=== PATIENT | male | born 1975 | race Caucasian/White ===

== ENCOUNTER 2019-08-15 09:29 | Outpatient (CLI) | payer OTHER, SELFPAY ==
--- NOTE | ~2019-08-15 | US_ITS ---
EXAMINATION: US knee asp inj w image LT DATE: 08/15/2019 11:57 INDICATION: Left knee pain and effusion TECHNIQUE: A time-out was performed to verify the patient's name, date of , and procedure to pura e performed. The procedure including the risks, benefits, and alternatives was discussed with the pat ient. Risks discussed included bleeding and infection. The patient understood the risks and agreed to proceed. The skin overlying the lateral side of the suprapatellar pouch of the left knee joint was prepped and draped in usual sterile fashion. Anesthetic was administered with 1% lidocaine subcutane ously. A 22 G needle was advanced under these ultrasound observation into the joint. 17 mL of clear yellow viscous joint fluid was aspirated and sent to the lab for Gram stain and cultures as ordered b y the referring physician. The needle was removed and the entry site was cleaned and dressed. There were no immediate complications. FINDINGS: Ultrasound images demonstrates the needle in a moderate-sized left knee joint effusion. IMPRESSION: 1. Successful ultrasound-guided left knee joint aspiration yielding 17 mL of clear yellow viscous flu id. Reviewed, dictated and finalized at location A. IMPRESSION: 1. Successful ultrasound-guided left knee joint aspiration yielding 17 mL of cl ear yellow viscous fluid.
[2019-08-15 12:37] LABS: Erythrocyte Sedimentation Rate 11 mm/hr (0-20)
[2019-08-15 13:00] LABS: Crystals Synovial Fluid None Seen (None Seen)
[2019-08-15 13:06] LABS: Appearance Synovial Fluid Hazy (Clear); Color Synovial Fluid Yellow (Colorless); Nucleated Cell Synovial Fluid 328 /uL (0-200); Source Synovial Fluid Synovial fluid
[2019-08-15 13:07] LABS: Lymphocytes Synovial Fluid 56 %; Monocytes Synovial Fluid 30 %; Neutrophils Synovial Fluid 6 % (0-25); Other Cells Synovial Fluid 8 %; RBC Synovial Fluid 698 /uL (0-0)
[2019-08-15 13:31] LABS: CRP < 0.5 mg/dL (<1.0)
== END 2019-08-15 09:30 | disposition home or self-care (01) ==
PROVIDERS: PCP Family Medicine; Visit Provider Orthopaedic Surgery
DX: M25.562 Pain in left knee (principal)
CPT/HCPCS: 20611; 36415; 85652; 86140; 87070; 87075; 87205; 88108; 89051; 89060

== ENCOUNTER → 2020-03-28 06:51 | Outpatient (CLI) | payer OTHER, SELFPAY ==
[2020-03-28 21:58] LABS: SARS-CoV-2 RNA PCR Positive
== END ==
PROVIDERS: PCP Family Medicine; Visit Provider Family Medicine
DX: U07.1 COVID-19 (principal)
CPT/HCPCS: C9803; U0003; U0005

== ENCOUNTER → 2021-02-23 11:24 | Outpatient (CLI) | payer OTHER, SELFPAY ==
--- NOTE | ~2021-02-23 | XR_ITS ---
XR chest 2V DATE: 02/23/2021 11:36 INDICATION: Cough. Acute bronchitis. TECHNIQUE: 2 views COMPARISON: 07/11/2013 PA and lateral chest FINDINGS: Normal heart size. No hilar or mediastinal enlargement. No pulmonary infiltrate or consolid ation, pleural effusion or pulmonary vascular congestion or pneumothorax is detected. IMPRESSION: No active cardiopulmonary disease Reviewed, dictated and finalized at location A. Y PLAN DEALER
== END ==
PROVIDERS: PCP Family Medicine; Visit Provider Family Medicine
DX: J20.9 Acute bronchitis, unspecified (principal)
CPT/HCPCS: 71046

== ENCOUNTER → 2021-08-13 13:31 | Outpatient (CLI) | payer OTHER, SELFPAY ==
--- NOTE | ~2021-08-13 | XR_ITS ---
EXAMINATION: XR tibia fibula LT 2V INDICATION: Left leg pain TECHNIQUE: Two views of the left tibia and fibula are obtained. COMPARISON: None available FINDINGS: There is no fracture, dislocation, or subluxation. There is soft tissue swelling of the leg . Changes of left knee arthroplasty are noted. Alignment at the ankle is normal. IMPRESSION: 1. Soft tissue swelling without underlying osseous abnormality. Reviewed, dictated and finalized at location B.
== END ==
PROVIDERS: PCP Family Medicine; Visit Provider Nurse Practitioner Family
DX: E11.65 Type 2 diabetes mellitus with hyperglycemia (principal); Z79.4 Long term (current) use of insulin; M79.89 Other specified soft tissue disorders
CPT/HCPCS: 73590

== ENCOUNTER 2021-08-18 13:16 | Outpatient (RCR) | payer OTHER, SELFPAY ==
[2021-08-18 13:32] VITALS: BMI 40.2
== END 2021-11-16 23:59 | disposition home or self-care (01) ==
LOC: ANHWOC 13:16
PROVIDERS: PCP Family Medicine; Visit Provider Nurse Practitioner Family
DX: E11.65 Type 2 diabetes mellitus with hyperglycemia (principal); E11.622 Type 2 diabetes mellitus with other skin ulcer; L98.499 Non-pressure chronic ulcer of skin of other sites with unspecified severity; Z79.4 Long term (current) use of insulin
CPT/HCPCS: 99212; A9270; G0463

== ENCOUNTER 2021-12-29 08:33 | Outpatient (CLI) | payer OTHER, SELFPAY ==
--- NOTE | 2022-01-22 18:12 | WPDHOMESLEEP ---
Sleep Study - Home Unattended Date of Study: 12/29/21 Ordering Provider: Rebel López MD Interpreting Provider: Faustina Andrea, DO Home Sleep Study Type: Watch PAT Height: 1.78 m Weight: 124.738 kg Body Mass Index: 39.4 Neck Circumference (inches): 17.5 [place]: 6 Reason for Sleep Study Snoring, multiple nighttime awakenings Sleep History The patient is a 47-year-old male with chronic low back pain depression peripheral edema, morbid obesity, seasonal allergies, TMJ, diabetes, B12 deficiency the arthritis that had a sleep study ordered by his primary care for evaluation sleep the patient frequently awakens from sleep short breath. He denies awakening at night with heartburn, belching or cough. He frequently snores loud enough that others complain. He occasionally has trouble sleeping when he has a cold. He frequently wakes up gasping for air throughout the night. He frequently has breathing problems at night observed by himself or others. He frequently sweats excessively at night. He rarely has heart palpitations or irregular heartbeats during the night. He rarely falls asleep during the day. He rarely falls asleep while driving. He rarely experiences loss of muscle tone when extremely emotional. He occasionally has trouble at school or work due to sleepiness. He denies feeling unable to move waking up or falling asleep. He rarely experiences vivid dreamlike scenes upon awakening or falling asleep. He denies feeling afraid of going to sleep. He rarely has nightmares occasionally remembers his dreams. He occasionally has thoughts racing through his mind. He rarely feels sad or depressed. He occasionally has anxiety. He rarely has muscular tension. He occasionally notices parts of his body jerk. He occasionally kicks during the night. He rarely has crawling and aching feelings in his legs and rarely has leg pain during the night. He occasionally grinds his teeth during sleep but rarely awakens with morning jaw pain. He is rarely bothered by pain during the day and rarely awakened by pain during the night. He rarely wakes up feeling stiff in the morning. He rarely wakes up with sore or achy muscles. He rarely wakes up with pain in the neck, spine or other joints. He goes to bed at 10:00 p.m. on both weekdays and weekends. It takes him 15-30 minutes to fall asleep. He wakes up to 6 times throughout the night to urinate. He is able to fall asleep within a few minutes. He wakes up at 5:00 a.m. on weekdays and at 7:00 a.m. on the weekends. He typically gets 5-6 hours of sleep per night. He will stay in bed for 5 minutes after waking up in the morning. He currently lives with his 3 children. He does not consume any caffeinated beverages within 2 hours of bedtime. He does not engage in physical exercise before bedtime. He will read and watch television before falling asleep. He denies taking naps in the afternoon or the evening. He drinks 2 caffeinated beverages per day. He denies tobacco, alcohol and recreational drug use. 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
[2022-01-22 18:25] VITALS: BMI 39.4
--- NOTE | 2022-03-17 09:28 | SLEEP ---
new calls [phone]
== END 2021-12-30 14:04 | disposition home or self-care (01) ==
LOC: ANHCSM 08:36
PROVIDERS: PCP Family Medicine; Visit Provider Family Medicine
DX: G47.10 Hypersomnia, unspecified (principal); R06.83 Snoring
CPT/HCPCS: 95800

== ENCOUNTER 2022-08-18 09:17 | Emergency (ER) | payer OTHER, SELFPAY ==
[2022-08-18 09:24] VITALS: BP 129/78; PULSE 77; RESP 18; TEMP 36.5; O2SAT 99
--- NOTE | 2022-08-18 09:58 | ED.WOUNDLAC ---
HPI - Wound/Laceration General Chief Complaint: Wound/Laceration Stated Complaint: Cut Finger Lt Hand Time Seen by Provider: 08/18/22 09:52 Source: patient and RN notes reviewed Mode of arrival: ambulatory Limitations: no limitations History of Present Illness HPI narrative: Patient presents today complaining of a laceration to the dorsum of his left 2nd finger at the proximal phalanx that occurred last night around 8:00 p.m. on a piece of glass. Denies numbness or tingling. Currently rates his pain 810. He is up-to-date on his tetanus vaccine. The area was cleaned with alcohol and peroxide as well as flushed with water. Patient is diabetic. Related Data Home Medications Medication Instructions Recorded Confirmed blood-glucose meter,continuous #1 ea 07/06/19 08/18/22 (Dexcom G6 Hotel Engineer) subcutaneous insulin pump (Omnipod #1 ea 07/06/19 08/18/22 Insulin Management) olopatadine 0.7 % eye drops 1 drp EACH EYE DAILY 05/11/21 08/18/22 (Pataday Once Daily Relief) Allergies Allergy/AdvReac Type Severity Reaction Status Date / Time aspartame Allergy Severe THROAT Verified 08/18/22 09:38 SWELLING sucralose Allergy Intermediate sore Verified 08/18/22 09:38 throat, THROAT SWELLING Review of Systems Review of Systems: CONSTITUTIONAL: Denies body aches, fever, chills, or sweats. EYES: Denies visual changes, redness, or discharge. ENT: Denies rhinorrhea, congestion, sore throat, or otalgia. CARDIOVASCULAR: Denies chest pain, palpitations, or edema. RESPIRATORY: Denies cough or dyspnea. GASTROINTESTINAL: Denies abdominal pain, nausea, vomiting, or diarrhea. GENITOURINARY: Denies dysuria or hematuria. SKIN: Denies rash, itching. + finger laceration MUSCULOSKELETAL: Denies back pain, joint pain, or myalgia. NEUROLOGIC: Denies headache, numbness, tingling, or weakness. PSYCH: Denies depression or anxiety. [facility] Past Medical History Medical History Acromioclavicular joint arthritis Acute bronchitis (~02/02/21) Chest x-ray normal 02/23/2021 Acute non-recurrent maxillary sinusitis Acute sinusitis, unspecified Allergic conjunctivitis Biceps rupture, distal BMI 39.0-39.9,adult BMI 40.0-44.9, adult Chronic eustachian tube dysfunction Chronic low back pain with right-sided sciatica COVID-19 (03/28/20) COVID-19 (04/26/22) 2nd episode 04/26/2022 with positive test 04/27/2022 Deep vein thrombosis (DVT) of left lower extremity (04/22/20) Exposure to COVID-19 virus Gastritis (~12/08/20) Hypersomnia (~2021) Hypokalemia Potassium low at 3.1 on 06/25/2022. Left knee pain senior care (current) use of insulin Major depression (~06/2020) Mild peripheral edema edema secondary to amlodipine 10 mg daily Morbid obesity with BMI of 40.0-44.9, adult Non-healing wound Obesity (BMI 30-39.9) Otitis media Right shoulder pain Rotator cuff tendonitis Screening for diabetic retinopathy no retinopathy 04/05/2022. Seasonal allergic rhinitis TMJ (temporomandibular joint syndrome) (~2021) Type 2 diabetes mellitus with hyperglycemia, with long-term current use of insulin Fasting glucose 138 on 06/25/2022 with hemoglobin A1c 5.6 on 06/17/2022. Type 2 diabetes mellitus with other skin ulcer Vitamin B12 deficiency anemia (07/16/20) vitamin B12 level low at 343 with goal greater than 400 on 07/16/2020. Vitamin B12 low at 376 with goal greater than 400 with folic acid 12.9 and hemoglobin 14.5 on 06/25/2022. Surgical History Surgical History History of appendectomy History of knee surgery History of total left knee replacement (TKR) Family History Family History Grandparent Family history of arthritis Diabetes mellitus Mother Family history of congestive heart failure Family history of heart disease in male family member before
== END 2022-08-18 10:20 | disposition home or self-care (01) ==
PROVIDERS: Emergency Provider Nurse Practitioner; PCP Family Medicine
DX: S61.211A Laceration without foreign body of left index finger without damage to nail, initial encounter (principal); W25.XXXA Contact with sharp glass, initial encounter; E66.01 Morbid (severe) obesity due to excess calories; Z68.37 Body mass index [BMI] 37.0-37.9, adult; E11.9 Type 2 diabetes mellitus without complications; Z79.4 Long term (current) use of insulin; Z79.84 Long term (current) use of oral hypoglycemic drugs; Z86.718 Personal history of other venous thrombosis and embolism; Z86.16 Personal history of COVID-19
CPT/HCPCS: 99213; G0463

== ENCOUNTER → 2023-01-24 16:42 | Outpatient (CLI) | payer OTHER, SELFPAY ==
--- NOTE | ~2023-01-24 | XR_ITS ---
XR lumbar spine min 4V 01/24/2023 17:06 Indication: Low back pain Procedure: 5 views lumbar spine Comparison: No prior studies for comparison. Findings: There is levoscoliosis. There is degenerative retrolisthesis at L1-2, L2-3 and L3-4. There is facet hypertrophy at L4-5 and L5-S1. There is disc narrowing at all lumbar levels. Levoscoliosis. No acute fracture or traumatic malalignment. Sacral foramen are symmetric. Impression: 1: Severe lumbar spondylosis. Reviewed, dictated and finalized at location A. [employer] Impression: 1: Severe lumbar spondylosis.
--- NOTE | ~2023-01-24 | XR_ITS ---
XR thoracic spine 3V 01/24/2023 17:06 Indication: Back pain Procedure: 3 views thoracic spine Comparison: No prior studies for comparison. Findings: Vertebral body heights are maintained. Pedicles intact. No fracture or traumatic malalignme nt. No paraspinal soft tissue abnormality. Impression: 1: No significant abnormality of the thoracic spine. Reviewed, dictated and finalized at location A. OFFICE AGENT Impression: 1: No significant abnormality of the thoracic spine.
== END ==
PROVIDERS: PCP Family Medicine; Visit Provider Family Medicine
DX: M54.41 Lumbago with sciatica, right side (principal); M54.6 Pain in thoracic spine; G89.29 Other chronic pain; M47.896 Other spondylosis, lumbar region
CPT/HCPCS: 72072; 72110

== ENCOUNTER 2023-10-17 13:37 | Outpatient (CLI) | payer OTHER, SELFPAY ==
--- NOTE | ~2023-10-17 | XR_ITS ---
3 VIEWS LUMBAR SPINE Ordering provider: Rakesh De La Fuente MD History: . M47.817 - Spondylosis without myelopathy or radiculopathy... . Comparison: None. FINDINGS: VERTEBRAL BODIES:Levoscoliosis. Anterior Loss of height of L1 is noted suggestive of chronic compress ion fracture... DISK SPACES: Degenerative disc disease at the level of L1-L2, L2-L3 and L4-L5. Multilevel facet joint disease. SOFT TISSUES: Normal. IMPRESSION: No acute osseous abnormality lumbar spine. Chronic loss of height anteriorly seen in L1. Multilevel degenerative disc disease. Multilevel facet joint disease. Reviewed, dictated and finalized at location A.
== END 2023-10-17 13:38 | disposition home or self-care (01) ==
PROVIDERS: PCP Family Medicine; Visit Provider Anesthesiology Pain Medicine
DX: M47.817 Spondylosis without myelopathy or radiculopathy, lumbosacral region (principal); M43.17 Spondylolisthesis, lumbosacral region; M51.36 Other intervertebral disc degeneration, lumbar region
CPT/HCPCS: 72114

== ENCOUNTER 2023-11-08 07:55 | Day surgery (SDC) | payer OTHER, SELFPAY ==
[2023-10-24 11:15] VITALS: BMI 36.3
--- NOTE | ~2023-11-08 | XR_ITS ---
EXAMINATION: XR fluoroscopy no charge DATE: 11/08/2023 9:00 CDT INDICATION: YOLIS L3,L4, L5 NERVE BLOCK . TECHNIQUE: 11 fluoroscopic images of the lumbar spine were obtained during bilateral L3, L4, and L5 n erve block, performed by Rakesh De La Fuente MD. I was not present during the procedure. Fluoroscopy exp osure time was 17.7 seconds. Air Kerma 6.53 mGy. COMPARISON: None FINDINGS/IMPRESSION: Fluoroscopic documentation of bilateral L3, L4, and L5 nerve block. Please refer to the operative not e for complete procedural details . Reviewed, dictated and finalized at location K.
--- NOTE | 2023-11-08 05:43 | WPDHPUPDATE1 ---
History and Physical Update Update Date/Time: 11/08/23 05:43 History and Physical has been reviewed, including an updated exam of the patient. There are NO changes in the patient's condition. Risks, benefits, and alternatives have been discussed and questions answered. Patient agrees to proceed with procedure.
--- NOTE | 2023-11-08 05:44 | W.PM.PROC2 ---
Procedure Note - Detailed Date of Procedure 11/08/23 Pre-op Diagnosis Lumbosacral Spondylosis, chronic low back pain Post-op Diagnosis Same Procedure Performed Diagnostic bilateral Lumbar Medial Branch/Dorsal Ramus Blocks at L3, L4, L5 Treating the bilateral L4-5, L5-S1 Facet Joints Under Fluoroscopic Guidance and with Contrast Control. ( 4 levels blocked). Surgeon Rakesh De La Fuente MD Spout Worker None. Anesthesia Local Description of Procedure INFORMED CONSENT: Risks, benefits and alternatives to the procedure were discussed in detail with the patient who expressed explicit understanding and consent to proceed. Patient was informed verbally and in written form regarding the risks associated with the procedure including the low risk of serious infection, bleeding/bruising, allergic reaction, nerve or organ injury, paralysis, procedural site pain or discomfort, worsening pain and/or mobility, failure to treat and/or disfigurement. The patient expressed explicit understanding and consent to proceed. All materials required for the procedure were available prior to procedure start. Site and side were marked prior to procedure and confirmed in the presence of the patient. PROCEDURE IN DETAIL: The patient was brought to the procedural suite and placed in the prone position. Patient was made comfortable with use of pillows under the head/chest, hips and ankles. Skin overlying the injection site on the affected side(s) was prepared broadly with ChloraPrep applicator and draped in a sterile manner. Aseptic technique was used throughout. The endplates of the vertebral bodies at the site(s) of interest were aligned in the AP view. Ipsilateral oblique angulation was utilized to optimize visualization of the intersection between the superior articulating process and transverse process at each target site. Local anesthesia was established by infiltration with approximately 5 mL of 1% lidocaine via a 1-1/2 inch 27-gauge needle. A 25-gauge 3.5 inch Quincke spinal needle was advanced until the needle tip contacted periosteum at the target site, right L3. Lateral view was utilized to confirm the appropriate placement of the needle tip just anterior to the facet line and superior to the pedicle. In the Lateral view, 0.25 mL of Omnipaque 300 contrast medium was injected after negative aspiration for CSF, blood or other bodily fluid, showing appropriate extra-articular spread of contrast without evidence of intravascular, foraminal or intrathecal placement. A 0.5 mL solution of 0.5% PF bupivacaine was injected after negative repeat aspiration. Appropriate spread of the injectate was confirmed with washout of previously injected contrast. No parasthesias were elicited. Needle was removed completely intact without difficulty. The same exact procedure was repeated for all remaining levels on the ipsilateral side, right L4, L5 medial branches/dorsal ramus, modified as necessary to accommodate for the new target location with identical findings and results and no evidence of complication. The same exact procedure was repeated for all remaining levels on the contralateral side, left L3, L4, L5 medial branches/dorsal ramus, modified as necessary to accommodate for the new target location with identical findings and results and no evidence of complication. Images were saved and documented in the patient chart. Patient's skin was cleaned and sterile bandage applied. The patient tolerated the procedure well. The patient was transported to the recovery area in stable condition where they were observed for an appropriate amount of time prior to discharge, without evidence of complication. Patient was instructed on the appropriate completion of a pain diary over the next 12-24 hours. The patient was instructed to avoid excessive activity for the next 48 hours, including climbing and frequent use of stairs. Showers only for 48 hours. They were instructed not to drive or operate heavy machinery for
[2023-11-08 08:20] VITALS: BMI 36.6
[2023-11-08 08:21] VITALS: BP 129/98; PULSE 76; RESP 16; TEMP 36.7; O2SAT 98
[2023-11-08 09:07] VITALS: BP 148/88; PULSE 68; RESP 14; O2SAT 97
[2023-11-08 09:12] VITALS: BP 147/87; PULSE 67; RESP 10; O2SAT 98
[2023-11-08] MEDS: LIDOCAINE HCL 1% PF INJ 5 ML VIAL 3 ML INFILTRATE (09:15)
[2023-11-08] MEDS: BUPivacaine HCL 0.5% 10 ML AMP 5 ML INFILTRATE (09:17)
[2023-11-08 09:21] VITALS: BP 143/95; PULSE 78; RESP 15; O2SAT 99
== END 2023-11-08 09:30 | disposition home or self-care (01) ==
PROVIDERS: PCP Family Medicine; Visit Provider Anesthesiology Pain Medicine
PROC: (CPT 64493; principal; 2023-11-08 09:00)
DX: M47.817 Spondylosis without myelopathy or radiculopathy, lumbosacral region (principal); M54.59 Other low back pain
CPT/HCPCS: 64493 ×2; 64494 ×2; 99199

== ENCOUNTER 2023-12-13 09:47 | Day surgery (SDC) | payer OTHER, SELFPAY ==
[2023-12-05 09:03] VITALS: BMI 37.6
--- NOTE | ~2023-12-13 | XR_ITS ---
INTRAOPERATIVE FLUOROSCOPY: CLINICAL HISTORY: 48 years old Male; YOLIS L3,L4,L5 MEDIAL BRANCH/DORSAL NERVE BLK PROCEDURE COMMENTS: Limited intraoperative fluoroscopy of the lower lumbar spine was performed. CUMULATIVE DOSE: 9.2 mGy FLUOROSCOPY TIME: 23.4 seconds FINDINGS/IMPRESSION: As above Please refer to operative note for further details. Reviewed, dictated and finalized at location A. RMATION TECHNOLOGY TEACHER
[2023-12-13 10:19] VITALS: BP 132/90; PULSE 83; RESP 20; TEMP 36.4; O2SAT 96; BMI 36.7
--- NOTE | 2023-12-13 10:52 | WPDHPUPDATE1 ---
History and Physical Update Update Date/Time: 12/13/23 10:52 History and Physical has been reviewed, including an updated exam of the patient. There are NO changes in the patient's condition. Risks, benefits, and alternatives have been discussed and questions answered. Patient agrees to proceed with procedure.
--- NOTE | 2023-12-13 10:53 | P.OP_ITS ---
Procedure Note - Detailed Date of Procedure 12/13/23 Pre-op Diagnosis Lumbosacral Spondylosis, chronic low back pain Post-op Diagnosis Same Procedure Performed Diagnostic Bilateral Lumbar Medial Branch/Dorsal Ramus Blocks at L3, L4, L5 T reating the Bilateral L4-5, L5-S1 Facet Joints Under Fluoroscopic Guidance and with Contrast Control. (4 levels blocked). Surgeon Rakesh De La Fuente MD Beef Breaker None. Anesthesia Local Description of Procedure INFORMED CONSENT: Risks, benefits and alternatives to the procedure were discussed in detail with the patient who expressed explicit understanding and consent to proceed. Patient was informed verbally and in written form regarding the risks associated with the procedure including the low risk of serious infection, bleeding/bruising, allergic reaction, nerve or organ injury, paralysis, procedural site pain or discomfort, worsening pain and/or mobility, failure to treat and/or disfigurement. The patient expressed explicit understanding and consent to proceed. All materials required for the procedure were available prior to procedure start. Site and side were marked prior to procedure and confirmed in the presence of the patient. PROCEDURE IN DETAIL: The patient was brought to the procedural suite and placed in the prone position. Patient was made comfortable with use of pillows under the head/chest, hips and ankles. Skin overlying the injection site on the affected side(s) was prepared broadly with ChloraPrep applicator and draped in a sterile manner. Aseptic technique was used throughout. The endplates of the vertebral bodies at the site(s) of interest were aligned in the AP view. Ipsil ateral oblique angulation was utilized to optimize visualization of the intersection between the superior articulating process and transverse process at each target site. Local anesthesia was established by infiltration with approximately 5 mL of 1% lidocaine via a 1-1/2 inch 27-gauge needle. A 25-gauge 5.0 inch Quincke spinal needle was advanced until the needle tip contacted periosteum at the target site, right L3. Lateral view was utilized to confirm the appropriate placement of the needle tip just anterior to the facet line and superior to the pedicle. In the Lateral view, 0.25 mL of Omnipaque 300 contrast medium was injected after negative aspiration for CSF, blood or other bodily fluid, showing appropriate extra-articular spread of contrast without evidence of intravascular, foraminal or intrathecal placement. A 0.5 mL solution of 2.0% PF Lidocaine was injected after negative repeat aspiration. Appropriate spread of the injectate was confirmed with washout of previously injected contrast. No parasthesias were elicited. Needle was removed completely intact without difficulty. The same exact procedure was repeated for all remaining levels on the ipsilateral side, right L4, L5 medial branches/dorsal ramus, modified as necessary to accommodate for the new target location with identical findings and results and no evidence of complication. The same exact procedure was repeated for all remaining levels on the contralateral side, left L3, L4, L5 medial branches/dorsal ramus, modified as necessary to accommodate for the new target location with identical findings and results and no evidence of complication. Images were saved and documented in the patient chart. Patient's skin was cleaned and sterile bandage applied. The patient tolerated the procedure well. The patient was transported to the recovery area in stable condition where they were observed for an appropriate amount of time prior to discharge, without evidence of complication. Patient was instructed on the appropriate completion of a pain diary over the next 12-24 hours. The patient was instructed to avoid excessive activity for the next 48 hours, including climbing and frequent use of stairs. Showers only for 48 hours. They were instructed not to drive or operate heavy machinery for 24 hours. They are to monitor for severe headaches, fevers, chills, night sweats, erythema/swelling at the site or any other signs of infection, bleeding/bruising, bowel or bladder changes as well as new pain, weakness or numbness in the upper or lower extremity. Should they notice these changes, they are instructed to call our office immediately or report directly to the nearest Emergency Department if no answer or if after posted office hours. COMPLICATIONS: None COMMENTS: None CONTRAST WASTED: 28.5mL Omnipaque 300. Complications No immediate complications Condition Stable Disposition Same day [facility] Billing Surgery - Charge Forward: Surgery Billing
[2023-12-13 11:05] VITALS: BP 147/91; PULSE 76; RESP 12; O2SAT 98
[2023-12-13 11:11] VITALS: BP 151/87; PULSE 74; RESP 10; O2SAT 98
[2023-12-13] MEDS: LIDOCAINE HCL 1% PF INJ 5 ML VIAL 2 ML INFILTRATE (11:17)
[2023-12-13] MEDS: LIDOCAINE HCL 2% PF INJ 5 ML VIAL 3 ML INFILTRATE (11:17)
[2023-12-13 11:20] VITALS: BP 134/92; PULSE 83; RESP 14; O2SAT 100
== END 2023-12-13 11:29 | disposition home or self-care (01) ==
PROVIDERS: PCP Family Medicine; Visit Provider Anesthesiology Pain Medicine
PROC: (CPT 64493; principal; 2023-12-13 11:15)
DX: M47.817 Spondylosis without myelopathy or radiculopathy, lumbosacral region (principal); M54.59 Other low back pain
CPT/HCPCS: 64493 ×2; 64494 ×2; 99199

== ENCOUNTER 2024-01-12 09:23 | Outpatient (CLI) | payer OTHER, SELFPAY ==
[2024-01-12 10:49] LABS: Anion Gap 5 mmol/L (4-12); Blood Urea Nitrogen 19 mg/dL (9-20); Calcium 9.2 mg/dL (8.4-10.2); Carbon Dioxide 33 mmol/L (22-30); Chloride 104 mmol/L (98-107); Estimated Glomerular Filt Rate > 60; Glucose 136 mg/dL (65-110); Potassium 3.2 mmol/L (3.4-5.0); Sodium 142 mmol/L (137-145)
== END 2024-01-12 09:24 | disposition home or self-care (01) ==
PROVIDERS: PCP Family Medicine; Visit Provider Anesthesiology
DX: Z01.818 Encounter for other preprocedural examination (principal)
CPT/HCPCS: 36415; 80048

== ENCOUNTER 2024-01-17 07:00 | Day surgery (SDC) | payer OTHER, SELFPAY ==
[2024-01-09 12:05] VITALS: BMI 38.0
--- NOTE | ~2024-01-17 | XR_ITS ---
XR fluoroscopy no charge Indication: Thermal radiofrequency ablation at L3, L4 and L5 medial branch nerve block TECHNIQUE: Fluoroscopy used during Thermal radiofrequency ablation at L3, L4 and L5 medial branch ne rve block performed by [Rakesh De La Fuente MD] . 127 fluoroscopic images. FINDINGS: Correlate with procedure note. IMPRESSION: Fluoroscopy used during Thermal radiofrequency ablation at L3, L4 and L5 medial branch ne rve block . Reviewed, dictated and finalized at location B. [employer] IMPRESSION: Fluoroscopy used during Thermal radiofrequency ablation at L3, L4 a nd L5 medial branch nerve block .
[2024-01-17 06:15] VITALS: BP 132/93; PULSE 87; RESP 18; TEMP 36.4; O2SAT 96
[2024-01-17] MEDS: LACTATED RINGERS 1,000 ML 30 ML IV CONT (06:33)
--- NOTE | 2024-01-17 07:09 | P.PNAN_ITS ---
Anes - Initial Pre Proc Eval Procedure: Operation Date: 01/17/24 07:30 Proposed Procedures p Thermal Radiofrequency Ablation Bilateral L3, L4, L5 Medial Branch/Dorsal Ramus Addressing Bilateral L4-5, L5-S1 Facet Joints under Fluoroscopic Guidance with Contrast Control - Rakesh De La Fuente MD Date/Time: 01/17/24 07:09 Surgeon: Rakesh De La Fuente MD Pre Op Diagnosis: Lumbosacral Spondylosis Patient Data Age: 48 Gender: M Height: 1.78 m Weight: 120.3 kg Allergies Allergy/AdvReac Type Severity Reaction Status Date / Time aspartame Allergy Severe THROAT Verified 01/17/24 07:08 SWELLING sucralose Allergy Intermediate sore Verified 01/17/24 07:08 throat, THROAT SWELLING Home Medications ?Medication ?Instructions ?Recorded ?Confirmed ?Type blood-glucose meter,continuous #1 ea 07/06/19 12/27/23 History (Dexcom G6 Lens Edge Grinder Machine) albuterol sulfate 90 mcg/actuation 2 inh inhalation Q4H PRN shortness 02/23/21 01/09/24 Rx aerosol inhaler (ProAir HFA) of breath or wheezing #8.5 grams blood-glucose meter (Contour Next #1 ea 04/09/21 12/27/23 Rx Meter) Dexcom G6 Transmitter #1 ea 07/26/22 12/27/23 Rx (blood-glucose transmitter) atorvastatin 40 mg tablet 40 mg PO QHS #90 tabs 12/21/22 01/09/24 Rx glucagon 3 mg/actuation nasal 3 mg intranasal ONCE PRN 12/23/22 01/09/24 Rx spray (Baqsimi) hypoglycemia #1 ea insulin pump cart,automated,BT #45 ea 03/31/23 12/27/23 Rx (Omnipod 5 G6 Pods (Gen 5) subcutaneous cartridge) Dexcom G6 Sensor (blood-glucose #9 ea 04/11/23 12/27/23 Rx sensor) amlodipine 10 mg tablet 10 mg PO DAILY #90 tabs 04/11/23 01/09/24 Rx azelastine 0.05 % eye drops 1 drp ophthalmic (eye) BID PRN 05/12/23 01/09/24 Rx allergy #18 mL fluticasone propionate 50 1 spray intranasal BID #48 grams 05/12/23 01/09/24 Rx mcg/actuation nasal spray,suspension (Flonase Allergy Relief) irbesartan 300 1 tablet PO DAILY #90 tabs 07/08/23 01/09/24 Rx mg-hydrochlorothiazide 12.5 mg tablet dapagliflozin propanediol 10 mg 10 mg PO QAM 90 days #90 tabs 07/21/23 01/09/24 Rx tablet (Farxiga) metformin 500 mg tablet,extended 1,000 mg (2 x 500 mg) PO BID #360 07/21/23 01/09/24 Rx release 24 hr tabs tirzepatide 15 mg/0.5 mL 15 mg (0.5 mL) subcut WEEKLY #6 mL 07/21/23 01/09/24 Rx subcutaneous pen injector (Mounjaro) escitalopram oxalate 10 mg tablet 10 mg PO DAILY #30 tabs 11/08/23 01/09/24 Rx (Lexapro) tadalafil 5 mg tablet 5 mg PO DAILY sexual activity #90 12/27/23 01/09/24 Rx tabs tamsulosin 0.4 mg capsule 0.4 mg PO QHS #90 caps 12/27/23 01/09/24 Rx insulin lispro 100 unit/mL 100 unit continuous subcutaneous 01/09/24 Rx subcutaneous solution (Humalog infusion DAILY #90 mL U-100 Insulin) omeprazole 40 mg capsule,delayed 40 mg PO DAILY #90 caps 01/09/24 01/09/24 Rx release Patient hx anesthesia problems: none Family hx anesthesia problems: none Results Review: All pre-operative results and documents have been reviewed as part of the pre- operative evaluation. [facility] Past Medical History Medical History BPH without obstruction/lower urinary tract symptoms Left shoulder pain Paresthesia of both hands (~05/2023) overuse BMI 38.0-38.9,adult Chronic thoracic back pain X-ray of the thoracic spine on 01/24/2023 was unremarkable. Muscle soreness Tendinitis of left rotator cuff DJD of AC (acromioclavicular) joint Colon cancer screening patient reports normal colonoscopy within the last several years. Recheck in 10 years. BMI 37.0-37.9, adult Chiggers (~10/25/22) COVID-19 (04/26/22) 2nd episode 04/26/2022 with positive test 04/27/2022 Obesity (BMI 30-39.9) Screening for diabetic retinopathy no retinopathy 04/05/2022. Otalgia of both ears Sensation of fullness in both ears Mild peripheral edema edema secondary to amlodipine 10 mg daily Hypersomnia (~2021) Chronic eustachian tube dysfunction TMJ (temporomandibular joint syndrome) (~2021) Morbid obesity with BMI of 40.0-44.9, adult Rotator cuff tendonitis Right shoulder pain Otitis media Type 2 diabetes mellitus with other skin ulcer Diabetic skin ulcer Non-healing wound Allergic conjunctivitis Seasonal allergic rhinitis Acute sinusitis, unspecified Hyperlipidemia LDL goal <100 Acute bronchitis (~02/02/21) Chest x-ray normal 02/23/2021 Vitamin B12 deficiency anemia (07/16/20) vitamin B12 level low at 343 with goal greater than 400 on 07/16/2020. Vitamin B12 low at 376 with goal greater than 400 with folic acid 12.9 and hemoglobin 14.5 on 06/25/2022. BMI 40.0-44.9, adult Gastritis (~12/08/20) Major depression (~06/2020) High thyroid stimulating hormone (TSH) level TSH normal at 3.47 on 06/25/2022. BMI 39.0-39.9,adult Deep vein thrombosis (DVT) of left lower extremity (04/22/20) COVID-19 (03/28/20) Exposure to COVID-19 virus Left knee pain Hypokalemia Potassium low at 3.1 on 06/25/2022. Biceps rupture, distal Acromioclavicular joint arthritis Chronic low back pain with right-sided sciatica X-ray of the lumbar spine on 01/24/2023 reveals severe lumbar spondylosis with facet arthropathy. Multilevel degenerative disc disease on x-ray 10/17/2023. Acute non-recurrent maxillary sinusitis [facility] (current) use of insulin Type 2 diabetes mellitus with hyperglycemia, with long-term current use of insulin Fasting glucose 138 on 06/25/2022 with hemoglobin A1c 5.6 on 06/17/2022. Surgical History Surgical History History of total left knee replacement (TKR) History of knee surgery History of appendectomy Family History Family History Grandparent Family history of arthritis Diabetes mellitus Mother Family history of congestive heart failure Family history of heart disease in male family member before age 55 Father Family history of heart disease in male family member before age 55 Other Family history of cardiovascular disease Family history of malignant neoplasm Social History Social History Smoking status: Never smoker Second hand tobacco smoke exposure: Yes Alcohol intake: never Substance use: never Substance use type: does not use Lack of Transportation: No Lack of Food: Sometimes True Current Housing: I Have Housing Concerned About Future Housing: No Difficulty Paying Gas/Electric Bills: No Difficulty Paying for Meds: No Currently Unemployed: No Education: High School Diploma/GED Difficulty w/ Childcare or Family Care: No Living arrangements: with family Spiritual care concerns: No Anes - Eval Final PreProcedure Day of Procedure 01/17/24 07:09 Patient weight: obese Heart: regular rate and rhythm Lungs: clear to auscultation Airway: Mallampati scale class II Neurological: alert and oriented Last oral intake: >/= 8 hours ASA classification: III Emergent: no Anesthetic plan: proceed Anesthesia type and monitoring: general GIVS and standard monitoring Results Review: All pre-operative results and documents have been reviewed as part of the pre- operative evaluation. Informed Consent: The patient's anesthetic plan and its attendant risks and benefits were discussed with the patient/family/POA. Questions were solicited and answers provided to the satisfaction of the patient/family/POA.
--- NOTE | 2024-01-17 07:11 | WPDHPUPDATE1 ---
History and Physical Update Update Date/Time: 01/17/24 07:11 History and Physical has been reviewed, including an updated exam of the patient. There are NO changes in the patient's condition. Risks, benefits, and alternatives have been discussed and questions answered. Patient agrees to proceed with procedure.
--- NOTE | 2024-01-17 07:13 | W.PM.PROC2 ---
Procedure Note - Detailed Date of Procedure 01/17/24 Pre-op Diagnosis Lumbosacral Spondylosis, chronic low back pain Post-op Diagnosis Same Procedure Performed Thermal Radiofrequency Ablation of the [Right] Lumbar Medial Branches[/Dorsal Ramus] at the [L3, L4, L5] Levels Treating the [Ipsilateral] [L4-5, L5-S1] Facet Joints Under Fluoroscopic Guidance ([2] Levels Treated). Surgeon Rakesh De La Fuente MD Advanced Manager None. Anesthesia Local (w/ MAC) Description of Procedure INFORMED CONSENT: Risks, benefits and alternatives to the procedure were discussed in detail with the patient who expressed explicit understanding and consent to proceed. Patient was informed verbally and in written form regarding the risks associated with the procedure including the low risk of serious infection, bleeding/bruising, allergic reaction, nerve or organ injury, paralysis, procedural site pain or discomfort, worsening pain and/or mobility, failure to treat and/or disfigurement. The patient expressed explicit understanding and consent to proceed. All materials required for the procedure were available prior to procedure start. Site and side were marked prior to procedure and confirmed in the presence of the patient. PROCEDURE IN DETAIL: The patient was brought to the procedural suite and placed in the prone position. Patient was made comfortable with use of pillows under the head/chest, hips and ankles. ASA standard monitors were applied and used throughout the procedure. Skin overlying the injection site on the affected side(s) was prepared broadly with ChloraPrep applicator and draped in a sterile manner. Aseptic technique was used throughout. The endplates of the vertebral bodies at the site(s) of interest were aligned in the AP view. Ipsilateral oblique angulation was utilized to optimize visualization of the intersection between the superior articulating process and transverse process at each target site. Local anesthesia was established by infiltration with approximately 5 mL of 1% lidocaine via a 1-1/2 inch 27-gauge needle divided over each site treated. A 16-gauge 150mm My Point...Exactlyian RF needle with curved 10mm active tip was advanced in the AP view until the needle tip contacted the periosteum at the target site, the right L3 medial branch. Lateral view was utilized to adjust and confirm the appropriate placement of the needle tip just anterior to the facet line, superior to the pedicle and posterior to the foramen. Grounding electrode was in place and functioning. The appropriately-sized RF cannula was inserted into the RF needle and motor stimulation was performed with no subjective or objective evidence of recruited muscle activity with stimulation up to 2.0 volts at a frequency of 2Hz. 1.5 mL of 2.0% PF lidocaine was injected after negative aspiration. After a 90s pause, lesioning was performed to 90 degrees centigrade for 90s ensuring lack of symptoms in the extremity throughout. Needle was rotated 180 degrees and lesioning repeated in a similar manner. Patient tolerated this well. No parasthesias were elicited. Needle was removed completely intact without difficulty. The same procedure was repeated for all intended levels/ structures on the ipsilateral side, right L4, L5 medial branch/dorsal ramus with identical methodology, modified to compensate for new location, with similar results and no evidence of complication. The same exact procedure was repeated for all remaining levels on the contralateral side, left L3, L4, L5 medial branches/dorsal ramus, modified as necessary to accommodate for the new target location with identical findings/results and no evidence of complication. Images were saved and documented in the patient chart. Patient's skin was cleansed and sterile bandage applied. The patient tolerated the procedure well. The patient was transported to the recovery area in stable condition where they were observed for an appropriate amount of time prior to discharge, without evidence of complication. The patient was instructed to avoid excessive activity for the next 48 hours, including climbing and frequent use of stairs. Showers only for 48 hours. They were instructed not to drive or operate heavy machinery for 24 hours. They are to monitor for severe headaches, fevers, chills, night sweats, erythema/swelling at the site or any other signs of infection, bleeding/bruising, bowel or bladder changes as well as new pain, weakness or numbness in the upper or lower extremity. Should they notice these changes, they are instructed to call our office immediately or report directly to the nearest Emergency Department if no answer or if after posted office hours. COMPLICATIONS: None COMMENTS: None Complications No immediate complications Condition Stable Disposition PACU [facility] Billing Surgery - Charge Forward: Surgery Billing
--- NOTE | 2024-01-17 07:23 | SUR.PREOP ---
patient blood sugar preoperatively is 139 @0634am. unable to scan pt wristband due to system update
[2024-01-17] MEDS: LIDOCAINE HCL 1% PF INJ 5 ML VIAL INFILTRATE (07:39)
[2024-01-17] MEDS: BUPivacaine HCL 0.5% 10 ML AMP INFILTRATE (08:00)
[2024-01-17] MEDS: LIDOCAINE HCL 2% PF INJ 5 ML VIAL 10 ML INFILTRATE (08:10)
--- NOTE | 2024-01-17 08:10 | SUR.PREOP ---
patient preoperative blood sugar is 139 @0634
[2024-01-17 08:11] VITALS: BP 129/78; PULSE 86; RESP 18; O2SAT 97
[2024-01-17 08:30] VITALS: BP 131/86; PULSE 76; RESP 16; O2SAT 96
[2024-01-17 08:50] VITALS: BP 129/86; PULSE 76; RESP 18; O2SAT 97
--- NOTE | 2024-01-17 08:58 | WPDANESPN ---
Anes - Prog Note Post-Op Date/Time: 01/17/24 08:58 Cardiovascular status: normal Respiratory status: normal Airway patency: baseline Mental status: baseline Post-Op hydration status: normal Vital Signs: Last Vital Signs Temp 36.4 C 01/17/24 06:15 Pulse 76 01/17/24 08:50 Resp 18 01/17/24 08:50 BP 129/86 01/17/24 08:50 Pulse Ox 97 01/17/24 08:50 O2 Del Method Room Air 01/17/24 08:50 Pain Score (VAS): 0/10 I/O: Intake & Output 01/16/24 01/17/24 01/17/24 23:59 07:59 15:59 Intake Total 50 Balance 50 Patient Feedback: Patient satisfied with anesthetic care.
== END 2024-01-17 08:57 | disposition home or self-care (01) ==
PROVIDERS: Anesthesiology; PCP Family Medicine; Visit Provider Anesthesiology Pain Medicine
PROC: (CPT 64635; principal; 2024-01-17 07:30)
DX: M47.817 Spondylosis without myelopathy or radiculopathy, lumbosacral region (principal); M54.59 Other low back pain
CPT/HCPCS: 64635 ×2; 64636 ×2; 99199

== ENCOUNTER 2024-02-04 08:45 | Emergency (ER) | payer OTHER, SELFPAY ==
[2024-02-04 09:04] VITALS: BP 163/94; PULSE 72; RESP 18; TEMP 35.7; O2SAT 99
--- NOTE | 2024-02-04 09:04 | ED_ITS ---
HPI - Skin/Abscess/Foreign Bdy General Chief complaint: Skin/Abscess/Foreign Body Stated complaint: Rash Time Seen by Provider: 02/04/24 09:04 Source: patient, RN notes reviewed and old records reviewed Mode of arrival: ambulatory Limitations: no limitations History of Present Illness HPI narrative: 49-year-old male presents to the [facility] with rash. States that he was hunting 1 week ago, right dorsal hand has a dried area of rash consistent with contact dermatitis. States he has been putting a cream on it with no relief. Has had clear serous drainage with no purulent. Not hot to touch. No fluctuance area. Patient also states that he has had multiple areas that are circular, raised edges to his body. Multiple areas are seen, consistent with ring warm. 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) Allergies Allergy/AdvReac Type Severity Reaction Status Date / Time aspartame Allergy Severe THROAT Verified 02/04/24 08:53 SWELLING sucralose Allergy Intermediate sore Verified 02/04/24 08:53 throat, THROAT SWELLING Review of Systems Review of Systems: All systems reviewed & are unremarkable except as noted in HPI and below Constitutional: Constitutional: Reports no additional constitutional complaints ENT: Reports system reviewed and no additional complaints, except as documented Cardiovascular: Cardiovascular: Reports no additional cardiovascular complaints, Denies chest pain and Denies dyspnea Respiratory: Respiratory: Reports no additional respiratory complaints, Denies chest congestion, Denies cough and Denies dyspnea Musculoskeletal: Musculoskeletal: Reports no additional musculoskeletal complaints Integumentary/Breasts: Skin/Breast: Reports as per HPI [facility] Past Medical History Medical History BPH without obstruction/lower urinary tract symptoms Left shoulder pain Paresthesia of both hands (~05/2023) overuse BMI 38.0-38.9,adult Chronic thoracic back pain X-ray of the thoracic spine on 01/24/2023 was unremarkable. Muscle soreness Tendinitis of left rotator cuff DJD of AC (acromioclavicular) joint Colon cancer screening patient reports normal colonoscopy within the last several years. Recheck in 10 years. BMI 37.0-37.9, adult Chiggers (~10/25/22) COVID-19 (04/26/22) 2nd episode 04/26/2022 with positive test 04/27/2022 Obesity (BMI 30-39.9) Screening for diabetic retinopathy no retinopathy 04/05/2022. Otalgia of both ears Sensation of fullness in both ears Mild peripheral edema edema secondary to amlodipine 10 mg daily Hypersomnia (~2021) Chronic eustachian tube dysfunction TMJ (temporomandibular joint syndrome) (~2021) Morbid obesity with BMI of 40.0-44.9, adult Rotator cuff tendonitis Right shoulder pain Otitis media Type 2 diabetes mellitus with other skin ulcer Diabetic skin ulcer Non-healing wound Allergic conjunctivitis Seasonal allergic rhinitis Acute sinusitis, unspecified Hyperlipidemia LDL goal <100 Acute bronchitis (~02/02/21) Chest x-ray normal 02/23/2021 Vitamin B12 deficiency anemia (07/16/20) vitamin B12 level low at 343 with goal greater than 400 on 07/16/2020. Vitamin B12 low at 376 with goal greater than 400 with folic acid 12.9 and hemoglobin 14.5 on 06/25/2022. BMI 40.0-44.9, adult Gastritis (~12/08/20) Major depression (~06/2020) High thyroid stimulating hormone (TSH) level TSH normal at 3.47 on 06/25/2022. BMI 39.0-39.9,adult Deep vein thrombosis (DVT) of left lower extremity (04/22/20) COVID-19 (03/28/20) Exposure to COVID-19 virus Left knee pain Hypokalemia Potassium low at 3.1 on 06/25/2022. Biceps rupture, distal Acromioclavicular joint arthritis Chronic low back pain with right-sided sciatica X-ray of the lumbar spine on 01/24/2023 reveals severe lumbar spondylosis with facet arthropathy. Multilevel degenerative disc disease on x-ray 10/17/2023. Acute non-recurrent maxillary sinusitis FPC (current) use of insulin Type 2 diabetes mellitus with hyperglycemia, with long-term current use of insu ramin Fasting glucose 138 on 06/25/2022 with hemoglobin A1c 5.6 on 06/17/2022. Surgical History Surgical History History of total left knee replacement (TKR) History of knee surgery History of appendectomy Family History Family History Grandparent Family history of arthritis Diabetes mellitus Mother Family history of congestive heart failure Family history of heart disease in male family member before age 55 Father Family history of heart disease in male family member before age 55 Other Family history of cardiovascular disease Family history of malignant neoplasm Social History Social History Smoking status: Never smoker Second hand tobacco smoke exposure: Yes Alcohol intake: never Substance use: never Substance use type: does not use Lack of Transportation: No Lack of Food: Sometimes True Current Housing: I Have Housing Concerned About Future Housing: No Difficulty Paying Gas/Electric Bills: No Difficulty Paying for Meds: No Currently Unemployed: No Education: High School Diploma/GED Difficulty w/ Childcare or Family Care: No Living arrangements: with family Spiritual care concerns: No Comments At the time of my signature, I reviewed and agree with the nursing past medical, surgical, social, and family history. There is no relevant family history pertinent to the patient complaint. Exam Const: General: cooperative, healthy appearing, comfortable, no acute distress, well developed, alert and well nourished Nutritional Appearance: well nourished Orientation/consciousness: patient oriented x3 Limitations: no limitations HENMT: Head: normal to inspection Face and sinus: normal facial exam and face symmetric Eyes: General: appearance normal, both eyes and all related structures Neck: Neck: normal visual inspection, full ROM, no lymphadenopathy and no meningeal signs Chest: Chest palpation & inspection: normal inspection of the chest Resp: Effort & Inspection: normal respiratory effort and able to speak in complete sentences Auscultation: clear to auscultation bilaterally, no crackles, no rales, no rhonchi and no wheezes Cardio: Rate: regular rate Skin: General skin exam: normal color and no rashes or lesions noted Other: Dry patches skin right dorsal hand. Area is not hot to touch. No fluctuant areas, dry, flaky skin. Very consistent with contact dermatitis. Will treat with topical cream . Lebron also with multiple circular area s on neck, legs, arms, raised edges. Most consistent with ringworm. Discussed treatment plan of antifungal for prolonged period of time, stressed the importance of following up with primary care provider. Neuro: General: patient oriented x3, gait normal, moves all extremities and no meningeal signs Cognition (Neuro): normal cognition Speech: normal speech Gait exam (Neuro): Normal gait present Extrem: General: normal to inspection, full ROM, capillary refill normal and normal gait Psych: Appearance: grossly normal and well kempt Mental Status: mental status grossly normal Speech and movement: Normal speech and movement present and Clear speech present Affect: normal affect Attitude: cooperative Course Course Level of Care: Express Care Visit Vital Signs Vital signs: Vital Signs Temperature 96.3 F L 02/04/24 09:04 Pulse Rate 72 02/04/24 09:04 Respiratory Rate 18 02/04/24 09:04 Blood Pressure 163/94 H 02/04/24 09:04 Pulse Oximetry 99 02/04/24 09:04 Oxygen Delivery Room Air 02/04/24 09:04 Temperature 96.3 F L 02/04/24 09:04 Pulse Rate 72 02/04/24 09:04 Respiratory Rate 18 02/04/24 09:04 Blood Pressure 163/94 H 02/04/24 09:04 Pulse Oximetry 99 02/04/24 09:04 Oxygen Delivery Room Air 02/04/24 09:04 Reviewed MDM - Skin/Abscess/Foreign Bdy MDM Narrative Medical decision making narrative: Patient sitting comfortably in exam room. Nontoxic, vitals stable. Except blood pressure is mildly elevated, encourage patient to follow-up with primary care provider for recheck. Patient with 2 different rashes 1 to the right hand and then multiple areas throughout the body. Contact dermatitis, ring warm. Discussed treatment plan of antifungals, topical steroid cream to the right hand. Patient is appropriate for outpatient treatment and follow-up Discharge instructions reviewed with patient, as well as provided in writing per nursing staff. The instructions also include specific and strict return/GO TO THE ER as well as f/u information. All questions have been answered, and the patient deny any further questions with discharge and discharge plan. Some parts of this dictation were generated by voice recognition software and may contain typographical and/or grammatical inaccuracies. Differential Diagnosis Differential diagnosis: Likely abscess of skin or subcutaneous tissue, viral exanthem, cellulitis, eczema, impetigo and contact dermatitis Critical Care Time Critical Care Time Critical Care Time: No Discharge Plan Discharge Clinical Impression: Contact dermatitis of right hand, Ringworm of body Patient Disposition: Home, Self-Care Condition: Stable Instructions: Antibiotic Form, Contact Dermatitis (ED), Tinea Corporis (ED) Additional Instructions: For the patchy skin on your hand you can mix together the 2 creams you were prescribed an apply twice a day. Using a good moisturizing lotion can also help such as Lubriderm, Aquaphor. For the circular patches on your body apply the clotrimazole cream twice a day. You can also use Selsun Blue Follow-up with your primary care provider within 2 weeks. Today your blood pressure was 163/94 For new or worsening symptoms go directly to the emergency room Patient Language: Slovak Prescriptions: New clotrimazole 1 % cream 1 applic topical BID 28 Days Qty: 90 0RF triamcinolone acetonide 0.1 % cream 1 applic topical BID Qty: 30 0RF No Action (DME) blood-glucose meter [Contour Next Meter] Misc See Rx Instructions .Route Qty: 1 0RF Rx Instructions: As directed Baqsimi 3 mg/actuation spray,non-aerosol 3 mg intranasal ONCE PRN (Reason: hypoglycemia) Qty: 1 0RF Rx Instructions: as a single dose Mounjaro 15 mg/0.5 mL pen injector 15 mg subcut WEEKLY Qty: 6 3RF metformin 500 mg tablet extended release 24 hr 1,000 mg PO BID Qty: 360 2RF Farxiga 10 mg tablet 10 mg PO QAM 90 Days Qty: 90 3RF (DME) 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 azelastine 0.05 % drops 1 drp ophthalmic (eye) BID PRN (Reason: allergy) Qty: 18 3RF fluticasone propionate [Flonase Allergy Relief] 50 mcg/actuation spray,suspension 1 spray intranasal BID Qty: 48 3RF Rx Instructions: administer into each nostril tadalafil 5 mg tablet 5 mg PO DAILY Qty: 90 3RF tamsulosin 0.4 mg capsule 0.4 mg PO QHS Qty: 90 3RF albuterol sulfate [ProAir HFA] 90 mcg/actuation HFA aerosol inhaler 2 inh inhalation Q4H PRN (Reason: shortness of breath or wheezing) Qty: 8.5 0RF (DME) Dexcom G6 Transmitter Device See Rx Instructions .ROUTE .MEDSUPPLY Qty: 1 3RF Rx Instructions: Replace every 90 days atorvastatin 40 mg tablet 40 mg PO QHS Qty: 90 3RF (DME) Omnipod 5 G6 Pods (Gen 5) Cartridge See Rx Instructions .ROUTE .MEDSUPPLY Qty: 45 3RF Rx Instructions: change every 48 hours (DME) Dexcom G6 Sensor Device See Rx Instructions .ROUTE .COMPLEX Qty: 9 1RF Dose Instruction: REPLACE EVERY 10 DAYS DIRECTED Rx Instructions: REPLACE EVERY 10 DAYS DIRECTED amlodipine 10 mg tablet 10 mg PO DAILY Qty: 90 3RF irbesartan-hydrochlorothiazide 300-12.5 mg tablet 1 tablet PO DAILY Qty: 90 3RF escitalopram oxalate [Lexapro] 10 mg tablet 10 mg PO DAILY Qty: 30 11RF omeprazole 40 mg capsule,delayed release(DR/EC) 40 mg PO DAILY Qty: 90 3RF insulin lispro [Humalog U-100 Insulin] 100 unit/mL solution 100 unit continuous subcutaneous infusion DAILY MDD 100 Qty: 90 3RF Follow-up/Referrals: Rebel López MD [Primary Care Provider] - 1 Week ([facility] follow-up, blood pressure check, 163/94) Stand Alone Forms: Work/School Release IP Time of Disposition: 09:40
--- OUTSIDE RECORDS SUMMARY | 2024-02-11 08:17 | XMS_ITS | Encounter Summary ---
Author Organization [facility]ly [facility] Address [address] [place] [address] Care Team Providers Care Building Rigger Name Role Phone Rebel López MD Primary Care Provider [phone] Reason for Referral * Diagnostic Imaging (Routine) - Closed Specialty Diagnoses / Procedures Referred By Margarita ely Referred To Contact Diagnoses Left knee pain, unspecified chronicity Aftercare following left knee joint replacement surgery Calf swelling Procedures US Vein Duplex Lower Extremity Bilateral Complete Pranay Young MD [address] [address] Phone: tel: fax: [facility] (All Locations) Referral ID Status Reason Start Date Expiration Date Visits Re quested Visits Authorized [id number] Closed 04/22/2020 05/22/2021 1 1 Reason for Visit * Diagnostic Imaging (Routine) - Closed Specialty Diagnoses / Procedures Referred By Margarita ely Referred To Contact Diagnoses Left knee pain, unspecified chronicity Aftercare following left knee joint replacement surgery Calf swelling Procedures US Vein Duplex Lower Extremity Bilateral Complete Pranay Young MD [address] [place] [address] Phone: tel: fax: [facility] (All Locations) Referral ID Status Reason Start Date Expiration Date Visits Re quested Visits Authorized [id number] Closed 04/22/2020 05/22/2021 1 1 Encounter Details Date Type Department Care Team (Latest Contact Info) Description 04/22/2020 10:49 AM CDT - 04/22/2020 2:11 PM CDT Hospital Encounter [facility] [address] [place] [address] Pranay Young MD [address] [place] [address] Left knee pain, unspecified chronicity; Aftercare following left knee joint replacement surgery; Calf swelling Discharge Disposition: Discharge to home or self care Social History Tobacco Use Types Packs/Day Years Used Date Smoking Tobacco: Never Smokeless Tobacco: Never Alcohol Use Standard Drinks/Week Comments Not Currently 0 (1 standard drink = 0.6 oz pur e alcohol) rarely maybe once a month Sex and Gender Information Value Date Recorded Sex Assigned at Not on file 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 Gender Identity Not on file Sexual Orientation Not on file documented as of this encounter Medications at Time of Discharge amLODIPine (NORVASC) 5 mg tablet TK 1 T PO HS 12/20/2019 aspirin 81 mg enteric coated tabletIndications :Deep Vein Thrombosis Prevention Take 1 tablet (81 mg total) by mouth 2 (two) times a day Take for 6 weeks after surgery 60 tablet 11 12/11/2019 atorvastatin (LIPITOR) 20 mg tabletIndications :hyperlipidemia Take 20 mg by mouth every morning azithromycin (ZITHROMAX) 250 mg tablet FOLLOW PACKAGE DIRECTIONS 03/31/2020 blood glucose diagnostic (OneTouch Ultra Blue Test Strip) strip OneTouch Ultra Blue Test Strip TEST 3 TIMES A DAY blood-glucose meter (OneTouch Ultra2 Meter) misc OneTouch Ultra2 Meter TEST 3 TIMES A DAY blood-glucose sensor (Dexcom G6 Sensor) device Dexcom G6 Sensor device CHANGE SENSOR Q 10 DAYS blood-glucose transmitter (Dexcom G6 Transmitter) device Dexcom G6 Transmitter device CHANGE TRANSMITTER Q 90 DAYS cholecalciferol (VITAMIN D-3) 39226 unit tabletIndications :Vitamin D Deficiency Take 1 tablet (50,000 Units total) by mouth once a week 12 tablet 11/07/2019 cyclobenzaprine (FLEXERIL) 10 mg tablet 04/18/2020 dulaglutide (TRULICITY) 1.5 mg/0.5 mL pen injector Inject 1.5 mg under the skin every 7 days insulin lispro (HumaLOG KwikPen Insulin) 200 unit/mL (3 mL) insulin pen Per insulin pump lancets (Easy Touch Lancets) 28 gauge misc Easy Touch Lancets 28 gauge TEST 3 TIMES A DAY lancing device misc lancing device TEST 3 TIMES A DAY lisinopril-hydroC HLOROthiazide (ZESTORETIC) 20-12.5 mg per tablet 04/21/2020 metFORMIN XR (GLUCOPHAGE XR) 500 mg 24 hr tabletIndications :type 2 diabetes mellitus Take 500 mg by mouth 2 (two) times a day naproxen (NAPROSYN) 500 mg tablet 04/21/2020 tadalafiL (CIALIS) 5 mg tablet TK 1 T PO D SEXUAL ACTIVITY PRN 12/08/2019 documented as of this encounter Discharge Disposition Disposition Code Departure Means Destination Discharge to home or self care documented in this encounter Plan of Treatment Not on file documented as of this encounter Procedures Procedure Name Priority Date/Time Associated Diagnosis Comments US VEIN DUPLEX LOWER EXTREMITY BILATERAL COMPLETE Schedule Routine, Read Routine (OP Routine) 04/22/2020 12:49 PM CDT Left knee pain, unspecified chronicity Aftercare following left knee joint replacement surgery Calf swelling documented in this encounter Results * US Vein Duplex Lower Extremity Bilateral Complete (04/22/2020 12:49 PM CDT) Anatomical Region Laterality Modality Vascular Bilateral Ultrasound 04/22/2020 11:5 3 AM CDT Narrative 04/22/2020 2:50 PM CDT [facility] - Department of Vascular Surgery, Vascular Laboratory [address] [place] [address] Lower Extremity Venous Ultrasound Report Patient Name: RAKESH MORAN C : 1975 (45y 3m) Study Date: 04/22/2020 11:53:01 AM Gender: M Tech: JEANETTE Location: [facility] Ref.Provider: PRANAY YOUNG Quality: Adequate Order Provider: PRANAY YOUNG Procedures: Vascular Report: Venous Duplex imaging was performed bilaterally in the lower extremities. The common femoral, femoral, popliteal, posterior tibial, peroneal veins were evaluated for patency, spontaneity and phasicity with Doppler, compression and augmentation maneuvers. Great saphenous vein proximal at the junction was evaluated with compression maneuvers. Indications: Pain in left leg, and Swelling lower extremity, left. Findings: Performing Production Miner: Ashley Ross RVT. Right: Venous Doppler signals in the right lower extremity are within normal limits for spontaneity and phasicity and respond normally to augmentation maneuvers. No evidence of deep vein thrombus by duplex, proximal to the calf. Left: Duplex scan reveals echogenic, intraluminal non-compressible material consistent with age indeterminate - acute vs chronic deep vein thrombosis in the left lower extremity. Deep veins involved include the single gastrocnemius. All other evaluated veins are patent. Comments: Non-vascular, mixed echogenic structure from behind left knee to mid calf noted. Provider Notification: Results called to Pranay Young MD. Conclusions: 1. Age indeterminate deep vein thrombus in the left lower extremity- acute vs chronic. 2. There is no evidence of acute deep vein thrombosis on the right. Noninvasive venous studies cannot rule out isolated calf vein obstruction. History: s/p left knee surgery on 12/10/2019. Previous Studies: No previous studies for comparison. Disclaimer: The signing physician has reviewed all images pertaining to this test. These images and this report will be retained in the patient chart by the Vascular Laboratory for the legally required time period. This chart constitutes the legal record of any testing performed. Electronically Signed By: Reed Rhoades MD [facility] [phone] 2020-04-22 14:50:16 CDT CC: CC: Procedure Note Reed Rhoades MD - 04/22/2020 [facility] - Department of Vascular Surgery,Vascular Laboratory [address] [place] [address] Lower Extremity Venous Ultrasound Report Patient Name: RAKESH MORAN CPatient ID: [id number] : 1975 (45y 3m)Study Date: 04/22/2020 11:53:01 AM Gender: MAccession #: [id number] Tech: D.TRANLocation: [facility] Ref.Provider: Sha YOUNGality: Adequate Order Provider: Saji YOUNG #: [id number] Procedures: Vascular Report: Venous Duplex imaging was performed bilaterally in the lower extremities.The common femoral, femoral, popliteal, posterior tibial, peroneal veins wereevaluated for patency, spontaneity and phasicity with Doppler, compression and augmentationmaneuvers. Great saphenous vein proximal at the junction was evaluated with compressionmaneuvers. Indications: Pain in left leg, and Swelling lower extremity, left. Findings: Performing Production Miner: Ashley Ross RVT. Right: Venous Doppler signals in the right lower extremity are within normallimits for spontaneity and phasicity and respond normally to augmentation maneuvers.No evidence of deep vein thrombus by duplex, proximal to the calf. Left: Duplex scan reveals echogenic, intraluminal non-compressible materialconsistent with age indeterminate - acute vs chronic deep vein thrombosis in the left lowerextremity. Deep veins involved include the single gastrocnemius. All other evaluated veinsare patent. Comments: Non-vascular, mixed echogenic structure from behind left knee to mid calfnoted. Provider Notification: Results called to Pranay Young MD. Conclusions: 1. Age indeterminate deep vein thrombus in the left lower extremity- acutevs chronic. 2. There is no evidence of acute deep vein thrombosis on the right.Noninvasive venous studies cannot rule out isolated calf vein obstruction. History: s/p left knee surgery on 12/10/2019. Previous Studies: No previous studies for comparison. Disclaimer: The signing physician has reviewed all images pertaining to this test.These images and this report will be retained in the patient chart by the VascularLaboratory for the legally required time period. This chart constitutes the legal record ofany testing performed. Electronically Signed By: Reed Rhoades MD [facility] [phone] 2020-04-22 14:50:16 CDT CC: CC: Pranay Young MD IMG US PROCEDURES Final Res ult documented in this encounter Visit Diagnoses Diagnosis Left knee pain, unspecified chronicity Aftercare following left knee joint replacement surgery Calf swelling documented in this encounter Care Teams Building Rigger Relationship Specialty Start Date End Date Rebel López MD [address] [id number] PCP - General Family Medicine 10/23/19 documented as of this encounter
--- OUTSIDE RECORDS SUMMARY | 2024-02-11 08:17 | XMS_ITS | Clinical Summary ---
Author Organization [facility] Address [address] [place] [address] Care Team Providers Care Public Health Internship Name Role Phone Rebel López MD Primary Care Provider [phone] Allergies No known active allergies Medications blood-glucose sensor (Dexcom G6 Sensor) device Dexcom G6 Sensor device CHANGE SENSOR Q 10 DAYS Active blood-glucose transmitter (Dexcom G6 Transmitter) device Dexcom G6 Transmitter device CHANGE TRANSMITTER Q 90 DAYS Active lancets (Easy Touch Lancets) 28 gauge misc Easy Touch Lancets 28 gauge TEST 3 TIMES A DAY Active metFORMIN XR (GLUCOPHAGE XR) 500 mg 24 hr tabletIndication s:type 2 diabetes mellitus Take 500 mg by mouth 2 (two) times a day Active lancing device misc lancing device TEST 3 TIMES A DAY Active blood-glucose meter (OneTouch Ultra2 Meter) misc OneTouch Ultra2 Meter TEST 3 TIMES A DAY Active blood glucose diagnostic (OneTouch Ultra Blue Test Strip) strip OneTouch Ultra Blue Test Strip TEST 3 TIMES A DAY Active atorvastatin (LIPITOR) 20 mg tabletIndication s:hyperlipidemia Take 20 mg by mouth every morning Active insulin lispro (HumaLOG KwikPen Insulin) 200 unit/mL (3 mL) insulin pen Per insulin pump Active dulaglutide (TRULICITY) 1.5 mg/0.5 mL pen injector Inject 1.5 mg under the skin every 7 days Active cholecalciferol (VITAMIN D-3) 27219 unit tabletIndication s:Vitamin D Deficiency Take 1 tablet (50,000 Units total) by mouth once a week 12 tablet 0 Active aspirin 81 mg enteric coated tabletIndication s:Deep Vein Thrombosis Prevention Take 1 tablet (81 mg total) by mouth 2 (two) times a day Take for 6 weeks after surgery 60 tablet 11 0 Active amLODIPine (NORVASC) 5 mg tablet TK 1 T PO HS 0 Active tadalafiL (CIALIS) 5 mg tablet TK 1 T PO D SEXUAL ACTIVITY PRN 0 Active azithromycin (ZITHROMAX) 250 mg tablet FOLLOW PACKAGE DIRECTIONS 1 Active cyclobenzaprine (FLEXERIL) 10 mg tablet 1 Active lisinopril-hydro CHLOROthiazide (ZESTORETIC) 20-12.5 mg per tablet 1 Active naproxen (NAPROSYN) 500 mg tablet 1 Active apixaban (ELIQUIS) 5 mg tabletIndication s:Venous Thrombosis Starter Pack: 2 tablets twice a day for 7 days then 1 tablet twice a day 74 tablet 1 Active HYDROcodone-acet aminophen (NORCO) 5-325 mg per tabletIndication s:Pain Take 1 tablet by mouth every 6 (six) hours as needed for pain 12 tablet 1 Active Active Problems Problem Noted Date Diagnosed Date HLD (hyperlipidemia) 12/06/2019 Primary osteoarthritis of left knee 10/23/2019 Overview (10/23/2019): Added automatically from request for surgery [id number] Left knee pain 10/23/2019 Hypertension 08/08/2012 Calculus of kidney 03/28/2012 Hiatal hernia 03/28/2012 Acid phosphatase serum increased 03/28/2012 Simple obesity 03/28/2012 Type 2 diabetes mellitus 03/28/2012 Loose body of knee 03/23/2011 Osteoarthritis of knee 03/04/2011 Immunizations Name Administration Dates Next Due Influenza, Quadrivalent, Spl it, Preservative Free, Intramuscular 12/11/2019 Surgical History Surgery Date Site/Laterality Comments APPENDECTOMY Appendectomy - (Added by TW Conv) AR UNLISTED PROCEDURE FEMUR/KNEE Treatment Of The Knee - multiple (17) operations L knee - meniscus, debridement, irrigation for septic knee OTHER SURGICAL HISTORY 02/07/2017 - 02/06/2018 Left bicep tendon repair Medical History Medical History Date Comments Reflux esophagitis Chronic Reflu x Esophagitis - (Added by TW Conv) Other tear of lateral menisc us, current injury, unspecified knee, initial encounter Acute lateral meniscal tear - (Added by TW Conv) Essential (primary) hypertension Hypertension - (Added by TW Conv) Methicillin susceptible Stap hylococcus aureus infection Staphylococcus aureus infect ion - L knee (Added by TW Conv) Pyogenic arthritis (HCC) Septic arthritis - L knee (Added by TW Conv) Diabetes (HCC) HTN (hypertension) HLD (hyperlipidemia) Obesity Family History Medical History Relation Name Comments Heart attack Father No Known Problems Other Anesthesia problems Neg Hx Relation Name Status Comments Father Other Social History Tobacco Use Types Packs/Day Years Used Date Smoking Tobacco: Never Smokeless Tobacco: Never Alcohol Use Standard Drinks/Week Comments Not Currently 0 (1 standard drink = 0.6 oz pur e alcohol) rarely maybe once a month Sex and Gender Information Value Date Recorded Sex Assigned at Not on file Legal 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 Gender Identity Not on file Sexual Orientation Not on file Obstetrics History Last Filed Vital Signs Vital Sign Reading Time Taken Comments Blood Pressure 152/119 04/22/2020 2:01 PM CDT Pulse 98 04/22/2020 2:01 PM CDT Temperature 36.4 ??C (97.5 ??F) 12/11/2019 8:59 AM CS T Respiratory Rate 20 04/22/2020 2:01 PM CDT Oxygen Saturation 98% 04/22/2020 2:01 PM CDT Inhaled Oxygen Concentration - - Weight 117.9 kg (260 lb) 04/22/2020 2:01 PM CDT Height 177.8 cm (5' 10 ) 04/22/2020 2:01 PM CDT Body Mass Index 37.31 04/22/2020 2:01 PM CDT Plan of Treatment Not on file Medical Devices Implanted Type Area Felt Finishing Supervisor Device Identifier Shelf Expiration Date Model / Serial / Lot Laverne [employer] [id number] Persona Cruciate Retain Knee Left 7 Standard Component Femoral - Sna - [id number] Implanted:Qty: 1 on 12/10/2019 by Dilip Young MD at [facility] Other - see comments Left: Knee [employer]ne [employer] [id number] 08/06/2029 [id number] / NA / [id number] [employer] [id number] Persona 2 Peg Knee Left F Baseplate Tibial Trabecular Metal - Sna - [id number] Implanted:Qty: 1 on 12/10/2019 by Dilip Young MD at [facility] Other - see comments Left: Knee [employer] [id number] 09/10/2029 [id number] / NA / [id number] [employer] [id number] Persona 10mm Knee Left Insert Articular Vivacit-E Sterile Latex Free - Sna - [id number] Implanted:Qty: 1 on 12/10/2019 by Dilip Young MD at [facility] Other - see comments Left: Knee [employer] [id number] 01/07/2024 [id number] / NA / [id number] Insurance [employer] OPEN ACCESS [employer] OPEN ACCESS Advance Directives For more information, please contact: [phone] * Full Code (Latest Code Status on File) Date Activated Date Inactivated Comments 12/10/2019 10:05 AM 12/11/2019 4:25 PM Care Teams Public Health Internship Relationship Specialty Start Date End Date Rebel López MD [address] [address] PCP - General Family Medicine 10/23/19
--- OUTSIDE RECORDS SUMMARY | 2024-02-11 08:17 | XMS_ITS | Encounter Summary ---
Author Organization [facility] Address [address] [place] [address] Care Team Providers Care Jet Worker Name Role Phone Rebel López MD Primary Care Provider [phone] Reason for Referral * Diagnostic Imaging (Routine) - Closed Specialty Diagnoses / Procedures Referred By Margarita ely Referred To Contact Diagnoses Left knee pain, unspecified chronicity Aftercare following left knee joint replacement surgery Procedures XR Knee Left 3 Views Dilip Young MD [address] [address] Phone: tel: fax: [place] [address] [place] [address] Referral ID Status Reason Start Date Expiration Date Visits Re quested Visits Authorized [id number] Closed 04/22/2020 05/22/2021 1 1 Reason for Visit * Diagnostic Imaging (Routine) - Closed Specialty Diagnoses / Procedures Referred By Margarita ely Referred To Contact Diagnoses Left knee pain, unspecified chronicity Aftercare following left knee joint replacement surgery Procedures XR Knee Left 3 Views Dilip Young MD [address] [facility] [address] [place] [address] Phone: tel: fax: [place] [address] [place] [address] Referral ID Status Reason Start Date Expiration Date Visits Re quested Visits Authorized [id number] Closed 04/22/2020 05/22/2021 1 1 Encounter Details Date Type Department Care Team (Latest Contact Info) Description 04/22/2020 8:42 AM CDT - 04/22/2020 10:48 AM CDT Hospital Encounter [id number] [address] [facility] [address] [place] [address] Dilip Young MD [address] [place] [address] Left knee pain, unspecified chronicity; Aftercare following left knee joint replacement surgery Discharge Disposition: Discharge to home or self care Social History Tobacco Use Types Packs/Day Years Used Date Smoking Tobacco: Never Smokeless Tobacco: Never Alcohol Use Standard Drinks/Week Comments Not Currently 0 (1 standard drink = 0.6 oz pur e alcohol) rarely maybe once a month Sex and Gender Information Value Date Recorded Sex Assigned at Not on file 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 Gender Identity Not on file Sexual Orientation [...] TRANSMITTER Q 90 DAYS cholecalciferol (VITAMIN D-3) 24088 unit tabletIndications :Vitamin D Deficiency Take 1 [...] Procedure Name Priority Date/Time Associated Diagnosis Comments XR KNEE LEFT 3 VIEWS Schedule Routine, Read Routine (OP Routine) 04/22/2020 9:07 AM CDT Left knee pain, unspecified chronicity Aftercare following left knee joint replacement surgery documented in this encounter Results * XR Knee Left 3 Views (04/22/2020 9:07 AM CDT) Anatomical Region Laterality Modality Lower Extremities, Knee Left Computed Radiography 04/22/2020 9:09 AM CDT Impressions 04/22/2020 9:09 AM CDT 1. Left 2 component component knee arthroplasty in near-anatomic alignment. Electronically signed by: Alise Harrison M.D. Narrative 04/22/2020 9:09 AM CDT EXAMINATION: XR KNEE LEFT 3 VIEWS HISTORY: Left knee osteoarthritis COMPARISON: 12/10/2019 FINDINGS: 3 views of the left knee are submitted for interpretation. There is a 2 component left knee arthroplasty in near-anatomic alignment. No periprosthetic fracture or osteolysis is present. Interval decrease in the postprocedural related soft tissue swelling and gas. No acute fractures present. Procedure Note Alise Harrison MD - 04/22/2020 EXAMINATION: XR KNEE LEFT 3 VIEWS HISTORY: Left knee osteoarthritis COMPARISON: 12/10/2019 FINDINGS: 3 views of the left knee are submitted for interpretation. There is a 2 component left knee arthroplasty in near-anatomic alignment. No periprosthetic fracture or osteolysis is present. Interval decrease in the postprocedural related soft tissue swelling and gas. No acute fractures present. IMPRESSION: 1. Left 2 component component knee arthroplasty in near-anatomic alignment. Electronically signed by: Alise Harrison M.D. Dilip Young MD IMG XR PROCEDURES Final Res ult documented in this encounter Visit Diagnoses Diagnosis Left knee pain, unspecified chronicity Aftercare following left knee joint replacement surgery documented in this encounter Care Teams Jet Worker Relationship Specialty Start Date End Date Rebel López MD [address] [address] PCP - General Family Medicine 10/23/19 documented as of this encounter
--- OUTSIDE RECORDS SUMMARY | 2024-02-11 08:17 | XMS_ITS | Encounter Summary ---
Author Organization [facility] Healthcare Address [address] [place] [address] Care Team Providers Care Command Post Craftsman Name Role Phone Rebel López MD Primary Care Provider [phone] Encounter Details Date Type Department Care Team (Latest Contact Info) Description 12/10/2019 9:14 AM MACHINIST APPRENTICE - 12/10/2019 11:59 PM MACHINIST APPRENTICE Hospital Encounter [facility] [address] [place] [address] Dilip Young MD [address] [place] [address] Discharge Disposition: Discharge to home or self care Social History Tobacco Use Types Packs/Day Years Used Date Smoking Tobacco: Never Smokeless Tobacco: Never Alcohol Use Standard Drinks/Week Comments Not Currently 0 (1 standard drink = 0.6 oz pur e alcohol) rarely maybe once a month Sex and Gender Information Value Date Recorded Sex Assigned at Not on file Legal Sex Male 12:35 AM MACHINIST APPRENTICE Gender Identity Not on file Sexual Orientation Not on file documented as of this encounter Medications at Time of Discharge aspirin 81 mg enteric coated tabletIndications :Deep Vein Thrombosis Prevention Take 1 tablet (81 mg total) by mouth 2 (two) times a day Take for 6 weeks after surgery 60 tablet 11 12/11/2019 atorvastatin (LIPITOR) 20 mg tabletIndications :hyperlipidemia Take 20 mg by mouth every morning blood glucose diagnostic (OneTouch Ultra Blue Test [...] TRANSMITTER Q 90 DAYS cholecalciferol (VITAMIN D-3) 11020 unit tabletIndications :Vitamin D Deficiency Take 1 tablet (50,000 Units total) by mouth once a week 12 tablet 11/07/2019 dulaglutide (TRULICITY) 1.5 mg/0.5 mL pen injector Inject 1.5 mg under the skin every 7 days insulin lispro (HumaLOG KwikPen Insulin) 200 unit/mL (3 mL) insulin pen Per insulin pump lancets (Easy Touch Lancets) 28 gauge [facility] Easy Touch Lancets 28 gauge TEST 3 TIMES A DAY lancing device [facility] lancing device TEST 3 TIMES A DAY metFORMIN XR (GLUCOPHAGE XR) 500 mg 24 hr tabletIndications :type 2 diabetes mellitus Take 500 mg by mouth 2 (two) times a day tadalafiL (CIALIS) 5 mg tablet TK 1 T PO D SEXUAL ACTIVITY PRN 12/08/2019 aspirin 325 mg enteric coated tabletIndications :Deep Vein Thrombosis Prevention Take 1 tablet (325 mg total) by mouth 2 (two) times a day 84 tablet 12/11/2019 0 celecoxib (CeleBREX) 200 mg capsuleIndication s:Osteoarthritis, Postoperative Acute Pain TAKE 2 PILLS WITH BREAKFAST THE DAY BEFORE SX. TAKE 1 PILL BID FOR 4 DAYS AFTER DISCHARGE. 10 capsule 10/23/2019 0 celecoxib (CeleBREX) 200 mg capsuleIndication s:Osteoarthritis, Postoperative Acute Pain Take 1 tablet twice daily after surgery until prescription is finished. You should already have this prescription at home. 10 capsule 12/11/2019 1 lisinopriL (PRINIVIL,ZESTRIL ) 40 mg tabletIndications :hypertension Take 40 mg by mouth every morning 1 lisinopril-hydroC HLOROthiazide (ZESTORETIC) 20-12.5 mg per tablet TK 1 T PO QD 11/10/2019 0 oxyCODONE-acetami nophen (PERCOCET) 5-325 mg per tabletIndications :Pain Take 2 tablets by mouth every 4 (four) hours as needed for pain for up to 7 days 56 tablet 12/10/2019 0 potassium chloride ER 10 mEq CR capsule TK 1 C PO D 11/07/2019 1 senna-docusate (PERICOLACE) 8.6-50 mgIndications:con stipation Take 2 tablets by mouth 2 (two) times a day May increase to 4 tablets twice daily if needed. HOLD medication for diarrhea. 80 tablet 1 12/11/2019 1 documented as of this encounter Discharge Disposition Disposition Code Departure Means Destination Discharge to home or self care documented in this encounter Plan of Treatment Not on file documented as of this encounter Procedures Procedure Name Priority Date/Time Associated Diagnosis Comments XR KNEE LEFT 1 OR 2 VIEWS STAT 12/10/2019 9:28 AM MACHINIST APPRENTICE documented in this encounter Results * XR Knee Left 1 or 2 View (12/10/2019 9:28 AM MACHINIST APPRENTICE) Anatomical Region Laterality Modality Lower Extremities, Knee Left Computed Radiography 12/10/2019 9:36 AM MACHINIST APPRENTICE Impressions 12/10/2019 9:36 AM MACHINIST APPRENTICE 1. New two component left knee arthroplasty for osteoarthritis. Electronically signed by: Mario Martins M.D. Narrative 12/10/2019 9:36 AM MACHINIST APPRENTICE EXAMINATION: XR KNEE LEFT 1 OR 2 VIEWS HISTORY: Left knee osteoarthritis FINDINGS: 2 view examination of the left knee is compared with a study from 10/23/2019. There is a new two component left knee arthroplasty in near-anatomic position. There is postoperative soft tissue gas and joint effusion. There is no fracture. Procedure Note Mario Martins MD - 12/10/2019 EXAMINATION: XR KNEE LEFT 1 OR 2 VIEWS HISTORY: Left knee osteoarthritis FINDINGS: 2 view examination of the left knee is compared with a study from 10/23/2019. There is a new two component left knee arthroplasty in near-anatomic position. There is postoperative soft tissue gas and joint effusion. There is no fracture. IMPRESSION: 1. New two component left knee arthroplasty for osteoarthritis. Electronically signed by: Mario Martins M.D. us Dilip Young MD IMG XR PROCEDURES Final Res ult documented in this encounter Visit Diagnoses Not on filedocumented in this encounter Care Teams Command Post Craftsman Relationship Specialty Start Date End Date Rebel López MD [address] [id number] PCP - General Family Medicine 10/23/19 documented as of this encounter
--- OUTSIDE RECORDS SUMMARY | 2024-02-11 08:17 | XMS_ITS | Encounter Summary ---
Author Organization [facility] Healthcare Address [address] [place] [address] Care Team Providers Care News Videographer Name Role Phone Rebel López MD Primary Care Provider [phone] Encounter Details Date Type Department Care Team (Latest Contact Info) Description 12/10/2019 5:04 AM CUSTOMER SERVICE ADVISOR - 12/11/2019 12:00 PM CUSTOMER SERVICE ADVISOR Hospital Encounter [facility] [id number] [place] [address] Dilip Young MD [address] [facility] [address] [place], [place] [id number] Primary osteoarthritis of left knee (Primary Dx) Discharge Disposition: Discharge to home, home health skilled care Social History Tobacco Use Types Packs/Day Years Used Date Smoking Tobacco: Never Smokeless Tobacco: Never Alcohol Use Standard Drinks/Week Comments Not Currently 0 (1 standard drink = 0.6 oz pur e alcohol) rarely maybe once a month Sex and Gender Information Value Date Recorded Sex Assigned at Not on file Legal Sex Male 12:35 AM CUSTOMER SERVICE ADVISOR Gender Identity Not on file Sexual Orientation Not on file documented as of this encounter Last Filed Vital Signs Vital Sign Reading Time Taken Comments Blood Pressure 143/80 12/11/2019 8:59 AM CUSTOMER SERVICE ADVISOR Pulse 92 12/11/2019 8:59 AM CUSTOMER SERVICE ADVISOR Temperature 36.4 ??C (97.5 ??F) 12/11/2019 8:59 AM CS T Respiratory Rate 14 12/11/2019 8:59 AM CUSTOMER SERVICE ADVISOR Oxygen Saturation 100% 12/11/2019 8:59 AM CUSTOMER SERVICE ADVISOR Inhaled Oxygen Concentration - - Weight 120.2 kg (265 lb) 12/10/2019 5:27 AM CUSTOMER SERVICE ADVISOR Height 177.8 cm (5' 10 ) 12/10/2019 5:27 AM CUSTOMER SERVICE ADVISOR Body Mass Index 38.02 12/10/2019 5:27 AM CUSTOMER SERVICE ADVISOR documented in this encounter Discharge Diagnoses Diagnosis Unilateral primary osteoarthritis, left knee - UNILATERAL PRIMARY OSTEOARTHRITIS, LEFT KNEE Essential (primary) hypertension - ESSENTIAL (PRIMARY) HYPERTENSION Unspecified essential hypertension Type 2 diabetes mellitus without complications (CMS/HCC) (HCC) - TYPE 2 DIABETES MELLITUS WITHOUT COMPLICATIONS Hyperlipidemia, unspecified - HYPERLIPIDEMIA, UNSPECIFIED Other chronic pain - OTHER CHRONIC PAIN Obesity, unspecified - OBESITY, UNSPECIFIED Body mass index (BMI) 37.0-37.9, adult - BODY MASS INDEX [BMI] 37.0-37.9, ADULT FDC (current) use of insulin (HCC) - POCKET CUTTER (CURRENT) USE OF INSULIN Presence of insulin pump (external) (internal) - PRESENCE OF INSULIN PUMP (EXTERNAL) (INTERNAL) Other intermediate project manager (current) drug therapy - OTHER POCKET CUTTER (CURRENT) DRUG THERAPY Personal history of other infectious and parasitic diseases - PERSONAL HISTORY OF OTHER INFECTIOUS AND PARASITIC DISEASES documented in this encounter Discharge Summaries * Zoë Jeffrey NP - 12/11/2019 6:47 AM CST Inpatient Discharge Summary Admitting Provider: Dilip Young MD Discharge Provider: Dilip Young MD Primary Care Physician at Discharge: Rebel López MD [phone] Admission Date: 12/10/2019 Discharge Date: 12/11/2019 Primary Discharge Diagnosis: Primary osteoarthritis of left knee Secondary Discharge Diagnosis: Principal Problem: Primary osteoarthritis of left knee Active Problems: Simple obesity Hypertension Type 2 diabetes mellitus (CMS/HCC) HLD (hyperlipidemia) Resolved Problems: No resolved hospital problems. DETAILS OF HOSPITAL STAY Date of Admission: 12/10/2019 Date of Discharge: 12/11/2019 Procedure Performed: Left Total Knee Arthroplasty Chief Complaint: Left knee pain History of Present Illness: The patient is a 44 y.o. year old male cared for by Dr. Dilip Young. The risks, benefits, alternatives and complications of a left total knee arthroplasty was discussed with the patient at length prior to surgery. The patient elected to proceed with a surgical intervention given the significant i nfluence on their quality of life. Informed consent was obtained prior to surgery. Physical Exam: On the day of discharge, the patient was afebrile with stable vital signs. Examination of the left lower extremity revealed the patient was neurovascularly intact. Incision was clean, dry and intact.Pain was adequately maintained on oral opiates. Hospital Course: The patient was admitted on 12/10/2019 and underwent a left total knee arthroplasty. The patient tolerated the procedure well and was taken in stable condition to the postoperative recovery room then transferred to the orthopedic floor in stable condition. The patient progressed well and was able miek weaned off IV opiates. The patient participated with physical and occupational therapy and was deemed stable for discharge. He was maintained on Aspirin for deep venous thrombosis prophylaxis. Pain was adequately maintained on oral opiates. The patient was discharged in stable condition to home with home health care on 12/11/2019. Rakesh Gomes Home Medication Instructions ZITA:[id number] Printed on:12/11/19 1121 Medication Information aspirin 81 mg enteric coated tablet Take 1 tablet (81 mg total) by mouth 2 (two) times a day Take for 6 weeks after surgery atorvastatin (LIPITOR) 20 mg tablet Take 20 mg by mouth every morning blood glucose diagnostic (OneTouch Ultra Blue Test Strip) strip OneTouch Ultra Blue Test Strip TEST 3 TIMES A DAY blood-glucose meter (OneTouch Ultra2 Meter) [facility] [place]Touch Ultra2 Meter TEST 3 TIMES A DAY blood-glucose sensor (Dexcom G6 Sensor) device Dexcom G6 Sensor device CHANGE SENSOR Q 10 DAYS blood-glucose transmitter (Dexcom G6 Transmitter) device Dexcom G6 Transmitter device CHANGE TRANSMITTER Q 90 DAYS celecoxib (CeleBREX) 200 mg capsule Take 1 tablet twice daily after surgery until prescription is finished. You should already have this prescription at home. cholecalciferol (VITAMIN D-3) 15790 unit tablet Take 1 tablet (50,000 Units total) by mouth once a week dulaglutide (TRULICITY) 1.5 mg/0.5 mL pen injector Inject 1.5 mg under the skin every 7 days insulin lispro (HumaLOG KwikPen Insulin) 200 unit/mL (3 mL) insulin pen Per insulin pump lancets (Easy Touch Lancets) 28 gauge [facility] Easy Touch Lancets 28 gauge TEST 3 TIMES A DAY lancing device [facility] lancing device TEST 3 TIMES A DAY lisinopriL (PRINIVIL,ZESTRIL) 40 mg tablet Take 40 mg by mouth every morning metFORMIN XR (GLUCOPHAGE XR) 500 mg 24 hr tablet Take 500 mg by mouth 2 (two) times a day oxyCODONE-acetaminophen (PERCOCET) 5-325 mg per tablet Take 2 tablets by mouth every 4 (four) hours as needed for pain for up to 7 days senna-docusate (PERICOLACE) 8.6-50 mg Take 2 tablets by mouth 2 (two) times a day May increase to 4 tablets twice daily if needed. HOLD medication for diarrhea. Discharge Activity: 1. Weight bearing: Weight bearing as tolerated left lower extremity 2. Assistive Devices: Walker or crutches for all walking 3. DVT prophylaxis: Aspirin twice daily for 6 weeks Discharge Diet: Resume previous diet Follow-up: Dr. Dilip Young on 01/08/2020 at 9:15am at [facility], [address] [place] [address], Medical Office [address], [address] [address]. Condition on Discharge: Stable Cosigned by Dilip Young MD at 12/11/2019 2:27 PM CUSTOMER SERVICE ADVISOR OMER SERVICE ADVISOR OMER SERVICE ADVISOR documented in this encounter Discharge Instructions * Discharge Instr - Other Orders* Tisha English RN - 12/10/2019 5:54 PM CUSTOMER SERVICE ADVISOR [facility]: [facility] for RN and PT services . OMER SERVICE ADVISOR documented in this encounter Medications at Time of Discharge [...] TRANSMITTER Q 90 DAYS cholecalciferol (VITAMIN D-3) 59468 unit tabletIndications :Vitamin D Deficiency Take 1 [...] TEST 3 TIMES A DAY lancing device [facility] lancing device TEST 3 TIMES A DAY metFORMIN XR (GLUCOPHAGE XR) 500 mg 24 hr tabletIndications :type 2 diabetes mellitus Take 500 mg by mouth 2 (two) times a day tadalafiL (CIALIS) 5 mg tablet TK 1 T PO D SEXUAL ACTIVITY PRN 12/08/2019 celecoxib (CeleBREX) 200 mg capsuleIndication s:Osteoarthritis, Postoperative [...] 12/11/2019 1 documented as of this encounter Ordered Prescriptions Prescription Sig Dispense Quantity Refills Last Filled Start Date End Date aspirin 81 mg enteric coated tabletIndications: Deep Vein Thrombosis Prevention Take 1 tablet (81 mg total) by mouth 2 (two) times a day Take for 6 weeks after surgery 60 tablet 11 12/11/2019 senna-docusate (PERICOLACE) 8.6-50 mgIndications:cons tipation Take 2 tablets by mouth 2 (two) times a day May increase to 4 tablets twice daily if needed. HOLD medication for diarrhea. 80 tablet 1 12/11/2019 1 aspirin 325 mg enteric coated tabletIndications: Deep Vein Thrombosis Prevention Take 1 tablet (325 mg total) by mouth 2 (two) times a day 84 tablet 12/11/2019 0 oxyCODONE-acetamin ophen (PERCOCET) 5-325 mg per tabletIndications: Pain Take 2 tablets by mouth every 4 (four) hours as needed for pain for up to 7 days 56 tablet 12/10/2019 0 documented in this encounter Discharge Disposition Disposition Code Departure Means Destination Discharge to home, home health skilled care documented in this encounter Progress Notes * Yobani Mascorro MD - 12/11/2019 8:24 AM CST Ortho Recon Daily Progress Subjective This patient is postoperative day 1 following left TKA Interval History: No acute changes overnight Objective Vitals: 24hr Min/Max: Temp Min: 35.8 ??C (96.4 ??F) Max: 36.4 ??C (97.5 ??F) Pulse Min: 65 Max: 91 BP Min: 116/72 Max: 159/85 Resp Min: 11 Max: 28 SpO2 Min: 92 % Max: 100 % Most Recent : Vitals: 12/11/19 0340 BP: 159/85 Pulse: 85 Resp: Temp: SpO2: 100% I/O last 2 completed shifts: In: 5834 [P.O.:1030; I.V.:3804; IV Piggyback:1000] Out: 3875 [Urine:3675; Blood:200] No intake/output data recorded. Surgical Site 12/10/19 Left Knee (Active) Site Assessment YUNIEL 12/10/192014 Aneta-wound Assessment YUNIEL 12/10/192014 Closure Unable to assess 12/10/192014 Drainage Amount None 12/10/192014 Dressing Status Clean/Dry/Intact 12/10/192014 Dressing Jeremy wrap 12/10/192014 Physical Exam: Awake, alert, oriented No acute distress Breathing regular and unlabored Dressing clean and dry Sensation intact in the superficial peroneal, deep peroneal, and tibial nerves 5/5 strength TA, GS, EHL, FHL Dorsalis pedis pulse on affected limb palpable Lab/Radiology/Diagnostic Review: Laboratory review: Lab results in the last 12 hours: Recent Results (from the past 12 hour(s)) Basic metabolic panel Collection Time: 12/11/19 3:41 AM Result Value Ref Range Sodium 137 135 - 145 mmol/L Potassium, pl 3.5 3.3 - 4.9 mmol/L Chloride 104 97 - 110 mmol/L CO2 24 22 - 32 mmol/L Anion gap 10 2 - 15 mmol/L BUN 11 8 - 25 mg/dL Creatinine 0.70 (L) 0.80 - 1.30 mg/dL Glucose 106 70 - 199 mg/dL Calcium 8.5 8.5 - 10.3 mg/dL CBC without differential Collection Time: 12/11/19 3:41 AM Result Value Ref Range WBC 9.9 3.8 - 9.9 K/cumm Hgb 13.3 13.0 - 17.5 g/dL Hct 37.8 (L) 38.9 - 50.3 % Plt 193 150 - 400 K/cumm MPV 10.3 9.1 - 12.3 fL RBC 4.59 4.30 - 5.80 M/cumm MCV 82.4 81.3 - 96.4 fL MCH 29.0 27.1 - 33.3 pg MCHC 35.2 32.3 - 35.7 g/dL RDW CV 14.4 11.1 - 14.9 % RDW SD 42.4 35.7 - 48.1 fL NRBC abs 0.00 0.00 - 0.01 K/cumm eGFR Collection Time: 12/11/19 3:41 AM Result Value Ref Range GFR >90 mL/min/1.73 m2 POCT glucose Collection Time: 12/11/19 3:47 AM Result Value Ref Range Glucose, POC 106 70 - 199 mg/dL POC Performer [id number] POC Device Number [id number] Assessment/Plan Remove Gottlieb Catheter Weight bearing:Weight bearing as tolerated left lower extremity Mobilize with Physical therapy and Occupational therapy Pain: controlled on current regimen DVT prophylaxis: Aspirin/SCDs Discharge planning: Home with home health OMER SERVICE ADVISOR * Faina Ugalde, PT - 12/11/2019 8:05 AM CST [facility] Physical Therapy Treatment Patient Name: Rakesh Gomes Date of Service: 12/11/2019 Date of : 1975 Age: 44 y.o.male Room: [address] Admit Date: 12/10/2019 Primary Diagnosis: Primary osteoarthritis of left knee Referring Practitioner: Dilip Young MD Precautions Precautions: Fall Risk Weightbearing Status: Weightbearing as tolerated (WBAT) on L LE Subjective HPI: Rakesh Gomes is a 44 y.o. male POD 1 s/p L total knee arthroplasty with Dr. Young. Patientis agreeable to participation in therapy session. Objective Vitals: Vitals stable prior to therapy session and appear to remain stable throughout with no adverse symptoms noted. Activity Tolerance: Endurance: Tolerates 30 minutes of activity with multiple rests Pain Assessment: Pre-therapy pain: 6 /10 Post-therapy pain: 5 /10 Comments: L knee Pain intervention: Patient received pain medication prior to PT treatment, Cold applied, Repositioned, Ambulation, Exercise, Physical therapy and RN notified Cognition: Overall Cognitive Status: At Baseline Arousal: Alert Orientation: Oriented x4 (person, place, time, and situation) Following Commands: Follows all commands and directions without difficulty Behavior: Easy to engage Lower Extremity Assessment: L Knee ROM 3 - 80 degrees supine Strength Comments: B LE strength WFL based on observation of functional mobility. Bed Mobility: Patient performs edge of bed to and from supine with distant supervision. Cues for safety. Transfers: Patient performs sit to and from stand with distant supervision. B UE support used, decreased weight bearing on L LE and decreased L knee flexion upon sitting, cues for safety and technique Gait: Patient ambulates x 150 feet x 2 with wheeled walker and standby assistance (SBA). Verbal cueing required for safety, use assistive device safely, follow precautions/weight bearing status, use appropriate gait sequencing and improve upright posture. Decreased dahiana, step length, stance time on L LE and decreased B heel strike and push off noted. Stairs: Patient negotiates 4 stairs with one hand railings and contact guard assistance (CGA). Cues for safety and sequencing; assist for balance. *Gait belt used for all OOB mobility* Therapeutic Exercise: Patient performs HEP per Dr. Young TKR protocol x 10 reps. Formal Balance Assessment: Formal balance assessment not indicated due to recent surgery. Assessment Prognosis: Good Response to today???s treatment: Good Completed patient handoff and notified RN of patient???s location and functional status upon completion of session. Patient tolerates session fairly well with increased reports of upper thigh pain, which appears muscular based, during session. Patient's joint process coach not present for PT session. Patient demonstrates safety and understanding of mobility and HEP and requires sup-SBA for mobility tasks. Physical therapy problem list: gait deviations, decreased strength, decreased range of motion and decreased mobility. Patient would benefit from continued home physical therapy intervention to address these impairments and functional limitations. Education: Patient has been educated on the safety , precautions, mobility training, stairs and home exercise program. Education completed via explanation, teach back, demonstration and handout . Patient verbalized understanding and demonstrated understanding. Handouts Issued: [facility] TKA HEP and continuum Barriers to discharge: None Goals Short-term goals: Expected completion date: 12/15/2019 ?? 1. The patient will perform sit to and from supine transfer requiring Stand By Assistance (SBA) forsafety upon discharge. ?? Comments: Achieved 12/11/2019 ?? 2. The patient will perform sit to and from stand transfer requiring Stand By Assistance (SBA) for safety upon discharge. ?? Comments: Achieved 12/11/2019 ?? 3. The patient will ambulate at least 100 feet with wheeled walker requiring Stand By Assistance (SBA) for safety upon discharge. ?? Comments: Achieved 12/11/2019 ?? 4. The patient will ascend and descend at least 3 stairs with one handrail with or without appropriate assistance device requiring Contact Guard Assistance (CGA) for safety upon discharge. ?? Comments: Achieved 12/11/2019 ?? 5. Patient will demonstrate good understanding of HEP per Dr. Young TKR protocol with assist fromjoint process coach as needed. ?? Comments: Achieved 12/11/2019 Plan Physical therapy frequency: Discharged from skilled inpatient PT services Recommended equipment to safely discharge: Wheeled walker Recommended method of transportation at discharge: Personal vehicle with family Discharge Recommendation: Home with family, Home Health PT Faina Ugalde PT OMER SERVICE ADVISOR * Taqueria Lopez MD - 12/11/2019 7:58 AM CST Endocrine Diabetes Consult Reason for Consult: DM insulin pump management Subjective No new concerns. Discussed with pt. Past Medical History: Diagnosis Date ??? Diabetes (CMS/HCC) ??? Essential (primary) hypertension Hypertension - (Added by TW Conv) ??? HLD (hyperlipidemia) ??? HTN (hypertension) ??? Methicillin susceptible Staphylococcus aureus infection Staphylococcus aureus infection - L knee (Added by TW Conv) ??? Obesity ??? Other tear of lateral meniscus, current injury, unspecified knee, initial encounter Acute lateral meniscal tear - (Added by TW Conv) ??? Pyogenic arthritis (CMS/HCC) Septic arthritis - L knee (Added by TW Conv) ??? Reflux esophagitis Chronic Reflux Esophagitis - (Added by TW Conv) Past Surgical History: Procedure Laterality Date ??? APPENDECTOMY Appendectomy - (Added by TW Conv) ??? OTHER SURGICAL HISTORY Left 2018 bicep tendon repair ??? DC FEMUR/KNEE SURG UNLISTED Treatment Of The Knee - multiple (17) operations L knee - meniscus, debridement, irrigation for septic knee Medications Prior to Admission Medication Sig Dispense Refill Last Dose ??? atorvastatin (LIPITOR) 20 mg tablet Take 20 mg by mouth every morning 12/09/2019 at Unknown time ??? blood glucose diagnostic (OneTouch Ultra Blue Test Strip) strip OneTouch Ultra Blue Test Strip TEST 3 TIMES A DAY 12/09/2019 at Unknown time ??? blood-glucose meter (OneTouch Ultra2 Meter) misc OneTouch Ultra2 Meter TEST 3 TIMES A DAY 12/09/2019 at Unknown time ??? blood-glucose sensor (Dexcom G6 Sensor) device Dexcom G6 Sensor device CHANGE SENSOR Q 10 DAYS 12/09/2019 at Unknown time ??? blood-glucose transmitter (Dexcom G6 Transmitter) device Dexcom G6 Transmitter device CHANGE TRANSMITTER Q 90 DAYS 12/09/2019 at Unknown time ??? cholecalciferol (VITAMIN D-3) 40221 unit tablet Take 1 tablet (50,000 Units total) by mouth once a week 12 tablet 0 12/09/2019 at Unknown time ??? dulaglutide (TRULICITY) 1.5 mg/0.5 mL pen injector Inject 1.5 mg under the skin every 7 days 12/09/2019 at Unknown time ??? insulin lispro (HumaLOG KwikPen Insulin) 200 unit/mL (3 mL) insulin pen Per insulin pump 12/09/2019 at Unknown time ??? lancets (Easy Touch Lancets) 28 gauge misc Easy Touch Lancets 28 gauge TEST 3 TIMES A DAY 12/09/2019 at Unknown time ??? [facility] TEST 3 TIMES A DAY 12/09/2019 at Unknown time ??? lisinopriL (PRINIVIL,ZESTRIL) 40 mg tablet Take 40 mg by mouth every morning 12/10/2019 at Unknown time ??? metFORMIN XR (GLUCOPHAGE XR) 500 mg 24 hr tablet Take 500 mg by mouth 2 (two) times a day 12/09/2019 at Unknown time ??? [DISCONTINUED] celecoxib (CeleBREX) 200 mg capsule TAKE 2 PILLS WITH BREAKFAST THE DAY BEFORE SX. TAKE 1 PILL BID FOR 4 DAYS AFTER DISCHARGE. 10 capsule 0 12/09/2019 at Unknown time No Known Allergies Social History Tobacco Use ??? Smoking status: Never Smoker ??? Smokeless tobacco: Never Used Substance Use Topics ??? Alcohol use: Not Currently Comment: rarely maybe once a month Family History Problem Relation Age of Onset ??? No Known Problems Other ??? Heart attack Father ??? Anesthesia problems Neg Hx Review of Systems: Constitutional: fatigue, Eyes: Negative Ears, nose, mouth, and throat: Negative Respiratory: Negative Cardiovascular: Negative Gastrointestinal: Negative Skin: Negative Musculoskeletal: Negative Neurological: Negative Behavioral/Psych: Negative Endocrine: Diabetes Mellitus Objective Vitals: 24hr Min/Max: Temp Min: 35.8 ??C (96.4 ??F) Max: 36.4 ??C (97.5 ??F) Pulse Min: 65 Max: 91 BP Min: 116/72 Max: 159/85 Resp Min: 11 Max: 28 SpO2 Min: 92 % Max: 100 % Most Recent : Vitals: 12/11/19 0340 BP: 159/85 Pulse: 85 Resp: Temp: SpO2: 100% I/O last 2 completed shifts: In: 5834 [P.O.:1030; I.V.:3804; IV Piggyback:1000] Out: 3875 [Urine:3675; Blood:200] No intake/output data recorded. Physical Exam: GENERAL: Alert, oriented, no distress. Ear: Hearing grossly intact, LUNGS: Normal effort reported. VASC: No edema. ABD: Soft, nontender. NEURO: Alert and oriented x3. Normal affect. Lab/Radiology/Diagnostic Review: Laboratory review: POC Glucose: Lab Results Component Value Date GLUCOSE 106 12/11/2019 GLUCOSE 106 12/11/2019 Assessment /Plan Principal Problem: Primary osteoarthritis of left knee Active Problems: Simple obesity Hypertension Type 2 diabetes mellitus (CMS/HCC) HLD (hyperlipidemia) 1. DM-2: Reviewed insulin pump, continues glucose monitor. Did well overnight. Patient is comfortable going home. Advised FU with OP established Endo. Taqueria Lopez MD [facility] Office phone: [phone] Office fax: [phone] OMER SERVICE ADVISOR * Tisha English RN - 12/10/2019 5:54 PM CST 12/10/19 8063 Communications Patient choice (Home Health/Hospice) list given to patient/account development representative? Yes Home health arranged through [facility] for RN and PT services . Discussed with the patient and he is in agreement with the plan. OMER SERVICE ADVISOR * Taqueria Lopez MD - 12/10/2019 4:18 PM CST Endocrine Diabetes Consult Reason for Consult: DM insulin pump management Subjective Patient is a 44 y.o. male with chief complaint of insulin pump management postop day 0. Patient had left knee arthroplasty today with ortho. Patient doing well postop, I visited with him in his hospital room. Recalls his last A1c of 6.4%. Patient noted to have an ongoing OMNIPOD insulin pump. Patient inserting his Dexcom continues glucose monitor when visited. Reviewed settings: Basal rate ranging from 2.0-2.75 during the day. Bolus settings with carb ratio 4 Insulin correction factor of 20, Patient using Humalog U 200, and he has a Vial with him. Past Medical History: Diagnosis Date ??? Diabetes (CMS/HCC) ??? Essential (primary) hypertension Hypertension - (Added by TW Conv) ??? HLD (hyperlipidemia) ??? HTN (hypertension) ??? Methicillin susceptible Staphylococcus aureus infection Staphylococcus aureus infection - L knee (Added by TW Conv) ??? Obesity ??? Other tear of lateral meniscus, current injury, unspecified knee, initial encounter Acute lateral meniscal tear - (Added by TW Conv) ??? Pyogenic arthritis (CMS/HCC) Septic arthritis - L knee (Added by TW Conv) ??? Reflux esophagitis Chronic Reflux Esophagitis - (Added by TW Conv) Past Surgical History: Procedure Laterality Date ??? APPENDECTOMY Appendectomy - (Added by TW Conv) ??? OTHER SURGICAL HISTORY Left 2018 bicep tendon repair ??? DC FEMUR/KNEE SURG UNLISTED Treatment Of The Knee - multiple (17) operations L knee - meniscus, debridement, irrigation for septic knee Medications Prior to Admission Medication Sig Dispense Refill Last Dose ??? atorvastatin (LIPITOR) 20 mg tablet Take 20 mg by mouth every morning 12/09/2019 at Unknown time ??? blood glucose diagnostic (OneTouch Ultra Blue Test Strip) strip OneTouch Ultra Blue Test Strip TEST 3 TIMES A DAY 12/09/2019 at Unknown time ??? blood-glucose meter (OneTouch Ultra2 Meter) misc OneTouch Ultra2 Meter TEST 3 TIMES A DAY 12/09/2019 at Unknown time ??? blood-glucose sensor (Dexcom G6 Sensor) device Dexcom G6 Sensor device CHANGE SENSOR Q 10 DAYS 12/09/2019 at Unknown time ??? blood-glucose transmitter (Dexcom G6 Transmitter) device Dexcom G6 Transmitter device CHANGE TRANSMITTER Q 90 DAYS 12/09/2019 at Unknown time ??? celecoxib (CeleBREX) 200 mg capsule TAKE 2 PILLS WITH BREAKFAST THE DAY BEFORE SX. TAKE 1 PILL BID FOR 4 DAYS AFTER DISCHARGE. 10 capsule 0 12/09/2019 at Unknown time ??? cholecalciferol (VITAMIN D-3) 80634 unit tablet Take 1 tablet (50,000 Units total) by mouth once a week 12 tablet 0 12/09/2019 at Unknown time ??? dulaglutide (TRULICITY) 1.5 mg/0.5 mL pen injector Inject 1.5 mg under the skin every 7 days 12/09/2019 at Unknown time ??? insulin lispro (HumaLOG KwikPen Insulin) 200 unit/mL (3 mL) insulin pen Per insulin pump 12/09/2019 at Unknown time ??? lancets (Easy Touch Lancets) 28 gauge misc Easy Touch Lancets 28 gauge TEST 3 TIMES A DAY 12/09/2019 at Unknown time ??? lancing device misc lancing device TEST 3 TIMES A DAY 12/09/2019 at Unknown time ??? lisinopriL (PRINIVIL,ZESTRIL) 40 mg tablet Take 40 mg by mouth every morning 12/10/2019 at Unknown time ??? metFORMIN XR (GLUCOPHAGE XR) 500 mg 24 hr tablet Take 500 mg by mouth 2 (two) times a day 12/09/2019 at Unknown time No Known Allergies Social History Tobacco Use ??? Smoking status: Never Smoker ??? Smokeless tobacco: Never Used Substance Use Topics ??? Alcohol use: Not Currently Comment: rarely maybe once a month Family History Problem Relation Age of Onset ??? No Known Problems Other ??? Heart attack Father ??? Anesthesia problems Neg Hx Review of Systems: Constitutional: fatigue, Eyes: Negative Ears, nose, mouth, and throat: Negative Respiratory: Negative Cardiovascular: Negative Gastrointestinal: Negative Skin: Negative Musculoskeletal: Negative Neurological: Negative Behavioral/Psych: Negative Endocrine: Diabetes Mellitus Objective Vitals: 24hr Min/Max: Temp Min: 35.8 ??C (96.4 ??F) Max: 36.4 ??C (97.5 ??F) Pulse Min: 65 Max: 88 BP Min: 116/72 Max: 147/92 Resp Min: 10 Max: 28 SpO2 Min: 96 % Max: 100 % Most Recent : Vitals: 12/10/19 1100 BP: 130/75 Pulse: 73 Resp: Temp: SpO2: 99% I/O last 2 completed shifts: In: 1000 [I.V.:1000] Out: - I/O this shift: In: 3768 [I.V.:2768; IV Piggyback:1000] Out: 1575 [Urine:1375; Blood:200] Physical Exam: GENERAL: Alert, oriented, no distress. Ear: Hearing grossly intact, LUNGS: Normal effort reported. VASC: No edema. ABD: Soft, nontender. NEURO: Alert and oriented x3. Normal affect. Lab/Radiology/Diagnostic Review: Laboratory review: POC Glucose: Lab Results Component Value Date GLUCOSE 99 12/10/2019 Assessment /Plan Principal Problem: Primary osteoarthritis of left knee Active Problems: Simple obesity Hypertension Type 2 diabetes mellitus ([facility]) HLD (hyperlipidemia) 1. DM-2: Reviewed insulin pump, continues glucose monitor. Patient on home settings with insulin pump. Entered orders for insulin pump Patient has backup insulin with Humalog U 200 for refill Blood glucose Q a.c., HS, 2:00 a.m. Bedside blood glucose log with blood sugars, bolus initial by patient as well as nurse. Discussed plan with patient, bedside nurse. Appreciate the consult, will continue to follow. Taqueria Lopez MD [facility] Office phone: [phone] Office fax: [phone] OMER SERVICE ADVISOR * Poonam Macario RN - 12/07/2019 12:19 PM CDT 12/07/19 1218 Information Information Obtained From Patient Referral Data Referral Source Physician Referral Reason Discharge Planning Prior to Admission Primary Caregiver Self Support System Spouse/Significant Other Support system contact info (name, phone, availablity) Shara Gomes [phone] Home Care Services Yes Type of Home Care Services Home therapies;Nurse visit Durable Medical Equipment Walker (wheeled) Living Arrangements Spouse/significant other Type of Residence Private residence Steps in home? Yes, Outside of home Number of steps outside: 3 steps documented in this encounter H&P Notes * Yobani Mascorro MD - 12/10/2019 6:53 AM CST I have reviewed the H&P, examined the patient, and endorse the findings as written. Plan of Care : Based on the above findings, I consider Rakesh Gomes to be an acceptable risk for : Procedure(s): ARTHROPLASTY LEFT TOTAL KNEE-lucas persona Cosigned by Dilip Young MD at 12/10/2019 9:22 AM CUSTOMER SERVICE ADVISOR OMER SERVICE ADVISOR OMER SERVICE ADVISOR Source Note - Von Greene MD - 12/03/2019 4:55 PM CDT Images from the original note were not included. Center for Preoperative Assessment and Planning Preoperative Evaluation Record Evaluation type/location: [facility] Date: 12/03/19 NOTE: This note represents a preoperative evaluation initiated via telephone interview. NO PHYSICALEXAM was performed at the time of initial assessment. A physical exam may be added to this note anddocumented below. Anesthesia Evaluation Rakesh Gomes is a 44 y.o. male Procedure(s): ARTHROPLASTY LEFT TOTAL KNEE-lucas persona Pre-Op Diagnosis Codes: * Primary osteoarthritis of left knee [M17.12] HISTORY HPI Rakesh Gomes is a 44 y.o. male who is being evaluated prior to undergoing ARTHROPLASTY LEFT TOTALKNEE for OA. 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 He previously saw an orthopedic surgeon who aspirated his knee several months ago prior to planning for total knee arthroplasty. Gram stain was positive for rare gram-positive cocci. 10/23/2019- no growth. This surgery was postponed due to hgba1c 8.4%. patient has been rescheduled as his A1c is now 6.4% after optimization through diet, exercise, and insulin changes by endocrinology. Past Medical History Information obtained from: patient and chart. Neurological Pertinent negatives: seizures; neuromuscular disease; CVA/stroke; TIA; CEA; ICA stenosis; dementia/mild cognitive impairment and carotid artery stent Cardiovascular + Hypertension Hypertension year diagnosed: 2014. Typical systolic BP - 140 Typical diastolic BP - 90 + Hyperlipidemia (on statin) Pertinent negatives: CAD ; NE ; CABG ; valvular heart disease; valve replacement; atrial fibrillation; arrhythmia; pacemaker/ICD; PVD; DVT/PE; negative for CHF; drug-eluting stent(s); bare metal stent(s) and coronary angioplasty Respiratory Pertinent negatives: COPD; asthma; sleep apnea (SELENA); pulmonary hypertension; no O2 use outside thehospital and non-smoker Hepatic / Heme Pertinent negatives: liver disease; history of anemia; history of thrombocytopenia and history of Agustin positive Gastrointestinal + Hiatal hernia Pertinent negatives: GERD Renal / + Nephrolithiasis (remote history of stones passed spontaneously) Pertinent negatives: renal disease and dialysis Musculoskeletal/Pain + Chronic pain (left knee, low back) - back pain. + Osteoarthritis Pertinent negatives: chronic opioid use and previous treatment for opioid use disorder Endocrine / Other + Diabetes mellitus ([facility] endocrinology recently changed insulin pump regimen and patient is adhering to diet and exercise. a1c has dropped from 8.4 to 6.4 in 1 month) - Diabetes type 2. Diagnosed: 2011. Outpatient insulin use: insulin pump. Pt reported low glucose range is 80. Pt reported high glucose range is 130. Pt reported HgA1c: 6.4. Pt reported HgA1c date: 11/27/2019. + Obesity (BMI >30) (BMI 37.74) + Infectious disease (with previous knee aspiration- Gram stain was positive for rare gram-positivecocci- NO GROWTH on 10/23/2019) Pertinent negatives: thyroid disease; cancer history; rheumatological disease and transplanted organ Functional Capacity Functional capacity: 4-6 METs Comments: Able to climb 2 flights of stairs and walk 4 level blocks without chest pain or shortnessof breath Able to lie flat and breathe easily Review of Systems + pedal edema (left knee chronic edema unchanged) + chronic pain (left knee, low back) + vision loss (corrective lenses) Pertinent negatives: productive cough; wheezing; SOB; recent cold/flu; fever; chest pain; palpitations; orthopnea; PND; Sickle Cell disease/trait; previous transfusion; transfusion reaction; melena/hematochezia; easy bruising; bleeding problems; syncope; dizziness; muscle weakness; numbness/tingling; hard of hearing; heartburn; nausea; dysphagia; diarrhea; dentures/partials; chipped/loose teeth; abdominal pain; diaphoresis and no unexpected weight change PAT Summary and Plans Cardiac risk classification of planned procedure: intermediate cardiac risk. Preoperative assessment status: complete pending laboratory results. Initial preoperative evaluation discussed with: Farzad Solis MD Additional comments: Rakesh Gomes is a 44 y.o. male who is being evaluated prior to undergoing anintermediate cardiac risk surgery. Revised Cardiac Risk Index factors are (insulin therapy for diabetes) for a total RCRI of 1 out of 6. Functional capacity is 4-6 METs. Obstructive sleep apnea (SELENA) screening status is STOP-Bang=4 with bicarbonate > 27 suggesting HIGH RISK for SELENA. Orders placed. Blood bank needs for day of procedure: No type and screen needed. on 11/06/2019 Pending labs/tests include: covid 19 Glucose and BMP DOS This assessment was performed via telephone. Therefore the physical exam has been deferred to the day of surgery team. The patient was provided with preoperative instructions for their medications. The patient was instructed to shower/bathe the night prior and the morning of the planned procedure using an antibacterial soap. Patient instructions were provided in writing sent via [employer] mail and telephone. Patient verbalized understanding of preoperative plan. Patient with No known exposure to COVID19 and no concerning symptoms of COVID19. Plan for pre-procedure COVID19 testing: Telephone assessment performed. Request placed for pre-procedure COVID19 testing to be performed on 12/06/2019. [facility] will contact patient to schedule testing. INSULIN PUMP SUMMARY?? The patient uses an insulin pump on an outpatient basis. Pump information is as follows:? 1. Pump brand: Omnipod??Humalog U200 2. Basal insulin regimen on normal days: 2.5 units/hr 3289-8245, 2 units/hr 5767-5054, 2.75units/[id number] 3. Basal insulin regimen for NPO days: n/a 4. Does the patient meet protocol criteria for continuing their insulin pump throughout the intraoperative period? Yes? 5. Prescribing physician: Dr. Amara Zhong??[facility] [phone] ?? Patient instructed to activate a basal dose compatible with NPO status on the day of surgery. Patient instructed to present to holding area with insulin pump actively infusing. Patient also instructed to bring extra insulin pump supplies to the hospital. Outpatient surgery: If patient requires post-op admission please notify Endocrine/Diabetes team for management of insulin therapies after surgery.??IF THE INSULIN PUMP IS TURNED OFF AT ANY TIME, THE PATIENT MUST BE STARTED AND CONTINUED ON AN ALTERNATIVE BASAL INSULIN REGIMEN until the insulin pump is re-initiated. Acceptable basal insulin regimens are as follows: (1) actively infusing insulin pump; (2) IV insulin infusion; (3) long-acting insulin such as glargine administered within last 24 hours; (4) intermediate acting NPH insulin administered within past 12 hours. Most patients receiving continuous basal insulin should also be maintained on dextrose-containing intravenous fluids when not eating. An [employer] message was sent to the [facility] surgical diabetes pool. ?? Patient instructed to activate a basal dose compatible with NPO status on the day of surgery. Patient instructed to present to holding area with insulin pump actively infusing. Patient also instructed to bring extra insulin pump supplies to the hospital. For [facility] admits: An [employer] message has been sent to the [facility] surgical diabetes pool to inform them of the need for perioperative endocrine comanagement.??IF THE INSULIN PUMP IS TURNED OFF AT ANY TIME, THE PATIENT MUST BE STARTED AND CONTINUED ON AN ALTERNATIVE BASAL INSULIN REGIMEN until the insulin pump is re-initiated. Acceptable basal insulin regimens are as follows: (1) actively infusing insulin pump; (2) IV insulin infusion; (3) long-acting insulin such as glargine administered within last 24 hours; (4) intermediate acting NPH insulin administered within past 12 hours. Most patients receiving continuous basal insulin should also bemaintained on dextrose-containing intravenous fluids when not eating. Patient was instructed to bring all dexcom and pump supplies DOS Epic message sent to surgeon recommending patient arrival prior to 10AM and/or case as early as possible. offices of surgeon and endocrinology closed at this time today - will retrieve A1c, BMP, last OV note and pump settings to confirm patient's history and complete chart. Patient did have a low potassium 1 month ago and was treated with oral supplement by PCP - BMP DOS has been ordered. Preoperative evaluation performed by Carole Cunningham NP on 12/03/19 at 5:01 PM. . Follow up note Confirmed A1c 6.4% 11/27/2019 and pump setting changes by endocrinology. No BMP. Ordered DOS. Chart complete. Surgeon notified patient ready to proceed to OR. TPAP complete. Follow-up completed by: Carole Cunningham NP on 12/04/19 at 10:19 AM Patient Active Problem List Diagnosis ??? Loose body of knee ??? Osteoarthritis of knee ??? Calculus of kidney ??? Hiatal hernia ??? Acid phosphatase serum increased ??? Simple obesity ??? Hypertension ??? Type 2 diabetes mellitus (CMS/HCC) ??? Primary osteoarthritis of left knee ??? Left knee pain Past Medical History: Diagnosis Date ??? Diabetes (CMS/HCC) ??? Essential (primary) hypertension Hypertension - (Added by TW Conv) ??? HLD (hyperlipidemia) ??? HTN (hypertension) ??? Methicillin susceptible Staphylococcus aureus infection Staphylococcus aureus infection - L knee (Added by TW Conv) ??? Other tear of lateral meniscus, current injury, unspecified knee, initial encounter Acute lateral meniscal tear - (Added by TW Conv) ??? Pyogenic arthritis (CMS/HCC) Septic arthritis - L knee (Added by TW Conv) ??? Reflux esophagitis Chronic Reflux Esophagitis - (Added by TW Conv) Past Surgical History: Procedure Laterality Date ??? APPENDECTOMY Appendectomy - (Added by TW Conv) ??? OTHER SURGICAL HISTORY Left 2018 bicep tendon repair ??? DC FEMUR/KNEE SURG UNLISTED Treatment Of The Knee - multiple (17) operations L knee - meniscus, debridement, irrigation for septic knee No Known Allergies Med List Status: Nurse Complete Set By: Vane Peraza at 12/03/2019 3:23 PM Taking? Last Dose Start Date End Date Provider atorvastatin (LIPITOR) 20 mg tablet -- -- Historical Provider, blood glucose diagnostic (OneTouch Ultra Blue Test Strip) strip -- -- Historical ProviderMD blood-glucose meter (Qustodiouch Ultra2 Meter[place] [facility] [place] -- Historical Provider, blood-glucose sensor (Dexcom G6 Sensor) device -- -- Historical Provider, blood-glucose transmitter (Dexcom G6 Transmitter) device -- -- Historical Provider, celecoxib (CeleBREX) 200 mg capsule 10/23/19 -- Dilip Young MD TAKE 2 PILLS WITH BREAKFAST THE DAY BEFORE SX. TAKE 1 PILL BID FOR 4 DAYS AFTER DISCHARGE. cholecalciferol (VITAMIN D-3) 16653 unit tablet 11/07/19 -- Dilip Young MD Take 1 tablet (50,000 Units total) by mouth once a week Notes: Start immediately dulaglutide (TRULICITY) 1.5 mg/0.5 mL pen injector -- -- Historical Provider, insulin lispro (HumaLOG KwikPen Insulin) 200 unit/mL (3 mL) insulin pen -- -- Historical Provider, lancets (Easy Touch Lancets) 28 gauge misc -- -- Historical Provider, lancing device misc -- -- Historical Provider, lisinopriL (PRINIVIL,ZESTRIL) 40 mg tablet -- -- Historical Provider, metFORMIN XR (GLUCOPHAGE XR) 500 mg 24 hr tablet -- -- Historical Provider, No current facility-administered medications for this encounter. Current Outpatient Medications: ??? atorvastatin (LIPITOR) 20 mg tablet ??? blood-glucose transmitter (Dexcom G6 Transmitter) device ??? cholecalciferol (VITAMIN D-3) 70017 unit tablet ??? dulaglutide (TRULICITY) 1.5 mg/0.5 mL pen injector ??? insulin lispro (HumaLOG KwikPen Insulin) 200 unit/mL (3 mL) insulin pen ??? lisinopriL (PRINIVIL,ZESTRIL) 40 mg tablet ??? metFORMIN XR (GLUCOPHAGE XR) 500 mg 24 hr tablet ??? blood glucose diagnostic (OneTouch Ultra Blue Test Strip) strip ??? blood-glucose meter (OneTouch Ultra2 Meter) misc ??? blood-glucose sensor (Dexcom G6 Sensor) device ??? celecoxib (CeleBREX) 200 mg capsule ??? lancets (Easy Touch Lancets) 28 gauge misc ??? lancing device misc Social History Tobacco Use Smoking Status Never Smoker Smokeless Tobacco Never Used Substance and Sexual Activity Alcohol Use Not Currently Comment: rarely maybe once a month Substance and Sexual Activity Drug Use Never Family History Problem Relation Age of Onset ??? No Known Problems Other ??? Heart attack Father ??? Anesthesia problems Neg Hx There were no vitals filed for this visit. PT: No results found for requested labs within last 720 hours. INR: No results found for requested labs within last 720 hours. APTT: No results found for requested labs within last 720 hours. Hgb A1C: 11/06/2019: 8.4 %* CBC RBC: 11/06/2019: 5.77 M/cumm RDW: No results found for requested labs within last 720 hours. MCHC: 11/06/2019: 35.5 g/dL MCH: 11/06/2019: 28.9 pg MCV: 11/06/2019: 81.5 fL Hct: 11/06/2019: 47.0 % Hgb: 11/06/2019: 16.7 g/dL WBC: 11/06/2019: 7.7 K/cumm MPV: 11/06/2019: 10.3 fL Platelets: 11/06/2019: 248 K/cumm RDW CV: 11/06/2019: 13.9 % RDW Sd: 11/06/2019: 40.4 fL BMP Glucose: 11/06/2019: 112 mg/dL Calcium: 11/06/2019: 9.5 mg/dL Sodium: 11/06/2019: 144 mmol/L Potassium: 11/06/2019: 3.1 mmol/L* CO2: 11/06/2019: 33 mmol/L* Chloride: 11/06/2019: 100 mmol/L BUN: 11/06/2019: 10 mg/dL Creatinine: 11/06/2019: 0.69 mg/dL* Deandre index score: 100 DOS Physical Exam Medical history, medications, and allergies reviewed. Attestation: This PAT evaluation Airway Exam: Mallampati: I Cervical ROM: FROM Cardiovascular Exam: Rate: regular Rhythm: regular Pulmonary Exam: LCTA, bilat Anesthesia Plan ASA 3 My patient is approved for the Anesthesia Controlled Medication protocol when under care of a PROGRAM EVALUATOR Planned anesthesia: Regional as primary anesthetic and spinal Informed Consent: Anesthesia plan and risks discussed with patient. Plan and Consent Comments: Risks of spinal anesthesia discussed including infection, bleeding, nerve injury/paralysis, backache, PDPH as well as ineffective/patchy spinal effect (with potential conversion to general anesthesia) Consent and Attending signature: I and/or my designee have discussed the anesthesia plan, benefits, possible alternatives, parental presence at time of induction (if indicated), and clinically relevant risks that may include dental injury, unintentional awareness, and/or other complications. The patient and/or parent/legal guardian understand, and agree to proceed. All questions answered. OMER SERVICE ADVISOR documented in this encounter Consult Notes * Faina Ugalde, PT - 12/10/2019 12:55 PM CST [facility] Physical Therapy Initial Evaluation Patient Name: Rakesh Gomes Date of Service: 12/10/2019 Date of : 1975 Age: 44 y.o.male Room: [place] [address]/[address] Admit Date: 12/10/2019 Primary Diagnosis: Primary osteoarthritis of left knee Referring Practitioner: Dilip Young MD Precautions Precautions: Fall Risk Weightbearing Status: Weightbearing as tolerated (WBAT) on L LE Subjective HPI: Rakesh Gomes is a 44 y.o. male POD 0 s/p L total knee arthroplasty with Dr. Young. Patientis agreeable to participation in therapy session. Physical Therapy Goal: Patient wants to return to prior level of function. Past Medical History: Diagnosis Date ??? Diabetes (CMS/HCC) ??? Essential (primary) hypertension Hypertension - (Added by TW Conv) ??? HLD (hyperlipidemia) ??? HTN (hypertension) ??? Methicillin susceptible Staphylococcus aureus infection Staphylococcus aureus infection - L knee (Added by TW Conv) ??? Obesity ??? Other tear of lateral meniscus, current injury, unspecified knee, initial encounter Acute lateral meniscal tear - (Added by TW Conv) ??? Pyogenic arthritis (CMS/HCC) Septic arthritis - L knee (Added by TW Conv) ??? Reflux esophagitis Chronic Reflux Esophagitis - (Added by TW Conv) Past Surgical History: Procedure Laterality Date ??? APPENDECTOMY Appendectomy - (Added by TW Conv) ??? OTHER SURGICAL HISTORY Left 2018 bicep tendon repair ??? DC FEMUR/KNEE SURG UNLISTED Treatment Of The Knee - multiple (17) operations L knee - meniscus, debridement, irrigation for septic knee Prior Living Environment and Level of Function: Type of Home: 2 level home-patient able to stay on main floor Lives With: Stairs to Enter Home: 3 Railings: one side Stairs Inside Home: will no need to do any initially Home Equipment: Wheeled walker and Axillary crutches Prior Level of Function: Independent with ADLs, Independent with transfers and Independent with ambulation Falls Within the Last 6 Months: No Objective Vitals: Vitals stable prior to therapy session and appear to remain stable throughout with no adverse symptoms noted. Activity Tolerance: Endurance: Endurance does not limt participation in activity Pain Assessment: Pre-evaluation pain: Post-evaluation pain: Comments: L knee Pain intervention: Cold applied, Repositioned, Ambulation, Physical therapy and RN notified Cognition: Overall Cognitive Status: At Baseline Arousal: Alert Orientation: Oriented x4 (person, place, time, and situation) Following Commands: Follows all commands and directions without difficulty Behavior: Easy to engage Lower Extremity Assessment: L Knee ROM 0 - 95 degrees in supine Strength Comments: R LE strength WFL based on observation of functional mobility; L knee flexors/extensors 3+/5 grossly. Bed Mobility: Patient performs supine to edge of bed with standby assistance (SBA). Cues for safety and techniqueprovided. Transfers: Patient performs sit to and from stand with contact guard assistance (CGA). B UE support used, decreased weight bearing on L LE, verbal cues provided for safety and technique. Patient performs transfer x 2 from varying surface heights. Gait: Patient ambulates x 40 feet with wheeled walker and contact guard assistance (CGA). Verbal cueing required for safety, use assistive device safely, follow precautions/weight bearing status, use appropriate gait sequencing, improve upright posture and maintaining balance. Decreased dahiana, step length, stance time on L LE and decreased L heel strike and push off. Stairs: Not assessed this date. *Gait belt used for all OOB mobility* Therapeutic Exercise: Patient performs HEP per Dr. Young TKR protocol x 10 reps. Formal Balance Assessment: Formal balance assessment not indicated due to recent surgery. Assessment Physical Therapy Diagnosis: Impaired joint mobility, motor function, muscle performance, and range of motion associated with joint arthroplasty Prognosis: Good Response to today???s treatment: Good Patient seen within 2 hours of arriving to floor: No: Spinal not resolved within 2 hours. Completed patient handoff and notified RN of patient???s location and functional status upon completion of session. Patient tolerates session well and states he has had many knee surgeries in the past. Patient's spouse present for therapy and appears supportive. Patient limited in ambulation distance secondary to reports of decreased spinal resolution in L LE. Patient ends session up in recliner with B SCDs on, call light in reach and 2 ice packs on patient's L knee. Physical therapy problem list: gait deviations, decreased strength, decreased range of motion and decreased mobility. Patient would benefit from physical therapy intervention to address these impairments and functional limitations. Education: Patient and significant other has been educated on the role of PT, safety , precautions,mobility training and home exercise program. Education completed via explanation and demonstration.Patient and significant other verbalized understanding and needs ongoing reinforcement. Barriers to discharge: None Goals Short-term goals: Expected completion date: 12/15/2019 1. The patient will perform sit to and from supine transfer requiring Stand By Assistance (SBA) forsafety upon discharge. Comments: Initiated 12/10/2019 2. The patient will perform sit to and from stand transfer requiring Stand By Assistance (SBA) for safety upon discharge. Comments: Initiated 12/10/2019 3. The patient will ambulate at least 100 feet with wheeled walker requiring Stand By Assistance (SBA) for safety upon discharge. Comments: Initiated 12/10/2019 4. The patient will ascend and descend at least 3 stairs with one handrail with or without appropriate assistance device requiring Contact Guard Assistance (CGA) for safety upon discharge. Comments: Initiated 12/10/2019 5. Patient will demonstrate good understanding of HEP per Dr. Young TKR protocol with assist fromjoint process coach as needed. Comments: Initiated 12/10/2019 Plan Physical therapy frequency: Follow-up visit only Physical therapy interventions: bed mobility, gait training, stair training, therapeutic activity, therapeutic exercise, balance training, functional transfer training, positioning and range of motion Recommended equipment to safely discharge: Wheeled walker - patient owns walker from previous surgery; will continue to assess to make sure walker is set properly Recommended method of transportation at discharge: Personal vehicle with family Discharge Recommendation: Home with family, Home Health PT Faina Ugalde, PT OMER SERVICE ADVISOR documented in this encounter Nursing Notes * Cristina Clifford RN - 12/11/2019 11:31 AM CST Discharge paperwork instructed to patient. Voiced understanding. OMER SERVICE ADVISOR documented in this encounter Miscellaneous Notes * Plan of Care - Elizabeth Zhong RN - 12/11/2019 11:03 AM CST Goals: Clinical Goals for the Shift: VS stable, pain <4, and rest Summary: Problem: Health Behavior: Goal: Understanding of discharge needs will improve Outcome: Progressing Problem: Safety: Goal: Will remain free from falls Description: Pt will continue to call for assistance before getting up during shift. Outcome: Progressing Problem: Physical Regulation: Goal: Postoperative complications will be avoided or minimized Description: Pt will do IS 10x's/hr and ankle pumps 15min/hr while awake during shift. Outcome: Progressing Problem: Sensory: Goal: Pain level will decrease Description: Pain will remain </=4 with interventions during shift. Outcome: Progressing Problem: Physical Regulation: Goal: Complications related to the disease process, condition or treatment will be avoided or minimized Description: Pt blood sugar will remain below 175 with interventions during hospitalization. Outcome: Progressing Goal: Diagnostic test results will improve Outcome: Progressing OMER SERVICE ADVISOR * Plan of Care - Kiera Wilson RN - 12/11/2019 2:02 AM CST Goals: Clinical Goals for the Shift: VS stable, pain <4, and rest Summary: Pt is calm and resting in recliner, sleeping. Pt VS are stable, pain is controlled, and pthas rested on and off this shift. Pt's surgical dressing is C/D/I. Pt is ambulating and voiding w/odifficulty. Pt has received percocet X3 PRN for pain this shift. Pt shows no apparent S&S of distress at this time. Will continue to monitor pt status and work on progression of care plan goals. OMER SERVICE ADVISOR * Plan of Care - Ana Carpio RN - 12/10/2019 10:00 AM CST Goals: pain of 4 or less this shift; IS 10X/hr; out of bed when spinal anesthesia has resolved Summary: Received patient into room 2117 from PACU. Awake, A&Ox4. VSS. Remains numb in lower legs with gross motor movement only. Instructed patient on the use of his incentive spirometer and call light. OMER SERVICE ADVISOR * Op Note - Dilip Young MD - 12/10/2019 7:41 AM CST OPERATIVE REPORT ATTENDING SURGEON: Dilip Young M.D. FIRST TAKE DOWN SORTER: Fran Giang MD SECOND/THIRD TAKE DOWN SORTER: Hayden Jean PREOPERATIVE DIAGNOSIS: Left knee osteoarthritis POSTOPERATIVE DIAGNOSIS: Left knee osteoarthritis PROCEDURE: Left cementless total knee arthroplasty IMPLANTS: Wafer Mounter: Lucas Brand: Persona Tibial component size: F Femoral component size: 7 Patellar Button: none Bearing type: Cruciate Retaining Tibial Insert Size: F Insert Thickness: 10 SURGICAL DETAILS: 1) Incision/arthrotomy type: Medial parapatellar 2) Estimated blood loss: 200 3) Urine output: 150 4) Crystalloid replacement: 2500 5) Colloid replacement: 0 6) Blood replacement: 0 7) Anesthesia type: spinal 8) Specimens removed: L femur and tibia bone 9) Capsular injection: 30 mL of 0.5% Marcaine with epinephrine and 30 mg of Toradol 10) Tourniquet Use: None 11) Tourniquet Time in Minutes: 0 INDICATIONS FOR PROCEDURE: This patient presents today with end stage degenerative joint disease of the knee. The patient has failed non-operative treatment and presents for total knee replacement. Risks, complications, and benefits of the procedure have been discussed and all questions have been answered preoperatively. PROCEDURE: The patient was brought to the operating room and placed on the operating room table in the supine position. After anesthesia was established, the patient was positioned supine and a tourniquet placed on the proximal thigh. Bony prominences were padded. The patient was given prophylactic antibiotics within one hour of skin incision. The involved lower extremity was prepped and draped in usual sterile fashion. Surgical timeout was taken to confirm the operative side and planned procedure. A straight incision was used medial to the midline carried through the subcutaneous tissue to the underlying extensor mechanism. A medial parapatellar approach was utilized. The distal femur and proximal tibia was shaped by a sequence of saw cuts measured to accept the optimal size component based on intraoperative assessment as well as the preoperative plan utilizing standard instrumentation. The tibial trial baseplate was put in place and the keel punch introduced. Trial reduction was performed and the optimal trial insert was chosen. The knee was tested for full extension, stability to stress in extension, mid flexion, and 90 of flexion, as well as for patellar tracking. Marginal osteophytes were removed and a lamina rail transportation tabeler was utilized with the knee in 90 of flexion to clear posterior osteophytes, loose bodies and meniscal remnants. The medial and lateral menisci were removed. The trial implants were removed. All bone was then prepared with lavage and drying for preparation prior to final component placement. The final implants were impacted. The knee was reduced and motion and stability was again tested. After press fit of implants was confirmed, the tibial insert was exchanged to the final tibial insert which was impacted into position. The patella was everted, a lateral facetectomy was performed, marginal osteophytes trimmed, and thesynovial margin was cauterized, clearing excess synovium. A lateral release was needed to enhance tracking of the patella. The wound was closed in layers and the skin was approximated with subcutaneous Monocryl and Prineo dressing. The patient tolerated the procedure well and was taken to the recovery room in stable condition. EXCEPTIONS/COMPLICATIONS: None SPONGE, INSTRUMENT AND NEEDLE COUNTS: Correct x 2. See Dr. Young's attending addendum for further details. ATTENDING SURGEON ADDENDUM: I was present for all critical portions of the case including assessment of bone cuts, insertion ofall trials and implants, and assessment of alignment stability, range of motion, and patellar tracking. Dr. Rex Mascorro was immediately available for the noncritical portions of the procedure. OMER SERVICE ADVISOR OMER SERVICE ADVISOR * Brief Op Note - Mario Giang MD - 12/10/2019 7:41 AM CUSTOMER SERVICE ADVISOR Operative Progress Note Surgical Team: Surgeon(s) and Role: * Dilip Young MD - Primary * Mario Giang MD - Resident - Assisting Anesthesiologist: Von Greene MD PROGRAM EVALUATOR: Lalo Crump CRNA Wedding Transportation Driver: Kirstin Alejandro RN Scrub Relief: Andrés Quintanilla ST Scrub: Radha Mendoza ST CAR DROPPER: Juan J Jean RNFA DATE OF SURGERY : 12/10/2019 Preoperative Diagnosis: Pre-op Diagnosis * Primary osteoarthritis of left knee [M17.12] Postoperative Diagnosis: Post-op Diagnosis * Primary osteoarthritis of left knee [M17.12] Procedure(s): Procedure(s) (LRB): ARTHROPLASTY LEFT TOTAL KNEE-lucas persona (Left) Operative Findings: L knee OA Estimated Blood Loss: 200 mL Intraoperative Fluids: See anesthesia note Specimens: No specimen collected in procedure Implants: Implant Name Type Inv. Item Serial No. Wafer Mounter Lot No. LRB No. Used Action LUCAS Hita [id number] PERSONA CRUCIATE RETAIN KNEE LEFT 7 STANDARD COMPONENT FEMORAL - SNA -[id number] Other - see comments [employer]UCAS [employer] [id number] Persona Cruciate Retain Knee Left 7 Standard Component Femoral NA [employer] [id number] Left 1 Implanted LUCAS [employer] [id number] PERSONA 2 PEG KNEE LEFT F BASEPLATE TIBIAL TRABECULAR METAL - SNA - [id number] Other - see comments LUCAS [employer] [id number] Persona 2 Peg Knee Left F Baseplate Tibial Trabecular Metal NA [employer] [id number] Left 1 Implanted [employer] [id number] PERSONA 10MM KNEE LEFT INSERT ARTICULAR VIVACIT-E STERILE LATEX FREE - SNA - [id number] Other - see comments [employer] [id number] Persona 10mm Knee Left Insert Articular Vivacit-e Sterile Latex Free NA [employer] [id number] Left 1 Implanted Blood/Blood Products Transfused: 0 mls Complications: None Condition on Discharge from the operating room was stable Mario Giang MD Date: 12/10/2019 Time: 8:56 AM TEACHING ATTESTATION : I was present and directly participated in the entire procedure (including opening and closing). Cosigned by Dilip Young MD at 12/10/2019 12:05 PM CUSTOMER SERVICE ADVISOR OMER SERVICE ADVISOR OMER SERVICE ADVISOR * Plan of Care - Poonam Macario RN - 12/07/2019 12:19 PM CDT Patient interviewed via telephone 12/07/2019. * Pre-Procedure Instructions - Carole Cunningham NP - 12/03/2019 4:41 PM CDT [facility] Pre[facility] Planning CP[facility] Clinic Location: [facility] The night before your surgery: * Do not eat or drink anything after midnight. This includes candy, mint, gums, chewable antacids (TUMS, Rolaids) and cough drops The morning of your surgery: * You may brush your teeth and rinse your mouth out. * Do not wear jewelry, body piercings, makeup, hairpins, false eyelashes or contact lenses to the hospital. * Leave any valuables at home or with your family. You may want to bring a credit card if you want to use our Mobile Pharmacy for your discharge medications. If you have been told to drink Gatorade or Clear Fast before your surgery: * Drink only clear liquids on the day of your surgery. DO NOT eat anything on the day of your surgery. * Your surgeon will tell you to drink Gatorade or Clear Fast on the day of your surgery. They will also tell you how much you can drink. The usual amount is two 12 ounce bottles (24 ounces total). Ifyou have diabetes you should drink a reduced sugar drink. * You need to stop drinking the Gatorade or Clear Fast at least 2 hours before your surgery. Your surgeon will tell you exactly what time you need to stop. If you have Diabetes: * Your diabetic medicines may change if you are on a clear liquid diet or doing a bowel prep beforesurgery. * Do not take any of your diabetic pills while you are on a clear liquid diet or doing a bowel prep. * You may also need less insulin than usual. * If you use insulin and are placed on a liquid diet, be sure to drink some liquids that contain sugar. * If your blood sugar is low before you come to the hospital, drink a small amount of sugar water or clear juice like apple or cranberry juice. DO NOT drink orange or pineapple juice. These are not clear liquids. * If you take insulin be sure to read the Medicine Instructions. * Please call your surgeon and/or the CPAP Clinic if you have any questions. Instructions For Your Medications: Pre-Surgery Instructions: Medication Instructions ??? atorvastatin (LIPITOR) 20 mg tablet Take morning of surgery ??? cholecalciferol (VITAMIN D-3) 03195 unit tablet Don't take on day of surgery ??? dulaglutide (TRULICITY) 1.5 mg/0.5 mL pen injector Don't take on day of surgery ??? insulin lispro (HumaLOG KwikPen Insulin) 200 unit/mL (3 mL) insulin pen Don't take on day of surgery ??? lisinopriL (PRINIVIL,ZESTRIL) 40 mg tablet Don't take on day of surgery ??? metFORMIN XR (GLUCOPHAGE XR) 500 mg 24 hr tablet Don't take on day of surgery ??? celecoxib (CeleBREX) 200 mg capsule Per surgeon's instructions Instructions For Your Insulin: ? If you have an insulin pump set it to a rate that you would use if you were not going to be eating. Talk to your bonded strand operator if you are not sure what rate to set. Bring extra insulin pump supplies with you to the hospital. ?? Make sure your insulin pump is not connected to your body near your surgery site. You can place it: on the right side of body ?? none ?? Do NOT take REGULAR insulin (NOVOLIN R / HUMULIN R) on the day of surgery. ?? Do NOT take SHORT-ACTING insulin (ASPART / NOVOLOG / FIASP, LISPRO / HUMALOG) on the day of surgery. ?? Make sure you check your blood sugar regularly. If your blood sugar is too low, you can drink clear drinks like apple juice or sugar water. General Instructions For Medications: ?? * If prescribed a non-steroidal anti-inflammatory such as Meloxicam, Celebrex, or Naproxen by your surgeon, take as prescribed and follow your surgeon's instructions for all other non-steroidal anti-inflammatory medications prior to your surgery. ?? For medications that you are instructed to take on the morning of surgery, take the medications with a few sips of water. ?? Stop all of these medications 7-14 days prior to your surgery: Vitamin E, Herbal medicines, DietPills ?? If you have pain, you may take tylenol (acetaminophen). Do not take more than 6 tablets or 3000 mg (3 g) within a 24 period. Call your surgeon and the CPAP clinic if any of the following happens before surgery: ?? Any changes in your health ?? You have a fever ?? You have any signs of an infection (chest, urinary tract or tooth) ?? You have been to the Emergency Room or were in the hospital ?? You have started taking any new medications ?? You have questions about a bowel prep or special diet before surgery * Perioperative Nursing Note - KarmenVane - 12/03/2019 3:31 PM CDT Center for Preoperative Assessment and Planning Perioperative Nursing Note Telephone Preoperative Evaluation ([facility]) - TELEPHONE ONLY, NO PHYSICAL EXAM Date: 12/03/19 Vitals: 12/03/19 1525 Weight: 120.2 kg (265 lb) Height: 177.8 cm (5' 10 ) CHEST CIRCUMFERENCE: Social History Tobacco Use Smoking Status Never Smoker Smokeless Tobacco Never Used Substance and Sexual Activity Alcohol Use Not Currently Comment: rarely maybe once a month Substance and Sexual Activity Drug Use Never Outpatient Medications Marked as Taking for the 12/10/19 encounter (Hospital Encounter) with Dilip Young MD Medication Sig Dispense Refill ??? atorvastatin (LIPITOR) 20 mg tablet Take 20 mg by mouth every morning ??? blood-glucose transmitter (Dexcom G6 Transmitter) device Dexcom G6 Transmitter device CHANGE TRANSMITTER Q 90 DAYS ??? cholecalciferol (VITAMIN D-3) 43959 unit tablet Take 1 tablet (50,000 Units total) by mouth once a week 12 tablet 0 ??? dulaglutide (TRULICITY) 1.5 mg/0.5 mL pen injector Inject 1.5 mg under the skin every 7 days ??? insulin lispro (HumaLOG KwikPen Insulin) 200 unit/mL (3 mL) insulin pen Per insulin pump ??? lisinopriL (PRINIVIL,ZESTRIL) 40 mg tablet Take 40 mg by mouth every morning ??? metFORMIN XR (GLUCOPHAGE XR) 500 mg 24 hr tablet Take 500 mg by mouth 2 (two) times a day Implants No active implants to display in this view. SKIN Piercings Remaining: Yes Wound (LDAs) Type of Wound (LDA): (none) SCREENINGS Saeed Fall Risk Score (Retired): 15 Deandre index score: 100 Is someone currently physically or emotionally hurting you or your family?: Denies NUTRITION PATIENT CARE PLANNING Advance Directives (For Healthcare) Advance Directive: Patient does not have advance directive Communication/Senior Planning Manager Needs Communication Needs: Contacts, Glasses Assistive Devices/DME: Eyeglasses, Contacts Discharge Planning Type of Residence: Private residence Living Arrangements: Spouse/significant other Support Systems: Spouse/significant other( to be driver messenger and caregiver) Patient expects to be discharged to:: Private residence COVID Screening Covid-19 Screening In the last 10 days have you had any new or worsening cough, SOB, fever (>=100F), body aches, loss of taste or smell, diarrhea or vomiting, or sore throat?: No Have you had close contact with anyone with confirmed or suspected COVID-19 in the past 3 weeks?: No Do you live in or work in a congregate living facility (ex. assisted living/custodial facility, senior care, skilled nursing)?: No Have you tested positive for COVID-19 within the last 14 days?: No Have you previously tested positive for COVID-19? No TESTING PLAN-See Instructions for plan We recommend you Self-Isolate after COVID Testing: Stay at home, if possible until your surgery date. Maintain a 6 foot distance from other people (social distancing). Avoid touching your eyes, nose and mouth with unwashed hands. Wash your hands often with soap and water for at least 20 seconds. Use an alcohol- based hand manager fashion that contains at least 60% alcohol if soap and water are not available. ADDITIONAL COMMENTS/ FOLLOW UP * Pre-Procedure Instructions - Vane Peraza - 12/03/2019 3:30 PM CDT PRE-SURGICAL INSTRUCTIONS ??? General Information ?? Surgery location provided to patient. ?? Arrival time and surgical time will be provided by your surgeon. ?? Wear something clean, loose, comfortable and easy to get in and out of. ?? Leave your valuables and any jewelry at home (No metal or piercings are allowed in the operatingroom) ?? Bring your insurance card, a photo ID (like a Windows Application Packager's license) and a method of payment for any insurance copay, deductible, or copay for discharge medications. ?? Bring a complete, up to date list of all of your medications including any over the counter medications or supplements you may take. ? How To Prepare Your Skin For Surgery Antiseptic/antibacterial soap will decrease the amount of germs on your skin. It is important to minimize the risk of getting an infection by doing the following: ?? Change all the linens on the bed the night before surgery so you are sleeping on clean fresh sheets and pillowcases. ?? Shower the evening before and the morning of surgery with an antibacterial soap such as Dial or a surgical soap known as chlorhexidine (Hibiclens). You can purchase this soap at any pharmacy or department store or come by our CPAP clinic and we will give it to you free of charge. Do not use thissoap on your face or hair. ?? Wash your hair and face with your regular shampoo (no conditioners) and facial cleanser. ?? Take a shower using ?? cup (2 oz.) of antiseptic soap applied to a clean fresh washcloth. Scrub your entire body from the neck down. If you can't reach the surgical site, such as your back, have someone help you with your shower. Step out of the water and leave soap on your skin for 2 minutes prior to rinsing off. Rinse thoroughly and dry yourself off with a clean fresh dry towel. ?? Wear clean clothes or pajamas to sleep in and on morning of surgery. ?? Nothing extra on the skin or hair such as deodorant, makeup, hair products, lotions, powders, Vaseline, creams, or perfumes the evening before and the morning of surgery. ?? The morning of the surgery repeat the shower process with the remaining ?? cup (2 oz.) of surgical scrub using another fresh wash cloth and towel. ?? Do not shave the morning of surgery. ?? REMEMBER no deodorant, make-up, lotions, powders, creams, Vaseline, oils, conditioners or hair products the morning of the surgery. COVID TESTING PLAN COVID Test Request Placed in Epic to [facility]. Test to be performed on 12/06/19. If you have COVID testing or should have COVID testing for your surgery/procedure, please read below section: If you need to reschedule your COVID test to a different location or if your surgery gets rescheduled, you MUST call [phone] Tuesday-Tuesday 8am-4:30pm to get your COVID testing rescheduled or your lab order will not be available at Testing Sites. COVID Testing is only valid for up to 96 hours prior to surgery date, unless otherwise specified. If you are unable to reach staff at the above phone number, please call the CPAP Staff at [phone]. This number cannot order a lab test, but can attempt to contact the above number/staff to assist you. We are available Tuesday-Tuesday 8am-4:30pm . We recommend you Self-Isolate after COVID Testing: Stay at home, if possible until your surgery date. Maintain a 6 foot distance from other people (social distancing). Avoid touching your eyes, nose and mouth with unwashed hands. Wash your hands often with soap and water for at least 20 seconds. Use an alcohol- based hand manager fashion that contains at least 60% alcohol if soap and water are not available. ALL Patients should read below section: All visitors/patients are being asked to wear a clean mask when entering the hospital. COVID 19 Updates & Visitor Policy: Please access [email or web address] for the most updated information. Surgery Times: ??? For patients [facility] @ [facility], [facility], if your surgeon's office has not notified you of your surgery time by NOON THE BUSINESS DAY BEFORE your surgery, please call [phone] and ask for your surgeon's office Dr Young documented in this encounter Plan of Treatment Not on file documented as of this encounter Procedures Procedure Name Priority Date/Time Associated Diagnosis Comments POCT GLUCOSE DEVICE Routine 12/11/2019 9 :04 AM CUSTOMER SERVICE ADVISOR POCT GLUCOSE DEVICE Routine 12/11/2019 3 :47 AM CUSTOMER SERVICE ADVISOR EGFR Routine 12/11/2019 3:41 AM CUSTOMER SERVICE ADVISOR CBC WITHOUT DIFFERENTIAL Routine 12/11/2019 3:41 AM CUSTOMER SERVICE ADVISOR BASIC METABOLIC PANEL Routine 12/11/2019 3:41 AM CUSTOMER SERVICE ADVISOR POCT GLUCOSE DEVICE Routine 12/10/2019 5 :17 PM CUSTOMER SERVICE ADVISOR POCT GLUCOSE DEVICE Routine 12/10/2019 10:14 AM CUSTOMER SERVICE ADVISOR XR KNEE LEFT 1 OR 2 VIEWS STAT 12/10/2019 9:28 AM CUSTOMER SERVICE ADVISOR POCT GLUCOSE DEVICE Routine 12/10/2019 9 :13 AM CUSTOMER SERVICE ADVISOR ARTHROPLASTY TOTAL KNEE 12/10/2019 7:19 AM CUSTOMER SERVICE ADVISOR Primary osteoarthritis of left knee Case Notes ZB - Persona Special Needs [place] POCT GLUCOSE DEVICE Routine 12/10/2019 6 :09 AM CUSTOMER SERVICE ADVISOR documented in this encounter Results * POCT glucose (12/11/2019 9:04 AM CUSTOMER SERVICE ADVISOR) Glucose, POC 77 70 - 199 mg/dL [facility] BRYSON Comment: Interpretive Data Glucose is assumed to be non-fasting. Fasting Glucose reference ranges are: 0 - 150 years: ??70 mg/dL - 99 mg/dL Current interpretive data was last revised on 2013. POC Performer [id number] [facility] P[facility] Device Number [id number] [facility] Blood specimen (specimen) 12/11/2019 9:04 AM CUSTOMER SERVICE ADVISOR 12/11/2019 9:04 AM CUSTOMER SERVICE ADVISOR Dilip Young MD LAB POCT ORDERABLES - DEVIC E Final Result Performing Organization Address [facility] de Phone Number [facility] [id number] [place] [address] * POCT glucose (12/11/2019 3:47 AM CUSTOMER SERVICE ADVISOR) Glucose, POC 106 70 - 199 mg/dL CH[place] PIPER Comment: Interpretive Data Glucose is assumed to be non-fasting. Fasting Glucose reference ranges are: 0 - 150 years: ??70 mg/dL - 99 mg/dL Current interpretive data was last revised on 2013. POC Performer [id number] [facility] POC Device Number [id number] [facility] Blood specimen (specimen) 12/11/2019 3:47 AM CUSTOMER SERVICE ADVISOR 12/11/2019 3:47 AM CUSTOMER SERVICE ADVISOR Dilip Young MD LAB POCT ORDERABLES - DEVIC E Final Result Performing Organization Address [facility] de Phone Number [facility] [id number] [employer] [place] [address] * eGFR (12/11/2019 3:41 AM CUSTOMER SERVICE ADVISOR) Pathologist [facility] eGFR >90 mL/min/1.7 3 m2 [facility] Comment: Interpretive Data Reference Interval Normal ?>/= 90 mL/min/1.73m2 Mildly decreased* ? 60 - 89 mL/min/1.73m2 Mildly to moderately decreased ?45 - 59 mL/min/1.73m2 Moderately to severely decreased ??30 - 44 mL/min/1.73m2 Severely decreased ?15 - 29 mL/min/1.73m2 Kidney Failure ?< 15 ??mL/min/1.73m2 *Relative to young adult level If -[place] multiply value by 1.16. Estimated glomerular filtration rate is determined by the CKD-EPI equation recommended by the National Kidney Foundation (KDIGO 2012 Clinical Practice Guideline for the Evaluation and Management of Chronic Kidney Disease. Kidney Intnl Suppl Feb 2012;3:1). The CKD-EPI equation should not be used for patients with unstable renal function and has not been validated in children and those over 70. Current interpretive data was last reviewed 2015. Blood specimen (specimen) 12/11/2019 3:41 AM CUSTOMER SERVICE ADVISOR 12/11/2019 3:53 AM CUSTOMER SERVICE ADVISOR us Dilip Young MD LAB BLOOD ORDERABLES Final Result [facility] [id number] [facility]. [place] [address] * (ABNORMAL) CBC without differential (12/11/2019 3:41 AM CUSTOMER SERVICE ADVISOR) Pathologist [facility] WBC 9.9 3.8 - 9.9 K/cumm [facility] Hgb 13.3 13.0 - 17.5 g/dL [facility] Hct 37.8(L) 38.9 - 50.3 % [facility] Plt 193 150 - 400 K/cumm [facility] MPV 10.3 9.1 - 12.3 fL [facility] RBC 4.59 4.30 - 5.80 M/cumm [facility] MCV 82.4 81.3 - 96.4 fL [facility] MCH 29.0 27.1 - 33.3 pg [facility] MCHC 35.2 32.3 - 35.7 g/dL [facility] RDW CV 14.4 11.1 - 14.9 % [facility] RDW SD 42.4 35.7 - 48.1 fL [facility] NRBC abs 0.00 0.00 - 0.01 K/cumm [facility] Blood specimen (specimen) 12/11/2019 3:41 AM CUSTOMER SERVICE ADVISOR 12/11/2019 3:53 AM CUSTOMER SERVICE ADVISOR Dilip Young MD LAB BLOOD ORDERABLES Final Result [facility] [id number] [facility] Department of Laboratories [place], [place] [id number] * (ABNORMAL) Basic metabolic panel (12/11/2019 3:41 AM CUSTOMER SERVICE ADVISOR) Sodium 137 135 - 145 mmol/L [facility] Potassium, pl 3.5 3.3 - 4.9 mmol/L [facility] Chloride 104 97 - 110 mmol/L [facility] CO2 24 22 - 32 mmol/L [facility] Anion gap 10 2 - 15 mmol/L [facility] BUN 11 8 - 25 mg/dL [facility] Creatinine 0.70(L) 0.80 - 1.30 mg/dL [facility] Glucose 106 70 - 199 mg/dL [facility] Comment: Interpretive Data Fasting glucose >/= 126 mg/dl is diagnostic for diabetes. ?? Fasting is defined as no caloric intake for at least 8 hours. Fasting glucose between 100 mg/dl to 125 mg/dl is diagnostic of prediabetes. In a patient with classic symptoms of hyperglycemia or hyperglycemic crisis, a random glucose >/= 200 mg/dl is diagnostic for diabetes. In the absence of unequivocal hyperglycemia, results should be confirmed by repeat testing. The classification and Diagnosis of Diabetes Diabetes Care 2017;40 (Suppl. 1):S11. Current interpretive data was last revised 2016. Calcium 8.5 8.5 - 10.3 mg/dL [facility] Blood specimen (specimen) 12/11/2019 3:41 AM CUSTOMER SERVICE ADVISOR 12/11/2019 3:53 AM CUSTOMER SERVICE ADVISOR Dilip Young MD LAB BLOOD ORDERABLES Final Result Performing Organization Address [facility] de Phone Number [facility] [id number] [facility] [employer] [place], [place] [id number] * POCT glucose (12/10/2019 5:17 PM CUSTOMER SERVICE ADVISOR) Glucose, POC 144 70 - 199 mg/dL [facility] Comment: Interpretive Data Glucose is assumed to be non-fasting. Fasting Glucose reference ranges are: 0 - 150 years: ??70 mg/dL - 99 mg/dL Current interpretive data was last revised on 2013. POC Performer [id number] [facility] POC Device Number [id number] [facility] Blood specimen (specimen) 12/10/2019 5:17 PM CUSTOMER SERVICE ADVISOR 12/10/2019 5:17 PM CUSTOMER SERVICE ADVISOR Dilip Young MD LAB POCT ORDERABLES - DEVIC E Final Result Performing Organization Address [facility] de Phone Number [facility] [address] [facility] [employer] [place], [place] [id number] * POCT glucose (12/10/2019 10:14 AM CUSTOMER SERVICE ADVISOR) Glucose, POC 99 70 - 199 mg/dL [facility] Comment: Interpretive Data Glucose is assumed to be non-fasting. Fasting Glucose reference ranges are: 0 - 150 years: ??70 mg/dL - 99 mg/dL Current interpretive data was last revised on 2013. POC Performer [id number] [facility] POC Device Number [id number] [facility] Blood specimen (specimen) 12/10/2019 10:14 AM CUSTOMER SERVICE ADVISOR 12/10/2019 10:14 AM CUSTOMER SERVICE ADVISOR Dilip Young MD LAB POCT ORDERABLES - DEVIC E Final Result [facility] [address] [facility]. [place] [address] * XR Knee Left 1 or 2 View (12/10/2019 9:28 AM CUSTOMER SERVICE ADVISOR) Anatomical Region Laterality Modality Lower Extremities, Knee Left Computed Radiography 12/10/2019 9:36 AM CUSTOMER SERVICE ADVISOR Impressions 12/10/2019 9:36 AM CUSTOMER SERVICE ADVISOR 1. New two component left knee arthroplasty for osteoarthritis. Electronically signed by: Mario Martins M.D. Narrative 12/10/2019 9:36 AM CUSTOMER SERVICE ADVISOR EXAMINATION: XR KNEE LEFT 1 OR 2 [...] osteoarthritis. Electronically signed by: Mario Martins M.D. Dilip Young MD IMG XR PROCEDURES Final Res ult * POCT glucose (12/10/2019 9:13 AM CUSTOMER SERVICE ADVISOR) Glucose, POC 105 70 - 199 mg/dL [facility] Comment: Interpretive Data Glucose is assumed to be non-fasting. Fasting Glucose reference ranges are: 0 - 150 years: ??70 mg/dL - 99 mg/dL Current interpretive data was last revised on 2013. POC Performer [id number] [facility] P[facility] Device Number [id number] [facility] Blood specimen (specimen) 12/10/2019 9:13 AM CUSTOMER SERVICE ADVISOR 12/10/2019 9:13 AM CUSTOMER SERVICE ADVISOR Dilip Young MD LAB POCT ORDERABLES - DEVIC E Final Result Performing Organization Address [facility] de Phone Number [facility] [address] [facility] [place] [address] * POCT glucose (12/10/2019 6:09 AM CUSTOMER SERVICE ADVISOR) [facility] Glucose, POC 103 70 - 199 mg/dL [facility] Comment: Interpretive Data Glucose is assumed to be non-fasting. Fasting Glucose reference ranges are: 0 - 150 years: ??70 mg/dL - 99 mg/dL Current interpretive data was last revised on 2013. POC Performer [id number] [facility] POC Device Number [id number] [facility] Blood specimen (specimen) 12/10/2019 6:09 AM CUSTOMER SERVICE ADVISOR 12/10/2019 6:09 AM CUSTOMER SERVICE ADVISOR Dilip Young MD LAB POCT ORDERABLES - DEVIC E Final Result Performing Organization Address [facility] de Phone Number [facility] [address] [facility] [place] [address] documented in this encounter Visit Diagnoses Diagnosis Primary osteoarthritis of left knee- Primary Primary osteoarthritis of left knee Type 2 diabetes mellitus (HCC) Hypertension Unspecified essential hypertension HLD (hyperlipidemia) Other and unspecified hyperlipidemia Simple obesity Obesity, unspecified documented in this encounter Admitting Diagnoses Diagnosis Primary osteoarthritis of left knee documented in this encounter Administered Medications Inactive Administered Medications - up to 3 most recent administrations Medication Order MAR Action Action Date Dose Rate Site acetaminophen (TYLENOL) tablet 650 mg 650 mg, oral, Once, On Tue12/10/19 at 0615, For 1 dose, Pre-Op, Indications: PainIndications:Pain Given 12/10/2019 5:59 AM CUSTOMER SERVICE ADVISOR 650 mg aspirin enteric coated tablet 325 mg 325 mg, oral, 2 times daily, First dose on Tue12/10/19 at 2100, Please start on POD#0 at 2100 Do not crush, chew, cut, dissolve, open or otherwise manipulate tablet/capsule., Indications: Deep Vein Thrombosis PreventionIndications:Deep Vein Thrombosis Prevention Given 12/10/2019 8:12 PM CUSTOMER SERVICE ADVISOR 325 mg aspirin enteric coated tablet 81 mg 81 mg, oral, 2 times daily, First dose (after last modification) on Tue12/11/19 at 0900, Please start on POD#0 at 2100 Do not crush, chew, cut, dissolve, open or otherwise manipulate tablet/capsule., Indications: Deep Vein Thrombosis PreventionIndications:Deep Vein Thrombosis Prevention Given 12/11/2019 8:13 AM CUSTOMER SERVICE ADVISOR 81 mg atorvastatin (LIPITOR) tablet 20 mg 20 mg, oral, Every morning, First dose on Tue12/10/19 at 1045, Indications: hyperlipidemiaIndications:h yperlipidemia Given 12/11/2019 8:12 AM CUSTOMER SERVICE ADVISOR 20 mg ceFAZolin (ANCEF) 2,000 mg/20 mL in sterile water (premix) 2,000 mg 2,000 mg, intravenous, at 400 mL/hr, Administer over 3 Minutes, Every 8 hours, First dose on Tue12/10/19 at 1530, For 2 doses, Beginning 8 hours after last aneta-operative dose., Indications: Prophylaxis, SurgicalIndications:Prophyl axis, Surgical New Bag 12/11/2019 12:15 AM CUSTOMER SERVICE ADVISOR 2,000 mg 400 mL/hr New Bag 12/10/2019 3:55 PM CUSTOMER SERVICE ADVISOR 2,000 mg 400 mL/hr dextrose (D10W) 10% bolus 250 mL 250 mL, intravenous, at 1,000 mL/hr, Administer over 15 Minutes, Every 15 min PRN, blood glucose less than 70 mg/dL and UNABLE to swallow/take PO glucose/juice., Starting on Tue12/10/19 at 1348, After treatment for hypoglycemia, recheck BG followed by treatment every 15 minutes until the BG is greater than 100 mg/dL. Then check BG 1 hour post treatment. If BG is less than 100 mg/dL, repeat Q15 minute BG checks and treatment. Call MD for each episode of hypoglycemia., Indications: hypoglycemic disorderIndications:hypoglycemic disorder dextrose (GLUTOSE) 40 % gel 15 g 15 g, oral, Every 15 min PRN, low blood sugar, blood glucose less than 70 mg/dL, Starting on Tue12/10/19 at 1348, If patient is alert and able to eat/drink, give 15 gm glucose or one juice (4 fluid ounces) NOT ORANGE JUICE. After treatment for hypoglycemia, recheck BG followed by treatment every 15 minutes until the BG is greater than 100 mg/dL. Then check BG 1 hour post-treatment. If BG is less than 100 mg/dL, repeat Q15 minute BG checks and treatment. Call MD for each episode of hypoglycemia. EVENT REPRESENTATIVE STATES GLUTOSE-15 CONTAINS GLUCOSE 40% W/W (50% W/V), Indications: hypoglycemic disorderIndications:hypoglycemic disorder famotidine (PEPCID) tablet 20 mg 20 mg, oral, 2 times daily, First dose on Tue12/10/19 at 2100, Indications: HeartburnIndications:Heartburn Given 12/11/2019 8:12 AM CUSTOMER SERVICE ADVISOR 20 mg Given 12/10/2019 8:12 PM CUSTOMER SERVICE ADVISOR 20 mg glucagon injection 1 mg 1 mg, intramuscular, Administer over 1 Minutes, Every 30 min PRN, low blood sugar, blood glucose less than 70 mg/dL AND no IV access AND unable to take PO glucose/jiuce., Starting on Tue12/10/19 at 1348, After Glucagon is administered, position patient on side if possible to avoid aspiration. Obtain IV access. Follow glucagon treatment with glucose treatment or IV dextrose. After treatment for hypoglycemia, recheck BG followed by treatment every 15 minutes until the BG is greater than 100 mg/dL. Then check BG 1 hour post treatment. If BG is less than 100 mg/dL, repeat Q15 minute BG checks and treatment. Call MD for each episode of hypoglycemia., Indications: HypoglycemiaIndications:H ypoglycemia influenza quadrivalent [id number] (FLULAVAL,FLUARIX,FLUZONE ) 60 mcg (15 mcg x 4)/0.5 mL vaccine (STANDARD age 6 months and up) 0.5 mL 0.5 mL, intramuscular, During hospitalization, immunization, Starting on Tue12/10/19 at 1016, For 1 dose Given 12/11/2019 8:13 AM CUSTOMER SERVICE ADVISOR 0.5 mL Left Deltoid insulin lispro (HumaLOG, ADMELOG) injection 5 Units 5 Units, subcutaneous, Once as needed, other, insulin pump not functional, Starting on Tue12/10/19 at 1348, For 1 dose, Administer back up dose if insulin pump is not functional. Call MD for alternate insulin regimen., Indications: Diabetes MellitusIndications:Diabe ligia Mellitus INSULIN SUBCUTANEOUS PUMP (HUMALOG) 100 UNITS/ML INSULIN PUMP INFUSION (HumaLOG) patient supplied pump 0-25 Units 0-25 Units, subcutaneous, Continuous, Starting on Tue12/10/19 at 1430, Current pump settings will remain until a member of the Endocrine team, Maternal- Medicine (if applicable), or designee evaluates the patient and/or adjusts the pump settings., Attestation: Possesses no safety concerns (eg. diagnosis of DKA/HHS, admit to ICU, risk of self harm), Attestation: Possesses visual acuity and fine motor skills to operate pump, Attestation: Alert and oriented x 4, Attestation: Verbalizes desire to remain on insulin pump during hospitalization and understands insulin pump agreement, Insulin Pump: Insulin Pump Settings, Insulin Pump Settings: Basal Rate, Carbohydrate Ratio, High Glucose Correction, Basal Rate (units/hr): 2.75, From (hh:mm): 12:00 AM, To (hh:mm): 7:00 AM, Basal Rate (units/hr): 2.5, From (hh:mm): 7:00 AM, To (hh:mm): 4:00 PM, Basal Rate (units/hr): 2, From (hh:mm): 4:00 PM, To (hh:mm): 12:00 PM, Carbohydrate Ratio: 1 unit per how many gm carbohydrate: 4, From: (hh:mm): 12:00 PM, To:(hh:mm): 12:00 AM, High Glucose Correction: 1 unit per how many mg/dL over target: 20, From:(hh:mm): 12:00 PM, To:(hh:mm): 12:00 AM, Choose Target (mg/dL): 120, Indications: Diabetes MellitusIndications:Diabe ligia Mellitus Self Administered Via Pump 12/10/2019 5:00 PM CUSTOMER SERVICE ADVISOR 18 Units Right Upper Arm Self Administered Via Pump 12/10/2019 2:00 PM CUSTOMER SERVICE ADVISOR 12.1 Uni ts Right Upper Arm ketorolac (TORADOL) injection 30 mg 30 mg, intravenous, Every 6 hours, First dose on Tue12/10/19 at 1500, For 2 doses, For Adult IV push, administer over 15 seconds, Indications: PainIndications:Pain Given 12/10/2019 8:12 PM CUSTOMER SERVICE ADVISOR 30 mg Given 12/10/2019 2:59 PM CUSTOMER SERVICE ADVISOR 30 mg Lactated Ringer's (LR) bolus 1,000 mL 1,000 mL, intravenous, at 1,000 mL/hr, Administer over 1 Hours, Once, On Tue12/10/19 at 0945, For 1 dose, Phase I, TO BE GIVEN IN PACU New Bag 12/10/2019 9:23 AM CUSTOMER SERVICE ADVISOR 1,000 mL 1000 mL/hr Lactated Ringer's (LR) infusion 30 mL/hr, intravenous, Continuous, Starting on Tue12/10/19 at 0615, Pre-Op, Use a 500 ml bag for End Stage Renal Disease Patients New Bag 12/10/2019 8:29 AM CUSTOMER SERVICE ADVISOR New Bag 12/10/2019 7:25 AM CUSTOMER SERVICE ADVISOR New Bag 12/10/2019 6:57 AM CUSTOMER SERVICE ADVISOR 30 mL/hr 30 mL/hr lisinopriL (PRINIVIL,ZESTRIL) tablet 40 mg 40 mg, oral, Every morning, First dose on Tue12/11/19 at 0900, Indications: hypertensionIndications:hypertension Given 12/11/2019 8:13 AM CUSTOMER SERVICE ADVISOR 40 mg ondansetron (ZOFRAN) injection 4 mg 4 mg, intravenous, Administer over 2 Minutes, Every 6 hours PRN, nausea, vomiting, if not tolerating PO, Starting on Tue12/10/19 at 1005, Indications: nausea and vomitingIndications:nausea and vomiting ondansetron ODT (ZOFRAN-ODT) disintegrating tablet 4 mg 4 mg, oral, Every 6 hours PRN, nausea, vomiting, Starting on Tue12/10/19 at 1005, Indications: nausea and vomitingIndications:nausea and vomiting oxyCODONE-acetaminophen (PERCOCET) 5-325 mg per tablet 1 tablet 1 tablet, oral, Every 4 hours PRN, 1st line for pain, Starting on Tue12/10/19 at 1005, May repeat in 1 hour if pain is uncontrolled or increasing. Max 2 doses within 1 dosing interval., Indications: PainIndications:Pain Given 12/11/2019 11:48 AM CUSTOMER SERVICE ADVISOR 1 tablet Given 12/11/2019 10:32 AM CUSTOMER SERVICE ADVISOR 1 tablet Given 12/11/2019 8:12 AM CUSTOMER SERVICE ADVISOR 1 tablet senna-docusate (PERICOLACE) 8.6-50 mg per tablet 2 tablet 2 tablet, oral, 2 times daily, First dose on Tue12/10/19 at 2100, Hold for diarrhea., Indications: constipationIndications:constipation Given 12/11/2019 8:12 AM CUSTOMER SERVICE ADVISOR 2 table ts Given 12/10/2019 8:12 PM CUSTOMER SERVICE ADVISOR 2 tablets sodium chloride 0.9% flush 0.5-20 mL 0.5-20 mL, intra-catheter, Every 8 hours scheduled, First dose on Tue12/10/19 at 1400, Flush volume based on line type and size. Given 12/10/2019 8:12 PM CUSTOMER SERVICE ADVISOR 10 mL sodium chloride 0.9% infusion 100 mL/hr, intravenous, Continuous, Starting on Tue12/10/19 at 1045 New Bag 12/10/2019 12:45 PM CUSTOMER SERVICE ADVISOR 100 mL/hr 100 mL/hr SUMAtriptan (IMITREX) tablet 25 mg 25 mg, oral, Once, On Tue12/11/19 at 0830, For 1 dose, May repeat dose once in 2 hours if not resolved. Do not exceed 200 mg in 24 hours., Indications: MigraineIndications:Migraine Given 12/11/2019 8:12 AM CUSTOMER SERVICE ADVISOR 25 mg documented in this encounter Discontinued Medications Medication Sig Discontinue Reason Start Date End Da te celecoxib (CeleBREX) 200 mg capsuleIndications:Os teoarthritis,Postoper ative Acute Pain TAKE 2 PILLS WITH BREAKFAST THE DAY BEFORE SX. TAKE 1 PILL BID FOR 4 DAYS AFTER DISCHARGE. Reorder 10/23/2019 12/11/2019 aspirin 325 mg enteric coated tabletIndications:Marisa p Vein Thrombosis Prevention Take 1 tablet (325 mg total) by mouth 2 (two) times a day Stop Taking at Discharge 12/11/2019 12/11/2019 documented as of this encounter Historical Medications * This list may reflect changes made after this encounter. celecoxib (CeleBREX) 200 mg capsuleIndicatio ns:Osteoarthriti s,Postoperative Acute Pain Take 1 tablet twice daily after surgery until prescription is finished. You should already have this prescription at home. 10 capsule 12/11/2019 1 added in this encounter Active and Recently Administered Medications Due to Daylight Saving Time, this section may contain times in both CDT and CUSTOMER SERVICE ADVISOR. Scheduled Medication Order 12/09/2019 12/10/2019 12/11/2019 acetaminophen (TYLENOL) tablet 650 mg (COMPLETED) 650 mg, oral, Once, On Tue12/10/19 at 0615, For 1 dose, Pre-Op, Indications: Pain 0559 (Given - Provider: Quinten Smith RN) aspirin enteric coated tablet 325 mg (CANCELED) 325 mg, oral, 2 times daily, First dose on Tue12/10/19 at 2100, Please start on POD#0 at 2100 Do not crush, chew, cut, dissolve, open or otherwise manipulate tablet/capsule., Indications: Deep Vein Thrombosis Prevention 2011 (Given - Provider: Kiera Wilson RN) aspirin enteric coated tablet 81 mg 81 mg, oral, 2 times daily, First dose (after last modification) on Tue12/11/19 at 0900, Please start on POD#0 at 2100 Do not crush, chew, cut, dissolve, open or otherwise manipulate tablet/capsule., Indications: Deep Vein Thrombosis Prevention 0813 (Given - Provid er: Elizabeth Zhong RN) atorvastatin (LIPITOR) tablet 20 mg 20 mg, oral, Every morning, First dose on Tue12/10/19 at 1045, Indications: hyperlipidemia 1045 (Due) 0812 (Given - Provider: Elizabeth Zhong RN) ceFAZolin (ANCEF) 1 gram/10 mL in sterile water (premix) 3,000 mg (COMPLETED) 3,000 mg, intravenous, at 600 mL/hr, Administer over 3 Minutes, Once, On Tue12/10/19 at 0615, For 1 dose, Pre-Op, Administer within 60 minutes of incision., Indications: Prophylaxis, Surgical 0732 (Given - Provider: Lalo Crump CRNA) ceFAZolin (ANCEF) 2,000 mg/20 mL in sterile water (premix) 2,000 mg (COMPLETED) 2,000 mg, intravenous, at 400 mL/hr, Administer over 3 Minutes, Every 8 hours, First dose on Tue12/10/19 at 1530, For 2 doses, Beginning 8 hours after last aneta-operative dose., Indications: Prophylaxis, Surgical 1555 (New Bag - Provider: Ana Carpio RN) 0015 (New Bag - Provider: Kiera Wilson, ORACIO) ceFAZolin (ANCEF) 3,000 mg in sodium chloride 0.9 % 3,000 mL irrigation solution (COMPLETED) 3,000 mg, irrigation, Once, On Tue12/10/19 at 0615, For 1 dose, Intra-Op, Have ready for intra-op administration. 0615 (Due)0750 (Given - Provider: Dilip Young MD - Comment: Pulse Lavage) famotidine (PEPCID) tablet 20 mg 20 mg, oral, 2 times daily, First dose on Tue12/10/19 at 2100, Indications: Heartburn 2011 (Given - Provider: Kiera Wilson, ORACIO) 0812 (Given - Provider: Elizabeth Zhong RN) ketorolac (TORADOL) injection 30 mg (COMPLETED) 30 mg, intravenous, Once, On Tue12/10/19 at 0615, For 1 dose, Intra-Op, INTRA-OP Give at time of skin closure, Indications: Postoperatvie Pain Management 0852 (Given - Provider: Lalo Crump CRNA) ketorolac (TORADOL) injection 30 mg (COMPLETED) 30 mg, intravenous, Every 6 hours, First dose on Tue12/10/19 at 1500, For 2 doses, For Adult IV push, administer over 15 seconds, Indications: Pain 1459 (Given - Provider: Ana Carpio RN)2011 (Given - Provider: Kiera Wilson, ORACIO) Lactated Ringer's (LR) bolus 1,000 mL (COMPLETED) 1,000 mL, intravenous, at 1,000 mL/hr, Administer over 1 Hours, Once, On Tue12/10/19 at 0945, For 1 dose, Phase I, TO BE GIVEN IN PACU 0923 (New Bag - Provider: Mary Jane Clrake RN - Comment: warmed) lisinopriL (PRINIVIL,ZESTRIL) tablet 40 mg 40 mg, oral, Every morning, First dose on Tue12/11/19 at 0900, Indications: hypertension 0813 (Given - Provid er: Elizabeth Zhong RN) senna-docusate (PERICOLACE) 8.6-50 mg per tablet 2 tablet 2 tablet, oral, 2 times daily, First dose on Tue12/10/19 at 2100, Hold for diarrhea., Indications: constipation 2011 (Given - Provider: Kiera Wilson RN) 08 (Given - Provider: Elizabeth Zhong RN) sodium chloride 0.9% flush 0.5-20 mL 0.5-20 mL, intra-catheter, Every 8 hours scheduled, First dose on Tue12/10/19 at 1400, Flush volume based on line type and size. 170 (Not Given - Provider: Ana Carpio RN - Reason: Other)2011 (Given - Provider: Kiera Wilson RN) 040 (Not Given - Provider: Kiera Wilson RN - Reason: Other - Comment: PRN flush given previously this shift) SUMAtriptan (IMITREX) tablet 25 mg (COMPLETED) 25 mg, oral, Once, On Tue12/11/19 at 0830, For 1 dose, May repeat dose once in 2 hours if not resolved. Do not exceed 200 mg in 24 hours., Indications: Migraine 08 (Given - Provid er: Elizabeth Zhong RN) tranexamic acid (CYKLOKAPRON) 1,000 mg/100 mL (10 mg/mL) in 0.7% sodium chloride (premix) 1,000 mg (COMPLETED)(Linked Group 1) 1,000 mg, intravenous, at 400 mL/hr, Administer over 15 Minutes, Once, On Tue12/10/19 at 0615, For 1 dose, Intra-Op, INTRA-OP Infuse over 10 minutes prior to skin incision, Indications: Reduction of Perioperative Blood Loss 0848 (Given - Provider: Lalo Crump CRNA) tranexamic acid (CYKLOKAPRON) 1,000 mg/100 mL (10 mg/mL) in 0.7% sodium chloride (premix) 1,000 mg (COMPLETED)(Linked Group 1) 1,000 mg, intravenous, at 400 mL/hr, Administer over 15 Minutes, Once, On Tue12/10/19 at 0615, For 1 dose, Intra-Op, INTRA-OP Infuse over 10 minutes at the start of wound closure., Indications: Reduction of Perioperative Blood Loss 0735 (Given - Provider: Lalo Crump CRNA) Continuous Medication Order 12/09/2019 12/10/2019 12/11/2019 INSULIN SUBCUTANEOUS PUMP (HUMALOG) 100 UNITS/ML INSULIN PUMP INFUSION (HumaLOG) patient supplied pump 0-25 Units 0-25 Units, subcutaneous, Continuous, Starting on Tue12/10/19 at 1430, Current pump settings will remain until a member of the Endocrine team, Maternal- Medicine (if applicable), or designee evaluates the patient and/or adjusts the pump settings., Attestation: Possesses no safety concerns (eg. diagnosis of DKA/HHS, admit to ICU, risk of self harm), Attestation: Possesses visual acuity and fine motor skills to operate pump, Attestation: Alert and oriented x 4, Attestation: Verbalizes desire to remain on insulin pump during hospitalization and understands insulin pump agreement, Insulin Pump: Insulin Pump Settings, Insulin Pump Settings: Basal Rate, Carbohydrate Ratio, High Glucose Correction, Basal Rate (units/hr): 2.75, From (hh:mm): 12:00 AM, To (hh:mm): 7:00 AM, Basal Rate (units/hr): 2.5, From (hh:mm): 7:00 AM, To (hh:mm): 4:00 PM, Basal Rate (units/hr): 2, From (hh:mm): 4:00 PM, To (hh:mm): 12:00 PM, Carbohydrate Ratio: 1 unit per how many gm carbohydrate: 4, From: (hh:mm): 12:00 PM, To:(hh:mm): 12:00 AM, High Glucose Correction: 1 unit per how many mg/dL over target: 20, From:(hh:mm): 12:00 PM, To:(hh:mm): 12:00 AM, Choose Target (mg/dL): 120, Indications: Diabetes Mellitus 1400 (Self Administered Via Pump - Provider: Ana Carpio RN)1700 (Self Administered Via Pump - Provider: Ana Carpio RN) Lactated Ringer's (LR) infusion 30 mL/hr, intravenous, Continuous, Starting on Tue12/10/19 at 0615, Pre-Op, Use a 500 ml bag for End Stage Renal Disease Patients 0619 (New Bag - Provider: Quinten Smith RN - Comment: prewarmed)0657 (New Bag - Provider: Quinten Smith RN - Comment: prewarmed)0725 (New Bag - Provider: Lalo Crump CRNA)0829 (New Bag - Provider: Lalo Crump CRNA)0903 (Anesthesia Volume Adjustment - Provider: Lalo Crump CRNA) Lactated Ringer's (LR) infusion 125 mL/hr, intravenous, Continuous, Starting on Tue12/10/19 at 0945, Phase I 0945 (Due) sodium chloride 0.9% infusion 100 mL/hr, intravenous, Continuous, Starting on Tue12/10/19 at 1045 1245 (New Bag - Provider: Ana Carpio RN) 0021 (Stopped - Provider: Kiera Wilson RN) PRN Medication Order 12/09/2019 12/10/2019 12/11/2019 bupivacaine 0.5%-EPINEPHrine 1:200,000 PF 60 mL and ketorolac 30 mg solution (CANCELED) As needed, Starting on Tue12/10/19 at 0834, Intra-Op 0834 (Given - Provider: Dilip Young MD)0841 (Given - Provider: Mario Giang MD) camphor-menthoL (SARNA) 0.5-0.5 % lotion topical, Every 2 hours PRN, other, itching, Starting on Tue12/10/19 at 1005, Apply to affected area: other, Indications: Urticaria dextrose (D10W) 10% bolus 250 mL(Linked Group 2) 250 mL, intravenous, at 1,000 mL/hr, Administer over 15 Minutes, Every 15 min PRN, blood glucose less than 70 mg/dL and UNABLE to swallow/take PO glucose/juice., Starting on Tue12/10/19 at 1348, After treatment for hypoglycemia, recheck BG followed by treatment every 15 minutes until the BG is greater than 100 mg/dL. Then check BG 1 hour post treatment. If BG is less than 100 mg/dL, repeat Q15 minute BG checks and treatment. Call MD for each episode of hypoglycemia., Indications: hypoglycemic disorder dextrose (GLUTOSE) 40 % gel 15 g(Linked Group 2) 15 g, oral, Every 15 min PRN, low blood sugar, blood glucose less than 70 mg/dL, Starting on Tue12/10/19 at 1348, If patient is alert and able to eat/drink, give 15 gm glucose or one juice (4 fluid ounces) NOT ORANGE JUICE. After treatment for hypoglycemia, recheck BG followed by treatment every 15 minutes until the BG is greater than 100 mg/dL. Then check BG 1 hour post-treatment. If BG is less than 100 mg/dL, repeat Q15 minute BG checks and treatment. Call MD for each episode of hypoglycemia. EVENT REPRESENTATIVE STATES GLUTOSE-15 CONTAINS GLUCOSE 40% W/W (50% W/V), Indications: hypoglycemic disorder gentamicin (GARAMYCIN) injection (CANCELED) As needed, Starting on Tue12/10/19 at 0835, Intra-Op 0835 (Given - Provider: Mario Giang MD - Comment: Knee injection; mixed with Vancomycin 1g) glucagon injection 1 mg 1 mg, intramuscular, Administer over 1 Minutes, Every 30 min PRN, low blood sugar, blood glucose less than 70 mg/dL AND no IV access AND unable to take PO glucose/jiuce., Starting on Tue12/10/19 at 1348, After Glucagon is administered, position patient on side if possible to avoid aspiration. Obtain IV access. Follow glucagon treatment with glucose treatment or IV dextrose. After treatment for hypoglycemia, recheck BG followed by treatment every 15 minutes until the BG is greater than 100 mg/dL. Then check BG 1 hour post treatment. If BG is less than 100 mg/dL, repeat Q15 minute BG checks and treatment. Call MD for each episode of hypoglycemia., Indications: Hypoglycemia influenza quadrivalent [id number] (FLULAVAL,FLUARIX,FLUZONE) 60 mcg (15 mcg x 4)/0.5 mL vaccine (STANDARD age 6 months and up) 0.5 mL (COMPLETED) 0.5 mL, intramuscular, During hospitalization, immunization, Starting on Tue12/10/19 at 1016, For 1 dose 0813 (Given - Provider: Elizabeth Zhong RN) insulin lispro (HumaLOG, ADMELOG) injection 5 Units 5 Units, subcutaneous, Once as needed, other, insulin pump not functional, Starting on Tue12/10/19 at 1348, For 1 dose, Administer back up dose if insulin pump is not functional. Call MD for alternate insulin regimen., Indications: Diabetes Mellitus ondansetron (ZOFRAN) injection 4 mg(Linked Group 3) 4 mg, intravenous, Administer over 2 Minutes, Every 6 hours PRN, nausea, vomiting, if not tolerating PO, Starting on Tue12/10/19 at 1005, Indications: nausea and vomiting ondansetron ODT (ZOFRAN-ODT) disintegrating tablet 4 mg(Linked Group 3) 4 mg, oral, Every 6 hours PRN, nausea, vomiting, Starting on Tue12/10/19 at 1005, Indications: nausea and vomiting oxyCODONE-acetaminophen (PERCOCET) 5-325 mg per tablet 1 tablet 1 tablet, oral, Every 4 hours PRN, 1st line for pain, Starting on Tue12/10/19 at 1005, May repeat in 1 hour if pain is uncontrolled or increasing. Max 2 doses within 1 dosing interval., Indications: Pain 1338 (Given - Provider: Ana Carpio RN)1459 (Given - Provider: Ana Carpio RN)2012 (Given - Provider: Kiera Wilson RN)2143 (Given - Provider: Kiera Wilson RN) 0016 (Given - Provider: Kiera Wilson RN)0322 (Given - Provider: Kiera Wilson RN)0419 (Given - Provider: Kiera Wilson RN)0812 (Given - Provider: Elizabeth Zhong RN)1032 (Given - Provider: Elizabeth Zhong RN)1148 (Given - Provider: Cristina Clifford RN) polyethylene glycol (MIRALAX) packet 17 g 17 g, oral, Daily PRN, constipation, Starting on Tue12/10/19 at 1005, Indications: constipation povidone-iodine (BETADINE) 30 mL in sodium chloride 0.9 % 250 mL irrigation (CANCELED) As needed, Starting on Tue12/10/19 at 0835, Intra-Op 0835 (Given - Provider: Dilip Young MD) sodium chloride 0.9% flush 0.5-20 mL 0.5-20 mL, intra-catheter, As needed, line care, Starting on Tue12/10/19 at 1005, Flush volume based on line type and size. Flush before and after each use. sodium chloride 0.9% solution (CANCELED) As needed, Starting on Tue12/10/19 at 0908, Intra-Op 0908 (Given - Provider: Mario Giang MD - Comment: Used to reconstitute Vancomycin for knee injection) vancomycin (VANCOCIN) solution (CANCELED) As needed, Starting on Tue12/10/19 at 0836, Intra-Op 0836 (Given - Provider: Mario Giang MD - Comment: Knee injection; mixed with Gentamycin 80mg) Linked Groups Order Group 1: tranexamic acid (CYKLOKAPRON) 1,000 mg/100 mL (10 mg/mL) in 0.7% sodium chloride (premix) 1,000 mg (COMPLETED)Jump to med 1,000 mg, intravenous, at 400 mL/hr, Administer over 15 Minutes, Once, On Tue12/10/19 at 0615, For 1 dose, Intra-Op, INTRA-OP Infuse over 10 minutes prior to skin incision, Indications: Reduction of Perioperative Blood Loss And tranexamic acid (CYKLOKAPRON) 1,000 mg/100 mL (10 mg/mL) in 0.7% sodium chloride (premix) 1,000 mg (COMPLETED)Jump to med 1,000 mg, intravenous, at 400 mL/hr, Administer over 15 Minutes, Once, On Tue12/10/19 at 0615, For 1 dose, Intra-Op, INTRA-OP Infuse over 10 minutes at the start of wound closure., Indications: Reduction of Perioperative Blood Loss Group 2: dextrose (GLUTOSE) 40 % gel 15 gJump to med 15 g, oral, Every 15 min PRN, low blood sugar, blood glucose less than 70 mg/dL, Starting on Tue12/10/19 at 1348, If patient is alert and able to eat/drink, give 15 gm glucose or one juice (4 fluid ounces) NOT ORANGE JUICE. After treatment for hypoglycemia, recheck BG followed by treatment every 15 minutes until the BG is greater than 100 mg/dL. Then check BG 1 hour post-treatment. If BG is less than 100 mg/dL, repeat Q15 minute BG checks and treatment. Call MD for each episode of hypoglycemia. EVENT REPRESENTATIVE STATES GLUTOSE-15 CONTAINS GLUCOSE 40% W/W (50% W/V), Indications: hypoglycemic disorder Or dextrose (D10W) 10% bolus 250 mLJump to med 250 mL, intravenous, at 1,000 mL/hr, Administer over 15 Minutes, Every 15 min PRN, blood glucose less than 70 mg/dL and UNABLE to swallow/take PO glucose/juice., Starting on Tue12/10/19 at 1348, After treatment for hypoglycemia, recheck BG followed by treatment every 15 minutes until the BG is greater than 100 mg/dL. Then check BG 1 hour post treatment. If BG is less than 100 mg/dL, repeat Q15 minute BG checks and treatment. Call MD for each episode of hypoglycemia., Indications: hypoglycemic disorder Group 3: ondansetron ODT (ZOFRAN-ODT) disintegrating tablet 4 mgJump to med 4 mg, oral, Every 6 hours PRN, nausea, vomiting, Starting on Tue12/10/19 at 1005, Indications: nausea and vomiting Or ondansetron (ZOFRAN) injection 4 mgJump to med 4 mg, intravenous, Administer over 2 Minutes, Every 6 hours PRN, nausea, vomiting, if not tolerating PO, Starting on Tue12/10/19 at 1005, Indications: nausea and vomiting documented in this encounter Orders Medications Ordered That Robin ht Not Have Been Administered Count Last Ordered Date First Ordered Date acetaminophen (TYLENOL) tablet 500 mg 1 03/2019 bupivacaine 0.5%-EPINEPHrine 1:200,000 PF 60 mL and ketorolac 30 mg solution 1 12/10/2019 camphor-menthoL (SARNA) 0.5-0.5 % lotion 1 12/10/2019 ceFAZolin (ANCEF) 1 gram/10 mL in sterile water (premix) 3,000 mg 1 12/10/2019 ceFAZolin (ANCEF) 3,000 mg i n sodium chloride 0.9 % 3,000 mL irrigation solution 1 12/10/2019 dexAMETHasone (DECADRON) 4 m g/mL injection 8 mg 1 12/10/2019 dextrose (D10W) 10% bolus 250 mL 12/10/19 20 dextrose (GLUTOSE) 40 % gel 15 g 1 12/10/19 20 diphenhydrAMINE (BENADRYL) i njection 12.5 mg 1 12/10/2019 fentaNYL (SUBLIMAZE) preserv ative free injection 25 mcg 1 12/10/2019 gentamicin (GARAMYCIN) injection 1 12/10/19 20 glucagon injection 1 mg 1 12/10/2019 HYDROcodone-acetaminophen (N ORCO) 5-325 mg per tablet 1 tablet 1 12/10/2019 HYDROmorphone (DILAUDID) injection 0.2 mg 1 12/10/2019 insulin lispro (HumaLOG, ADM ELOG) injection 5 Units 1 12/10/2019 ketorolac (TORADOL) injection 30 mg 1 12/09 labetaloL (NORMODYNE,TRANDAT E) injection 5 mg 1 12/10/2019 Lactated Ringer's (LR) infusion 1 0 lidocaine PF (XYLOCAINE) 10 mg/mL (1 %) preservative free injection 2-10 mg 1 12/10/2019 meperidine (DEMEROL) preserv ative free injection 12.5 mg 1 12/10/2019 ondansetron (ZOFRAN) injection 4 mg 2 12/09 ondansetron ODT (ZOFRAN-ODT) disintegrating tablet 4 mg 1 12/10/2019 polyethylene glycol (MIRALAX) packet 17 g 1 12/10/2019 povidone-iodine (BETADINE) 3 0 mL in sodium chloride 0.9 % 250 mL irrigation 1 12/10/2019 prochlorperazine (COMPAZINE) injection 5 mg 1 12/10/2019 scopolamine patch 72 hour 1 patch 1 020 sodium chloride 0.9% flush 0.5-20 mL 2 03/2019 sodium chloride 0.9% solution 1 12/10/2019 tranexamic acid (CYKLOKAPRON ) 1,000 mg/100 mL (10 mg/mL) in 0.7% sodium chloride (premix) - ADS Override Pull 1 12/10/2019 tranexamic acid (CYKLOKAPRON ) 1,000 mg/100 mL (10 mg/mL) in 0.7% sodium chloride (premix) 1,000 mg 2 12/10/2019 vancomycin (VANCOCIN) solution 1 12/10/2019 Lab Orders Without Results Count Last Ordered D ate First Ordered Date POCT GLUCOSE DEVICE 2 12/11/2019 12/10/19 20 Diet Count Last Ordered Date First Orde red Date ADULT DISCHARGE DIET 1 12/11/2019 Nursing Count Last Ordered Date First Orde red Date DISCHARGE ACTIVITY 1 12/11/2019 DISCHARGE CALL PROVIDER 11 12/11/2019 DISCHARGE DRESSING 1 12/11/2019 DISCHARGE INSTRUCTIONS 2 12/11/2019 WEIGHT BEARING STATUS 1 12/11/2019 documented in this encounter Care Teams News Videographer Relationship Specialty Start Date End Date Rebel López MD [address] [address] PCP - General Family Medicine 10/23/19 documented as of this encounter
--- OUTSIDE RECORDS SUMMARY | 2024-02-11 08:17 | XMS_ITS | Encounter Summary ---
Author Organization [facility] Address [address] [place] [address] Phone Care Team Providers Care Newspaper Carrier Name Role Phone Rebel López MD Primary Care Provider [phone] Encounter Details Date Type Department Care Team (Late st Contact Info) Description 04/22/2020 Telephone [facility] Orthopaedic Surgery [address] [place] [address] Medical Office Building [address] [place] [address] Dilip Young MD [address] [place] [address] [address] [place] [address] Social History Tobacco Use Types Packs/Day Years Used Date Smoking Tobacco: Never Smokeless Tobacco: Never Alcohol Use Standard Drinks/Week Comments Not Currently 0 (1 standard drink = 0.6 oz pur e alcohol) rarely maybe once a month Sex and Gender Information Value Date Recorded Sex Assigned at Not on file Legal Sex Male 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 Spoke w/pt, called PCP Dr. López office- they asked me to call the pt and send him over to the [facility] ER. Pt was notified, and is on his way to the ED. documented in this encounter Plan of Treatment Not on file documented as of this encounter Visit Diagnoses Not on filedocumented in this encounter Care Teams Newspaper Carrier Relationship Specialty Start Date End Date Rebel López MD [address] [address] PCP - General Family Medicine 10/23/19 documented as of this encounter
--- OUTSIDE RECORDS SUMMARY | 2024-02-11 08:17 | XMS_ITS | Encounter Summary ---
Author Organization [facility] Address [address] [place] [address] Phone Care Team Providers Care Boiler Inspector Name Role Phone Rebel López MD Primary Care Provider [phone] Reason for Referral * Diagnostic Imaging (Routine) - Closed Specialty Diagnoses / Procedures Referred By Margarita ely Referred To Contact Diagnoses Left knee pain, unspecified chronicity Aftercare following left knee joint replacement surgery Calf swelling Procedures US Vein Duplex Lower Extremity Bilateral Complete Pranay Young MD [address] [address] Phone: tel: fax: [facility] (All Locations) Referral ID Status Reason Start Date Expiration Date Visits Re quested Visits Authorized [id number] Closed 04/22/2020 05/22/2021 1 1 * Diagnostic Imaging (Routine) - Closed Specialty Diagnoses / Procedures Referred By Margarita ely Referred To Contact Diagnoses Left knee pain, unspecified chronicity Aftercare following left knee joint replacement surgery Procedures XR Knee Left 3 Views Pranay Young MD [address] [facility] [address] [place] [address] Phone: tel: fax: [facility] [phone] [place] [address] Referral ID Status Reason Start Date Expiration Date Visits Re quested Visits Authorized [id number] Closed 04/22/2020 05/22/2021 1 1 Reason for Visit * Reason Comments Pain Encounter Details Date Type Department Care Team (Late st Contact Info) Description 04/22/2020 9:00 AM CDT Office Visit [facility] Orthopaedic Surgery [address] [facility] Medical Office Building [address] [place] [address] Pranay Young MD [address] [facility] [address] [place] [address] Calf swelling (Primary Dx); Left knee pain, unspecified chronicity; Aftercare following left knee joint replacement surgery Social History Tobacco Use Types Packs/Day Years Used Date Smoking Tobacco: Never Smokeless Tobacco: Never Alcohol Use Standard Drinks/Week Comments Not Currently 0 (1 standard drink = 0.6 oz pur e alcohol) rarely maybe once a month Sex and Gender Information Value Date Recorded Sex Assigned at Not on file 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 The knee incision is well healed with no wrist redness erythema or drainage. Has excellent range of motion from 0-120 degrees no instability stresstesting no effusion or crepitus. His major complaint today is calf pain and swelling. His calf is diffusely swollen appears to be aninch in circumference greater than the contralateral side. There is also tenderness to palpation ofthe calf. He has lead unilateral limb edema. Impression rule out DVT. Will obtain ultrasound on an urgent basis. If he does have a DVT be referred for anticoagulation. documented in this encounter Plan of Treatment Not on file documented as of this encounter Results * US Vein Duplex Lower Extremity Bilateral Complete (04/22/2020 12:49 PM CDT) Anatomical Region Laterality Modality Vascular Bilateral Ultrasound 04/22/2020 11:5 3 AM CDT Narrative 04/22/2020 2:50 PM CDT [facility] - Department of Vascular Surgery, Vascular Laboratory [address] [place] [address] Lower Extremity Venous Ultrasound Report Patient Name: ILSA MORAN C : 1975 (45y 3m) Study Date: 04/22/2020 11:53:01 AM Gender: M Tech: JEANETTE Location: [facility] Ref.Provider: PRANAY YOUNG Quality: Adequate Order [...] and Swelling lower extremity, left. Findings: Performing Polysomnographic Tech: Ashley Ross RVT. Right: Venous Doppler signals [...] performed. Electronically Signed By: Reed Rhoades MD [facility] [phone] 2020-04-22 14:50:16 CDT CC: CC: Procedure Note Reed Rhoades MD - 04/22/2020 [facility] - Department of Vascular Surgery,Vascular Laboratory [address] [place] [address] Lower Extremity Venous Ultrasound Report Patient Name: ILSA MORAN CPatient ID: [id number] : 1975 (45y 3m)Study Date: 04/22/2020 11:53:01 AM Gender: MAccession #: [id number] Tech: D.TRANLocation: [facility] Ref.Provider: Sha YOUNGality: Adequate Order Provider: Saji YOUNG #: [id number] Procedures: Vascular Report: Venous Duplex imaging was performed bilaterally in the lower extremities.The common femoral, femoral, popliteal, posterior tibial, peroneal veins wereevaluated for patency, spontaneity and phasicity with Doppler, compression and augmentationmaneuvers. Great saphenous vein proximal at the junction was evaluated with compressionmaneuvers. Indications: Pain in left leg, and Swelling lower extremity, left. Findings: Performing Polysomnographic Tech: Ashley Ross RVT. Right: Venous Doppler signals [...] performed. Electronically Signed By: Reed Rhoades MD [facility] [phone] 2020-04-22 14:50:16 CDT CC: CC: Pranay Young MD IMG US PROCEDURES Final Res ult * XR Knee Left 3 Views (04/22/2020 [...] alignment. Electronically signed by: Alise Harrison M.D. Pranay Young MD IMG XR PROCEDURES Final Res ult documented in this encounter Visit Diagnoses Diagnosis Calf swelling- Primary Left knee pain, unspecified chronicity Aftercare following left knee joint replacement surgery Left knee pain, unspecified chronicity Aftercare following left knee joint replacement surgery Left knee pain, unspecified chronicity Aftercare following left knee joint replacement surgery Calf swelling documented in this encounter Discontinued Medications Medication Sig Discontinue Reason Start Date End Da te celecoxib (CeleBREX) 200 mg capsuleIndications:Os teoarthritis,Postoper ative Acute Pain Take 1 tablet twice daily after surgery until prescription is finished. You should already have this prescription at home. 12/11/2019 04/22/2020 oxyCODONE-acetaminoph en (PERCOCET) 5-325 mg per tabletIndications:Hali n Take 1-2 tablets every 4-6 hours as needed for pain 12/18/2019 04/22/2020 potassium chloride ER 10 mEq CR capsule TK 1 C PO D 11/07/2019 04/22/2020 senna-docusate (PERICOLACE) 8.6-50 mgIndications:constip ation Take 2 tablets by mouth 2 (two) times a day May increase to 4 tablets twice daily if needed. HOLD medication for diarrhea. 12/11/2019 04/22/2020 lisinopriL (PRINIVIL,ZESTRIL) 40 mg tabletIndications:hyp ertension Take 40 mg by mouth every morning 04/22/2020 documented as of this encounter Historical Medications * This list may reflect changes made after this encounter. naproxen (NAPROSYN) 500 mg tablet 04/21/2020 lisinopril-hydro CHLOROthiazide (ZESTORETIC) 20-12.5 mg per tablet 04/21/2020 cyclobenzaprine (FLEXERIL) 10 mg tablet 04/18/2020 azithromycin (ZITHROMAX) 250 mg tablet FOLLOW PACKAGE DIRECTIONS 03/31/2020 added in this encounter Care Teams Boiler Inspector Relationship Specialty Start Date End Date Rebel López MD [address] [address] PCP - General Family Medicine 10/23/19 documented as of this encounter
--- OUTSIDE RECORDS SUMMARY | 2024-02-11 08:17 | XMS_ITS | Encounter Summary ---
Author Organization [facility] Address [address] [place] [address] Phone Care Team Providers Care Cross Country/Track And Field Coach Name Role Phone Rebel López MD Primary Care Provider [phone] Encounter Details Date Type Department Care Team (Late st Contact Info) Description 01/29/2020 Telephone [facility] Orthopaedic Surgery [address] [place] [address] Medical Office Building [address] [place] [address] Dilip Young MD [address] [place] [address] [address] [place] [address] Social History Tobacco Use Types Packs/Day Years Used Date Smoking Tobacco: Never Smokeless Tobacco: Never Alcohol Use Standard Drinks/Week Comments Not Currently 0 (1 standard drink = 0.6 oz pur e alcohol) rarely maybe once a month Sex and Gender Information Value Date Recorded Sex Assigned at Not on file 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 Young's review. ENTER SHIP documented in this encounter Plan of Treatment Not on file documented as of this encounter Visit Diagnoses Not on filedocumented in this encounter Care Teams Cross Country/Track And Field Coach Relationship Specialty Start Date End Date Rebel López MD [address] [address] PCP - General Family Medicine 10/23/19 documented as of this encounter
--- OUTSIDE RECORDS SUMMARY | 2024-02-11 08:17 | XMS_ITS | Encounter Summary ---
Author Organization [facility] Healthcare Address [address] [place] [address] Care Team Providers Care Foam Caster Name Role Phone Rebel López MD Primary Care Provider [phone] Reason for Visit * Reason Comments Leg Pain Encounter Details Date Type Department Care Team ([facility] st Contact Info) Description 04/22/2020 2:12 PM CDT - 04/22/2020 3:43 PM CDT Emergency [facility] Emergency Department [address] [address] [place] [address] [place] [address] Left leg DVT (CMS/HCC) (Primary Dx) Discharge Disposition: Discharge to home or self care Social History Tobacco Use Types Packs/Day Years Used Date Smoking Tobacco: Never Smokeless Tobacco: Never Alcohol Use Standard Drinks/Week Comments Not Currently 0 (1 standard drink = 0.6 oz pur e alcohol) rarely maybe once a month Sex and Gender Information Value Date Recorded Sex Assigned at Not on file Legal Sex Male 12:35 AM [employer]SEM[employer] Gender Identity Not on file Sexual Orientation Not on file documented as of this encounter Last Filed Vital Signs Vital Sign Reading Time Taken Comments Blood Pressure 152/119 04/22/2020 2:01 PM CDT Pulse 98 04/22/2020 2:01 PM CDT Temperature - - Respiratory Rate 20 04/22/2020 2:01 PM CDT Oxygen Saturation 98% 04/22/2020 2:01 PM CDT Inhaled Oxygen Concentration - - Weight 117.9 kg (260 lb) 04/22/2020 2:01 PM CDT Height 177.8 cm (5' 10 ) 04/22/2020 2:01 PM CDT Body Mass Index 37.31 04/22/2020 2:01 PM CDT documented in this encounter Discharge Diagnoses Diagnosis Acute embolism and thrombosis of unspecified deep veins of left lower extremity (HCC) - ACUTE EMBOLISM AND THROMBOSIS OF UNSPECIFIED DEEP VEINS OF LEFT LOWER EXTREMITY Type 2 diabetes mellitus without complications (CMS/HCC) (HCC) - TYPE 2 DIABETES MELLITUS WITHOUT COMPLICATIONS Obesity, unspecified - OBESITY, UNSPECIFIED Hyperlipidemia, unspecified - HYPERLIPIDEMIA, UNSPECIFIED Essential (primary) hypertension - ESSENTIAL (PRIMARY) HYPERTENSION Unspecified essential hypertension Family history of ischemic heart disease and other diseases of the circulatory system - FAMILY HISTORY OF ISCHEMIC HEART DISEASE AND OTHER DISEASES OF THE CIRCULATORY SYSTEM Presence of left artificial knee joint - PRESENCE OF LEFT ARTIFICIAL KNEE JOINT documented in this encounter Discharge Instructions * Attachments The following attachments cannot be sent through Care Everywhere. * Deep Vein Thrombosis (Discharge Care) (Mauritian) documented in this encounter Medications at Time of Discharge amLODIPine (NORVASC) 5 mg tablet TK 1 T PO HS 12/20/2019 apixaban (ELIQUIS) 5 mg tabletIndications :Venous Thrombosis Starter Pack: 2 tablets twice a day for 7 days then 1 tablet twice a day 74 tablet 04/22/2020 aspirin 81 mg enteric coated tabletIndications :Deep [...] DAY blood-glucose sensor (Dexcom G6 Sensor) device Handupcom G6 Sensor device CHANGE SENSOR Q 10 DAYS blood-glucose transmitter (Dexcom G6 Transmitter) device Dexcom G6 Transmitter device CHANGE TRANSMITTER Q 90 DAYS cholecalciferol (VITAMIN D-3) 93898 unit tabletIndications :Vitamin D Deficiency Take 1 tablet (50,000 Units total) by mouth once a week 12 tablet 11/07/2019 cyclobenzaprine (FLEXERIL) 10 mg tablet 04/18/2020 dulaglutide (TRULICITY) 1.5 mg/0.5 mL pen injector Inject 1.5 mg under the skin every 7 days HYDROcodone-aceta minophen (NORCO) 5-325 mg per tabletIndications :Pain Take 1 tablet by mouth every 6 (six) hours as needed for pain 12 tablet 04/22/2020 insulin lispro (HumaLOG KwikPen Insulin) 200 unit/mL (3 mL) insulin pen Per insulin pump lancets (Easy Touch Lancets) 28 gauge [facility] Easy Touch Lancets 28 gauge TEST 3 [...] PRN 12/08/2019 documented as of this encounter Ordered Prescriptions Prescription Sig Dispense Quantity Refills Last Filled Start Date End Date HYDROcodone-acetam inophen (NORCO) 5-325 mg per tabletIndications: Pain Take 1 tablet by mouth every 6 (six) hours as needed for pain 12 tablet 04/22/2020 apixaban (ELIQUIS) 5 mg tabletIndications: Venous Thrombosis Starter Pack: 2 tablets twice a day for 7 days then 1 tablet twice a day 74 tablet 04/22/2020 documented in this encounter Discharge Disposition Disposition Code Departure Means Destination Discharge to home or self care documented in this encounter ED Notes * Quinten Baxter RN - 04/22/2020 3:42 PM CDT IV 20 ga. Right AC removed. Quinten Baxter RN 04/22/20 [id number] * Karl Recinos MD - 04/22/2020 2:30 PM CDT HPI Chief Complaint Patient presents with ??? Leg Pain HPI 45-year-old male referred to emergency department for evaluation of documented DVT. Patient underwent left total knee replacement in December of last year. He he initially noticed pain and swelling in the left calf at the time he was in physical therapy and was attributed to compensation due to hisrecent surgery and recovery. That seemed improved he got COVID and stopped going to physical therapy. For the last week he has noticed increased swelling firmness and pain in the left lower extremity. He denies any numbness tingling fevers chills chest pain or shortness of breath. He had outpatientDoppler that showed a DVT in the left lower extremity. ROS: Gen: No fever, general malaise ENT: No sore throat, ear pain CV: No chest pain, syncope Pulm: No shortness of breath, cough GI: No abdominal pain, no vomiting : No dysuria, no hematuria MSK: No back pain, neck pain Integ: No rashes Neuro: No headache, focal weakness Review of systems per HPI and otherwise all other systems are negative unless otherwise documented Exam: Vital Signs reviewed. Genl: Non-toxic appearance HEENT: EOMI, Mucous membranes moist. Neck supple w/o LAD or meningismus. Ext: There is moderate swelling and asymmetry of the left lower extremity primarily but cap there is no redness no warmth distal neurovascular is intact Neuro: Grossly non-focal neuro exam; face symmetric, speech clear, moves all extremities well. Skin: warm, dry. no rash. Psych: Normal mood and affect. Family Hx :NC MDM: High probability: Provoked DVT secondary to orthopedic surgery will get baseline labs including CBCcreatinine coag studies will initiate Eliquis provide script for 30 days and have PMD manage the duration which will likely be for 3 months Reviewed and summarized previous medical records This dictation was done with voice recognition software and may contain errors and omissions Patient History: Patient Active Problem List Diagnosis Date Noted ??? HLD (hyperlipidemia) 12/06/2019 ??? Primary osteoarthritis of left knee 10/23/2019 ??? Left knee pain 10/23/2019 ??? Hypertension 08/08/2012 ??? Calculus of kidney 03/28/2012 ??? Hiatal hernia 03/28/2012 ??? Acid phosphatase serum increased 03/28/2012 ??? Simple obesity 03/28/2012 ??? Type 2 diabetes mellitus (CMS/HCC) 03/28/2012 ??? Loose body of knee 03/23/2011 ??? Osteoarthritis of knee 03/04/2011 Past Medical History: Diagnosis Date ??? Diabetes [...] HISTORY Left 2018 bicep tendon repair ??? NC FEMUR/KNEE SURG UNLISTED Treatment Of The Knee - multiple (17) operations L knee - meniscus, debridement, irrigation for septic knee Family History Problem Relation Age of Onset ??? No Known Problems Other ??? Heart attack Father ??? Anesthesia problems Neg Hx Social History Tobacco Use ??? Smoking status: Never Smoker ??? Smokeless tobacco: Never Used Substance Use Topics ??? Alcohol use: Not Currently Comment: rarely maybe once a month ??? Drug use: Never Social History Social History Narrative Never Drank Alcohol : (Added by TW Conv) Difficulty Reading Mauritian : (Added by TW Conv) Marital History - Currently : (Added by TW Conv) [place] Language Mauritian : (Added by [employer] Conv) Review of Systems Review of Systems Physical Exam ED Triage Vitals [04/22/20 1401] Temp Pulse Resp BP SpO2 -- 98 20 (!) 152/119 98 % Temp src Heart Rate Source Patient Position BP Location FiO2 (%) -- -- -- -- -- Physical Exam [facility] ED Course as of Apr 22 1624 Time: 04/22 1529 Comment: Patient was updated on recent results By: Karl Recinos MD Time: 04/22 1529 Comment: Counseled with patient regarding diagnosis, pertinent diagnostic studies, need for follow-up plans and return precautions were give. All questions were answered. By: Karl Recinos MD Final diagnoses: Left leg DVT (CMS/HCC) Karl Recinos MD 04/22/20 1432 Karl Recinos MD 04/22/20 [id number] * Quinten Baxter RN - 04/22/2020 1:56 PM CDT Pt. States that he had a left total knee replacement Dec 09; Has had pain recently to back of leftcalve that has got worse past couple of days; Pt was sent to ultrasound imaging today which shows aclot to back of left knee. Pt. Was told by PMD to come to the ER. documented in this encounter Plan of Treatment Not on file documented as of this encounter Procedures Procedure Name Priority Date/Time Associated Diagnosis Comments POCT GLUCOSE DEVICE Routine 04/22/2020 3 :00 PM CDT EGFR STAT 04/22/2020 2:47 PM CDT APTT STAT 04/22/2020 2:47 PM CDT PROTIME-INR STAT 04/22/2020 2:47 PM CDT CREATININE STAT 04/22/2020 2:47 PM CDT documented in this encounter Results * POCT glucose (04/22/2020 3:00 PM CDT) Glucose, POC 177 70 - 199 mg/dL [facility] Comment: Interpretive Data Glucose is assumed to be non-fasting. Fasting Glucose reference ranges are: 0 - 150 years: ??70 mg/dL - 99 mg/dL Current interpretive data was last revised on 2013. POC Performer [id number] [facility] POC Device Number [id number] [facility] Blood specimen (specimen) 04/22/2020 3:00 PM CDT 04/22/2020 3:00 PM CDT us Notinfile Unknown LAB POCT ORDERABLES - DEVICE F inal Result [facility] [id number] [facility]. Department [email or web address] [address] * eGFR (04/22/2020 2:47 PM CDT) eGFR >90 mL/min/1.7 3 m2 [facility] Comment: Interpretive Data Reference Interval Normal ?>/= 90 mL/min/1.73m2 Mildly decreased* ? 60 - 89 mL/min/1.73m2 Mildly to moderately decreased ?45 - 59 mL/min/1.73m2 Moderately to severely decreased ??30 - 44 mL/min/1.73m2 Severely decreased ?15 - 29 mL/min/1.73m2 Kidney Failure ?< 15 ??mL/min/1.73m2 *Relative to young adult level Estimated glomerular filtration rate is determined by [...] 70. Current interpretive data was last reviewed 2020 Blood specimen (specimen) 04/22/2020 2:47 PM CDT 04/22/2020 2:52 PM CDT Karl Recinos MD LAB BLOOD ORDERABLES Final Res ult Performing Organization Address [facility] Co de Phone Number [facility] [phone] [employer] [place], [place] [id number] * (ABNORMAL) Creatinine (04/22/2020 2:47 PM CDT) Creatinine 0.60(L) 0.80 - 1.30 mg/dL [facility] Blood specimen (specimen) 04/22/2020 2:47 PM CDT 04/22/2020 2:52 PM CDT Narrative [facility] - 04/22/2020 3:08 PM CDT Baseline lab required by Joint Commission unless preformed in the last 48 hours. Draw prior to anticoagulation administration. Karl Recinos MD LAB BLOOD ORDERABLES Final Res ult Performing Organization Address [facility] Co de Phone Number [facility] [address] [address] [place], [place] [id number] * aPTT (04/22/2020 2:47 PM CDT) aPTT 28 24 - 36 sec [facility] Comment: Interpretive Data Heparin Therapeutic Range aPTT: ??60 - 100 seconds. Current interpretive data was last revised on 2013. Blood specimen (specimen) 04/22/2020 2:47 PM CDT 04/22/2020 2:52 PM CDT Narrative [facility] - 04/22/2020 3:03 PM CDT Baseline lab required by Joint [facility] unless preformed in the last 48 hours. Draw prior to anticoagulation administration. Karl Recinos MD LAB BLOOD ORDERABLES Final Res ult Performing Organization Address [facility] Co de Phone Number [facility] [phone] [facility] [place] [address] * (ABNORMAL) Protime-INR (04/22/2020 2:47 PM CDT) PT 14.5(H) 11.5 - 14.0 sec [facility] INR 1.1 0.9 - 1.1 [facility] Comment: Interpretive data Oral anticoagulant therapeutic ranges: Venous thromboembolism prophylaxis or treatment: 2.0-3.0 CARDIOLOGY Standard range: 2.0-3.0 High-intensity range: 2.5-3.5 Refer to indication-specific guidelines for appropriate target ranges for prosthetic heart valve replacement. Current interpretive data was last revised on 2019. Blood specimen (specimen) 04/22/2020 2:47 PM CDT 04/22/2020 2:52 PM CDT Narrative [facility] - 04/22/2020 3:02 PM CDT Baseline lab required by [facility] unless preformed in the last 48 hours. Draw prior to anticoagulation administration. Karl Recinos MD LAB BLOOD ORDERABLES Final Res ult Performing Organization Address [facility] Co de Phone Number [facility] [id number] [facility] [place] [address] documented in this encounter Visit Diagnoses Diagnosis Left leg DVT (HCC)- Primary documented in this encounter Administered Medications Inactive Administered Medications - up to 3 most recent administrations Medication Order MAR Action Action Date Dose Rate Site apixaban (ELIQUIS) tablet 10 mg 10 mg, oral, Every 12 hours scheduled, First dose on Tue04/22/20 at 1431, Nurse to discontinue heparin infusion order and associated bolus at first administration of apixaban using ? order condition met? order source, Indications: Venous ThrombosisIndications:Venous Thrombosis Given 04/22/2020 2:56 PM CDT 10 mg documented in this encounter Active and Recently Administered Medications Due to Daylight Saving Time, this section may contain times in both MARKING DEVICES ASSEMBLER and CDT. Scheduled Medication Order 04/20/2020 04/21/2020 04/22/2020 apixaban (ELIQUIS) tablet 10 mg 10 mg, oral, Every 12 hours scheduled, First dose on Tue04/22/20 at 1431, Nurse to discontinue heparin infusion order and associated bolus at first administration of apixaban using ? order condition met? order source, Indications: Venous Thrombosis 1456 (Given - Provid er: Chi Leonard RN) documented in this encounter Care Teams Foam Caster Relationship Specialty Start Date End Date Rebel López MD [address] [address] PCP - General Family Medicine 10/23/19 documented as of this encounter
--- OUTSIDE RECORDS SUMMARY | 2024-02-11 08:17 | XMS_ITS | Encounter Summary ---
Author Organization [facility] Address [address] [place] [address] Phone Care Team Providers Care Clasp Machine Operator Name Role Phone Rebel López MD Primary Care Provider [phone] [phone] Reason for Referral * Procedure (Routine) - Closed Specialty Diagnoses / Procedures Referred By Contac t Referred To Contact Diagnoses Left knee pain, unspecified chronicity Procedures Large Joint Injection: L knee Dilip Young MD [address] [address] Phone: tel: fax: [facility] (All Locations) Referral ID Status Reason Start Date Expiration Date Visits Re quested Visits Authorized [id number] Closed 01/08/2020 02/06/2021 1 1 DIAN * Procedure (Routine) - Closed Specialty Diagnoses / Procedures Referred By Contac t Referred To Contact Diagnoses Left knee pain, unspecified chronicity Procedures Large Joint Injection: L knee Dilip Young MD [address] [place] [address] Phone: tel: fax: [facility] (All Locations) Referral ID Status Reason Start Date Expiration Date Visits Re quested Visits Authorized [id number] Closed 01/08/2020 02/06/2021 1 1 DIAN Reason for Visit * Reason Comments Post-op Encounter Details Date Type Department Care Team (Late st Contact Info) Description 01/08/2020 9:15 AM COMEDIAN Office Visit [facility] Orthopaedic Surgery [address] [facility] [address] [place] [address] Dilip Young MD [address] [facility] [address] [place] [address] Left knee pain, unspecified chronicity (Primary Dx); Aftercare following left knee joint replacement surgery Social History Tobacco Use Types Packs/Day Years Used Date Smoking Tobacco: Never Smokeless Tobacco: Never Alcohol Use Standard Drinks/Week Comments Not Currently 0 (1 standard drink = 0.6 oz pur e alcohol) rarely maybe once a month Sex and Gender Information Value Date Recorded Sex Assigned at Not on file Legal Sex Male 12:35 AM COMEDIAN Gender Identity Not on file Sexual Orientation Not on file documented as of this encounter Patient Instructions * Patient Instructions* Eve Arzate MIKE - 01/08/2020 9:15 AM COMEDIAN 1.) Your injection included 80 mg of Depo-Medrol (cortisone) and 6 cc???s Marcaine (numbing medication). 2.) You may resume taking ANY pain relieving medications immediately after the procedures, including anti-inflammatories. 3.) You may resume any blood thinners after the procedures. 4.) The numbing medication usually wears off 2-4 hours after the procedure. 5.) Ice the area 20 minutes at a time the day of the injection and the day after. 6.) The day after the injection you may feel worse than you did before you received the injection (refer to #5). 7.) If you are a diabetic please monitor your blood sugars the day of the injection and the day after. The cortisone may increase your blood sugars. 8.) The steroid medication usually takes up to TEN days to start to take effect and TWO WEEKS to have a full beneficial effect. 9.) If you have any questions regarding your procedure, please do not hesitate to contact the performing doctor???s office. L knee aspirate/inject DIAN documented in this encounter Progress Notes * Dilip Young MD - 01/08/2020 9:15 AM CST Patient is status post left total knee December 10, 2019. He is doing well as far as motion with 0-100 degrees of flexion. He has 2 to 3+ effusion however which is causing some discomfort. Because of this with we aspirated approximately 60 cc of fluid and injected steroid to help with his synovitis.Her return the physical therapy and will follow up with the results of labs from the aspiration. DIAN * Dilip Young MD - 01/08/2020 9:15 AM CSTAssociated Order(s): Large Joint Injection: L knee Post-Procedure Diagnose(s): Left knee pain, unspecified chronicity Large Joint Injection: L knee Performed by: Dilip Young MD Authorized by: Dilip Young MD Large Joint Injection/Aspiration: Consent Given by: Patient Verbal consent obtained: Yes Supporting Documentation: Indications: Pain and joint swelling Procedure Details: Location: Knee Site: L knee Prep: patient was prepped using a clean technique Needle Size: 18 G Approach: Superior lateral Ultrasound guided: No Aspirate amount (mL): 60 Aspirate: Blood-tinged Lab: fluid sent for laboratory analysis Patient tolerance: Patient tolerated the procedure well with no immediate complications DIAN * Dilip Young MD - 01/08/2020 9:15 AM CSTAssociated Order(s): Large Joint Injection: L knee Post-Procedure Diagnose(s): Left knee pain, unspecified chronicity Large Joint Injection: L knee Performed by: Dilip Young MD Authorized by: Dilip Young MD Large Joint Injection/Aspiration: Consent Given by: Patient Site marked: the procedure site was marked Verbal consent obtained: Yes Supporting Documentation: Indications: Pain and joint swelling Procedure Details: Location: Knee Site: L knee Prep: patient was prepped using a clean technique Needle Size: 22 G Approach: Superior lateral Ultrasound guided: No Medications: 6 mL bupivacaine 0.5 % (5 mg/mL); 80 mg methylPREDNISolone acetate 40 mg/mL Patient tolerance: Patient tolerated the procedure well with no immediate complications DIAN documented in this encounter Miscellaneous Notes * Addendum Note - Claribel Moon - 01/08/2020 9:15 AM CSTAddended by: CLARIBEL MOON on: 01/08/2020 09:09 PM Modules accepted: Orders DIAN documented in this encounter Plan of Treatment Scheduled Orders Name Type Priority Associated Diagnoses Orde r Schedule Synovial fluid, cell count Lab Routine Left knee pain, unspecified chronicity Aftercare following left knee joint replacement surgery Expected: 01/08/2020, Expires: 01/07/2021 documented as of this encounter Procedures Procedure Name Priority Date/Time Associated Diagnosis Comments [place] ARTHROCENTESIS ASPIR&/INJ MAJOR JT/BURSA W/O US Routine 01/08/2020 9:15 AM COMEDIAN Left knee pain, unspecified chronicity [place] ARTHROCENTESIS ASPIR&/INJ MAJOR JT/BURSA W/O US Routine 01/08/2020 9:15 AM COMEDIAN Left knee pain, unspecified chronicity documented in this encounter Results * Aerobic and anaerobic culture and gram stain Aspirate Knee, left (01/08/2020 9:09 PM COMEDIAN) Direct Specimen Exam Stain: No polymorphonuclear leukocytes seen. Other cellular material present. No organisms seen. [facility] Report Final Report: No growth [facility] Aspirate (Knee, left) 01/08/2020 9:09 PM COMEDIAN 01/08/2020 9:26 PM COMEDIAN Narrative [facility] - 01/14/2020 10:11 AM COMEDIAN Testing performed by [facility] ([phone]) Specimens submitted from normally sterile body sites will have all bacterial morphotypes identified. Specimens that contain grossly mixed jesús and/or are from body sites that are not normally sterile will be examined for Staphylococcus aureus, Pseudomonas aeruginosa, beta-hemolytic strep, vancomycin-resistant Enterococcus, Bacteroides, Parabacteroides, Clostridium perfringens and fungus. If any of these are isolated, the organism will be reported. Current interpretive data was last revised on 2019. us Dilip Young MD LAB MICROBIOLOGY - GENERAL ORDERABLES Final Result Performing Organization Address [facility] de Phone Number [facility] Department [place] [address] * Crystal Analysis, Body Fluid (01/08/2020 11:26 AM COMEDIAN) Specimen type, fld Synovial [facility] Body site, fld Left knee [facility] Crystals None Seen None Seen [facility] Fluid 01/08/2020 11:2 6 AM COMEDIAN 01/08/2020 9:18 PM COMEDIAN Dilip Young MD LAB BODY FLUIDS AND STOOLS ORDERABLES Final Result Performing Organization Address [facility] de Phone Number [facility] Department [place] [address] * [place] ARTHROCENTESIS ASPIR&/INJ MAJOR JT/BURSA W/O US (01/08/2020 9:15 AM COMEDIAN) Narrative Dilip Young MD - 01/08/2020 9:15 AM COMEDIAN Dilip Young MD ? 01/08/2020 ??3:14 PM Large Joint Injection: L knee Performed by: Dilip Young MD Authorized by: Dilip Young MD Large Joint Injection/Aspiration: ??Consent Given by: ??Patient ??Site marked: the procedure site was marked ?Verbal consent obtained: Yes ?? Supporting Documentation: ??Indications: ??Pain and joint swelling Procedure Details: ??Location: ??Knee ??Site: ??L knee ??Prep: patient was prepped using a clean technique ?Needle Size: ??22 G ??Approach: ??Superior lateral ??Ultrasound guided: No ?Medications: ??6 mL bupivacaine 0.5 % (5 mg/mL); 80 mg methylPREDNISolone acetate 40 mg/mL ??Patient tolerance: ??Patient tolerated the procedure well with no immediate complications Dilip Young MD IN CLINIC/BEDSIDE ORDERABLE S Final Result * [place] ARTHROCENTESIS ASPIR&/INJ MAJOR JT/BURSA W/O US (01/08/2020 9:15 AM COMEDIAN) Narrative Dilip Young MD - 01/08/2020 9:15 AM COMEDIAN Dilip Young MD ? 01/08/2020 ??3:14 PM Large Joint Injection: L knee Performed by: Dilip Young MD Authorized by: Dilip Young MD Large Joint Injection/Aspiration: ??Consent Given by: ??Patient ??Verbal consent obtained: Yes ?? Supporting Documentation: ??Indications: ??Pain and joint swelling Procedure Details: ??Location: ??Knee ??Site: ??L knee ??Prep: patient was prepped using a clean technique ?Needle Size: ??18 G ??Approach: ??Superior lateral ??Ultrasound guided: No ?Aspirate amount (mL): ??60 ??Aspirate: ??Blood-tinged ??Lab: fluid sent for laboratory analysis ?Patient tolerance: ??Patient tolerated the procedure well with no immediate complications Dilip Young MD IN CLINIC/BEDSIDE ORDERABLE S Final Result documented in this encounter Visit Diagnoses Diagnosis Left knee pain, unspecified chronicity- Primary Aftercare following left knee joint replacement surgery Left knee pain, unspecified chronicity Aftercare following left knee joint replacement surgery documented in this encounter Administered Medications Inactive Administered Medications - up to 3 most recent administrations Medication Order MAR Action Action Date Dose Rate Site bupivacaine (MARCAINE) 0.5 % (5 mg/mL) injection 6 mL 6 mL, other, One-Time Injection, Starting on Tue01/08/20 at 1458, For 1 doseIndications:Left knee pain, unspecified chronicity Given 01/08/2020 2:58 PM COMEDIAN 6 mL methylPREDNISolone acetate (DEPO-medrol) injection 80 mg 80 mg, intra-articular, One-Time Injection, Starting on Tue01/08/20 at 1458, For 1 doseIndications:Left knee pain, unspecified chronicity Given 01/08/2020 2:58 PM COMEDIAN 80 mg documented in this encounter Discontinued Medications Medication Sig Discontinue Reason Start Date End Da te lisinopril-hydroCHLOROt hiazide (ZESTORETIC) 20-12.5 mg per tablet TK 1 T PO QD 11/10/2019 01/08/2020 naproxen (NAPROSYN) 500 mg tablet naproxen 500 mg tablet 01/08/2020 documented as of this encounter Historical Medications * This list may reflect changes made after this encounter. tadalafiL (CIALIS) 5 mg tablet TK 1 T PO D SEXUAL ACTIVITY PRN 12/08/2019 amLODIPine (NORVASC) 5 mg tablet TK 1 T PO HS 12/20/2019 potassium chloride ER 10 mEq CR capsule TK 1 C PO D 11/07/2019 1 naproxen (NAPROSYN) 500 mg tablet naproxen 500 mg tablet 01/08/2020 lisinopril-hydro CHLOROthiazide (ZESTORETIC) 20-12.5 mg per tablet TK 1 T PO QD 11/10/2019 01/08/2020 added in this encounter Care Teams Clasp Machine Operator Relationship Specialty Start Date End Date Rebel López MD [address] [address] PCP - General Family Medicine 10/23/19 documented as of this encounter
--- OUTSIDE RECORDS SUMMARY | 2024-02-11 08:17 | XMS_ITS | Referral Summary ---
Author Organization [facility] Address [address] [place] [address] Care Team Providers Care Roustabout Hand Name Role Phone Rebel López MD Primary Care Provider [phone] [phone] Allergies No known active allergies Medications blood-glucose [...] every 7 days Active cholecalciferol (VITAMIN D-3) 31317 unit tabletIndication s:Vitamin D Deficiency Take 1 [...] (10/23/2019): Added automatically from request for surgery [id number] Left knee pain 10/23/2019 Hypertension 08/08/2012 Calculus of kidney 03/28/2012 Hiatal hernia 03/28/2012 Acid phosphatase serum increased 03/28/2012 Simple obesity 03/28/2012 Type 2 diabetes mellitus 03/28/2012 Loose body of knee 03/23/2011 Osteoarthritis of knee 03/04/2011 Immunizations Name Administration Dates Next Due Influenza, Quadrivalent, Spl it, Preservative Free, Intramuscular 12/11/2019 Social History Tobacco Use Types Packs/Day Years Used Date Smoking Tobacco: Never Smokeless Tobacco: Never Alcohol Use Standard Drinks/Week Comments Not Currently 0 (1 standard drink = 0.6 oz pur e alcohol) rarely maybe once a month Sex and Gender Information Value Date Recorded Sex Assigned at Not on file Legal 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 Gender Identity Not on file Sexual Orientation Not on file Last Filed Vital Signs Vital Sign Reading [...] on file Medical Devices Implanted Type Area Grease Buffer Device Identifier Shelf Expiration Date Model / Serial / Lot [employer] [id number] Persona Cruciate Retain Knee Left 7 Standard Component Femoral - Sna - [id number] Implanted:Qty: 1 on 12/10/2019 by Dilip Young MD at [facility] Other - see comments Left: Knee [employer] [id number] 08/06/2029 [id number] / NA / [id number] [employer] [id number] Persona 2 Peg Knee Left F Baseplate Tibial Trabecular Metal - Sna - [id number] Implanted:Qty: 1 on 12/10/2019 by Dilip Young MD at [facility] Other - see comments Left: Knee [employer] [id number] 09/10/2029 [id number] / NA / [id number] [employer] [id number] Persona 10mm Knee Left Insert Articular Vivacit-E Sterile Latex Free - Sna - [id number] Implanted:Qty: 1 on 12/10/2019 by Dilip Young MD at [facility] Other - see comments Left: Knee [employer] [id number] 01/07/2024 [id number] / NA / [id number] [facility] OPEN ACCESS Advance Directives For more information, please contact: [phone] * Full Code (Latest Code Status on File) Date Activated Date Inactivated Comments 12/10/2019 10:05 AM 12/11/2019 4:25 PM Care Teams Roustabout Hand Relationship Specialty Start Date End Date Rebel López MD [address] [address] PCP - General Family Medicine 10/23/19
--- OUTSIDE RECORDS SUMMARY | 2024-02-11 08:17 | XMS_ITS | Data Portability ---
Author Organization [place] - [facility], [facility] [place] Office Address [address] [facility] [place] [address] Care Team Providers Care Sound Effects Manager Name Role Phone CARLITO HOLLAND Primary Care Provider [facility] Endocrino logist Assessment No assessment recorded. Plan of Treatment Reminders Order Date Submit Date Provider Last Modified By Organization Details Last Modified Time Details Appointments None record ed. Lab None record ed. Referral None record ed. Procedures None record ed. Surgeries None record ed. Imaging None record ed. Medication Orders None record ed. Patient TargetsNo targets recorded. Patient Instructions Encounter Date Encounter Id Patient Instructions Last Modified By Organization Details Last Modified Time 03/10/2023 [id number] It was nice to m eet you Mr. Gomes. Thank you for confirming that you have type 2 diabetes. You will be sent a level 2 welcome Kit and continuous glucose monitor in the next 7 days. We look forward to helping you work towards your long-term diabetes goals. Follow up with your Doctor as scheduled. DIET: Continue to follow a low carb/reduced calorie/portion control. EXERCISE: do at least 150 minutes of moderate intensity activity a week or 75 minutes of vigorous intensity activity a week. spread exercise evenly over 4 to 5 days a week, or every day. reduce time spent sitting or lying down and break up long periods of not moving with some activity. Walk at least 10,000 steps per day. SLEEP: It is important to get 7 to 9 hours of sleep every night. This helps also with your metabolism and daily energy levels. Not getting enough sleep can make you feel sluggish, hinder your weight loss goals, and worsen your diabetes. HYPOGLYCEMIA INSTRUCTIONS If you have lows (hypoglycemia / blood sugar < 70) confirm with fingerstick and follow Rule of 15 if blood sugar < 70. - Keep rapid glucose sources such as glucose gel (usually in 15-45 gm tubes), hard candy (3-4 pieces are approximately 10-15 grams), or 1/2 can sugared sodas (30-70 grams per can) readily available only for symptomatic hypoglycemia - Contact your primary care provider immediately or call 911 for severe symptomatic hypoglycemia that is unresponsive to 15 grams of glucose after 15 minutes. EMERGENCY INSTRUCTIONS - Contact our office if you have any additional questions Call your local emergency number (911 in the [place]) for any of the following: You have any of the following signs of a stroke: - Numbness or drooping on one side of your face - Weakness in an arm or leg - Confusion or difficulty speaking - Dizziness, a severe headache, or vision loss You have any of the following signs of a heart attack: - Squeezing, pressure, or pain in your chest - You may also have any of the following: - Discomfort or pain in your back, neck, jaw, stomach, or arm - Shortness of breath - Nausea or vomiting - Lightheadedness or a sudden cold sweat - You have trouble breathing. Call your doctor or care team if: - You have severe abdominal pain. - You vomit for more than 2 hours. - You have trouble staying awake or focusing. - You are shaking or sweating. - You feel weak or more tired than usual. - You have blurred or double vision. - Your breath has a fruity, sweet smell. - Your arms and legs are swollen. - You have an upset stomach and cannot eat the foods on your meal plan. - You feel dizzy, have headaches, or are easily irritated. - Your skin is red, warm, dry, or swollen. - You have a wound that does not heal. - You have numbness in your arms or legs. - You have trouble coping with your illness, or you feel anxious or depressed. - You have questions or concerns about your condition or care. Not available 03/10/2023 13:28:32 05/04/2023 [id number] . [email or web address] Not available 04/08 17:06:21 05/12/2023 [id number] . [email or web address] Not available 05/2023 12:09:46 06/27/2023 [id number] . Care Team Note Radiologic Technology Instructor Goal ( 2023): Get BG in TIR; Reduce diabetes meds if appropriate; wt loss ( goal wt 225#) ROSENDA/low carb: on Insulin; min 75gm carbs/ day- on Jardiance Barriers or contraindications: FYI/Ongoing Info: using Insulin Pump Omnipod 5 w/ Dexcom G6 since 2016 Primary Focus of Visit: TIR26% ; wt 235 ( BMI 33) ; Dx T2DM 2011; on insulin since 2012; reports has been sick / on vacation recently- so BG higher than normal; saw Endo April 2023- A1c 5.8%; reports feels confident w/ diabetes management and knowledge level- has had lots of education since Dx; sees endless belt finisher at Endo/ sees Endo every 3 months; however mbr reports does not remember ICR at this time- but plans to review recommendation when gets home; disc importance of knowing the recommended ICR for meal time dosing to support PP BG excursions; mbr reports no issues w/ using Omnipod 5- mbr reports very confident in using pump and in his diabetes management/ knowledge; Hypo reviewed/ info sent; mbr declines RD visit to review carbs/ carb counting and declines DSME; annual exams- up to date Next steps: 1. Next Endo appt due Sep 2023- disc / enc to talk w/ Endo about optimizing Farxiga dose to help support TIR / reduce insulin need; 2. Mbr to review recommended ICR; 3. 3 month Nurse Care Plan f/u appt [facility] for 09/26/23 at 4pm [email or web address] Not available 06/27/2023 17:54:33 Reason for Referral None Reported. Problems Name Problem SNOMED Code Status Onset Date Resolution Date Notes Provider Name and Address Organization Details Recorded Time Type 2 diabetes mellitus without complication 711998263 Active 2011 Regine mondragon [place] - [facility] 4 17:01:45 Essential hypertension 97637151 Active 2023 MD alanna Cho, [place] - [facility] 4 13:33:14 Anxiety 37491750 Active 2023 MD alanna Cho, [place] [facility] 4 13:34:33 Benign prostatic hyperplasia without outflow obstruction 391761645 Active 2023 Joe Lemus MD null, [facility] 2 Medical Services 13:36:16 Gastroesophage al reflux disease 888512455 Active 2023 Joe Lemus MD [facility], [facility] 2 Medical Services 13:36:48 Problem Notes None recorded. Procedures Surgical History Date Name Laterality Status Provider Name and Address Organization Details Recorded Time 06/20/19 total knee replacement completed Regine Benson [facility] 2 Medical Services 06/27/2023 17:02:36 Appendectomy completed Regine Benson [facility] 2 Medical Services 06/27/2023 17:02:55 Imaging Results None recorded. Procedure Notes None recorded. Medical Equipment None Reported. Allergies No known drug allergies Medications Name Sig Start Date Stop Date Status Note LastModified by Organization Details LastModified Time atorvastat in 40 mg tablet TAKE 1 TABLET BY MOUTH EVERY DAY AT BEDTIME active Not Available Not Available No t Available potassium chloride ER 10 mEq capsule,ex tended release TAKE 1 CAPSULE BY MOUTH DAILY 03/10 completed Not Available Not Available Not Available triamcinol one acetonide 0.5 % topical cream APPLY TOPICALL Y TO RASH ON TRUNK AND EXTREMIT IES TWICE DAILY UNTIL CLEAR. USE NO LONGER THAN 2 WEEKS AT A TIME 03/10 completed Not Available Not Available Not Available azithromyc in 250 mg tablet TAKE 2 TABLETS BY MOUTH FOR 1 DAY THEN TAKE 1 TABLET BY MOUTH DAILY FOR 4 DAYS 03/10 completed Not Available Not Available Not Available prednisone 20 mg tablet TAKE 2 TABLETS BY MOUTH DAILY FOR 2 DAYS THEN TAKE 1 TABLET BY MOUTH DAILY FOR 3 DAYS 03/10 completed Not Available Not Available Not Available permethrin 5 % topical cream APPLY TOPICALL Y TO THE AFFECTED AREA 1 TIME. LEAVE ON FOR 8 TO 14 HOURS BEFORE WASHING OFF 03/10 completed Not Available Not Available Not Available omeprazole 40 mg capsule,de layed release TAKE 1 CAPSULE BY MOUTH DAILY active Not Available Not Available No t Available amlodipine 10 mg tablet TAKE 1 TABLET BY MOUTH DAILY active Not Available Not Available No t Available cephalexin 500 mg capsule TAKE 1 CAPSULE BY MOUTH EVERY 6 HOURS FOR 7 DAYS 03/10 completed Not Available Not Available Not Available tobramycin 0.3 % eye drops INSTILL 1 DROP IN BOTH EYES EVERY 4 HOURS FOR 7 DAYS 03/10 completed Not Available Not Available Not Available irbesartan 300 mg-hydroch lorothiazi de 12.5 mg tablet TAKE 1 TABLET BY MOUTH DAILY active Not Available Not Available No t Available ibuprofen 600 mg tablet TAKE 1 TABLET BY MOUTH THREE TIMES DAILY NEEDED FOR PAIN active Not Available Not Available No t Available cefdinir 300 mg capsule TAKE 1 CAPSULE BY MOUTH EVERY 12 HOURS 03/10 completed Not Available Not Available Not Available metformin ER 500 mg tablet,ext ended release 24 hr TAKE 2 TABLETS BY MOUTH TWICE DAILY 2023 active Not Available Not Available Not Avai lable escitalopr am 10 mg tablet TAKE 1 TABLET BY MOUTH DAILY active Not Available Not Available No t Available tadalafil 5 mg tablet TAKE 1 TABLET BY MOUTH DAILY SEXUAL ACTIVITY NEEDED active Not Available Not Available No t Available icosapent ethyl 1 gram capsule TAKE 2 CAPSULES BY MOUTH TWICE DAILY active Not Available Not Available No t Available Farxiga 10 mg tablet TAKE 1 TABLET BY MOUTH EVERY MORNING 2023 active Not Available Not Available Not Avai lable Humalog KwikPen U-200 Insulin 200 unit/mL (3 mL) subcutaneo us ADMINIST ER 75-100 UNIT SUBCUTAN EOUSLY DAILY VIA INUSLIN PUMP 2023 active using omnipod ; does not recall ICR Not Available Not Available Not Available Dexcom G6 Sensor device REPLACE EVERY 10 DAYS DIRECTED active Not Available Not Available No t Available Dexcom G6 Transmitte r device REPLACE EVERY 90 DAYS active Not Available Not Available No t Available Baqsimi 3 mg/actuati on nasal spray USE 3 MG NASALLY ONCE NEEDED FOR HYPOGLYC EMIA A SINGLE DOSE 03/10 completed Not Available Not Available Not Available Omnipod 5 G6 Pods (Gen 5) subcutaneo us cartridge CHANGE EVERY 48 HOURS active Not Available Not Available No t Available Mounjaro 7.5 mg/0.5 mL subcutaneo us pen injector 03/10 completed Not Available Not Available Not Available Mounjaro 5 mg/0.5 mL subcutaneo us pen injector 03/10 completed Not Available Not Available Not Available Mounjaro 15 mg/0.5 mL subcutaneo us pen injector Inject by subcutan eous route. 2023 active Not Available Not Available Not Avai lable Mounjaro 10 mg/0.5 mL subcutaneo us pen injector 03/10 completed Not Available Not Available Not Available Mounjaro 12.5 mg/0.5 mL subcutaneo us pen injector 03/10 completed Not Available Not Available Not Available Vitals Date Recorded Body height Provider Name an d Address Organization Details Last Updated DateTime 05/12/2023 177.8 cm Regine Benson [facility] 2 [facility] Services 05/12/2023 12:08:33 Date Recorded Body height Body mass index (BMI) Body weight Provider Name and Address Organization Details Last Updated DateTime 06/27/2023 177.8 cm 33.7 kg/m2 270735.21 jordin Benson [place] [address] Medical Services 06/27/2023 17:21:47 Date Recorded Body height Body mass index (BMI) Body weight Provider Name and Address Organization Details Last Updated DateTime 03/10/2023 177.8 cm 35.2 kg/m2 070429.13 jordin Lemus MD [place] [address] Medical Services 03/10/2023 13:30:23 Social History Question Answer Notes LastModified by Organizat ion Details LastModified Time Tobacco Smoking Status Never Smoker Joe Lemus MD [facility], [facility] 2 Medical Services 03/10/2023 13:24:09 What Is Your Level Of Alcohol Consumption? None Information not available 03/10/2023 What Is Your Level Of Caffeine Consumption? Moderate X4 Sweet Or Unsweet Tea/day; Reg Soda 1 Can / Week Information not available 06/27/2023 Do You Or Have You Ever Used E-cigarettes Or Vape? Never Used Electronic Cigarettes Information not available 03/10/2023 Last A1C Result: 5.8% Dec 2022 Information not available 03/10/2023 Foot Exam By Provider (yearly) Less Than 6 Months April 2023 Information not available 03/10/2023 Daily/regular Self Foot Exams Daily [email or web address] Information not available 06/27/2023 Dilated Eye Exam (yearly) Less Than 6 Months June 2023 Information not available 03/10/2023 Dentist (1st Biannual Visit) Less Than 6 Months January 2023 Information not available 03/10/2023 What Year Were You Diagnosed With Type 2 Diabetes? 2011 Information not available 03/10/2023 Who Manages And Prescribes Your Medication For Your Diabetes? Endo Information not available 03/10/2023 How Often Do You See Your Treating Provider? 3 Months Information not available 03/10/2023 Have You Ever Had Diabetes Education? 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 No Information not available 03/10/2023 Are You Currently On Dialysis? No Information not available 03/10/2023 Are You Currently On Hydroxyurea Or Have You Been On This Medication In The Last Year? No Information not available 03/10/2023 Do You Or Have You Ever Used Smokeless Tobacco? Never Used Smokeless Tobacco Information not available 03/10/2023 Do You Use Any Illicit Or Recreational Drugs? No Information not available 03/10/2023 Do You Or Have You Ever Used Any Other Forms Of Tobacco Or Nicotine? No Information not available 03/10/2023 Sex: Unknown Functional Status None recorded. Mental Status None recorded. Family History Nothing Reported. Medical History Condition Response a. Type 2 Diabetes Y Past Encounters Encounter ID Performer Location Encounter Start Date Encounter Closed Date Diagnosis/Indication Diagnosis SNOMED-CT Code Diagnosis ICD10 Code [id number] Joe Lemus MD [facility] Main Office [address] [place] [address] [place] [id number] 03/10/2023 13:22:38 03/10/2023 13:55:28 Type 2 diabetes mellitus without complication 653066726 E11.9 [id number] Regine Benson [facility] Office [address] [place] [address] [place] [id number] 05/04/2023 17:01:08 05/04/2023 17:07:08 [id number] Regine Benson [facility] Main Office [address] [place] [id number] 05/12/2023 12:03:50 05/12/2023 12:10:00 [id number] Regine Benson [facility] Main Office [address] [place] [id number] 06/27/2023 17:00:09 06/27/2023 17:55:51 Health Concerns Section Related Observation LastModified by Organization Detai ls LastModified Time None Recorded Concern Status LastModified by Organization Details LastModified Time None Recorded Advance Directives Directive None Recorded Payers Encounter Date Sequence Insurance Name Policy Number Policy [place] Covered Member ID Noland Member ID Guarantor Name 03/10/2023 1 [facility] [id number] Rakesh Luminescent [id number] [facility] 05/04/2023 1 [facility] [id number] [employer] [id number] [facility] 05/12/2023 1 [facility] [id number] Rakesh Luminescent [id number] [facility] 06/27/2023 1 [facility] [id number] Rakesh Luminescent [id number] [facility] Notes Date Note Type Note Provider Name and Address Organization Details Recorded Time 4 text/html Initial Provider Regulatory RequirementsReported mary.Provider Regulatory RequirementsI have verified that the patient is located in [facility] at time of this visit.; I have verified and verbalized to the patient my name, credentials, and active license to practice in the state the patient is currently in and resides.; Patient identification has been confirmed via visualization of patients DL; I have reviewed and updated the past medical history, past surgical history, social history, medication list and allergies. These were collected and documented by the Level2 providerDisposition*Pee hernandez.Provider Visit CompleteNo further follow up neededLevel2 Provider Medication changesReported mary.Medication changes during visit:No medication changes 48 y/o male with DM2. Diagnosed in 2011. He is followed by his endo every 3 months. Last endo visit in December 2022. He denies any current physical concerns/complaints at this time. Joe Lemus MD [facility], [place] - [facility] 03/10/2023 13:39:51 4 text/html Nurse Regulatory RequirementsReported bystaff.Nurse Regulatory RequirementsI have verified that the patient is located in [place] state at time of this visit. Regine mondragon [place] - [facility] 05/12/2023 12:09:53 4 text/html Nurse Regulatory RequirementsReported bystaff.Nurse Regulatory RequirementsI have verified that the patient is located in [facility] at time of this visit.CGM DataReported mary.Time In Range06/27/23 TIR 26 %; GMI 8.6%; Avg B ; CV: 24 % CGM Patternshigh baseline; post prandial highs; highs before bed; ( 03/15- 04/07/23) BG elevations through out the day, evening and overnight; day BG avg 170- 260s; overnight BG avg 165- 245sNotes:CGM Low Trend: ( 03/15- 04/07/23)no hypo events seen on CGM or reported by mbr DSME PlanReported mary.Taking Medication:Topics Covered: 06/27/23 disc importance of knowing the recommended ICR for meal time dosing to support PP BG excursions; disc / enc to talk w/ Endo about optimizing Farxiga dose to help support TIR/ reduce insulin need; Optimization; Insulin timing of meals; Insulin to carb ratio; Diabetes medication; 06/27/23 mbr does not remember ICR at this time Problem solving:Topics Covered: 06/27/23 disc Hypo/ Rule of 15- info sent via CP chat; disc importance of monitoring/ confirming low CGM /hypo events; Hypoglycemia Reducing Risk:Topics Covered: 06/27/23 disc dahiana of annual exams- up to date on all exams; Foot exams; Diabetes eye exams; Dental exams; Annual exams Other:Topics Covered: 06/27/23 disc TIR, ADA SOC,; Pathophysiology of diabetesNotes: . Disposition*Reported bypatient.Nurse Visit CompleteScheduled DNS nurse visit in 3 month(s)Medication TakingReported bypatient.Do you ever miss or skip doses your medication for any reason?Never Have you ever adjusted or stopped your medications on your own?No How long have you been injecting insulin?2013 When do you inject your rapid-acting insulin?Before the meal; currently using Omnipod 5 Insulin pump 75-100u of U200 daily w/ ICR How do you determine how much insulin to take?I:C/Carb Ratio Have you ever been prescribed and taken Metformin or Metformin ER?Current ER If yes, what was your dose?2000mg/day Have you had issues with your kidneys or liver?None Have you had lab work done in the last 6 months?YesProblem Solving/MonitoringReporte d bypatient.What range is your CGM set to?Dexcom G6; alarms set low: 80; high 300 ; has Clarity evelyn How often and what time of day do you look at your CGM the most?Frequently Do you have a glucometer and up to date supplies?Yes How often do you have low glucose below 70 mg/dL?1-3x/month Do you have any symptoms with low glucose?Shakiness; Sweating; Anxiety At what glucose number do you start to feel these symptoms?80 How do you correct or treat low blood sugar symptoms?OJ or soda or glucose tabs How often do you have high glucose over 200 mg/dL?Daily Do you have any symptoms with high glucose?Frequent urination How do you correct or treat high blood sugar?Insulin correction; Drink water; Take a walk/movePump Device AssessmentReported bypatient.Device:Omnipod 5 Insulin Type:U200 Do you have access to pump reports:Clarity evelyn Bolus Time/ICR:Does not recall ICR How long have you been using insulin?2013 How long have you been using a pump?2015; 2917 started Omnipod 5 Have you had an initial 2-hour pump training?Yes Are you frustrated or annoyed with the frequency of pump/CGM alarms?No What would you like to change about your pump experience?no issues Have there been any recent change(s) in medications?No Do you have adequate supplies for using your pump?Yes When do you usually give insulin in relation to when you start eating?BeforeNotes: 4 mbr reports no issues w/ using Omnipod 5- mbr reports very confident in using pump and in his diabetes management/ knowledge Regine mondragon [place] - [facility] 06/27/2023 17:55:22
--- OUTSIDE RECORDS SUMMARY | 2024-02-11 08:17 | XMS_ITS | Encounter Summary ---
Author Organization [facility] Healthcare Address [address] [place] [address] Care Team Providers Care Social Contact Worker Name Role Phone Rebel López MD Primary Care Provider [phone] Encounter Details Date Type Department Care Team (Late st Contact Info) Description 01/08/2020 9:10 PM DRY SANDER Lab [address] [address] Left knee pain, unspecified chronicity; Aftercare following [...] on file Legal Sex Male 12:35 AM DRY SANDER Gender Identity Not on file Sexual Orientation Not on file documented as of this encounter Plan of Treatment Not on file documented as of this encounter Procedures Procedure Name Priority Date/Time Associated Diagnosis Comments AEROBIC AND ANAEROBIC CULTURE AND GRAM STAIN Routine 01/08/2020 9:09 PM DRY SANDER Left knee pain, unspecified chronicity Aftercare following left knee joint replacement surgery CRYSTAL ANALYSIS, BODY FLUID Routine 01/08/2020 11:26 AM DRY SANDER Left knee pain, unspecified chronicity Aftercare following left knee joint replacement surgery CELL DIFFERENTIAL, BODY FLUID Routine 01/08/2020 11:26 AM DRY SANDER CELL COUNT W/REFLEX DIFFERENTIAL, BODY FLUID Routine 01/08/2020 11:26 AM DRY SANDER documented in this encounter Results * Aerobic and anaerobic culture and gram stain Aspirate Knee, left (01/08/2020 9:09 PM DRY SANDER) Direct Specimen Exam Stain: No polymorphonuclear leukocytes seen. Other cellular material present. No organisms seen. [facility] Report Final Report: No growth [facility] Aspirate (Knee, left) 01/08/2020 9:09 PM DRY SANDER 01/08/2020 9:26 PM DRY SANDER Narrative [facility] - 01/14/2020 10:11 AM DRY SANDER Testing performed by [facility] Microbiology Laboratory ([phone]) Specimens submitted from normally sterile body sites [...] interpretive data was last revised on 2019. Dilip Young MD LAB MICROBIOLOGY - GENERAL ORDERABLES Final Result [facility] [address] [facility] [place] [address] * Cell Differential, Body Fluid (01/08/2020 11:26 AM DRY SANDER) Total cells diffed [address] [facility] Comment: Interpretive Data Unless otherwise specified, the reference range and other method performance specifications have not been established for CSF/Body Fluid tests. ??The test results should be integrated into the clinical context for interpretation. Current interpretive data was last revised on 2018. Neutrophils, fld 66 % [facility] Lymphs, fld 13 % [facility] Monocyte, fld 21 % [facility] Crystals None Seen None Seen [facility] Fluid 01/08/2020 11:2 6 AM DRY SANDER 01/08/2020 9:18 PM DRY SANDER us Dilip Young MD LAB BODY FLUIDS AND STOOLS ORDERABLES Final Result Performing Organization Address [facility] Co de Phone Number [facility] [place] [address] * (ABNORMAL) Cell Count, Body Fluid (01/08/2020 11:26 AM DRY SANDER) Specimen type, fld Synovial [facility] Body site, fld Left knee [facility] Color, fld Yellow [facility] Clarity, fld Cloudy(A) Clear [facility] Nucleated cells, fld 464 /cumm [facility] Comment: Interpretive Data Unless otherwise specified, the reference range and other method performance specifications have not been established for CSF/Body Fluid tests. ??The test results should be integrated into the clinical context for interpretation. Current interpretive data was last revised on 2018. RBC, fld 6,211 /cumm [facility] Fluid 01/08/2020 11:2 6 AM DRY SANDER 01/08/2020 9:18 PM DRY SANDER us Dilip Young MD LAB BODY FLUIDS AND STOOLS ORDERABLES Final Result Performing Organization Address [facility] de Phone Number [facility] Department [place] [address] * Crystal Analysis, Body Fluid (01/08/2020 11:26 AM DRY SANDER) Specimen type, fld Synovial [facility] Body site, fld Left knee [facility] Crystals None Seen None Seen [facility] Fluid 01/08/2020 11:2 6 AM DRY SANDER 01/08/2020 9:18 PM DRY SANDER Dilip oYung MD LAB BODY FLUIDS AND STOOLS ORDERABLES Final Result Performing Organization Address [facility] de Phone Number [facility] Department [place] [address] documented in this encounter Visit Diagnoses Diagnosis Left knee pain, unspecified chronicity Aftercare following left knee joint replacement surgery documented in this encounter Care Teams Social Contact Worker Relationship Specialty Start Date End Date Rebel López MD [address] [address] PCP - General Family Medicine 10/23/19 documented as of this encounter
--- OUTSIDE RECORDS SUMMARY | 2024-02-11 08:18 | XMS_ITS | Encounter Summary ---
Author Organization [facility] Facility Care Team Providers Care Lumber Piler Operator Name Role Phone Unavailable Primary Care Provider Unavailabl e Encounter Details Date Type Department Care Team (Latest Contact Info) Description 09/03/2008 10:55 AM CDT - 09/03/2008 4:00 PM T Hospital [facility] [place] [address] [facility] [address] [place] [address] Osteoarthrosis involving lower leg Social History Tobacco Use Types Packs/Day Years Used Date Smoking Tobacco: Never Assessed Sex and Gender Information Value Date Recorded Sex Assigned at Not on file 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
--- OUTSIDE RECORDS SUMMARY | 2024-02-11 08:18 | XMS_ITS | Encounter Summary ---
Author Organization [facility] Facility Care Team Providers Care Collector Of Internal Revenue Name Role Phone Unavailable Primary Care Provider Unavailabl e Encounter Details Date Type Department Care Team (Latest Contact Info) Description 04/09/2011 10:31 AM SPECIAL DIET COOK - 04/09/2011 4:00 PM [facility] Hospital Encounter [facility] [place] [address] [place] [address] Seroma complicating a procedure; Other specified surgical operation and procedure causing abnormal patient reaction or later complication Social History Tobacco Use Types Packs/Day Years Used Date Smoking Tobacco: Never Assessed Sex and Gender Information Value Date Recorded Sex Assigned at Not on file Legal Sex Male 12:35 AM SPECIAL DIET COOK Gender Identity Not on file Sexual Orientation Not on file documented as of this encounter Plan of Treatment Not on file documented as of this encounter Visit Diagnoses Diagnosis Seroma complicating a procedure Other specified surgical operation and procedure causing abnormal patient reaction or later complication documented in this encounter
--- OUTSIDE RECORDS SUMMARY | 2024-02-11 08:18 | XMS_ITS | Encounter Summary ---
Author Organization [facility] Address [address] [place] [address] Care Team Providers Care Fiber Optic Assembly Worker Name Role Phone Rebel López MD Primary Care Provider [phone] Reason for Referral * Diagnostic Imaging (Routine) - Closed Specialty Diagnoses / Procedures Referred By Margarita ely Referred To Contact Diagnoses Left knee pain, unspecified chronicity Procedures XR Knee Left 3 Views Dilip Young MD Phone: tel: fax: [place] [address] [address] [phone] Referral ID Status Reason Start Date Expiration Date Visits Re quested Visits Authorized [id number] Closed 10/17/2019 11/15/2020 1 1 Reason for Visit * Diagnostic Imaging (Routine) - Closed Specialty Diagnoses / Procedures Referred By Margarita ely Referred To Contact Diagnoses Left knee pain, unspecified chronicity Procedures XR Knee Left 3 Views Dilip Young MD Phone: tel: fax: [place] [address] [address] [phone] Referral ID Status Reason Start Date Expiration Date Visits Re quested Visits Authorized [id number] Closed 10/17/2019 11/15/2020 1 1 Encounter Details Date Type Department Care Team (Latest Contact Info) Description 10/23/2019 8:45 AM CDT - 10/23/2019 11:59 PM CDT Hospital Encounter [id number] [address] [facility] [address] [place] [phone] Dilip Young MD [address] [place] [address] Left knee pain, unspecified chronicity Discharge Disposition: Discharge to home or self care Social History Tobacco Use Types Packs/Day Years Used Date Smoking Tobacco: Never Sex and Gender Information Value Date Recorded Sex Assigned at Not on file Legal Sex Male 12:35 AM [employer] Gender Identity Not on file Sexual Orientation Not on file documented as of this encounter Medications at Time of Discharge aspirin 81 mg enteric coated tabletIndications: Deep Vein Thrombosis Prevention Take 1 tablet (81 mg total) by mouth 2 (two) times a day Take for 6 weeks after surgery 60 tablet 11 12/11/19 20 atorvastatin (LIPITOR) 20 mg tabletIndications: hyperlipidemia Take 20 mg by mouth every morning [...] Transmitter device CHANGE TRANSMITTER Q 90 DAYS insulin lispro (HumaLOG KwikPen Insulin) 200 unit/mL (3 mL) insulin pen Per insulin pump lancets (Easy Touch Lancets) 28 gauge misc Easy Touch Lancets 28 gauge TEST 3 TIMES A DAY lancing device misc lancing device TEST 3 TIMES A DAY metFORMIN XR (GLUCOPHAGE XR) 500 mg 24 hr tabletIndications: type 2 diabetes mellitus Take 500 mg by mouth 2 (two) times a day mupirocin (BACTROBAN) 2 % ointment Apply topically 2 (two) times a day for 5 days APPLY TO NOSTRILS TWICE A DAY FOR 5 DAYS PRIOR TO SURGERY. 22 g 10/23/19 20 020 aspirin 325 mg enteric coated tabletIndications: Deep Vein Thrombosis Prevention Take 1 tablet (325 mg total) by mouth 2 (two) times a day 84 tablet 12/11/19 20 benzonatate (TESSALON) 100 mg capsule benzonatate 100 mg capsule celecoxib (CeleBREX) 200 mg capsuleIndications :Osteoarthritis,Po stoperative Acute Pain TAKE 2 PILLS WITH BREAKFAST THE DAY BEFORE SX. TAKE 1 PILL BID FOR 4 DAYS AFTER DISCHARGE. 10 capsule 10/23/19 20 celecoxib (CeleBREX) 200 mg capsuleIndications :Osteoarthritis,Po stoperative Acute Pain Take 1 tablet twice daily after surgery until prescription is finished. You should already have this prescription at home. 10 capsule 12/11/19 20 clomiPHENE (CLOMID) 50 mg tablet clomiphene citrate 50 mg tablet dulaglutide (Trulicity) 1.5 mg/0.5 mL pen injector Trulicity 1.5 mg/0.5 mL subcutaneous pen injector lisinopriL (PRINIVIL,ZESTRIL) 40 mg tabletIndications: hypertension Take 40 mg by mouth every morning methocarbamoL (ROBAXIN) 500 mg tablet methocarbamol 500 mg tablet methylPREDNISolone (MEDROL DOSEPACK) 4 mg Dosepack methylprednisolone 4 mg tablets in a dose pack naproxen (NAPROSYN) 500 mg tablet naproxen 500 mg tablet ondansetron ODT (ZOFRAN-ODT) 8 mg disintegrating tablet ondansetron 8 mg disintegrating tablet DIS ONE T PO Q 4 TO 6 H PRN N oxyCODONE-acetamin ophen (PERCOCET) 5-325 mg per tabletIndications: Pain Take 2 tablets by mouth every 4 (four) hours as needed for pain for up to 7 days 56 tablet 12/10/19 senna-docusate (PERICOLACE) 8.6-50 mgIndications:cons tipation Take 2 tablets by mouth 2 (two) times a day May increase to 4 tablets twice daily if needed. HOLD medication for diarrhea. 80 tablet 1 12/11/19 20 021 tadalafiL (CIALIS) 5 mg tablet tadalafil 5 mg tablet 020 documented as of this encounter Discharge Disposition Disposition Code Departure Means Destination Discharge to home or self care documented in this encounter Plan of Treatment Not on file documented as of this encounter Procedures Procedure Name Priority Date/Time Associated Diagnosis Comments XR KNEE LEFT 3 VIEWS Schedule Routine, Read Routine (OP Routine) 10/23/2019 9:14 AM CDT Left knee pain, unspecified chronicity documented in this encounter Results * XR Knee Left 3 Views (10/23/2019 9:14 AM CDT) Anatomical Region Laterality Modality Lower Extremities, Knee Left Computed Radiography 10/23/2019 10:0 3 AM CDT Impressions 10/23/2019 10:20 AM CDT Moderate lateral compartment predominant left knee osteoarthritis. Dictated by: Mary Levy M.D. The radiology attending physician has personally reviewed this study, and had reviewed and/or edited this written report and agrees with it. Electronically signed by: Mario Martins M.D. Narrative 10/23/2019 10:20 AM CDT EXAMINATION: Left knee 3 views HISTORY: Left knee pain FINDINGS: 3 views of left knee are submitted for interpretation with comparison to 03/10/2011 radiographs. There is moderate lateral compartment predominant tricompartmental left knee osteoarthritis. ??There is left knee chondrocalcinosis. ??No acute fracture is present. ??There is a small joint effusion. ??There are loose bodies within the knee joint. 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 ?? Procedure Note Mario Martins MD - 10/23/2019 EXAMINATION: Left knee 3 views HISTORY: Left knee pain FINDINGS: 3 views of left knee are submitted for interpretation with comparison to 03/10/2011 radiographs. There is moderate lateral compartment predominant tricompartmental left knee osteoarthritis. There is left knee chondrocalcinosis. No acute fracture is present. There is a small joint effusion. There are loose bodies within the knee joint. 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 IMPRESSION: Moderate lateral compartment predominant left knee osteoarthritis. Dictated by: Mary Levy M.D. The radiology attending physician has personally reviewed this study, and had reviewed and/or edited this written report and agrees with it. Electronically signed by: Mario Martins M.D. us Dilip Young MD IMG XR PROCEDURES Final Res ult documented in this encounter Visit Diagnoses Diagnosis Left knee pain, unspecified chronicity documented in this encounter Care Teams Fiber Optic Assembly Worker Relationship Specialty Start Date End Date Rebel López MD [address] [address] PCP - General Family Medicine 10/23/19 documented as of this encounter
--- OUTSIDE RECORDS SUMMARY | 2024-02-11 08:18 | XMS_ITS | Encounter Summary ---
Author Organization [facility] Facility Care Team Providers Care Drafter Topographical Name Role Phone Unavailable Primary Care Provider Unavailabl e Encounter Details Date Type Department Care Team (Late st Contact Info) Description 03/10/2011 10:32 AM TIMBER RIDER - 03/10/2011 4:00 PM TIMBER RIDER Hospital [facility] [place] [address] [facility] [address] [place] [address] Follow-up examination, following other surgery; Osteoarthrosis involving lower leg Social History Tobacco Use Types Packs/Day Years Used Date Smoking Tobacco: Never Assessed Sex and Gender Information Value Date Recorded Sex Assigned at Not on file Legal Sex Male 12:35 AM TIMBER RIDER Gender Identity Not on file Sexual Orientation Not on file documented as of this encounter Plan of Treatment Not on file documented as of this encounter Visit Diagnoses Diagnosis Follow-up examination, following other surgery Osteoarthrosis involving lower leg documented in this encounter
--- OUTSIDE RECORDS SUMMARY | 2024-02-11 08:18 | XMS_ITS | Encounter Summary ---
Author Organization [facility] Address [address] [place] [address] Phone Care Team Providers Care Audit Officer Name Role Phone Rebel López MD Primary Care Provider [phone] Reason for Referral * Diagnostic Imaging (Routine) - Closed Specialty Diagnoses / Procedures Referred By Contac t Referred To Contact Diagnoses Left knee pain, unspecified chronicity Procedures XR Knee Left 3 Views Dilip Young MD Phone: tel: fax: [address] [address] Referral ID Status Reason Start Date Expiration Date Visits Re quested Visits Authorized [id number] Closed 10/17/2019 11/15/2020 1 1 Reason for Visit * Reason Comments Pain Encounter Details Date Type Department Care Team (Late st Contact Info) Description 10/23/2019 9:00 AM CDT Office Visit [facility] [address] [place] [address] Medical Office Building [address] [place] [id number] Dilip Young MD [address] [place] [address] [address] [place] [address] Left knee pain, unspecified chronicity (Primary Dx); Aftercare following left knee joint replacement surgery Social History Tobacco Use Types Packs/Day Years Used Date Smoking Tobacco: Never Sex and Gender Information Value Date Recorded Sex Assigned at Not on file 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 Gender Identity Not on file Sexual Orientation Not on file documented as of this encounter Last Filed Vital Signs Vital Sign Reading Time Taken Comments Blood Pressure - - Pulse - - Temperature - - Respiratory Rate - - Oxygen Saturation - - Inhaled Oxygen Concentration - - Weight 119.3 kg (263 lb) 10/23/2019 9:17 AM CDT Height 177.8 cm (5' 10 ) 10/23/2019 9:17 AM CDT Body Mass Index 37.74 10/23/2019 9:17 AM CDT documented in this encounter Progress Notes * Fredis Meraz MD - 10/23/2019 9:00 AM CDT NEW KNEE PATIENT VISIT CHIEF COMPLAINT: left knee pain HISTORY OF PRESENT ILLNESS: Rakesh Gomes is a 44 y.o. male with left knee pain. He has had pain since the . It is located medially and laterally. It is worse with activity and improved with rest and NSAIDs. He takes ibuprofen daily for pain. he has had cortisone or hyaluronate injection with limited help. He has had physical therapy or structured exercises in the past year. The problem is getting worse. and is interfering with normal ADL. 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 Other Pertinent history: Patient has a long history of surgeries to the left knee. Please see belowfor full list. 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 He previously saw an orthopedic surgeon who aspirated his knee several months ago priorto planning for total knee arthroplasty. Gram stain was positive for rare gram-positive cocci. It was no growth. Patient previously played hockey had a previous ACL and MCL injury in the past, his last steroid injection his knee was 2009, he takes daily ibuprofen. Last A1c was 7.2. Previous surgeries: 1. L lateral mensicus allograft ([facility]) Feb 1999 2. L knee I&D infection ([facility]) Mar 1999 3. L knee partial meniscectomy ([facility]) Jan 2000 4. L knee removal allograft ([facility]) Mar 2000 5. L knee revision mensical allograft ([facility]) May 2000 6. L knee lateral meniscectomy ([facility]) December 2001 7. L knee arthroscopy ([facility]) August 2008 8. L knee loose body removal ([facility]) Mar 2011 9. L knee I&D ([facility]) April 2011 10. L knee I&D infection ([facility]) April 2011 11. L knee I&D infection ([facility]) April 2011 PAIN: 08/16 WALKING: painful STAIRS: painful SUPPORT: none PAST MEDICAL HISTORY: Past Medical History: Diagnosis Date ??? Essential (primary) hypertension Hypertension - (Added by TW Conv) ??? Methicillin susceptible Staphylococcus aureus infection Staphylococcus aureus infection - L knee (Added by TW Conv) ??? Other tear of lateral meniscus, current injury, unspecified knee, initial encounter Acute lateral meniscal tear - (Added by TW Conv) ??? Pyogenic arthritis (CMS/HCC) Septic arthritis - L knee (Added by TW Conv) ??? Reflux esophagitis Chronic Reflux Esophagitis - (Added by TW Conv) PAST SURGICAL HISTORY: Past Surgical History: Procedure Laterality Date ??? APPENDECTOMY Appendectomy - (Added by TW Conv) ??? [place] FEMUR/KNEE SURG UNLISTED Treatment Of The Knee - multiple (17) operations L knee - meniscus, debridement, irrigation for septic knee, local repairs (Added by TW Conv) MEDICATIONS: Current Outpatient Medications: ??? atorvastatin (LIPITOR) 20 mg tablet, atorvastatin 20 mg tablet TK 1 T PO QD, Disp: , Rfl: ??? benzonatate (TESSALON) 100 mg capsule, benzonatate 100 mg capsule, Disp: , Rfl: ??? blood glucose diagnostic (OneTouch Ultra Blue Test Strip) strip, OneTouch Ultra Blue Test StripTEST 3 TIMES A DAY, Disp: , Rfl: ??? blood-glucose meter (OneTouch Ultra2 Meter) misc, OneTouch Ultra2 Meter TEST 3 TIMES A DAY, Disp: , Rfl: ??? blood-glucose sensor (Dexcom G6 Sensor) device, Dexcom G6 Sensor device CHANGE SENSOR Q 10 DAYS, Disp: , Rfl: ??? blood-glucose transmitter (Dexcom G6 Transmitter) device, Dexcom G6 Transmitter device CHANGE TRANSMITTER Q 90 DAYS, Disp: , Rfl: ??? clomiPHENE (CLOMID) 50 mg tablet, clomiphene citrate 50 mg tablet, Disp: , Rfl: ??? dulaglutide (Trulicity) 1.5 mg/0.5 mL pen injector, Trulicity 1.5 mg/0.5 mL subcutaneous pen injector, Disp: , Rfl: ??? insulin lispro (HumaLOG KwikPen Insulin) 200 unit/mL (3 mL) insulin pen, Humalog KwikPen U-200 Insulin 200 unit/mL (3 mL) subcutaneous INJ SC D UTD. MAXIMUM TOTAL DAILY DOSE IS 200 UNITS, Disp: ,Rfl: ??? lancets (Easy Touch Lancets) 28 gauge misc, Easy Touch Lancets 28 gauge TEST 3 TIMES A DAY, Disp: , Rfl: ??? lancing device misc, lancing device TEST 3 TIMES A DAY, Disp: , Rfl: ??? lisinopriL (PRINIVIL,ZESTRIL) 40 mg tablet, lisinopril 40 mg tablet, Disp: , Rfl: ??? metFORMIN XR (GLUCOPHAGE XR) 500 mg 24 hr tablet, metformin ER 500 mg tablet,extended release 24 hr TK 2 TS PO D, Disp: , Rfl: ??? methocarbamoL (ROBAXIN) 500 mg tablet, methocarbamol 500 mg tablet, Disp: , Rfl: ??? methylPREDNISolone (MEDROL DOSEPACK) 4 mg Dosepack, methylprednisolone 4 mg tablets in a dose pack, Disp: , Rfl: ??? naproxen (NAPROSYN) 500 mg tablet, naproxen 500 mg tablet, Disp: , Rfl: ??? ondansetron ODT (ZOFRAN-ODT) 8 mg disintegrating tablet, ondansetron 8 mg disintegrating tabletDIS ONE T PO Q 4 TO 6 H PRN N, Disp: , Rfl: ??? tadalafiL (CIALIS) 5 mg tablet, tadalafil 5 mg tablet, Disp: , Rfl: ALLERGIES: No Known Allergies SOCIAL HISTORY: Social History Socioeconomic History ??? Marital status: Spouse name: Not on file ??? Number of children: Not on file ??? Years of education: Not on file ??? Highest education level: Not on file Occupational History ??? Not on file Social Needs ??? Financial resource strain: Not on file ??? Food insecurity Worry: Not on file Inability: Not on file ??? Transportation needs Medical: Not on file Non-medical: Not on file Tobacco Use ??? Smoking status: Never Smoker Substance and Sexual Activity ??? Alcohol use: Not on file ??? Drug use: Not on file ??? Sexual activity: Not on file Lifestyle ??? Physical activity Days per week: Not on file Minutes per session: Not on file ??? Stress: Not on file Relationships ??? Social connections Talks on phone: Not on file Gets together: Not on file Attends mandaen service: Not on file Active member of club or organization: Not on file Attends meetings of clubs or organizations: Not on file Relationship status: Not on file ??? Intimate partner violence Fear of current or ex partner: Not on file Emotionally abused: Not on file Physically abused: Not on file Forced sexual activity: Not on file Other Topics Concern ??? Not on file Social History Narrative Never Drank Alcohol : (Added by TW Conv) Difficulty Reading Belarusian : (Added by TW Conv) Marital History - Currently : (Added by TW Conv) [place] Language Belarusian : (Added by TW Conv) FAMILY HISTORY: Family History Problem Relation Age of Onset ??? No Known Problems Other REVIEW OF SYSTEMS: 10 point systems were reviewed. Significant findings include left knee pain PHYSICAL EXAM: Height: Height: 177.8 cm (5' 10 ) Weight: Weight: 119.3 kg (263 lb) BMI: Body mass index is 37.74 kg/m??. Gen: alert and oriented Pulm: no increased work of breathing Cards: brisk cap refill to all extremities Neuro/Psych: appropriate mood, grossly intact to extremities GI: soft nontender nondistended LEFT KNEE: Knee Pain is noted: medially and laterally at joint line Skin Status: multiple far lateral incisions, well healed Range of Motion: Start of flexion: 0 End of flexion: 100 Extension lag: none Flexion Contracture: none M/L Instability: none A/P Instability: none Alignment: neutral Neurovascular status: intact Effusion: none Pulses Intact: intact Dependent Edema: none Neurological Status Intact: intact Quadriceps Muscle Strength: 5/5 RIGHT KNEE: Full ROM, no pain, NVI distally RADIOGRAPHS: Radiographs of the left knee show degenerative joint disease to the medial and lateral compartments, osteophytes noted distal femur medially and laterally, joint space narrowing, subchondral sclerosis noted on the radiographs most notably in the lateral compartment, chondrocalcinosis of the medial cartilage DIAGNOSES: Left knee osteoarthritis IMPRESSION: This patient has pain of the left knee which is impacting daily activities significantly. The diagnosis appears to be left knee osteoarthritis. I reviewed the treatment options, including activity modification, weight loss, physical therapy, analgesic and anti-inflammatories, steroid injections, bracing, cooled radiofrequency, and finally knee replacement. All questions were answered. PLAN: We discussed with patient that we would like to aspirate his knee incision for said over sugar, cell count, culture. This is given his previous positive Gram stain at an outside hospital and his history of infection. Hip this is negative we will plan to move forward with a total knee arthroplasty. We will plan for a Laverne persona medial congruent implant. He will get preop clearance. We will seehim back at the time of surgery. Troy Meraz MD Cosigned by Dilip Young MD at 10/25/2019 10:24 AM CDT * Dilip Young MD - 10/23/2019 9:00 AM CDT I saw this patient alongside Dr. Fredis Meraz and agree with the history, exam findings, and plan. Dilip Young MD documented in this encounter Plan of Treatment Scheduled Orders Name Type Priority Associated Diagnoses Orde r Schedule Synovial fluid, cell count Lab Routine Left knee pain, unspecified chronicity Aftercare following left knee joint replacement surgery Expected: 10/23/2019, Expires: 10/22/2020 documented as of this encounter Procedures Procedure Name Priority Date/Time Associated Diagnosis Comments SYNOVASURE Routine 10/23/2019 Left knee pain, unspecified chronicity Aftercare following left knee joint replacement surgery documented in this encounter Results * Aerobic and anaerobic culture and gram stain Aspirate Knee, left (10/23/2019 10:12 PM CDT) Direct Specimen Exam Stain: Cytospin gram stain shows: No polymorphonuclear leukocytes seen. No organisms seen. Other cellular material present. Red blood cells present. [facility] Report Final Report: No growth [facility] Aspirate (Knee, left) 10/23/2019 10:12 PM CDT 10/23/2019 10:23 PM CDT Narrative [facility] - 10/28/2019 11:26 AM CDT Testing performed by [facility] ([phone]) Specimens submitted from normally sterile body sites [...] LAB MICROBIOLOGY - GENERAL ORDERABLES Final Result [facility] [place] [address] * (ABNORMAL) Crystal Analysis, Body Fluid (10/23/2019 8:22 PM CDT) Specimen type, fld Synovial [facility] Crystals Ca Pyrophosphate Crystals present(A) None Seen [facility] Fluid 10/23/2019 8:22 PM CDT 10/23/2019 10:16 PM CDT Dilip Young MD LAB BODY FLUIDS AND STOOLS ORDERABLES Final Result [facility] [place] [address] * XR Knee Left 3 Views (10/23/2019 [...] it. Electronically signed by: Mario Martins M.D. Dilip Young MD IMG XR PROCEDURES Final Res ult * Synovasure (10/23/2019) Synovial fluid 10/23/2019 Dilip Young MD LAB BODY FLUIDS AND STOOLS ORDERABLES Final Result EXTERNAL LAB documented in this encounter Visit Diagnoses Diagnosis Left knee pain, unspecified chronicity- Primary Aftercare following left knee joint replacement surgery Left knee pain, unspecified chronicity Left knee pain, unspecified chronicity Aftercare following left knee joint replacement surgery documented in this encounter Historical Medications * This list may reflect changes made after this encounter. insulin lispro (HumaLOG KwikPen Insulin) 200 unit/mL (3 mL) insulin pen Per insulin pump atorvastatin (LIPITOR) 20 mg tabletIndications: hyperlipidemia Take 20 mg by mouth every morning blood glucose diagnostic (OneTouch Ultra Blue Test Strip) strip OneTouch Ultra Blue Test Strip TEST 3 TIMES A DAY blood-glucose meter (OneTouch Ultra2 Meter) misc OneTouch Ultra2 Meter TEST 3 TIMES A DAY lancing device misc lancing device TEST 3 TIMES A DAY metFORMIN XR (GLUCOPHAGE XR) 500 mg 24 hr tabletIndications: type 2 diabetes mellitus Take 500 mg by mouth 2 (two) times a day lancets (Easy Touch Lancets) 28 gauge misc Easy Touch Lancets 28 gauge TEST 3 TIMES A DAY blood-glucose transmitter (Dexcom G6 Transmitter) device Dexcom G6 Transmitter device CHANGE TRANSMITTER Q 90 DAYS blood-glucose sensor (Dexcom G6 Sensor) device Dexcom G6 Sensor device CHANGE SENSOR Q 10 DAYS tadalafiL (CIALIS) 5 mg tablet tadalafil 5 mg tablet ondansetron ODT (ZOFRAN-ODT) 8 mg disintegrating tablet ondansetron 8 mg disintegrating tablet DIS ONE T PO Q 4 TO 6 H PRN N methocarbamoL (ROBAXIN) 500 mg tablet methocarbamol 500 mg tablet lisinopriL (PRINIVIL,ZESTRIL) 40 mg tabletIndications: hypertension Take 40 mg by mouth every morning dulaglutide (Trulicity) 1.5 mg/0.5 mL pen injector Trulicity 1.5 mg/0.5 mL subcutaneous pen injector clomiPHENE (CLOMID) 50 mg tablet clomiphene citrate 50 mg tablet benzonatate (TESSALON) 100 mg capsule benzonatate 100 mg capsule naproxen (NAPROSYN) 500 mg tablet naproxen 500 mg tablet methylPREDNISolone (MEDROL DOSEPACK) 4 mg Dosepack methylprednisolone 4 mg tablets in a dose pack 020 added in this encounter Care Teams Audit Officer Relationship Specialty Start Date End Date Rebel López MD [address] [address] PCP - General Family Medicine 10/23/19 documented as of this encounter
--- OUTSIDE RECORDS SUMMARY | 2024-02-11 08:18 | XMS_ITS | Encounter Summary ---
Author Organization [facility] Address [address] [place] [address] Phone Care Team Providers Care Speeder Operator Name Role Phone Rebel López MD Primary Care Provider [phone] Encounter Details Date Type Department Care Team (Late st Contact Info) Description 12/07/2019 Telephone [facility] Orthopaedic Surgery [facility] Medical Office Building [address] [place] [address] Katie Vilchis RN Social History Tobacco Use Types Packs/Day Years Used Date Smoking Tobacco: Never Smokeless Tobacco: Never Alcohol Use Standard Drinks/Week Comments Not Currently 0 (1 standard drink = 0.6 oz pur e alcohol) rarely maybe once a month Sex and Gender Information Value Date Recorded Sex Assigned at Not on file 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 Gender Identity Not on file Sexual Orientation Not on file documented as of this encounter Miscellaneous Notes * Telephone Encounter - Katie Vilchis RN - 12/07/2019 1:32 PM CDT OS Recon - Note PreOp Surgery Arrival Time Call Arrival Time: 529 Surgery Date: 12/10/2019 Arrival Location: [facility] Main Entrance/Registration PreHab completed: IF No, outpatient PT location identified: Yes Location: [facility] Alex F: [phone] Rupal NPO after MN understood: Yes Clear liquids until: arrival Confirm patient has picked up Rx for Mupirocin: Yes Verify start date/instructions: Yes Confirm patient has picked up Celebrex: Yes Verify start date/instructions: Yes Confirm patient has Chlorhexidine soap: Yes Verify start date/instructions: Yes Remind patient to shower with special soap on AM of surgery date. Confirm patient understands exactly what medications should be held 1 week prior to surgery: Yes Verify patient understands exactly what medications to take AM of surgery: Yes Verify patient insurance: Yes Verify patient still has a joint motor coach driver that will be caring for them AT LEAST 3-5 days/24 hours a day post op: Yes Instruct patient to have joint motor coach driver at the hospital on POD#1 to attend D/C class &/or observe nursing staff/OT/PT sessions: Yes Verify changes in medical status: Yes If Yes, comment: no issues Verify clean skin integrity: Yes If No, comment: no issue documented in this encounter Plan of Treatment Not on file documented as of this encounter Visit Diagnoses Not on filedocumented in this encounter Care Teams Speeder Operator Relationship Specialty Start Date End Date Rebel López MD [address] [address] PCP - General Family Medicine 10/23/19 documented as of this encounter
--- OUTSIDE RECORDS SUMMARY | 2024-02-11 08:18 | XMS_ITS | Encounter Summary ---
Author Organization [facility] Address [address] [place] [address] Phone Care Team Providers Care Emergency Room Orderly Name Role Phone Rebel López MD Primary Care Provider [phone] Encounter Details Date Type Department Care Team (Late st Contact Info) Description 11/07/2019 Orders Only [facility] Orthopaedic Surgery [address] [place] [address] Medical Office Building [address] [place] [phone] Dilip Young MD [address] [place] [address] [address] [place] [address] Social History Tobacco Use Types Packs/Day Years Used Date Smoking Tobacco: Never Smokeless Tobacco: Never Alcohol Use Standard Drinks/Week Comments Not Currently 0 (1 standard drink = 0.6 oz pur e alcohol) rarely maybe once a month Sex and Gender Information Value Date Recorded Sex Assigned at Not on file 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 Gender Identity Not on file Sexual Orientation Not on file documented as of this encounter Ordered Prescriptions Prescription Sig Dispense Quantity Refills Last Filled Start Date End Date cholecalciferol (VITAMIN D-3) 46641 unit tabletIndications:V itamin D Deficiency Take 1 tablet (50,000 Units total) by mouth once a week 12 tablet 11/07/2019 documented in this encounter Plan of Treatment Not on file documented as of this encounter Visit Diagnoses Not on filedocumented in this encounter Care Teams Emergency Room Orderly Relationship Specialty Start Date End Date Rebel López MD [address] [address] PCP - General Family Medicine 10/23/19 documented as of this encounter
--- OUTSIDE RECORDS SUMMARY | 2024-02-11 08:18 | XMS_ITS | Encounter Summary ---
Author Organization [facility] Healthcare Address [address] [place] [address] Care Team Providers Care Internal Medicine Nurse Name Role Phone Rebel López MD Primary Care Provider [phone] Encounter Details Date Type Department Care Team (Late st Contact Info) Description 11/06/2019 9:45 AM CDT Lab [facility] [address] [place] [address] Preoperative testing; Primary osteoarthritis of left knee Social History Tobacco Use Types Packs/Day Years Used Date Smoking Tobacco: Never Smokeless Tobacco: Never Alcohol Use Standard Drinks/Week Comments Not Currently 0 (1 standard drink = 0.6 oz pur e alcohol) rarely maybe once a month Sex and Gender Information Value Date Recorded Sex Assigned at Not on file 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 Gender Identity Not on file Sexual Orientation Not on file documented as of this encounter Plan of Treatment Not on file documented as of this encounter Procedures Procedure Name Priority Date/Time Associated Diagnosis Comments EGFR Routine 11/06/2019 9:47 AM CDT Primary osteoarthritis of left knee DIFFERENTIAL AUTO Routine 11/06/2019 9:4 7 AM CDT Primary osteoarthritis of left knee CBC WITH AUTO DIFFERENTIAL Routine 11/06/2019 9:47 AM CDT Primary osteoarthritis of left knee VITAMIN D 25 HYDROXY Routine 11/06/2019 9:47 AM CDT Primary osteoarthritis of left knee HEMOGLOBIN A1C Routine 11/06/2019 9:47 AM CDT Primary osteoarthritis of left knee COMPREHENSIVE METABOLIC PANEL Routine 11/06/2019 9:47 AM CDT Primary osteoarthritis of left knee URINALYSIS AND REFLEX TO MICROSCOPIC AND CULTURE Routine 11/06/2019 9:45 AM CDT Preoperative testing documented in this encounter Results * eGFR (11/06/2019 9:47 AM CDT) eGFR >90 mL/min/1.7 3 m2 [facility] Comment: Interpretive Data Reference Interval Normal ?>/= 90 mL/min/1.73m2 Mildly decreased* ? 60 - 89 mL/min/1.73m2 Mildly to moderately decreased ?45 - 59 mL/min/1.73m2 Moderately to severely decreased ??30 - 44 mL/min/1.73m2 Severely decreased ?15 - 29 mL/min/1.73m2 Kidney Failure ?< 15 ??mL/min/1.73m2 *Relative to young adult level If -[place] multiply value by 1.16. Estimated glomerular filtration [...] was last reviewed 2015. Blood specimen (specimen) 11/06/2019 9:47 AM CDT 11/06/2019 10:15 AM CDT us Dilip Young MD LAB BLOOD ORDERABLES Final Result [facility] [address] [facility]. [place] [address] * Differential, auto (11/06/2019 9:47 AM CDT) Neutrophil abs 5.0 1.7 - 6.5 K/cumm [facility] Imm gran abs 0.1 0.0 - 0.1 K/cumm [facility] Lymphocyte abs 1.9 0.8 - 3.3 K/cumm [facility] Monocyte abs 0.5 0.2 - 0.8 K/cumm [facility] Eosinophil abs 0.3 0.0 - 0.5 K/cumm [facility] Basophil abs 0.1 0.0 - 0.1 K/cumm [facility] Neutrophil pct 65.0 % [facility] Comment: Interpretive Data Percent cell count reference ranges are not reported, since discordance with absolute values may lead to misinterpretation of CBC data. Current Interpretive Data was last revised on 2017. Imm gran pct 0.8 % [facility] Comment: Interpretive Data Percent cell count reference ranges are not reported, since discordance with absolute values may lead to misinterpretation of CBC data. Current Interpretive Data was last revised on 2017. Lymphocyte pct 24.1 % [facility] Comment: Interpretive Data Percent cell count reference ranges are not reported, since discordance with absolute values may lead to misinterpretation of CBC data. Current Interpretive Data was last revised on 2017. Monocyte pct 6.1 % [facility] Comment: Interpretive Data Percent cell count reference ranges are not reported, since discordance with absolute values may lead to misinterpretation of CBC data. Current Interpretive Data was last revised on 2017. Eosinophil pct 3.4 % [facility] Comment: Interpretive Data Percent cell count reference ranges are not reported, since discordance with absolute values may lead to misinterpretation of CBC data. Current Interpretive Data was last revised on 2017. Basophil pct 0.6 % [facility] Comment: Interpretive Data Percent cell count reference ranges are not reported, since discordance with absolute values may lead to misinterpretation of CBC data. Current Interpretive Data was last revised on 2017. Blood specimen (specimen) 11/06/2019 9:47 AM CDT 11/06/2019 10:15 AM CDT us Dilip Young MD LAB BLOOD ORDERABLES Final Result [facility] [address] [facility] [place] [address] * (ABNORMAL) Comprehensive metabolic panel (11/06/2019 9:47 AM CDT) Sodium 144 135 - 145 mmol/L [facility] Potassium, pl 3.1(L) 3.3 - 4.9 mmol/L [facility] Chloride 100 97 - 110 mmol/L [facility] CO2 33(H) 22 - 32 mmol/L [facility] Anion gap 11 2 - 15 mmol/L [facility] BUN 10 8 - 25 mg/dL [facility] Creatinine 0.69(L) 0.80 - 1.30 mg/dL [facility] Glucose 112 70 - 199 mg/dL [facility] Comment: Interpretive Data Fasting glucose >/= 126 [...] interpretive data was last revised 2016. Calcium 9.5 8.5 - 10.3 mg/dL [facility] Bilirubin, total 1.1 0.1 - 1.2 mg/dL [facility] Protein, pl 6.8 6.5 - 8.5 g/dL [facility] Albumin 4.5 3.5 - 5.0 g/dL [facility] Alk phos 79 40 - 130 Units/L [facility] ALT 37 7 - 55 Units/L [facility] AST 23 10 - 50 Units/L [facility] Blood specimen (specimen) 11/06/2019 9:47 AM CDT 11/06/2019 10:15 AM CDT Dilip Young MD LAB BLOOD ORDERABLES Final Result Performing Organization Address [facility] de Phone Number [facility] [address] [facility] [employer] [place], [place] [id number] * (ABNORMAL) Vitamin D 25 hydroxy (11/06/2019 9:47 AM CDT) [facility] Vitamin D 25-OH 22(L) 30 - 80 ng/mL [facility] Comment:Testing performed by : [facility], [address] [facility], [place]., [address] Blood specimen (specimen) 11/06/2019 9:47 AM CDT 11/06/2019 1:55 PM CDT Dilip Young MD LAB BLOOD ORDERABLES Final Result Performing Organization Address [facility] de Phone Number [facility] [address] [facility] [place] [address] * CBC with auto differential (11/06/2019 9:47 AM CDT) [facility] WBC 7.7 3.8 - 9.9 K/cumm [facility] Hgb 16.7 13.0 - 17.5 g/dL [facility] Hct 47.0 38.9 - 50.3 % [facility] Plt 248 150 - 400 K/cumm [facility] MPV 10.3 9.1 - 12.3 fL [facility] RBC 5.77 4.30 - 5.80 M/cumm [facility] MCV 81.5 81.3 - 96.4 fL [facility] MCH 28.9 27.1 - 33.3 pg [facility] MCHC 35.5 32.3 - 35.7 g/dL [facility] RDW CV 13.9 11.1 - 14.9 % [facility] RDW SD 40.4 35.7 - 48.1 fL [facility] NRBC abs 0.00 0.00 - 0.01 K/cumm [facility] Blood specimen (specimen) 11/06/2019 9:47 AM CDT 11/06/2019 10:15 AM CDT Dilip Young MD LAB BLOOD ORDERABLES Final Result Performing Organization Address [facility] Co de Phone Number [facility] [facility] [address] [place] [address] * (ABNORMAL) Hemoglobin A1c (11/06/2019 9:47 AM CDT) Hgb A1C 8.4(H) 4.0 - 5.6 % [facility] Comment:Testing performed by : [facility], [address] [place] [address]., [id number] Estimated Average Glucose 194 mg/dL [facility] Comment: The ADA recommends reporting an estimated Average Glucose (eAG) with all Hemoglobin A1c results using the equation derived from a study of 507 normal and diabetic adults. ??Minority populations were underrepresented and children were not included. ?? (Diabetes Care 31:1684-1616, 2008). ??The eAG is not equivalent to a fasting glucose. Testing performed by: [facility], [address] [place] [address]., [id number] Blood specimen (specimen) 11/06/2019 9:47 AM CDT 11/06/2019 11:42 AM CDT Dilip Young MD LAB BLOOD ORDERABLES Final Result Performing Organization Address [facility] Co de Phone Number [facility] [address] [facility] [employer] [place] [address] * Urinalysis reflex to microscopic and culture Urine, clean voided (11/06/2019 9:45 AM CDT) Color, ur Yellow Yellow [facility] Clarity, ur Clear Clear [facility] Specific gravity, ur 1.020 1.010 - 1.025 [facility] pH, urine 7.5 [facility] Protein, ur ql Negative Negative [facility] Glucose, ur ql Negative Negative [facility] Ketones, ur Negative Negative [facility] Bilirubin, ur Negative Negative [facility] Blood, ur Negative Negative [facility] Urobilinogen, ur 0.2 <2.0 mg/dL [facility] Nitrite, ur Negative Negative [facility] Leukocyte esterase, ur Negative Negative [facility] UA reflex comment Reflex conditions for microscopic UA and culture not met. [facility] Urine, clean voided 11/06/2019 9:45 AM CDT 11/06/2019 10:17 AM CDT Narrative [facility] - 11/06/2019 10:35 AM CDT ?? Urine pH is affected by diet, medications, systemic acid-base disturbances, and renal tubular function. ??pH may affect urinary stone formation. ??For example, urine pH below 6.0 may help reduce the tendency for calcium phosphate stones and pH greater than 6.0 may reduce the tendency for uric acid stone formation. Source: [employer]. Last revised 02-17-2017 us Gaby Trujillo NP LAB MICROBIOLOGY - [facility] ORDERABLES Final Result [facility] [address] [facility] [place] [address] documented in this encounter Visit Diagnoses Diagnosis Preoperative testing Unspecified pre-operative examination Primary osteoarthritis of left knee documented in this encounter Care Teams Internal Medicine Nurse Relationship Specialty Start Date End Date Rebel López MD [address] [address] PCP - General Family Medicine 10/23/19 documented as of this encounter
--- OUTSIDE RECORDS SUMMARY | 2024-02-11 08:18 | XMS_ITS | Encounter Summary ---
Author Organization [facility] Healthcare Address [address] [place] [address] Care Team Providers Care Soda Dispenser Name Role Phone Rebel López MD Primary Care Provider [phone] Encounter Details Date Type Department Care Team (Late st Contact Info) Description 12/06/2019 3:00 [place] [address] Pre-procedure lab exam Social History Tobacco Use Types Packs/Day Years Used Date Smoking Tobacco: Never Smokeless Tobacco: Never Alcohol Use Standard Drinks/Week Comments Not Currently 0 (1 standard drink = 0.6 oz pur e alcohol) rarely maybe once a month Sex and Gender Information Value Date Recorded Sex Assigned at Not on file 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 The 2018-Novel Coronavirus Assay (COVID-19) Real Time RT-PCR assay is for in vitro diagnostic use under FDA emergency use authorization only. A negative RT-PCR result does not preclude infection with COVID-19 and should not be used as the sole basis for treatment or other patient management decisions. Additional sample types have been validated according to CLIA regulations. ?? Current Interpretive Data was last revised on 2019. First COVID-19 test? No [facility] Employeed in healthcare? No [facility] status? No [facility] Group care resident? No [facility] Hospitalized? Unknown [facility] Is patient in ICU? Unknown [facility] Symptomatic as defined by CDC? No [facility] Nasopharyngeal 12/06/2019 8: 24 AM CDT 12/06/2019 4:22 PM CDT Narrative [facility] - 12/07/2019 7:08 AM CDT What is the reason for testing?->Screening prior to scheduled (>12 hr) surgery or procedure Dilip Young MD LAB MICROBIOLOGY - GENERAL ORDERABLES Final Result [facility] Department [place] [address] documented in this encounter Visit Diagnoses Diagnosis Pre-procedure lab exam Pre-procedural laboratory examination documented in this encounter Care Teams Soda Dispenser Relationship Specialty Start Date End Date Rebel López MD [address] [address] PCP - General Family Medicine 10/23/19 documented as of this encounter
--- OUTSIDE RECORDS SUMMARY | 2024-02-11 08:18 | XMS_ITS | Encounter Summary ---
Author Organization [facility] Address [address] [place] [address] Phone Care Team Providers Care Food And Nutrition Services Assistant Name Role Phone Rebel López MD Primary Care Provider [phone] Encounter Details Date Type Department Care Team (Late st Contact Info) Description 10/23/2019 Orders Only 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 TAKE 1 PILL BID FOR 4 DAYS AFTER DISCHARGE. 10 capsule 10/23/2019 0 mupirocin (BACTROBAN) 2 % ointment Apply topically 2 (two) times a day for 5 days APPLY TO NOSTRILS TWICE A DAY FOR 5 DAYS PRIOR TO SURGERY. 22 g 10/23/2019 0 documented in this encounter Plan of Treatment Not on file documented as of this encounter Visit Diagnoses Not on filedocumented in this encounter Care Teams Food And Nutrition Services Assistant Relationship Specialty Start Date End Date Rebel López MD [address] [address] PCP - General Family Medicine 10/23/19 documented as of this encounter
--- OUTSIDE RECORDS SUMMARY | 2024-02-11 08:18 | XMS_ITS | Encounter Summary ---
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 Gender Identity Not on file Sexual Orientation Not on file documented as of this encounter Plan of Treatment Not on file documented as of this encounter Procedures Procedure Name Priority Date/Time Associated Diagnosis Comments AEROBIC AND ANAEROBIC CULTURE AND GRAM STAIN Routine 10/23/2019 10:12 PM CDT Left knee pain, unspecified chronicity Aftercare following left knee joint replacement surgery CRYSTAL ANALYSIS, BODY FLUID Routine 10/23/2019 8:22 PM CDT Left knee pain, unspecified chronicity Aftercare following left knee joint replacement surgery CELL DIFFERENTIAL, BODY FLUID Routine 10/23/2019 8:22 PM CDT CELL COUNT W/REFLEX DIFFERENTIAL, BODY FLUID Routine 10/23/2019 8:22 PM CDT documented in this encounter Results * Aerobic and anaerobic culture and gram stain Aspirate Knee, left (10/23/2019 10:12 PM CDT) Pathologist [facility] Direct Specimen Exam Stain: Cytospin gram stain shows: No polymorphonuclear leukocytes seen. No organisms seen. Other cellular material present. Red blood cells present. [facility] Report Final Report: No growth [facility] Aspirate (Knee, left) 10/23/2019 10:12 PM CDT 10/23/2019 10:23 PM CDT Narrative [facility] - 10/28/2019 11:26 AM CDT Testing performed by [facility] ([phone]) Specimens submitted from normally sterile body sites [...] LAB MICROBIOLOGY - GENERAL ORDERABLES Final Result [facility] [place] [address] * Cell Differential, Body Fluid (10/23/2019 8:22 PM CDT) [facility] Total cells diffed 100 cells [facility] Comment: Interpretive Data Unless otherwise specified, the reference range and other method performance specifications have not been established for CSF/Body Fluid tests. ??The test results should be integrated into the clinical context for interpretation. Current interpretive data was last revised on 2018. Neutrophils, fld 8 % [facility] Lymphs, fld 58 % [facility] Monocyte, fld 34 % [facility] Crystals None Seen None Seen [facility] Specimen type, fld Synovial [facility] Body site, fld Left Knee [facility] Fluid 10/23/2019 8:22 PM CDT 10/23/2019 10:16 PM CDT us Dilip Young MD LAB BODY FLUIDS AND STOOLS ORDERABLES Final Result Performing Organization Address [facility] de Phone Number [facility] [place] [address] * (ABNORMAL) Cell Count, Body Fluid (10/23/2019 8:22 PM CDT) Specimen type, fld SYNOVIAL [facility] Body site, fld LEFT KNEE [facility] Color, fld Yellow [facility] Clarity, fld Cloudy(A) Clear [facility] Nucleated cells, fld 41 /cumm [facility] Comment: Interpretive Data Unless otherwise specified, the reference range and other method performance specifications have not been established for CSF/Body Fluid tests. ??The test results should be integrated into the clinical context for interpretation. Current interpretive data was last revised on 2018. RBC, fld 2,596 /cumm [facility] Fluid 10/23/2019 8:22 PM CDT 10/23/2019 10:15 PM CDT us Dilip Young MD LAB BODY FLUIDS AND STOOLS ORDERABLES Final Result Performing Organization Address [facility] de Phone Number [facility] [place] [address] * (ABNORMAL) Crystal Analysis, Body Fluid (10/23/2019 8:22 PM CDT) Specimen type, fld Synovial [facility] Crystals Ca Pyrophosphate Crystals present(A) None Seen [facility] Fluid 10/23/2019 8:22 PM CDT 10/23/2019 10:16 PM CDT Dilip Young MD LAB BODY FLUIDS AND STOOLS ORDERABLES Final Result Performing Organization Address [facility]/State/ZIP Co de Phone Number [facility] [place] [address] documented in this encounter Visit Diagnoses Diagnosis Left knee pain, unspecified chronicity Aftercare following left knee joint replacement surgery documented in this encounter Care Teams Tower Dragline Operator Relationship Specialty Start Date End Date Rebel López MD [address] [address] PCP - General Family Medicine 10/23/19 documented as of this encounter
--- OUTSIDE RECORDS SUMMARY | 2024-02-11 08:18 | XMS_ITS | Encounter Summary ---
Author Organization [facility] Facility Care Team Providers Care Orientation And Mobility Instructor Name Role Phone Shiva Sung MD Primary Care Provider [phone] Encounter Details Date Type Department Care Team (Late st Contact Info) Description 03/15/2012 12:48 PM SENIOR SAFETY MANAGEMENT CONSULTANT - 03/15/2012 9:11 PM SENIOR SAFETY MANAGEMENT CONSULTANT Hospital Encounter [facility] Karl Kee MD [address] [facility] [address] [place] [address] Type 2 or unspecified type diabetes mellitus; Encounter for long-term (current) use of insulin (HCC); Encounter for long-term (current) use of other medications Social History Tobacco Use Types Packs/Day Years Used Date Smoking Tobacco: Never Assessed Sex and Gender Information Value Date Recorded Sex Assigned at Not on file Legal Sex Male 12:35 AM SENIOR 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 MANAGEMENT CONSULTANT Gender Identity Not on file Sexual Orientation Not on file documented as of this encounter Plan of Treatment Not on file documented as of this encounter Procedures Procedure Name Priority Date/Time Associated Diagnosis Comments BLOOD GLUCOSE, POC Routine 03/15/2012 8: 47 PM SENIOR SAFETY MANAGEMENT CONSULTANT BLOOD GLUCOSE, POC Routine 03/15/2012 6: 22 PM SENIOR SAFETY MANAGEMENT CONSULTANT BLOOD GLUCOSE, POC Routine 03/15/2012 4: 38 PM SENIOR SAFETY MANAGEMENT CONSULTANT PLASMA BASIC METABOLIC PANEL Routine 03/15/2012 3:00 PM SENIOR SAFETY MANAGEMENT CONSULTANT BLOOD BETA-HYDROXYBUTYRATE Routine 03/15/2012 1:09 PM SENIOR SAFETY MANAGEMENT CONSULTANT DISCHARGE LABORATORY CUMULATIVE REPORT Routine 03/15/2012 12:00 AM SENIOR SAFETY MANAGEMENT CONSULTANT documented in this encounter Results * (ABNORMAL) Blood glucose, POC (03/15/2012 8:47 PM SENIOR SAFETY MANAGEMENT CONSULTANT) Glucose, POC, bld 202(H) 65 - 199 mg/dl HISTORICAL RESULTS Blood specimen (specimen) 03/15/2012 8:47 PM SENIOR SAFETY MANAGEMENT CONSULTANT Karl Yee MD LAB BLOOD ORDERABLES F inal Result Performing Organization Address [facility] de Phone Number HISTORICAL RESULTS * (ABNORMAL) Blood glucose, POC (03/15/2012 6:22 PM SENIOR SAFETY MANAGEMENT CONSULTANT) Glucose, POC, bld 289(H) 65 - 199 mg/dl HISTORICAL RESULTS Blood specimen (specimen) 03/15/2012 6:22 PM SENIOR SAFETY MANAGEMENT CONSULTANT Karl Yee MD LAB BLOOD ORDERABLES F inal Result Performing Organization Address [facility] de Phone Number HISTORICAL RESULTS * (ABNORMAL) Blood glucose, POC (03/15/2012 4:38 PM SENIOR SAFETY MANAGEMENT CONSULTANT) Glucose, POC, bld 348(H) 65 - 199 mg/dl HISTORICAL RESULTS Blood specimen (specimen) 03/15/2012 4:38 PM SENIOR SAFETY MANAGEMENT CONSULTANT Karl Yee MD LAB BLOOD ORDERABLES F inal Result Performing Organization Address [facility] de Phone Number HISTORICAL RESULTS * (ABNORMAL) Plasma basic metabolic panel (03/15/2012 3:00 PM SENIOR SAFETY MANAGEMENT CONSULTANT) Sodium 138 135 - 145 mmol/L HISTORICAL RESULTS K, pl 4.5 3.3 - 4.9 mmol/L HISTORICAL RESULTS Chloride 98 97 - 110 mmol/L HISTORICAL RESULTS CO2 29 22 - 32 mmol/L HISTORICAL RESULTS A. gap 11 0 - 16 mmol/L HISTORICAL RESULTS Glucose 362(H) 65 - 199 mg/dl HISTORICAL RESULTS BUN 13 8 - 25 mg/dl HISTORICAL RESULTS Creatinine 0.78 0.70 - 1.30 mg/dl HISTORICAL RESULTS Calcium 10.1 8.6 - 10.3 mg/dl HISTORICAL RESULTS Plasma 03/15/2012 3:00 PM SENIOR SAFETY MANAGEMENT CONSULTANT Skyler Salvador MD LAB BLOOD ORDERABLES Final Res ult Performing Organization Address [facility] Co de Phone Number HISTORICAL RESULTS * Blood beta-hydroxybutyrate (03/15/2012 1:09 PM SENIOR SAFETY MANAGEMENT CONSULTANT) Beta-hydroxybu tyrate, sr 0.2 0.0 - 0.5 mmol/L HISTORICAL RESULTS Blood specimen (specimen) 03/15/2012 1:09 PM SENIOR SAFETY MANAGEMENT CONSULTANT Skyler Salvador MD LAB BLOOD ORDERABLES Final Res ult Performing Organization Address [facility] de Phone Number HISTORICAL RESULTS * Discharge Laboratory Cumulative Report (03/15/2012 12:00 AM SENIOR SAFETY MANAGEMENT CONSULTANT) 03/15/2012 Narrative HISTORICAL RESULTS - 03/16/2012 11:17 AM SENIOR SAFETY MANAGEMENT CONSULTANT ?[facility] ?Department of Laboratories ? [address] [facility] [address] ? [place] [address] Patient Name: ??RAKESH MORAN Rec Number: [id number] Fin Number: ?[id number] Date: ?1975 Sex/Age: ? Male 37 years Admit Date: ?03/15/2012 Discharge Date: 03/15/2012 Doctor: ?Karl Yee Facility: ?[facility] Location: ?[id number] Chart Printed: 03/16/2012 11:17 ?? * Abnormal ?? C Critical ?? f Footnote ?? ^ Corrected ?? L Low ?? H High ? i Interp Data ?? @ Reference Lab ?Chart Type:Cumulative ? SELECTED ELECTROLYTES ?Test: Sodium ? Plasma Potassium ??Chloride ? Reference: [135-145] ??[3.3-4.9] ? [97-110] ? Units: mmol/L ? mmol/L ?mmol/L 03/15/2012 ?? 15:00:00 ?? 138 ?4.5 ? 98 ?Test: Total CO2 ??Anion Gap ? Reference: [22-32] ?[0-16] ? Units: mmol/L ? mmol/L 03/15/2012 ?? 15:00:00 ?? 29 ? 11 ? STANDARD BLOOD CHEMISTRY ?Test: BUN ? Creatinine ?? Glucose ?? Total Calcium ? Reference: [8-25] ??[0.70-1.30] ??[65-199] ??[8.6-10.3] ? Units: mg/dL ?? mg/dL ?mg/dL ? mg/dL 03/15/2012 ?? 15:00:00 ?? 13 ?0.78 ? 362 ??H ?10.1 ?POINT OF CARE TESTS ? Chemistry ?Test: Gluc WB POC ??BHyButyr WB xPOC ? Reference: [65-199] ? [0.0-0.5] ? Units: mg/dL ?mmol/L 03/15/2012 ?? 20:47:00 ?? 202 ??H 03/15/2012 ?? 18:22:00 ?? 289 ??H 03/15/2012 ?? 16:38:00 ?? 348 ??H 03/15/2012 ?? 13:09:00 ?0.2 us Historical Provider LAB BLOOD ORDERABLES Anabella david Result HISTORICAL RESULTS documented in this encounter Visit Diagnoses Diagnosis Type 2 or unspecified type diabetes mellitus Encounter for long-term (current) use of insulin (HCC) Encounter for long-term (current) use of insulin Encounter for long-term (current) use of other medications documented in this encounter Care Teams Orientation And Mobility Instructor Relationship Specialty Start Date End Date Shiva Sung MD [address] [place] [address] PCP - General 05/21/11 10/22/19 documented as of this encounter
--- OUTSIDE RECORDS SUMMARY | 2024-02-11 08:18 | XMS_ITS | Encounter Summary ---
Author Organization [facility] Healthcare Address [address] [place] [address] Care Team Providers Care Personnel Clerks Supervisor Name Role Phone Rebel López MD Primary Care Provider [phone] Encounter Details Date Type Department Care Team (Late st Contact Info) Description 12/10/2019 7:15 AM COLLECTOR OF INTERNAL REVENUE - 12/10/2019 9:45 AM COLLECTOR OF INTERNAL REVENUE Surgery [facility] Operating Room [address] [place] [address] Dilip Young MD [address] [facility] [address] [place], [place] [id number] ARTHROPLASTY LEFT TOTAL KNEE-lucas persona Surgery Details Date/Time Status Location OR Service Patient Class Case Class Case Type Trauma Case? 12/10/2019 7:15 AM Posted [facility] OPERATING ROOM OR Orthopaedics Outpatient in Bed Elective Panel 1 Procedure LRB Anes Op Region Wound Class Comments ARTHROPLASTY LEFT TOTAL KNEE -lucas persona Left Spinal Knee Class I - Clean Surgeon Surgeon Role Service Panel Dilip Young MD Primary Orthopaedics 1 Mario Giang MD Resident - Assisting Orth opaedics 1 Case Notes ZB - Persona Special Needs Hoods documented in this encounter Social History Tobacco Use Types Packs/Day Years Used Date Smoking Tobacco: Never Smokeless Tobacco: Never Alcohol Use Standard Drinks/Week Comments Not Currently 0 (1 standard drink = 0.6 oz pur e alcohol) rarely maybe once a month Sex and Gender Information Value Date Recorded Sex Assigned at Not on file Legal Sex Male 12:35 AM COLLECTOR OF INTERNAL REVENUE Gender Identity Not on file Sexual Orientation Not on file documented as of this encounter Last Filed Vital Signs Vital Sign Reading Time Taken Comments Blood Pressure 135/71 12/10/2019 9:45 AM COLLECTOR OF INTERNAL REVENUE Pulse 75 12/10/2019 9:45 AM COLLECTOR OF INTERNAL REVENUE Temperature 36.4 ??C (97.5 ??F) 12/10/2019 9:09 AM CS T Respiratory Rate 28 12/10/2019 9:45 AM COLLECTOR OF INTERNAL REVENUE Oxygen Saturation 98% 12/10/2019 9:45 AM COLLECTOR OF INTERNAL REVENUE Inhaled Oxygen Concentration - - Weight 120.2 kg (265 lb) 12/10/2019 5:27 AM COLLECTOR OF INTERNAL REVENUE Height 177.8 cm (5' 10 ) 12/10/2019 5:27 AM COLLECTOR OF INTERNAL REVENUE Body Mass Index 38.02 12/10/2019 5:27 AM COLLECTOR OF INTERNAL REVENUE documented in this encounter Discharge Summaries * Zoë Jeffrey, YOAV - 12/11/2019 6:47 AM CST Inpatient Discharge Summary Admitting Provider: Dilip Young MD Discharge Provider: Dilip Young MD Primary Care Physician at Discharge: Rebel López MD [phone] Admission Date: 12/10/2019 Discharge Date: 12/11/2019 Primary [...] The patient progressed well and was able mike weaned off IV opiates. The patient participated with physical and occupational therapy and was deemed stable for discharge. He was maintained on Aspirin for deep venous thrombosis prophylaxis. Pain was adequately maintained on oral opiates. The patient was discharged in stable condition to home with home health care on 12/11/2019. Rakesh Gomes Home Medication Instructions ZITA:[id number] Printed on:12/11/19 1121 Medication Information aspirin 81 [...] this prescription at home. cholecalciferol (VITAMIN D-3) 74592 unit tablet Take 1 tablet (50,000 Units total) by mouth once a week dulaglutide (TRULICITY) 1.5 mg/0.5 mL pen injector Inject 1.5 mg under the skin every 7 days insulin lispro (HumaLOG KwikPen Insulin) 200 unit/mL (3 mL) insulin pen Per insulin pump lancets (Easy Touch Lancets) 28 gauge [facility] Easy Touch Lancets 28 gauge TEST 3 TIMES A DAY lancing device [facility] lancing device TEST 3 TIMES A DAY [...] Dilip Young on 01/08/2020 at 9:15am at [facility], [address] [place] [address], Medical Office [address], [address], [place] [address]. Condition on Discharge: Stable Cosigned by Dilip Young MD at 12/11/2019 2:27 PM COLLECTOR OF INTERNAL REVENUE ECTOR OF INTERNAL REVENUE ECTOR OF INTERNAL REVENUE documented in this encounter Discharge Instructions * Discharge Instr - Other Orders* Tisha English RN - 12/10/2019 5:54 PM COLLECTOR OF INTERNAL REVENUE HOME HEALTH AGENCY: [facility] for RN and PT services . ECTOR OF INTERNAL REVENUE documented in this encounter Medications at Time [...] TRANSMITTER Q 90 DAYS cholecalciferol (VITAMIN D-3) 87032 unit tabletIndications :Vitamin D Deficiency Take 1 [...] 106 70 - 199 mg/dL POC Performer [id number] POC Device Number [id number] Assessment/Plan Remove Gottlieb Catheter Weight bearing:Weight bearing as tolerated left lower extremity Mobilize with Physical therapy and Occupational therapy Pain: controlled on current regimen DVT prophylaxis: Aspirin/SCDs Discharge planning: Home with home health ECTOR OF INTERNAL REVENUE * Aftab, Faina, PT - 12/11/2019 8:05 AM CST [facility] Physical Therapy Treatment Patient Name: Rakesh Gomes Date of Service: 12/11/2019 Date of : 1975 Age: 44 y.o.male Room: [address] Admit Date: 12/10/2019 Primary Diagnosis: Primary [...] appears muscular based, during session. Patient's joint personal coach not present for PT session. Patient [...] Dr. Young TKR protocol with assist fromjoint personal coach as needed. ?? Comments: Achieved 12/11/2019 Plan Physical therapy frequency: Discharged from skilled inpatient PT services Recommended equipment to safely discharge: Wheeled walker Recommended method of transportation at discharge: Personal vehicle with family Discharge Recommendation: Home with family, Home Health PT Faina Ugalde PT ECTOR OF INTERNAL REVENUE * Taqueria Lopez MD - 12/11/2019 7:58 [...] HISTORY Left 2018 bicep tendon repair ??? SC FEMUR/KNEE SURG UNLISTED Treatment Of The Knee [...] at Unknown time ??? cholecalciferol (VITAMIN D-3) 40109 unit tablet Take 1 tablet (50,000 Units [...] 12/09/2019 at Unknown time ??? lancing device mis lancing device TEST 3 TIMES A DAY [...] with OP established Endo. Taqueria Lopez MD [facility] Office phone: [phone] Office fax: [phone] ECTOR OF INTERNAL REVENUE * Tisha English RN - 12/10/2019 5:54 PM CST 12/10/19 7498 Communications Patient choice (Home Health/Hospice) list given to patient/help desk representative? Yes Home health arranged through [facility] for RN and PT services . Discussed with the patient and he is in agreement with the plan. ECTOR OF INTERNAL REVENUE * Taqueria Lopez MD - 12/10/2019 4:18 [...] HISTORY Left 2018 bicep tendon repair ??? SC FEMUR/KNEE SURG UNLISTED Treatment Of The Knee [...] at Unknown time ??? cholecalciferol (VITAMIN D-3) 76009 unit tablet Take 1 tablet (50,000 Units [...] will continue to follow. Taqueria Lopez MD [facility] Office phone: [phone] Office fax: [phone] ECTOR OF INTERNAL REVENUE * Poonam Macario RN - 12/07/2019 12:19 PM CDT 12/07/19 1218 Information Information Obtained From Patient Referral Data Referral Source Physician Referral Reason Discharge Planning Prior to Admission Primary Caregiver Self Support System Spouse/Significant Other Support system contact info (name, phone, availablity) Shara Gomes [phone] Home Care Services Yes Type of Home [...] Dilip Young MD at 12/10/2019 9:22 AM COLLECTOR OF INTERNAL REVENUE ECTOR OF INTERNAL REVENUE ECTOR OF INTERNAL REVENUE Source Note - Von Greene MD - 12/03/2019 4:55 PM CDT Images from the original note were not included. Center for Preoperative Assessment and Planning Preoperative Evaluation Record Evaluation type/location: TPAP from [facility] Planned procedure site: [facility] OR Date: 12/03/19 NOTE: This note represents [...] Hyperlipidemia (on statin) Pertinent negatives: CAD ; [place] ; CABG ; valvular heart disease; valve [...] disorder Endocrine / Other + Diabetes mellitus ([facility] endocrinology recently changed insulin pump regimen [...] instructions were provided in writing sent via [employer]ell[employer] mail and telephone. Patient verbalized understanding of preoperative plan. Patient with No known exposure to COVID19 and no concerning symptoms of COVID19. Plan for pre-procedure COVID19 testing: Telephone assessment performed. Request placed for pre-procedure COVID19 testing to be performed on 12/06/2019. [facility] will contact patient to schedule testing. INSULIN PUMP SUMMARY?? The patient uses an insulin pump on an outpatient basis. Pump information is as follows:? 1. Pump brand: Omnipod??Humalog U200 2. Basal insulin regimen on normal days: 2.5 units/hr 4902-8468, 2 units/hr 8997-6271, 2.75units/[id number] 3. Basal insulin regimen for NPO days: n/a 4. Does the patient meet protocol criteria for continuing their insulin pump throughout the intraoperative period? Yes? 5. Prescribing physician: Dr. Amara Zhong??[facility] [phone] ?? Patient instructed to activate a basal [...] dextrose-containing intravenous fluids when not eating. An [employer] message was sent to the [facility] surgical diabetes pool. ?? Patient instructed to activate a basal dose compatible with NPO status on the day of surgery. Patient instructed to present to holding area with insulin pump actively infusing. Patient also instructed to bring extra insulin pump supplies to the hospital. For [facility] admits: An [employer] message has been sent to the [facility] surgical diabetes pool to inform them [...] bring all dexcom and pump supplies DOS [employer] message sent to surgeon recommending patient arrival [...] HISTORY Left 2018 bicep tendon repair ??? SC FEMUR/KNEE SURG UNLISTED Treatment Of The Knee [...] Blue Test Strip) strip -- -- Historical Provider, blood-glucose meter (OneTouch Ultra2 Meter) [facility] -- -- Historical Provider, blood-glucose sensor (Dexcom G6 Sensor) device -- -- Historical Provider, blood-glucose transmitter (Dexcom G6 Transmitter) device -- -- Historical Provider, celecoxib (CeleBREX) 200 mg capsule 10/23/19 -- Dilip Young MD TAKE 2 PILLS WITH BREAKFAST THE DAY BEFORE SX. TAKE 1 PILL BID FOR 4 DAYS AFTER DISCHARGE. cholecalciferol (VITAMIN D-3) 73005 unit tablet 11/07/19 -- Dilip Young MD [...] G6 Transmitter) device ??? cholecalciferol (VITAMIN D-3) 03310 unit tablet ??? dulaglutide (TRULICITY) 1.5 mg/0.5 [...] Medication protocol when under care of a TELEVISION MECHANIC Planned anesthesia: Regional as primary anesthetic and [...] and agree to proceed. All questions answered. ECTOR OF INTERNAL REVENUE documented in this encounter Consult Notes * Faina Ugalde, PT - 12/10/2019 12:55 PM CST [facility] Physical Therapy Initial Evaluation Patient Name: Rakesh Gomes Date of Service: 12/10/2019 Date of : 1975 Age: 44 y.o.male Room: [address] Admit Date: 12/10/2019 Primary Diagnosis: Primary [...] HISTORY Left 2018 bicep tendon repair ??? SC FEMUR/KNEE SURG UNLISTED Treatment Of The Knee [...] supine transfer requiring Stand By Assistance (SBA) [facility] upon discharge. Comments: Initiated 12/10/2019 2. The [...] Dr. Young TKR protocol with assist fromjoint personal coach as needed. Comments: Initiated 12/10/2019 Plan [...] family, Home Health PT Faina Ugalde PT ECTOR OF INTERNAL REVENUE documented in this encounter Nursing Notes * Cristina Clifford RN - 12/11/2019 11:31 AM CST Discharge paperwork instructed to patient. Voiced understanding. ECTOR OF INTERNAL REVENUE documented in this encounter Miscellaneous Notes * [...] Diagnostic test results will improve Outcome: Progressing ECTOR OF INTERNAL REVENUE * Plan of Care - Kiera Wilson [...] work on progression of care plan goals. ECTOR OF INTERNAL REVENUE * Plan of Care - Ana Carpio [...] of his incentive spirometer and call light. ECTOR OF INTERNAL REVENUE * Op Note - Dilip Young MD - 12/10/2019 7:41 AM CST OPERATIVE REPORT ATTENDING SURGEON: Dilip Young M.D. FIRST BLUE PRINT CONTROL CLERK: Fran Giang MD SECOND/THIRD BLUE PRINT CONTROL CLERK: Hayden Jean PREOPERATIVE DIAGNOSIS: Left knee osteoarthritis POSTOPERATIVE DIAGNOSIS: Left knee osteoarthritis PROCEDURE: Left cementless total knee arthroplasty IMPLANTS: Database Administration Project Manager: Lucas Brand: Persona Tibial component size: F [...] Marginal osteophytes were removed and a lamina packaging associate was utilized with the knee in 90 [...] for the noncritical portions of the procedure. ECTOR OF INTERNAL REVENUE ECTOR OF INTERNAL REVENUE * Brief Op Note - Mario Giang MD - 12/10/2019 7:41 AM COLLECTOR OF INTERNAL REVENUE Operative Progress Note Surgical Team: Surgeon(s) and Role: * Dilip Young MD - Primary * Mario Giang MD - Resident - Assisting Anesthesiologist: Von Greene MD TELEVISION MECHANIC: Lalo Crump CRNA Production Technician: Kirstin Alejandro RN Scrub Relief: Andrés Quintanilla ST Scrub: Radha Mendoza ST BULB FILLER: Juan J Jean RNFA DATE OF SURGERY [...] Implant Name Type Inv. Item Serial No. Database Administration Project Manager Lot No. LRB No. Used Action [employer] [id number] PERSONA CRUCIATE RETAIN KNEE LEFT 7 STANDARD COMPONENT FEMORAL - SNA -[id number] Other - see comments [employer] [id number] Persona Cruciate Retain Knee Left 7 Standard Component Femoral NA [employer] [id number] Left 1 Implanted [employer] [id number] PERSONA 2 PEG KNEE LEFT F BASEPLATE TIBIAL TRABECULAR METAL - SNA - [id number] Other - see comments [employer] [id number] Persona 2 Peg Knee Left F Baseplate Tibial Trabecular Metal NA [employer] [id number] Left 1 Implanted [employer] [id number] PERSONA 10MM KNEE LEFT INSERT ARTICULAR VIVACIT-E STERILE LATEX FREE - SNA - [id number] Other - see comments [employer] [id number] Persona 10mm Knee Left Insert Articular Vivacit-e Sterile Latex Free NA [employer] [id number] Left 1 Implanted Blood/Blood Products Transfused: 0 mls Complications: None Condition on Discharge from the operating room was stable Mario Giang MD Date: 12/10/2019 Time: 8:56 AM TEACHING ATTESTATION : I was present and directly participated in the entire procedure (including opening and closing). Cosigned by Dilip Young MD at 12/10/2019 12:05 PM COLLECTOR OF INTERNAL REVENUE ECTOR OF INTERNAL REVENUE ECTOR OF INTERNAL REVENUE * Plan of Care - Poonam Macario RN - 12/07/2019 12:19 PM CDT Patient interviewed via telephone 12/07/2019. * Pre-Procedure Instructions - Carole Cunningham NP - 12/03/2019 4:41 PM CDT Center for Preoperative Assessment and Planning CPAP Clinic Location: [facility] The night before your surgery: * Do [...] morning of surgery ??? cholecalciferol (VITAMIN D-3) 96898 unit tablet Don't take on day of [...] going to be eating. Talk to your maintenance service technician if you are not sure what rate [...] before surgery * Perioperative Nursing Note - Vane Peraza - 12/03/2019 3:31 PM CDT Center for Preoperative Assessment and Planning Perioperative Nursing Note Telephone Preoperative Evaluation ([facility]) - TELEPHONE ONLY, NO PHYSICAL EXAM [...] Q 90 DAYS ??? cholecalciferol (VITAMIN D-3) 94497 unit tablet Take 1 tablet (50,000 Units [...] Directive: Patient does not have advance directive Communication/Hydraulics Engineer Needs Communication Needs: Contacts, Glasses Assistive Devices/DME: Eyeglasses, Contacts Discharge Planning Type of Residence: Private residence Living Arrangements: Spouse/significant other Support Systems: Spouse/significant other( to be delivery driver assistant and caregiver) Patient expects to be discharged [...] in a congregate living facility (ex. assisted living/intermediate facility, correction, chcf)?: No Have you tested positive for COVID-19 [...] 20 seconds. Use an alcohol- based hand senior oracle database developer that contains at least 60% alcohol if [...] insurance card, a photo ID (like a Plant Engineer's license) and a method of payment for [...] COVID Test Request Placed in Epic to [facility]. Test to be performed on 12/06/19. If you have COVID testing or should have COVID testing for your surgery/procedure, please read below section: If you need to reschedule your COVID test to a different location or if your surgery gets rescheduled, you MUST call [phone] Tuesday-Tuesday 8am-4:30pm to get your COVID testing rescheduled or your lab order will not be available at Testing Sites. COVID Testing is only valid for up to 96 hours prior to surgery date, unless otherwise specified. If you are unable to reach staff at the above phone number, please call the CPAP Staff at [phone]. This number cannot order a lab test, [...] 20 seconds. Use an alcohol- based hand senior oracle database developer that contains at least 60% alcohol if soap and water are not available. ALL Patients should read below section: All visitors/patients are being asked to wear a clean mask when entering the hospital. COVID 19 Updates & Visitor Policy: Please access [email or web address] for the most updated information. Surgery Times: ??? For [facility], if your surgeon's office has not notified you of your surgery time by NOON THE BUSINESS DAY BEFORE your surgery, please call [phone] and ask for your surgeon's office Dr Young documented in this encounter Plan of Treatment Not on file documented as of this encounter Procedures Procedure Name Priority Date/Time Associated Diagnosis Comments POCT GLUCOSE DEVICE Routine 12/11/2019 9 :04 AM COLLECTOR OF INTERNAL REVENUE POCT GLUCOSE DEVICE Routine 12/11/2019 3 :47 AM COLLECTOR OF INTERNAL REVENUE EGFR Routine 12/11/2019 3:41 AM COLLECTOR OF INTERNAL REVENUE CBC WITHOUT DIFFERENTIAL Routine 12/11/2019 3:41 AM COLLECTOR OF INTERNAL REVENUE BASIC METABOLIC PANEL Routine 12/11/2019 3:41 AM COLLECTOR OF INTERNAL REVENUE POCT GLUCOSE DEVICE Routine 12/10/2019 5 :17 PM COLLECTOR OF INTERNAL REVENUE POCT GLUCOSE DEVICE Routine 12/10/2019 10:14 AM COLLECTOR OF INTERNAL REVENUE XR KNEE LEFT 1 OR 2 VIEWS STAT 12/10/2019 9:28 AM COLLECTOR OF INTERNAL REVENUE POCT GLUCOSE DEVICE Routine 12/10/2019 9 :13 AM COLLECTOR OF INTERNAL REVENUE ARTHROPLASTY TOTAL KNEE 12/10/2019 7:19 AM COLLECTOR OF INTERNAL REVENUE Primary osteoarthritis of left knee Case Notes ZB - Persona Special Needs Hoods POCT GLUCOSE DEVICE Routine 12/10/2019 6 :09 AM COLLECTOR OF INTERNAL REVENUE documented in this encounter Results * POCT glucose (12/11/2019 9:04 AM COLLECTOR OF INTERNAL REVENUE) Glucose, POC 77 70 - 199 mg/dL [facility] Comment: Interpretive Data Glucose is assumed to be non-fasting. Fasting Glucose reference ranges are: 0 - 150 years: ??70 mg/dL - 99 mg/dL Current interpretive data was last revised on 2013. POC Performer [id number] [facility] POC Device Number [id number] [facility] Blood specimen (specimen) 12/11/2019 9:04 AM COLLECTOR OF INTERNAL REVENUE 12/11/2019 9:04 AM COLLECTOR OF INTERNAL REVENUE Dilip Young MD LAB POCT ORDERABLES - DEVIC E Final Result Performing Organization Address [facility] de Phone Number [facility] [id number] [address] [facility] [place] [address] * POCT glucose (12/11/2019 3:47 AM COLLECTOR OF INTERNAL REVENUE) [facility] Glucose, POC 106 70 - 199 mg/dL [facility] Comment: Interpretive Data Glucose is assumed to be non-fasting. Fasting Glucose reference ranges are: 0 - 150 years: ??70 mg/dL - 99 mg/dL Current interpretive data was last revised on 2013. POC Performer [id number] [facility] POC Device Number [id number] [facility] Blood specimen (specimen) 12/11/2019 3:47 AM COLLECTOR OF INTERNAL REVENUE 12/11/2019 3:47 AM COLLECTOR OF INTERNAL REVENUE Dilip Young MD LAB POCT ORDERABLES - DEVIC E Final Result Performing Organization Address [facility] de Phone Number [facility] [address] [facility] [place] [address] * eGFR (12/11/2019 3:41 AM COLLECTOR OF INTERNAL REVENUE) [facility] eGFR >90 mL/min/1.7 3 m2 [facility] Comment: Interpretive Data Reference Interval Normal ?>/= 90 mL/min/1.73m2 Mildly decreased* ? 60 - 89 mL/min/1.73m2 Mildly to moderately decreased ?45 - 59 mL/min/1.73m2 Moderately to severely decreased ??30 - 44 mL/min/1.73m2 Severely decreased ?15 - 29 mL/min/1.73m2 Kidney Failure ?< 15 ??mL/min/1.73m2 *Relative to young adult level If -Bahraini multiply value by 1.16. Estimated glomerular filtration [...] 2015. Blood specimen (specimen) 12/11/2019 3:41 AM COLLECTOR OF INTERNAL REVENUE 12/11/2019 3:53 AM COLLECTOR OF INTERNAL REVENUE Dilip Young MD LAB BLOOD ORDERABLES Final Result Performing Organization Address City/State/[facility] Co ri Phone Number [facility] [address] [facility] Department of Laboratories [place], [place] [id number] * (ABNORMAL) CBC without differential (12/11/2019 3:41 AM COLLECTOR OF INTERNAL REVENUE) Pathologist [facility] WBC 9.9 3.8 - 9.9 K/cumm [place] [facility] Hgb 13.3 13.0 - 17.5 g/dL [facility] W Hct 37.8(L) 38.9 - 50.3 % [place] [facility] Plt 193 150 - 400 K/cumm [place] [facility] MPV 10.3 9.1 - 12.3 fL [facility] RBC 4.59 4.30 - 5.80 M/cumm [facility] MCV 82.4 81.3 - 96.4 fL [facility] MCH 29.0 27.1 - 33.3 pg [facility] MCHC 35.2 32.3 - 35.7 g/dL [facility] RDW CV 14.4 11.1 - 14.9 % [facility] RDW SD 42.4 35.7 - 48.1 fL [facility] NRBC abs 0.00 0.00 - 0.01 K/cumm [facility] Blood specimen (specimen) 12/11/2019 3:41 AM COLLECTOR OF INTERNAL REVENUE 12/11/2019 3:53 AM COLLECTOR OF INTERNAL REVENUE us Dilip Young MD LAB BLOOD ORDERABLES Final Result [facility] [facility] [address] [facility]. Department [place] [address] * (ABNORMAL) Basic metabolic panel (12/11/2019 3:41 AM COLLECTOR OF INTERNAL REVENUE) Sodium 137 135 - 145 mmol/L [facility] Potassium, pl 3.5 3.3 - 4.9 mmol/L [facility] Chloride 104 97 - 110 mmol/L [facility] CO2 24 22 - 32 mmol/L [facility] Anion gap 10 2 - 15 mmol/L [facility] BUN 11 8 - 25 mg/dL [facility] Creatinine 0.70(L) 0.80 - 1.30 mg/dL [facility] Glucose 106 70 - 199 mg/dL [facility] Comment: Interpretive Data Fasting glucose >/= [...] PIPER Blood specimen (specimen) 12/11/2019 3:41 AM COLLECTOR OF INTERNAL REVENUE 12/11/2019 3:53 AM COLLECTOR OF INTERNAL REVENUE Dilip Young MD LAB BLOOD ORDERABLES Final Result Performing Organization Address [facility] Number [facility] [address] [place] [address] * POCT glucose (12/10/2019 5:17 PM COLLECTOR OF INTERNAL REVENUE) Glucose, POC 144 70 - 199 mg/dL [facility] Comment: Interpretive Data Glucose is assumed to be non-fasting. Fasting Glucose reference ranges are: 0 - 150 years: ??70 mg/dL - 99 mg/dL Current interpretive data was last revised on 2013. POC Performer [id number] [facility] POC Device Number [id number] [facility] Blood specimen (specimen) 12/10/2019 5:17 PM COLLECTOR OF INTERNAL REVENUE 12/10/2019 5:17 PM COLLECTOR OF INTERNAL REVENUE Dilip Young MD LAB POCT ORDERABLES - DEVIC E Final Result Performing Organization Address [facility] Number [facility] [address] [place] [address] * POCT glucose (12/10/2019 10:14 AM COLLECTOR OF INTERNAL REVENUE) Glucose, POC 99 70 - 199 mg/dL [facility] [place] Comment: Interpretive Data Glucose is assumed to be non-fasting. Fasting Glucose reference ranges are: 0 - 150 years: ??70 mg/dL - 99 mg/dL Current interpretive data was last revised on 2013. POC Performer [id number] [facility] POC Device Number [id number] [facility] Blood specimen (specimen) 12/10/2019 10:14 AM COLLECTOR OF INTERNAL REVENUE 12/10/2019 10:14 AM COLLECTOR OF INTERNAL REVENUE Dilip Young MD LAB POCT ORDERABLES - DEVIC E Final Result [facility] [place] [address] [address] Department [place] [address] * XR Knee Left 1 or 2 View (12/10/2019 9:28 AM COLLECTOR OF INTERNAL REVENUE) Anatomical Region Laterality Modality Lower Extremities, Knee Left Computed Radiography 12/10/2019 9:36 AM COLLECTOR OF INTERNAL REVENUE Impressions 12/10/2019 9:36 AM COLLECTOR OF INTERNAL REVENUE 1. New two component left knee arthroplasty for osteoarthritis. Electronically signed by: Mario Martins M.D. Narrative 12/10/2019 9:36 AM COLLECTOR OF INTERNAL REVENUE EXAMINATION: XR KNEE LEFT 1 OR 2 [...] ult * POCT glucose (12/10/2019 9:13 AM COLLECTOR OF INTERNAL REVENUE) [facility] Glucose, POC 105 70 - 199 mg/dL [facility] Comment: Interpretive Data Glucose is assumed to be non-fasting. Fasting Glucose reference ranges are: 0 - 150 years: ??70 mg/dL - 99 mg/dL Current interpretive data was last revised on 2013. POC Performer [id number] [facility] POC Device Number [id number] [facility] Blood specimen (specimen) 12/10/2019 9:13 AM COLLECTOR OF INTERNAL REVENUE 12/10/2019 9:13 AM COLLECTOR OF INTERNAL REVENUE Dilip Young MD LAB POCT ORDERABLES - DEVIC E Final Result Performing Organization Address [facility] Phone Number [facility] [id number] [facility] [place] [address] * POCT glucose (12/10/2019 6:09 AM COLLECTOR OF INTERNAL REVENUE) [facility] Signature Glucose, POC 103 70 - 199 mg/dL [facility] Comment: Interpretive Data Glucose is assumed to be non-fasting. Fasting Glucose reference ranges are: 0 - 150 years: ??70 mg/dL - 99 mg/dL Current interpretive data was last revised on 2013. POC Performer [id number] [facility] [place] POC Device Number [id number] [facility] [place] Blood specimen (specimen) 12/10/2019 6:09 AM COLLECTOR OF INTERNAL REVENUE 12/10/2019 6:09 AM COLLECTOR OF INTERNAL REVENUE Dilip Young MD LAB POCT ORDERABLES - DEVIC E Final Result Performing Organization Address [facility] Phone Number [facility] [address] [facility] [place] [address] documented in this encounter Visit Diagnoses Diagnosis Primary osteoarthritis of left knee- Primary Primary osteoarthritis of left knee Type 2 diabetes mellitus (HCC) Hypertension Unspecified essential hypertension HLD (hyperlipidemia) Other and unspecified hyperlipidemia Simple obesity Obesity, unspecified Primary osteoarthritis of left knee documented in this encounter Admitting Diagnoses Diagnosis Primary osteoarthritis of left knee documented in this encounter Administered Medications Inactive Administered Medications - up to 3 most recent administrations Medication Order MAR Action Action Date Dose Rate Site acetaminophen (TYLENOL) tablet 650 mg 650 mg, oral, Once, On Tue12/10/19 at 0615, For 1 dose, Pre-Op, Indications: PainIndications:Pain Given 12/10/2019 5:59 AM COLLECTOR OF INTERNAL REVENUE 650 mg aspirin enteric coated tablet 325 mg 325 mg, oral, 2 times daily, First dose on Tue12/10/19 at 2100, Please start on POD#0 at 2100 Do not crush, chew, cut, dissolve, open or otherwise manipulate tablet/capsule., Indications: Deep Vein Thrombosis PreventionIndications:Deep Vein Thrombosis Prevention Given 12/10/2019 8:12 PM COLLECTOR OF INTERNAL REVENUE 325 mg aspirin enteric coated tablet 81 mg 81 mg, oral, 2 times daily, First dose (after last modification) on Tue12/11/19 at 0900, Please start on POD#0 at 2100 Do not crush, chew, cut, dissolve, open or otherwise manipulate tablet/capsule., Indications: Deep Vein Thrombosis PreventionIndications:Deep Vein Thrombosis Prevention Given 12/11/2019 8:13 AM COLLECTOR OF INTERNAL REVENUE 81 mg atorvastatin (LIPITOR) tablet 20 mg 20 mg, oral, Every morning, First dose on Tue12/10/19 at 1045, Indications: hyperlipidemiaIndications: hyperlipidemia Given 12/11/2019 8:12 AM COLLECTOR OF INTERNAL REVENUE 20 mg bupivacaine 0.5%-EPINEPHrine 1:200,000 PF 60 mL and ketorolac 30 mg solution As needed, Starting on Tue12/10/19 at 0834, Intra-Op Given 12/10/2019 8:41 AM COLLECTOR OF INTERNAL REVENUE 30.5 mL Surgical Site Given 12/10/2019 8:34 AM COLLECTOR OF INTERNAL REVENUE 30.5 mL Mace rgical Site ceFAZolin (ANCEF) 2,000 mg/20 mL in sterile water (premix) 2,000 mg 2,000 mg, intravenous, at 400 mL/hr, Administer over 3 Minutes, Every 8 hours, First dose on Tue12/10/19 at 1530, For 2 doses, Beginning 8 hours after last aneta-operative dose., Indications: Prophylaxis, SurgicalIndications:Prophylaxis, Surgical New Bag 12/11/2019 12:15 AM COLLECTOR OF INTERNAL REVENUE 2,000 mg 400 mL/hr New Bag 12/10/2019 3:55 PM COLLECTOR OF INTERNAL REVENUE 2,000 mg 400 mL/hr ceFAZolin (ANCEF) 3,000 mg in sodium chloride 0.9 % 3,000 mL irrigation solution 3,000 mg, irrigation, Once, On Tue12/10/19 at 0615, For 1 dose, Intra-Op, Have ready for intra-op administration. Given 12/10/2019 7:50 AM COLLECTOR OF INTERNAL REVENUE 3,000 mg Surgical Site dextrose (D10W) 10% bolus 250 mL 250 [...] Call MD for each episode of hypoglycemia. ABLE BODIED SEAMAN STATES GLUTOSE-15 CONTAINS GLUCOSE 40% W/W (50% W/V), Indications: hypoglycemic disorderIndications:hypoglycemic disorder famotidine (PEPCID) tablet 20 mg 20 mg, oral, 2 times daily, First dose on Tue12/10/19 at 2100, Indications: HeartburnIndications:Heartburn Given 12/11/2019 8:12 AM COLLECTOR OF INTERNAL REVENUE 20 mg Given 12/10/2019 8:12 PM COLLECTOR OF INTERNAL REVENUE 20 mg gentamicin (GARAMYCIN) injection As needed, Starting on Tue12/10/19 at 0835, Intra-Op Given 12/10/2019 8:35 AM COLLECTOR OF INTERNAL REVENUE 80 mg Surgical Site glucagon injection 1 mg 1 mg, intramuscular, [...] of hypoglycemia., Indications: HypoglycemiaIndications:H ypoglycemia influenza quadrivalent [id number] (FLULAVAL,FLUARIX,FLUZONE ) 60 mcg (15 mcg x 4)/0.5 mL vaccine (STANDARD age 6 months and up) 0.5 mL 0.5 mL, intramuscular, During hospitalization, immunization, Starting on Tue12/10/19 at 1016, For 1 dose Given 12/11/2019 8:13 AM COLLECTOR OF INTERNAL REVENUE 0.5 mL Left Deltoid insulin lispro (HumaLOG, [...] Self Administered Via Pump 12/10/2019 5:00 PM COLLECTOR OF INTERNAL REVENUE 18 Units Right Upper Arm Self Administered Via Pump 12/10/2019 2:00 PM COLLECTOR OF INTERNAL REVENUE 12.1 Uni ts Right Upper Arm ketorolac (TORADOL) injection 30 mg 30 mg, intravenous, Every 6 hours, First dose on Tue12/10/19 at 1500, For 2 doses, For Adult IV push, administer over 15 seconds, Indications: PainIndications:Pain Given 12/10/2019 8:12 PM COLLECTOR OF INTERNAL REVENUE 30 mg Given 12/10/2019 2:59 PM COLLECTOR OF INTERNAL REVENUE 30 mg Lactated Ringer's (LR) bolus 1,000 mL 1,000 mL, intravenous, at 1,000 mL/hr, Administer over 1 Hours, Once, On Tue12/10/19 at 0945, For 1 dose, Phase I, TO BE GIVEN IN PACU New Bag 12/10/2019 9:23 AM COLLECTOR OF INTERNAL REVENUE 1,000 mL 1000 mL/hr Lactated Ringer's (LR) infusion 30 mL/hr, intravenous, Continuous, Starting on Tue12/10/19 at 0615, Pre-Op, Use a 500 ml bag for End Stage Renal Disease Patients New Bag 12/10/2019 8:29 AM COLLECTOR OF INTERNAL REVENUE New Bag 12/10/2019 7:25 AM COLLECTOR OF INTERNAL REVENUE New Bag 12/10/2019 6:57 AM COLLECTOR OF INTERNAL REVENUE 30 mL/hr 30 mL/hr lisinopriL (PRINIVIL,ZESTRIL) tablet 40 mg 40 mg, oral, Every morning, First dose on Tue12/11/19 at 0900, Indications: hypertensionIndications:hypertension Given 12/11/2019 8:13 AM COLLECTOR OF INTERNAL REVENUE 40 mg ondansetron (ZOFRAN) injection 4 mg [...] interval., Indications: PainIndications:Pain Given 12/11/2019 11:48 AM COLLECTOR OF INTERNAL REVENUE 1 tablet Given 12/11/2019 10:32 AM COLLECTOR OF INTERNAL REVENUE 1 tablet Given 12/11/2019 8:12 AM COLLECTOR OF INTERNAL REVENUE 1 tablet povidone-iodine (BETADINE) 30 mL in sodium chloride 0.9 % 250 mL irrigation As needed, Starting on Tue12/10/19 at 0835, Intra-Op Given 12/10/2019 8:35 AM COLLECTOR OF INTERNAL REVENUE 250 mL Surgical Site senna-docusate (PERICOLACE) 8.6-50 mg per tablet 2 tablet 2 tablet, oral, 2 times daily, First dose on Tue12/10/19 at 2100, Hold for diarrhea., Indications: constipationIndications:consti pation Given 12/11/2019 8:12 AM COLLECTOR OF INTERNAL REVENUE 2 tablets Given 12/10/2019 8:12 PM COLLECTOR OF INTERNAL REVENUE 2 tablets sodium chloride 0.9% flush 0.5-20 mL 0.5-20 mL, intra-catheter, Every 8 hours scheduled, First dose on Tue12/10/19 at 1400, Flush volume based on line type and size. Given 12/10/2019 8:12 PM COLLECTOR OF INTERNAL REVENUE 10 mL sodium chloride 0.9% infusion 100 mL/hr, intravenous, Continuous, Starting on Tue12/10/19 at 1045 New Bag 12/10/2019 12:45 PM COLLECTOR OF INTERNAL REVENUE 100 mL/hr 100 mL/hr sodium chloride 0.9% solution As needed, Starting on Tue12/10/19 at 0908, Intra-Op Given 12/10/2019 9:08 AM COLLECTOR OF INTERNAL REVENUE 10 mL Surgical Site SUMAtriptan (IMITREX) tablet 25 mg 25 mg, oral, Once, On Tue12/11/19 at 0830, For 1 dose, May repeat dose once in 2 hours if not resolved. Do not exceed 200 mg in 24 hours., Indications: MigraineIndications:Migr jose e Given 12/11/2019 8:12 AM COLLECTOR OF INTERNAL REVENUE 25 mg vancomycin (VANCOCIN) solution As needed, Starting on Tue12/10/19 at 0836, Intra-Op Given 12/10/2019 8:36 AM COLLECTOR OF INTERNAL REVENUE 1,000 mg Surgical Site documented in this encounter Discontinued Medications Medication [...] may contain times in both CDT and COLLECTOR OF INTERNAL REVENUE. Scheduled Medication Order 12/09/2019 12/10/2019 12/11/2019 acetaminophen [...] manipulate tablet/capsule., Indications: Deep Vein Thrombosis Prevention 08 (Given - Provid er: Elizabeth Zhong RN) atorvastatin (LIPITOR) tablet 20 mg 20 mg, oral, Every morning, First dose on Tue12/10/19 at 1045, Indications: hyperlipidemia 1045 (Due) 08 (Given - Provider: Elizabeth Zhong RN) ceFAZolin [...] 2011 (Given - Provider: Kiera Wilson, ORACIO) 08 (Given - Provider: Elizabeth Zhong RN) ketorolac [...] Ana Carpio RN)2011 (Given - Provider: Kiera Wilson RN) Lactated Ringer's (LR) bolus 1,000 mL (COMPLETED) 1,000 mL, intravenous, at 1,000 mL/hr, Administer over 1 Hours, Once, On Tue12/10/19 at 0945, For 1 dose, Phase I, TO BE GIVEN IN PACU 0923 (New Bag - Provider: Mary Jane Clarke RN - Comment: warmed) lisinopriL (PRINIVIL,ZESTRIL) tablet 40 mg 40 mg, oral, Every morning, First dose on Tue12/11/19 at 0900, Indications: hypertension 0813 (Given - Provid er: Elizabeth Zhong RN) senna-docusate (PERICOLACE) 8.6-50 mg per tablet 2 tablet 2 tablet, oral, 2 times daily, First dose on Tue12/10/19 at 2100, Hold for diarrhea., Indications: constipation 2011 (Given - Provider: Kiera Wilson RN) 0812 (Given - Provider: Elizabeth Zhong RN) sodium chloride 0.9% flush 0.5-20 mL 0.5-20 mL, intra-catheter, Every 8 hours scheduled, First dose on Tue12/10/19 at 1400, Flush volume based on line type and size. 170 (Not Given - Provider: Ana Carpio RN - Reason: Other)2011 (Given - Provider: Kiera Wilson RN) 0409 (Not Given - Provider: Kiera Wilson RN - Reason: Other - Comment: PRN flush given previously this shift) SUMAtriptan (IMITREX) tablet 25 mg (COMPLETED) 25 mg, oral, Once, On Tue12/11/19 at 0830, For 1 dose, May repeat dose once in 2 hours if not resolved. Do not exceed 200 mg in 24 hours., Indications: Migraine 0812 (Given - Provid er: Elizabeth Zhong RN) [...] Call MD for each episode of hypoglycemia. ABLE BODIED SEAMAN STATES GLUTOSE-15 CONTAINS GLUCOSE 40% W/W (50% [...] episode of hypoglycemia., Indications: Hypoglycemia influenza quadrivalent [id number] (FLULAVAL,FLUARIX,FLUZONE) 60 mcg (15 mcg x 4)/0.5 mL vaccine (STANDARD age 6 months and up) 0.5 mL (COMPLETED) 0.5 mL, intramuscular, During hospitalization, immunization, Starting on Tue12/10/19 at 1016, For 1 dose 0813 (Given - Provider: Elizbaeth Zhong RN) insulin lispro (HumaLOG, ADMELOG) injection [...] Ana Carpio RN)1459 (Given - Provider: Ana Carpio, RN)2011 (Given - Provider: Kiera Wilson, ORACIO)2143 (Given - Provider: Kiera Wilson, RN) 0016 (Given - Provider: Kiera Wilson, RN)0322 (Given - Provider: Kiera Wilson, RN)0419 (Given - Provider: Kiera Wilson, RN)0812 (Given - Provider: Elizabeth Zhong, RN)1032 (Given - Provider: Elizabeth Zhong, RN)1148 (Given - Provider: Cristina Clifford RN) [...] Call MD for each episode of hypoglycemia. ABLE BODIED SEAMAN STATES GLUTOSE-15 CONTAINS GLUCOSE 40% W/W (50% [...] vomiting, if not tolerating PO, Starting on 12/10/19 at 1005, Indications: nausea and vomiting documented in this encounter Orders Medications Ordered That Robin ht Not Have Been Administered Count Last Ordered Date First Ordered Date acetaminophen (TYLENOL) tablet 500 mg 1 03/2019 camphor-menthoL (SARNA) 0.5-0.5 % lotion 1 12/10/2019 ceFAZolin (ANCEF) 1 gram/10 mL in sterile water (premix) 3,000 mg 1 12/10/2019 dexAMETHasone (DECADRON) 4 m g/mL injection 8 mg 1 12/10/2019 dextrose (D10W) 10% bolus 250 mL 1 12/10/19 dextrose (GLUTOSE) 40 % gel 15 g 1 12/10/19 20 diphenhydrAMINE (BENADRYL) i njection 12.5 mg 1 12/10/2019 fentaNYL (SUBLIMAZE) preserv ative free injection 25 mcg 1 12/10/2019 glucagon injection 1 mg 1 12/10/2019 HYDROcodone-acetaminophen [...] glycol (MIRALAX) packet 17 g 1 12/10/2019 prochlorperazine (COMPAZINE) injection 5 mg 1 12/10/2019 scopolamine patch 72 hour 1 patch 1 020 sodium chloride 0.9% flush 0.5-20 mL 2 03/2019 tranexamic acid (CYKLOKAPRON ) 1,000 mg/100 mL (10 mg/mL) in 0.7% sodium chloride (premix) - ADS Override Pull 1 12/10/2019 tranexamic acid (CYKLOKAPRON ) 1,000 mg/100 mL (10 mg/mL) in 0.7% sodium chloride (premix) 1,000 mg 2 12/10/2019 Lab Orders Without Results Count Last [...] 12/11/2019 documented in this encounter Care Teams Personnel Clerks Supervisor Relationship Specialty Start Date End Date Rebel López MD [address] [address] PCP - General Family Medicine 10/23/19 documented as of this encounter
--- OUTSIDE RECORDS SUMMARY | 2024-02-11 08:18 | XMS_ITS | Encounter Summary ---
Author Organization [facility] Facility Care Team Providers Care Document Preparer Microfilming Name Role Phone Unavailable Primary Care Provider Unavailabl e Encounter Details Date Type Department Care Team (Latest Contact Info) Description 03/23/2011 9:23 AM DISPENSARY TECHNICIAN - 03/23/2011 4:00 PM [facility] Hospital Encounter [facility] [place] [address] [place] [address] Tear of lateral cartilage or meniscus of knee, current; Chondromalacia of patella; Loose body in knee; Late effect of injury; Complications affecting body systems, NEC; Other specified surgical operation and procedure causing abnormal patient reaction or later complication Social History Tobacco Use Types Packs/Day Years Used Date Smoking Tobacco: Never Assessed Sex and Gender Information Value Date Recorded Sex Assigned at Not on file Legal Sex Male 12:35 AM [facility] Gender Identity Not on file Sexual Orientation Not on file documented as of this encounter Plan of Treatment Not on file documented as of this encounter Visit Diagnoses Diagnosis Tear of lateral cartilage or meniscus of knee, current Chondromalacia of patella Loose body in knee Late effect of injury Late effect of unspecified injury Complications affecting body systems, NEC Other specified surgical operation and procedure causing abnormal patient reaction or later complication documented in this encounter
--- OUTSIDE RECORDS SUMMARY | 2024-02-11 08:18 | XMS_ITS | Encounter Summary ---
Author Organization [facility] Address [address] [place] [address] Phone Care Team Providers Care Information Technology Manager Name Role Phone Shiva Sung MD Primary Care Provider [phone] Encounter Details Date Type Department Care Team (Late st Contact Info) Description 08/21/2019 Telephone [facility] Orthopaedic Surgery [address] [place] [address] [place] [address] [facility] [address] [place] [address] Social History Tobacco Use Types Packs/Day Years Used Date Smoking Tobacco: Never Sex and Gender Information Value Date Recorded Sex Assigned at Not on file Legal 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 Trevino documented in this encounter Plan of Treatment Not on file documented as of this encounter Visit Diagnoses Not on filedocumented in this encounter Care Teams Information Technology Manager Relationship Specialty Start Date End Date Shiva Sung MD [address] [place] [address] PCP - General 05/21/11 10/22/19 documented as of this encounter
--- OUTSIDE RECORDS SUMMARY | 2024-02-11 08:18 | XMS_ITS | Encounter Summary ---
Author Organization [facility] Address [address] [place] [address] Care Team Providers Care Medical Malpractice Paralegal Name Role Phone Rebel López MD Primary Care Provider [phone] Encounter Details Date Type Department Care Team (Late st Contact Info) Description 11/12/2019 Orders Only [facility] Testing Site - [address] [place] [id number] Dilip Young MD [address] [facility] [address] [place] [address] Preop testing (Primary Dx) Social History Tobacco Use Types Packs/Day Years Used Date Smoking Tobacco: Never Smokeless Tobacco: Never Alcohol Use Standard Drinks/Week Comments Not Currently 0 (1 standard drink = 0.6 oz pur e alcohol) rarely maybe once a month Sex and Gender Information Value Date Recorded Sex Assigned at Not on file 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 Date of px/chemo/treatment/placement/xfr: 11/19/2019 ?? Procedure: ATK Left ?? Date testing requested: 11/15/2019 ?? Testing: Coronavirus RNA ?? Is this the first COVID-19 test for this patient? Yes ?? Does the patient currently work in a healthcare facility with direct patient contact? No ?? Is the patient a resident of a congregate care or living setting? No ?? Is the patient ? No ?? Please select the performing region: [facility] Called pt and will be tested at [place] on 11-15-19. documented in this encounter Plan of Treatment Not on file documented as of this encounter Visit Diagnoses Diagnosis Preop testing- Primary Unspecified pre-operative examination documented in this encounter Care Teams Medical Malpractice Paralegal Relationship Specialty Start Date End Date Rebel López MD [address] [address] PCP - General Family Medicine 10/23/19 documented as of this encounter
--- OUTSIDE RECORDS SUMMARY | 2024-02-11 08:18 | XMS_ITS | Encounter Summary ---
Author Organization [facility] Care Team Providers Care Environment Friendly Landscape Designer Name Role Phone Unavailable Primary Care Provider Unavailabl e Encounter Details Date Type Department Care Team (Late st Contact Info) Description 08/07/2008 1:49 PM CDT - 08/07/2008 4:00 PM [address] 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
--- OUTSIDE RECORDS SUMMARY | 2024-02-11 08:18 | XMS_ITS | Encounter Summary ---
Author Organization [facility] Address [address] [place] [address] Care Team Providers Care Audio/Visual Manager Name Role Phone Rebel López MD Primary Care Provider [phone] Encounter Details Date Type Department Care Team (Late st Contact Info) Description 12/03/2019 Orders Only [facility] Testing Site - [address] [id number] Dilip Young MD [address] [place] [address] Pre-procedure lab exam (Primary Dx) Social History Tobacco Use Types Packs/Day Years Used Date Smoking Tobacco: Never Smokeless Tobacco: Never Alcohol Use Standard Drinks/Week Comments Not Currently 0 (1 standard drink = 0.6 oz pur e alcohol) rarely maybe once a month Sex and Gender Information Value Date Recorded Sex Assigned at Not on file 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 Testing Site: [facility] ([facility]) [address] [place] [address] Hours: Tuesday-Tuesday 8:30am-430pm Saturday and Tuesday 8am-12:30pm Order Specific Questions Question Answer Comment Testing types: Pre-procedure ?? Date of px/chemo/treatment/placement/xfr: 12/10/2019 ?? Procedure: arthroplasty left total knee ?? Date testing requested: 12/06/2019 ?? Testing: COVID-RNA ?? Is this the first COVID-19 test for this patient? No ?? Does the patient currently work in a healthcare facility with direct patient contact? No ?? Is the patient a resident of a congregate care or living setting? No ?? Is the patient ? No ?? Please select the performing region: [facility] documented in this encounter Miscellaneous Notes * Addendum Note - Macho Chandra CLT - 12/03/2019 4:28 PM CDTAddended by: MACHO CHANDRA on: 12/06/2019 02:59 PM Modules accepted: Orders documented in this encounter Plan of Treatment Not on file documented as of this encounter Results * COVID-19 Coronavirus RNA Nasopharyngeal (12/06/2019 8:24 AM CDT) Pathologist [facility] COVID-19 RNA Not Detected [facility] Comment: Interpretive Data Testing performed at [facility] Molecular Infectious Disease Laboratory. The 2018-Novel [...] revised on 2019. First COVID-19 test? No [facility] Employeed in healthcare? No [facility] status? No [facility] Group care resident? No [facility] Hospitalized? Unknown [facility] Is patient in ICU? Unknown [facility] Symptomatic as defined by CDC? No [facility] Nasopharyngeal 12/06/2019 8: 24 AM CDT 12/06/2019 4:22 PM CDT Narrative [facility] - 12/07/2019 7:08 AM CDT What is the reason for testing?->Screening prior to scheduled (>12 hr) surgery or procedure Dilip Young MD LAB MICROBIOLOGY - GENERAL ORDERABLES Final Result [facility] [address] [facility] Department [place] [address] documented in this encounter Visit Diagnoses Diagnosis Pre-procedure lab exam- Primary Pre-procedural laboratory examination Pre-procedure lab exam Pre-procedural laboratory examination documented in this encounter Care Teams Audio/Visual Manager Relationship Specialty Start Date End Date Rebel López MD [address] [address] PCP - General Family Medicine 10/23/19 documented as of this encounter
--- OUTSIDE RECORDS SUMMARY | 2024-02-11 08:18 | XMS_ITS | Encounter Summary ---
Author Organization [facility] Facility Care Team Providers Care Division Manager Name Role Phone Unavailable Primary Care Provider Unavailabl e Encounter Details Date Type Department Care Team (Latest Contact Info) Description 04/19/2011 4:00 PM CDT - 04/23/2011 4:00 PM CDT Hospital Encounter [facility] [place] [address] [place] [address] Pyogenic arthritis, lower leg (HCC); Type 2 or unspecified type diabetes mellitus; Osteoarthrosis; Effusion of lower leg joint Social History Tobacco Use Types Packs/Day Years Used Date Smoking Tobacco: Never Assessed Sex and Gender Information Value Date Recorded Sex Assigned at Not on file 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 Gender Identity Not on file Sexual Orientation Not on file documented as of this encounter Last Filed Vital Signs Vital Sign Reading Time Taken Comments Blood Pressure 146/90 04/23/2011 5:29 AM CDT Pulse 90 04/23/2011 5:29 AM CDT Temperature - - Respiratory Rate - - Oxygen Saturation - - Inhaled Oxygen Concentration - - Weight 112.9 kg (248 lb 14.4 oz) 04/19/2011 4:25 PM CDT Height 177.8 cm (5' 10 ) 04/19/2011 4:25 PM CDT Body Mass Index 35.68 04/27/2011 9:47 PM CDT documented in this encounter Plan of Treatment Not on file documented as of this encounter Visit Diagnoses Diagnosis Pyogenic arthritis, lower leg (HCC) Pyogenic arthritis, lower leg Type 2 or unspecified type diabetes mellitus Osteoarthrosis Osteoarthrosis, unspecified whether generalized or localized, unspecified site Effusion of lower leg joint documented in this encounter
--- OUTSIDE RECORDS SUMMARY | 2024-02-11 08:18 | XMS_ITS | Encounter Summary ---
Author Organization [facility] Facility Care Team Providers Care Delivery Director Name Role Phone Unavailable Primary Care Provider Unavailabl e Encounter Details Date Type Department Care Team (Late st Contact Info) Description 04/19/2011 10:21 AM CDT - 04/19/2011 4:00 PM T Hospital Encounter [facility] [place] [address] [place] [address] Pyogenic arthritis, lower leg (HCC); Type 2 or unspecified type diabetes mellitus; Localized osteoarthrosis, lower leg Social History Tobacco Use Types Packs/Day Years Used Date Smoking Tobacco: Never Assessed Sex and Gender Information Value Date Recorded Sex Assigned at Not on file 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
--- OUTSIDE RECORDS SUMMARY | 2024-02-11 08:18 | XMS_ITS | Encounter Summary ---
Author Organization 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
--- OUTSIDE RECORDS SUMMARY | 2024-02-11 08:18 | XMS_ITS | Encounter Summary ---
Author Organization [facility] Healthcare Address [address] [place] [address] Care Team Providers Care Gelatin Dynamite Packing Operator Name Role Phone Rebel López MD Primary Care Provider [phone] Encounter Details Date Type Department Care Team (Late st Contact Info) Description 12/10/2019 7:19 AM EDUCATION ADVISER Anesthesia Event [facility] Operating Room [address] [place] [address] Von Greene MD [address] [place] [address] Gaby Trujillo NP [address] [facility] [id number] [place] [address] Anesthesia Record Procedure Summary Procedure Name Responsible Anesthesiologist Anesthesia Start Time Anesthesia Stop Time ARTHROPLASTY LEFT TOTAL KNEE-julio cesar persona (Left: Knee) Von Greene MD 12/10/19 0719 12/10/19 0913 Events Date Time Event Comment 12/10/2019 0521 In Preop 0636 0719 Time out - Regional 0719 Start Supplemental O2 0719 Face Time 0719 An Block Induction The patie nt was reevaluated immediately before moderate or deep sedation and before anesthesia induction. 0719 Spinal Placed 0719 In Room 0719 An Start 0720 An Start Data 0728 An Induction The patient was reevaluated immediately before moderate or deep sedation use and before anesthesia induction. 0733 Anesthesia Ready 0741 Proc Start 0741 Incision Start 0905 Proc Fin 0907 an stop data 0908 Out of Room 0913 Handoff to RN I completed my handoff to the receiving nurse during which we: 1. Patient identified 2. Responsible provider identified 3. Pertinent medical history reviewed 4. Procedure type and surgical course discussed 5. Intraoperative anesthetic management and any significant issues discussed 6. Expectations and concerns for postop period discussed 7. Questions solicited from receiving nurse 8. Patient disposition at the time of handoff: PACU 912 An Stop Meds Name Total midazolam 2 mg/2 mL 4 mg fentaNYL PF 100 mcg bupivacaine 0.75 %-dextrose 8.25 % PF 2 mL lidocaine 1 % PF 5 mL propofol drip 1,195.99 mg ceFAZolin (ANCEF) 1 gram/10 mL in steril e water (premix) 3,000 mg 3,000 mg tranexamic acid (CYKLOKAPRON ) 1,000 mg/100 mL (10 mg/mL) in 0.7% sodium chloride (premix) 1,000 mg 1,000 mg tranexamic acid (CYKLOKAPRON ) 1,000 mg/100 mL (10 mg/mL) in 0.7% sodium chloride (premix) 1,000 mg 1,000 mg ketorolac (TORADOL) injection 30 mg 30 m g Lactated Ringer's (LR) infusion 2,500 mL * Agents Name O2 * Blood No blood administrations on file. Lines, Drains, and Airways Type Details Placement Removal Peripheral IV Placement Date: 12/10/19; Placement Time: 0618; Orientation: Left; Location: Wrist; Removal Date: 12/11/19; Removal Time: 1130; Removal Reason: Discharge 12/10/19 0618 by Quinten Smith RN 12/11/19 1130 by Cristina Clifford RN RETIRED Surgical Site 12/10/19; 0641; Le ft; Knee; 01/10/24 (Retired LDA, Removed/Completed by [email or web address] with LDA Utility); 1213 (Retired LDA, Removed/Completed by [email or web address] with LDA Utility) 12/10/19 0641 by Kirstin Alejandro RN 01/10/24 1213 by Discharge Provider, Automatic Urethral Catheter Placement Date: 12/10/19; Placement Time: 0721; Inserted by: Olvin Alejandro RN; Type: Non-latex, Temperature probe; Size: 16 Fr.; Balloon Size: 10 mL; Urine Returned: Yes; Removal Date: 12/10/19; Removal Time: 1300 12/10/19 0721 by Kirstin Alejandro RN 12/10/19 1300 by Jayda Farah documented in this encounter Social History Tobacco Use Types Packs/Day Years Used Date Smoking Tobacco: Never Smokeless Tobacco: Never Alcohol Use Standard Drinks/Week Comments Not Currently 0 (1 standard drink = 0.6 oz pur e alcohol) rarely maybe once a month Sex and Gender Information Value Date Recorded Sex Assigned at Not on file Legal Sex Male 12:35 AM EDUCATION ADVISER Gender Identity Not on file Sexual Orientation Not on file documented as of this encounter OR Notes * Anesthesia Postprocedure Evaluation - Von Greene MD - 12/10/2019 12:24 PM CST Patient: Rakesh Gomes Procedure Summary Date: 12/10/19 Room / Location: [facility] OPERATING ROOM 12 / [facility]PER[facility] Anesthesia Start: 718 Anesthesia Stop: 912 Procedure: ARTHROPLASTY LEFT TOTAL KNEE-julio cesar persona (Left Knee) Diagnosis: Primary osteoarthritis of left knee (Primary osteoarthritis of left knee [M17.12]) Surgeons: Dilip Young MD Responsible Provider: Von Greene MD Anesthesia Type: regional as primary anesthetic, spinal ASA Status: 3 Anesthesia Type: regional as primary anesthetic, spinal Last vitals BP 130/75 Pulse 73 Temp (!) 35.8 ??C (96.4 ??F) (Temporal) Resp 16 SpO2 99% Anesthesia Post Evaluation Patient location during evaluation: PACU Patient participation: complete - patient participated Level of consciousness: fully awake Pain score: 0 Pain management: adequate Airway patency: adequate and patent Evidence of recall: no Anesthetic complications: no Cardiovascular status: hemodynamically stable and acceptable Respiratory status: acceptable and nasal cannula Hydration status: euvolemic Pt is: normothermic Nausea/Vomiting status: none ATION ADVISER * Anesthesia Procedure Notes - Von Greene MD - 12/10/2019 7:19 AM CSTAssociated Order(s): Spinal Block Spinal Block Patient location: pre-op holding Reason for block: primary anesthetic Procedure prep: Preprocedure checklist: patient identified, procedure contraindications assessed, site marked, procedure consent, surgical consent, IV checked, risks, benefits and alternatives discussed, monitors and equipment checked and timeout performed Patient position: sitting Procedure performed while patient: sedate with meaningful contact Monitoring: oximetry and blood pressure Supplemental O2: nasal cannula Prep solution: chlorhexadine/alcohol PPE: provider hat/mask, sterile gloves and sterile drape Skin infiltrated with lidocaine 1%: yes Spinal: Approach: midline Location: L3-4 Spinal injection: CSF demonstrated, no aspiration of heme and no paresthesias noted Number of attempts: 1 Spinal Needle: Needle type: Quincke Needle gauge: 22 G Needle length: 9 cm Assessment: Events: patient tolerated procedure well with no complications ATION ADVISER * Anesthesia Preprocedure Evaluation - Von Greene MD - 12/03/2019 4:55 PM CDT Images from the original note were not included. [facility] Preoperative Evaluation Record Evaluation type/location: TPAP from [facility] Planned procedure site: [facility] OR Date: 12/03/19 NOTE: This note represents a preoperative evaluation initiated via telephone interview. NO PHYSICALEXAM was performed at the time of initial assessment. A physical exam may be added to this note anddocumented below. Anesthesia Evaluation Rakesh Gomes is a 44 y.o. male Procedure(s): ARTHROPLASTY LEFT TOTAL KNEE-julio cesar persona Pre-Op Diagnosis Codes: * Primary osteoarthritis [...] Hyperlipidemia (on statin) Pertinent negatives: CAD ; DE ; CABG ; valvular heart disease; valve [...] disorder Endocrine / Other + Diabetes mellitus ([facility] endocrinology recently changed insulin pump regimen [...] instructions were provided in writing [facility] and telephone. Patient verbalized understanding of preoperative plan. Patient with No known exposure to COVID19 and no concerning symptoms of COVID19. Plan for pre-procedure COVID19 testing: Telephone assessment performed. Request placed for pre-procedure COVID19 testing to be performed on 12/06/2019. [facility] will contact patient to schedule testing. INSULIN PUMP SUMMARY?? The patient uses an insulin pump on an outpatient basis. Pump information is as follows:? 1. Pump brand: Omnipod??Humalog U200 2. Basal insulin regimen on normal days: 2.5 units/hr 8303-5451, 2 units/hr 0236-9270, 2.75units/[id number] 3. Basal insulin regimen for NPO days: n/a 4. Does the patient meet protocol criteria for continuing their insulin pump throughout the intraoperative period? Yes? 5. Prescribing physician: Dr. Amara Zhong??[facility] [phone] ?? Patient instructed to activate a basal [...] dextrose-containing intravenous fluids when not eating. An clipkit message was sent to the [facility] surgical diabetes pool. ?? Patient instructed to activate a basal dose compatible with NPO status on the day of surgery. Patient instructed to present to holding area with insulin pump actively infusing. Patient also instructed to bring extra insulin pump supplies to the hospital. For [facility] admits: An [employer] message has been sent to the [facility] surgical diabetes pool to inform them [...] HISTORY Left 2018 bicep tendon repair ??? ID FEMUR/KNEE SURG UNLISTED Treatment Of The Knee - multiple (17) operations L knee - meniscus, debridement, irrigation for septic knee No Known Allergies Med List Status: Nurse Complete Set By: Vane Peraza at 12/03/2019 3:23 PM Taking? Last Dose Start Date End Date Provider atorvastatin (LIPITOR) 20 mg tablet -- -- Historical ProviderMD blood glucose diagnostic ([employer] Ultra Blue Test Strip) strip -- -- Historical ProviderMD blood-glucose meter (OneTouch Ultra2 Meter) misc -- -- Historical Provider, blood-glucose sensor (Dexcom G6 Sensor) device -- -- Historical Provider, blood-glucose transmitter (Dexcom G6 Transmitter) device -- -- Historical Provider, celecoxib (CeleBREX) 200 mg capsule 10/23/19 -- Dilip Young MD TAKE 2 PILLS WITH BREAKFAST THE DAY BEFORE SX. TAKE 1 PILL BID FOR 4 DAYS AFTER DISCHARGE. cholecalciferol (VITAMIN D-3) 62965 unit tablet 11/07/19 -- Dilip Young MD [...] G6 Transmitter) device ??? cholecalciferol (VITAMIN D-3) 64239 unit tablet ??? dulaglutide (TRULICITY) 1.5 mg/0.5 [...] Medication protocol when under care of a RIM ROLLER OPERATOR Planned anesthesia: Regional as primary anesthetic and [...] and agree to proceed. All questions answered. ATION ADVISER * Anesthesia Preprocedure Evaluation - Claribel Tee NP - 11/06/2019 8:30 AM CDT Images from the original note were not included. [facility] Preoperative Assessment [facility] Planning Preoperative Evaluation Record Evaluation type/location: [facility] Planned procedure site: [facility] OR Date: 11/06/19 NOT COMPLETE Anesthesia Evaluation Rakesh Gomes is a 44 y.o. male Procedure(s): ARTHROPLASTY LEFT TOTAL KNEE-julio cesar persona Pre-Op Diagnosis Codes: * Primary osteoarthritis [...] for rare gram-positive cocci. 10/23/2019- no growth. PMH: HTN, hiatal hernia, OA, DM2, and obesity Past Medical History Neurological Pertinent negatives: seizures; neuromuscular disease; CVA/stroke; TIA; CEA; ICA stenosis; dementia/mild cognitive impairment and carotid artery stent Cardiovascular + Hypertension Hypertension year diagnosed: 2014. Typical systolic BP - 140 Typical diastolic BP - 90 + Hyperlipidemia Pertinent negatives: CAD ; DE ; CABG ; valvular heart disease; valve [...] Pertinent negatives: GERD Renal / + Nephrolithiasis (no current) Pertinent negatives: renal disease and dialysis Musculoskeletal/Pain + Chronic pain (left knee) + Osteoarthritis Pertinent negatives: chronic opioid use and previous treatment for opioid use disorder Endocrine / Other + Diabetes mellitus - Diabetes type 2. Outpatient insulin use: insulin pump. Pt reported low glucose range is 100. Pt reported high glucose range is 190. Pt reported HgA1c: 7.2. Pt reported HgA1c date: 2019. + Obesity (BMI >30) (BMI 37.74) + Infectious disease (with previous knee aspiration- Gram stain was positive for rare gram-positivecocci- NO GROWTH on 10/23/2019) Pertinent negatives: thyroid disease; cancer history; rheumatological disease and transplanted organ Functional Capacity Functional capacity: 4-6 METs Comments: Able to walk 4 city blocks without Sob or CP Review of Systems + chronic pain (left knee) Pertinent negatives: productive cough; wheezing; SOB; recent cold/flu; fever; chest pain; palpitations; orthopnea; pedal edema; PND; Sickle Cell disease/trait; previous transfusion; transfusion reaction; melena/hematochezia; easy bruising; bleeding problems; syncope; dizziness; muscle weakness; numb ness/tingling; hard of hearing; vision loss; heartburn; nausea; dysphagia; diarrhea; dentures/partials; chipped/loose teeth; abdominal pain; diaphoresis and no unexpected weight change PAT Summary and Plans Cardiac risk classification of planned procedure: intermediate cardiac risk. Preoperative assessment status: lab tests ordered. Initial preoperative evaluation discussed with: Avery Gill MD Additional comments: Rakesh Gomes is a 44 y.o. male who is being evaluated prior to undergoing anintermediate cardiac risk surgery. Revised Cardiac Risk Index factors are (insulin therapy for diabetes) for a total RCRI of 1 out of 6. Functional capacity is 4-6 METs. Obstructive sleep apnea (SELENA) screening status is STOP-Bang=4 suggesting moderate risk for SELENA, bicarbonate value pending. The patient is at elevated risk for obstructive sleep apnea (SELENA) per STOP-BANG screening questionnaire results. Patient informed of the possibility that they have undiagnosed SELENA, which may increase their risk for perioperative respiratory events. Patient also informed of the possible long-term health problems associated with SELENA. Because we do not feel that preoperative SELENA testing is likely to outweigh the downsides of delaying surgery, we have recommended that the patient talk to their primary doctor or other clinician after surgery about getting tested for SELENA. Blood bank needs for day of procedure: No type and screen needed Pending labs/tests include: CBC CMP Urinalysis flex VIT D Patient with No known exposure to COVID19 and no concerning symptoms of COVID19. Plan for pre-procedure COVID19 testing: Surgery date greater than 4 days from today. Request placed for pre-procedure COVID19 testing to be performed on 11/15/2019. [facility] will contact patient to schedule testing. INSULIN PUMP SUMMARY?? The patient uses an insulin pump on an outpatient basis. Pump information is as follows:? 1. Pump brand: Omni Pod?? 2. Basal insulin rate on normal days: 2 units/hr (Humalog)?? 3. Basal insulin rate for NPO days: n/a 4. Does the patient meet protocol criteria for continuing their insulin pump throughout the intraoperative period? Yes? 5. Prescribing physician: Dr. Maloney [facility]??[phone] ?? Patient instructed to activate a basal dose compatible with NPO status on the day of surgery. Patient instructed to present to holding area with insulin pump actively infusing. Patient also instructed to bring extra insulin pump supplies to the hospital. For [facility] admits: An [employer] message has been sent to the [facility] surgical diabetes pool to inform them [...] on dextrose-containing intravenous fluids when not eating. Epic message sent to surgical team regarding insulin pump. Recommend pt surgery be moved to an earlier time due to insulin pump. Per CPAP attending, would be best if patient was in holding area by 10am. BP at todays visit is 159/100- pt did not take lisinopril this morning and he is nervous. He statesthat his BP normally runs around 140/90. Preoperative evaluation performed by Gaby Trujillo NP on 11/06/19 at 8:30 AM. . Follow up note Labs reviewed and are significant for: A1c 8.4% in this T2DM on insulin pump, metformin and Trulicity --> pt endorses home glucose readings per continuous subcutaneous monitoring system between 100-150 and a few outliers of 190-200 for past 2 weeks. Concerned A1c may be spurious (prior was 7.2%). In speaking w him via phone, he relates having spoken w Agustina in surgeon's office. Plans are to postpone until 01/06 and to get his medicine worker involved. He is very concerned regarding postponinggiven level of pain for which the surgery is being done. -->LM w Agustina asking to confirm surgery date and verify plan. K 3.1 in this patient taking Trulicity -->Advised pt to hold prior to surgery and to look up potassium rich foods to moderately consumepreop. Pt voiced adequate understanding and was in agreement with this plan. -->Faxed information to PCP for further recommendations. CO2 33 in this pt w STOP BANG of 4 (HTN, age, gender, BMI) --> SELENA order set initiated --> Plan in place for testing postop Above reviewed w attending. No further rec's at this time. Will follow Surgeon's office reviews laboratory results independently. Follow-up completed by: Makayla Amado NP on 11/07/19 at 1:04 PM Discussed with: Avery Gill MD Follow up note Agustina from surgeon office called postponing until 01/07/2020 for elevated A1c. Discussed with Dr. Lynne Mcfadden. Ok to TPAP patient for surgery when set up in 01/07/2020 to assess if A1c is improved. Agustina states she will make sure he has A1c repeated prior to rescheduled date. Follow-up completed by: Kathi Villalobos NP on 11/07/19 at 4:13 PM Discussed with: Bandar Mcfadden MD Follow up note Received response from PCP regarding K 3.1. Per PCP, patient started on potassium 10 mEq x 4 days. Will TPAP patient closer to surgery date to ensure DM optimization Follow-up completed by: Claribel Tee NP on 11/09/19 at 4:20 PM Patient Active Problem List Diagnosis ??? Loose [...] by TW Conv) ??? OTHER SURGICAL HISTORY bicep ??? ID FEMUR/KNEE SURG UNLISTED Treatment Of The Knee - multiple (17) operations L knee - meniscus, debridement, irrigation for septic knee No Known Allergies Taking? Last Dose Start Date End Date Provider atorvastatin (LIPITOR) 20 mg tablet -- -- Historical Provider, blood glucose diagnostic (OneTouch Ultra Blue Test Strip) strip 11/06/2019 -- -- Historical ProviderMD blood-glucose meter (OneTouch Ultra2 Meter) misc 11/06/2019 -- -- Historical ProviderMD blood-glucose sensor (Dexcom G6 Sensor) device 11/06/2019 -- -- Historical ProviderMD blood-glucose transmitter (Dexcom G6 Transmitter) device 11/06/2019 -- -- Historical Provider, celecoxib (CeleBREX) 200 mg capsule 10/23/19 -- Dilip Young MD TAKE 2 PILLS WITH BREAKFAST THE DAY BEFORE SX. TAKE 1 PILL BID FOR 4 DAYS AFTER DISCHARGE. dulaglutide (TRULICITY) 1.5 mg/0.5 mL pen injector 11/04/2019 -- -- Historical Provider, insulin lispro (HumaLOG KwikPen Insulin) 200 unit/mL (3 mL) insulin pen -- -- Historical Provider, lancets (Easy Touch Lancets) 28 gauge misc 11/06/2019 -- -- Historical Provider, lancing device misc 11/06/2019 -- -- Historical Provider, lisinopriL (PRINIVIL,ZESTRIL) 40 mg tablet 11/06/2019 -- -- Historical Provider, metFORMIN XR (GLUCOPHAGE XR) 500 mg 24 hr tablet 11/06/2019 -- -- Historical Provider, Current Outpatient Medications: ??? blood glucose diagnostic (OneTouch Ultra Blue Test Strip) strip ??? blood-glucose meter (OneTouch Ultra2 Meter) misc ??? blood-glucose sensor (Dexcom G6 Sensor) device ??? blood-glucose transmitter (Dexcom G6 Transmitter) device ??? dulaglutide (TRULICITY) 1.5 mg/0.5 mL pen injector ??? lancets (Easy Touch Lancets) 28 gauge misc ??? lancing device misc ??? lisinopriL (PRINIVIL,ZESTRIL) 40 mg tablet ??? metFORMIN XR (GLUCOPHAGE XR) 500 mg 24 hr tablet ??? atorvastatin (LIPITOR) 20 mg tablet ??? celecoxib (CeleBREX) 200 mg capsule ??? insulin lispro (HumaLOG KwikPen Insulin) 200 unit/mL (3 mL) insulin pen Social History Tobacco Use Smoking Status Never Smoker Smokeless Tobacco Never Used Substance and Sexual Activity Alcohol Use Not Currently Comment: rarely maybe once a month Substance and Sexual Activity Drug Use Never Family History Problem Relation Age of Onset ??? No Known Problems Other ??? Heart attack Father ??? Anesthesia problems Neg Hx PAT Physical Exam Airway Exam: Mallampati: I Cervical ROM: FROM TM distance: >4 Cardiovascular Exam: Rate: regular Rhythm: regular Negative for Murmur Negative for peripheral edema Pulmonary Exam: LCTA, bilat EENT Exam: trachea midline Dental Exam: Appears intact Skin Exam: Skin is warm. Abdominal exam: Abdomen is soft. Bowel sounds are present. Current state: Patient's current state is cooperative. Vitals: 11/06/19 0851 BP: 159/100 Pulse: 82 SpO2: 96% Relevant diagnostics: ECG(s): N/A Echocardiogram(s): N/A Stress test(s): N/A Cardiac catheterization(s): N/A PFT(s): N/A Vascular studies: N/A Other: 10/23/2019: Left knee XR: IMPRESSION: Moderate lateral compartment predominant left knee osteoarthritis. PT: No results found for requested labs within last 720 hours. INR: No results found for requested labs within last 720 hours. APTT: No results found for requested labs within last 720 hours. Hgb A1C: No results found for requested labs within last 720 hours. CBC RBC: No results found for requested labs within last 720 hours. RDW: No results found for requested labs within last 720 hours. MCHC: No results found for requested labs within last 720 hours. MCH: No results found for requested labs within last 720 hours. MCV: No results found for requested labs within last 720 hours. Hct: No results found for requested labs within last 720 hours. Hgb: No results found for requested labs within last 720 hours. WBC: No results found for requested labs within last 720 hours. MPV: No results found for requested labs within last 720 hours. Platelets: No results found for requested labs within last 720 hours. RDW CV: No results found for requested labs within last 720 hours. RDW Sd: No results found for requested labs within last 720 hours. BMP Glucose: No results found for requested labs within last 720 hours. Calcium: No results found for requested labs within last 720 hours. Sodium: No results found for requested labs within last 720 hours. Potassium: No results found for requested labs within last 720 hours. CO2: No results found for requested labs within last 720 hours. Chloride: No results found for requested labs within last 720 hours. BUN: No results found for requested labs within last 720 hours. Creatinine: No results found for requested labs within last 720 hours. STOP-Bang Total Score: 4 Deandre index score: 100 documented in this encounter Miscellaneous Notes * Addendum Note - Makayla Amado NP - 11/07/2019 10:48 AM CDT Addendum created 11/07/19 1048 by Makayla Amado NP Order Reconciliation Section accessed, Order list changed, Order sets accessed documented in this encounter Plan of Treatment Not on file documented as of this encounter Procedures Procedure Name Priority Date/Time Associated Diagnosis Comments ID AN PROCEDURE PLACEHOLDER Routine 12/10/2019 7:19 AM EDUCATION ADVISER documented in this encounter Results * ID AN PROCEDURE PLACEHOLDER (12/10/2019 7:19 AM EDUCATION ADVISER) Narrative Von Greene MD - 12/10/2019 7:19 AM EDUCATION ADVISER Von Greene MD ? 12/10/2019 ??7:20 AM Spinal Block Patient location: pre-op holding Reason for block: primary anesthetic Procedure prep: Preprocedure checklist: patient identified, procedure contraindications assessed, site marked, procedure consent, surgical consent, IV checked, risks, benefits and alternatives discussed, monitors and equipment checked and timeout performed Patient position: sitting Procedure performed while patient: sedate with meaningful contact Monitoring: oximetry and blood pressure Supplemental O2: nasal cannula Prep solution: chlorhexadine/alcohol PPE: provider hat/mask, sterile gloves and sterile drape Skin infiltrated with lidocaine 1%: yes Spinal: Approach: midline Location: L3-4 Spinal injection: CSF demonstrated, no aspiration of heme and no paresthesias noted Number of attempts: 1 Spinal Needle: Needle type: Quincke Needle gauge: 22 G Needle length: 9 cm Assessment: Events: patient tolerated procedure well with no complications Von Greene MD ANESTHESIA ORDERABLES Fi nal Result documented in this encounter Visit Diagnoses Not on filedocumented in this encounter Administered Medications Inactive Administered Medications - up to 3 most recent administrations Medication Order MAR Action Action Date Dose Rate Site bupivacaine 0.75% (MARCAINE SPINAL) preservative free injection in dextrose intrathecal, As needed, Starting on Tue12/10/19 at 0700, Anesthesia Intra-op, Indications: Spinal AnesthesiaIndications:Spinal Anesthesia Given 12/10/2019 7:00 AM EDUCATION ADVISER 2 mL ceFAZolin (ANCEF) 1 gram/10 mL in sterile water (premix) 3,000 mg 3,000 mg, intravenous, at 600 mL/hr, Administer over 3 Minutes, Once, On Tue12/10/19 at 0615, For 1 dose, Pre-Op, Administer within 60 minutes of incision., Indications: Prophylaxis, SurgicalIndications:Prophylaxis, Surgical Given 12/10/2019 7:32 AM EDUCATION ADVISER 3,000 mg fentaNYL (SUBLIMAZE) preservative free injection intravenous, As needed, Starting on Tue12/10/19 at 0700, Anesthesia Intra-op Given 12/10/2019 7:00 AM EDUCATION ADVISER 100 mcg ketorolac (TORADOL) injection 30 mg 30 mg, intravenous, Once, On Tue12/10/19 at 0615, For 1 dose, Intra-Op, INTRA-OP Give at time of skin closure, Indications: Postoperatvie Pain ManagementIndications:Postoperat vie Pain Management Given 12/10/2019 8:52 AM EDUCATION ADVISER 30 mg Lactated Ringer's (LR) infusion 30 mL/hr, intravenous, Continuous, Starting on Tue12/10/19 at 0615, Pre-Op, Use a 500 ml bag for End Stage Renal Disease Patients New Bag 12/10/2019 8:29 AM EDUCATION ADVISER New Bag 12/10/2019 7:25 AM EDUCATION ADVISER New Bag 12/10/2019 6:57 AM EDUCATION ADVISER 30 mL/hr 30 mL/hr lidocaine PF (XYLOCAINE) 10 mg/mL (1 %) preservative free injection infiltration, As needed, Starting on Tue12/10/19 at 0700, Anesthesia Intra-op Given 12/10/2019 7:00 AM EDUCATION ADVISER 5 mL midazolam (VERSED) 1 mg/mL injection intravenous, As needed, Starting on Tue12/10/19 at 0700, Anesthesia Intra-op Given 12/10/2019 7:00 AM EDUCATION ADVISER 4 mg propofoL (DIPRIVAN) IV intravenous, Continuous PRN, Starting on Tue12/10/19 at 0728, Anesthesia Intra-op Rate/Dose Change 12/10/2019 7:39 AM EDUCATION ADVISER 100 mcg/kg/min 72.12 mL/hr New Bag 12/10/2019 7:28 AM EDUCATION ADVISER 150 mcg/kg/min 108.18 mL /hr tranexamic acid (CYKLOKAPRON) 1,000 mg/100 mL (10 mg/mL) in 0.7% sodium chloride (premix) 1,000 mg 1,000 mg, intravenous, at 400 mL/hr, Administer over 15 Minutes, Once, On Tue12/10/19 at 0615, For 1 dose, Intra-Op, INTRA-OP Infuse over 10 minutes prior to skin incision, Indications: Reduction of Perioperative Blood LossIndications:Reduction of Perioperative Blood Loss Given 12/10/2019 8:48 AM EDUCATION ADVISER 1,000 mg tranexamic acid (CYKLOKAPRON) 1,000 mg/100 mL (10 mg/mL) in 0.7% sodium chloride (premix) 1,000 mg 1,000 mg, intravenous, at 400 mL/hr, Administer over 15 Minutes, Once, On Tue12/10/19 at 0615, For 1 dose, Intra-Op, INTRA-OP Infuse over 10 minutes at the start of wound closure., Indications: Reduction of Perioperative Blood LossIndications:Reduction of Perioperative Blood Loss Given 12/10/2019 7:35 AM EDUCATION ADVISER 1,000 mg documented in this encounter Care Teams Gelatin Dynamite Packing Operator Relationship Specialty Start Date End Date Rebel López MD [id number] [id number] PCP - General Family Medicine 10/23/19 documented as of this encounter
--- OUTSIDE RECORDS SUMMARY | 2024-02-11 08:18 | XMS_ITS | Encounter Summary ---
Author Organization [facility] Address [address] [place] [address] Phone Care Team Providers Care Runner Man Name Role Phone Rebel López MD Primary Care Provider [phone] Reason for Visit * Reason Onset Date Comments TJA 11/06/2019 Encounter Details Date Type Department Care Team (Late st Contact Info) Description 11/06/2019 Documentation [facility] Orthopaedic Surgery [address] [place] [address] Medical Office Building [address] [place] [address] Katie Vilchis, ORACIO TJA Social History Tobacco Use Types Packs/Day Years Used Date Smoking Tobacco: Never Smokeless Tobacco: Never Alcohol Use Standard Drinks/Week Comments Not Currently 0 (1 standard drink = 0.6 oz pur e alcohol) rarely maybe once a month Sex and Gender Information Value Date Recorded Sex Assigned at Not on file Legal 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 Blood transfusion consent obtained. Preadmission Testing/Anesthesia H&P: Date: 11/05/19 Time: 0830 Pre-Op Joint Class Scheduled for: Date: 10/26/19 Time: 1 pm PreHab Rx given to Patient: Faxed to: Doppler: Date: Time: Pre-Op Meds/Anticoag: Instructed to stop primary prevention ASA/hormones/supplements 7 Days prior to surgery Instructed to stop NSAIDS 5 days prior to surgery Anticoagulation protocol discussed: yes ASA Decolonization Instructions: yes Skin preparations guide Mupirocin Rx Prescription for Celebrex 400mg The patient was given a TKA teaching packet including surgery guidelines with instructions, DECOL protocol instructions, instructions to stop all NSAID's, Blood thinners and aspirin products one weekbefore surgery, as well as office contacts to call if they have any additional questions prior to their surgery date. No current facility-administered medications for this visit. Current Outpatient Medications: ??? oxyCODONE-acetaminophen (PERCOCET) 5-325 mg per tablet, Take 2 tablets by mouth every 4 (four) hours as needed for pain for up to 7 days, Disp: 56 tablet, Rfl: 0 Facility-Administered Medications Ordered in Other Visits: ??? acetaminophen (TYLENOL) tablet 500 mg, 500 mg, oral, PRN, Von Greene MD ??? diphenhydrAMINE (BENADRYL) injection 12.5 mg, 12.5 mg, intravenous, Q5 Min PRN, Von Greene MD ??? fentaNYL (SUBLIMAZE) preservative free injection 25 mcg, 25 mcg, intravenous, Q5 Min PRN, Von Greene MD ??? HYDROcodone-acetaminophen (NORCO) 5-325 mg per tablet 1 tablet, 1 tablet, oral, Q20 Min PRN, Von Greene MD ??? HYDROmorphone (DILAUDID) injection 0.2 mg, 0.2 mg, intravenous, Q5 Min PRN, Von Greene MD ??? labetaloL (NORMODYNE,TRANDATE) injection 5 mg, 5 mg, intravenous, Q5 Min PRN, Von Greene MD ??? Lactated Ringer's (LR) bolus 1,000 mL, 1,000 mL, intravenous, Once, Mario Giang MD, Last Rate: 1,000 mL/hr at 12/10/19922, 1,000 mL at 12/10/19922 ??? Lactated Ringer's (LR) infusion, 30 mL/hr, intravenous, Continuous, Von Greene MD, Last Rate: 30 mL/hr at 12/10/19 0657, New Bag at 12/10/19 0829 ??? Lactated Ringer's (LR) infusion, 125 mL/hr, intravenous, Continuous, Von Greene MD ??? meperidine (DEMEROL) preservative free injection 12.5 mg, 12.5 mg, intravenous, Q10 Min PRN, Von Greene MD ??? ondansetron (ZOFRAN) injection 4 mg, 4 mg, intravenous, Once PRN, Von Greene MD ??? prochlorperazine (COMPAZINE) injection 5 mg, 5 mg, intravenous, Q10 Min PRN, Von Greene MD He has No Known Allergies. Risk Assessment SELENA RISK: Yes STOP BANG Score: 4 CMP(CO2): Sleep Study: CPAP/BIPAP: Diabetes control (Hgb A1c ordered) Bone Health screen - Vitamin D Level Ordered: Yes No Oral Health: Healthy teeth Smoking History: No Family History of DVT/PE: No He reports that he has never smoked. He has never used smokeless tobacco. He reports previous alcohol use. He reports that he does not use drugs. Audit-C Alcohol Screening How often do you have a drink containing alcohol?: Monthly or less How many standard drinks containing alcohol do you have on a typical day?: 1 or 2 drinks How often do you have six or more drinks on one occasion?: Never Audit-C Score: 1 Male: <4 (negative) Female: Illegal Drug Use: Never Functional/Home Assessment analytical data scientist assistance: Live in available day/night In a: Home Home Accessibility: Stairs Home Environment: Entry Steps: Yes: Number of Steps: 3 Bedroom Location: 1st Floor Bathroom Location:1st Floor What Medical Devices/Equipment used: insulin pump Are you able to self-manage activities of daily living: ADL's: Bathing, Dressing, Self-feeding, Personal Hygiene and Toilet Hygiene IADL's: Housework, Medications, Managing Money, Shopping and Telephone Transportation: Self Pre-Op Ambulation: Independent Community distances Projected Post-Op Weight bearing: Full or WBAT Home Location: < 150 miles RAPT: What is your age group?: 50-65 Years Gender: Male How far on average can you walk? (a block is 200 meters): Two blocks or more (+/-rest) Which gait aid do you use most? (more often than not): None Do you use community supports? (home-help, meals on wheels, district nursing): None or one per week Will you live with someone who can care for you after your operation?: Yes RAPT Total Score: 12 (If <9 send to Recon CIRCUS SUPERVISOR's floor care team for review) (If <6 Pre-Op SW Consult) AMOS: Destination at discharge from acute care predicted by score: Scores <6 facility placement Scores 6-9 directly home after additional acute intervention Scores >9 directly home Patient's expectation of discharge destination is also a determinant. The prediction indicated by the score is discussed with the patient and the destination agreed to. Patient's preference: Home Agreed destination: Home with < 5 Home Health visits Social Work Referral: Potential Rehab/SNF Candidate: RRAT Infection Risk Factors: Is patient positive for MRSA colonization at CPAP?: No Every Patient is decolonized per guideline. - Nasal Mupirocin (Bid x5 days pre-op) or povidone-iodine (DOS) and chlorhexidine gluconate (CHG) showers (QD x5 days prior to surgery & morning of surgery) and appropriate antibiotic coverage. - If these requirements are not met then HARD STOP until protocol implemented. Smoking (Tobacco Use): Current Smoker? No Obesity: What is the patient's BMI? BMI 36 - 39 Encourage enrollment in nutritional counseling program. Cardiovascular Disease: Patient has a history of Coronary Artery Disease (CAD), stroke, Peripheral Vascular Disease or VTED, is 60 years of age or older and has at least 2 cardiac risk factors: Yes All qualifying patients will require medical and/or cardiac clearance/and will be flagged for CPAP high risk screening/monitoring aneta-Operatively. Venous Thromboembolic Disease: Does the patient have a history of Pulmonary Embolus or Deep Vein Thrombosis? No Does the patient have any of the following VTED risk factors: CVA, COPD, BMI>30, CAD, Stroke, PVD, or Activated Protein C Resistance? Yes Neurocognitive, Psychological and Behavioral Problems (including alcohol and drug dependency): Does the patient have a history of alcohol abuse or chronic active narcotic dependency? No Does the patient have any neurocognitive deficits such as traumatic brain injury (TBI)l active psychiatric illness, dementia, etc? No Was the patient's last calculated PROMIS depression score greater than or equal to 60? No Physical Deconditioning: Patient is nonambulatory or needs assistance with transfer status? No Patient has comorbidities affecting physical function and ambulation? No Diabetes: Is the patient diabetic? Yes Last calculated Fasting Blood Glucose > 180 mg/dl? No Last calculated Hgb A1c > 8? No Is DM well controlled? 1:Yes:0:No1 RRAT Total Score: 4 Recommendations for Preoperative Care/Optimization: 3-4 Moderate Risk: Preoperative optimization interventions with medical clearance obtained prior tosurgery. Patricai Esposito RN ET SURVEY REPRESENTATIVE documented in this encounter Plan of Treatment Not on file documented as of this encounter Visit Diagnoses Not on filedocumented in this encounter Care Teams Runner Man Relationship Specialty Start Date End Date Rebel López MD [id number] [address] PCP - General Family Medicine 10/23/19 documented as of this encounter
== END 2024-02-04 09:42 | disposition home or self-care (01) ==
PROVIDERS: Emergency Provider Nurse Practitioner; PCP Family Medicine
DX: L25.9 Unspecified contact dermatitis, unspecified cause (principal); B35.4 Tinea corporis; N40.0 Benign prostatic hyperplasia without lower urinary tract symptoms; E11.9 Type 2 diabetes mellitus without complications; E78.5 Hyperlipidemia, unspecified; Z86.718 Personal history of other venous thrombosis and embolism; E66.01 Morbid (severe) obesity due to excess calories; Z68.37 Body mass index [BMI] 37.0-37.9, adult; Z96.652 Presence of left artificial knee joint
CPT/HCPCS: 99213; G0463

== ENCOUNTER 2024-04-10 07:56 | Day surgery (SDC) | payer OTHER, SELFPAY ==
[2024-02-23 11:59] VITALS: BMI 37.3
[2024-03-20 08:48] VITALS: BMI 37.3
--- NOTE | 2024-04-10 08:36 | PM.HPGS ---
History of Present Illness History of Present Illness Consent: Risks, benefits, and alternatives have been discussed and questions answered. Patient agrees to proceed with procedure. Chief complaint: Sacroiliitis, chronic low back pain Narrative: Rakesh Gomes is a 49 year old male with chronic, recalcitrant and disabling right lumbosacral back pain secondary to lumbosacral spondylosis, sacroiliac joint arthropathy, sacroiliitis with failure to respond to aggressive conservative measures including PT, oral and topical analgesics, opioid and nonopioid analgesics, rest, time and activity/behavioral modification over the past 1-2 years who presents for therapeutic intra-articular steroid injection of the right sacroiliac joint under fluoroscopic guidance and with contrast control. Review of Systems Review of Systems: Patient denies any new infectious, allergic, cardiopulmonary, neurologic or constitutional symptoms or changes in activity tolerance or exercise capacity including new or progressive SOB/MARSHALL, peripheral edema, productive cough, dysuria, nausea/vomiting, diarrhea, weight change, fevers/chills/night sweats, new or progressive neurologic deficit, cognitive or mood changes since last seen, except as documented in the HPI. All systems reviewed & are unremarkable except as noted in HPI and below PMFSH Past Medical History Medical History (Updated 04/10/24 @ 08:38 by Rakesh De La Fuente MD) Localized swelling, mass and lump, left upper limb BPH without obstruction/lower urinary tract symptoms Left shoulder pain Paresthesia of both hands (~05/2023) overuse BMI 38.0-38.9,adult Chronic thoracic back pain X-ray of the thoracic spine on 01/24/2023 was unremarkable. Muscle soreness Tendinitis of left rotator cuff DJD of AC (acromioclavicular) joint Colon cancer screening patient reports normal colonoscopy within the last several years. Recheck in 10 years. BMI 37.0-37.9, adult Chiggers (~10/25/22) COVID-19 (04/26/22) 2nd episode 04/26/2022 with positive test 04/27/2022 Obesity (BMI 30-39.9) Screening for diabetic retinopathy no retinopathy 04/05/2022. Otalgia of both ears Sensation of fullness in both ears Mild peripheral edema edema secondary to amlodipine 10 mg daily Hypersomnia (~2021) Chronic eustachian tube dysfunction TMJ (temporomandibular joint syndrome) (~2021) Morbid obesity with BMI of 40.0-44.9, adult Rotator cuff tendonitis Right shoulder pain Otitis media Type 2 diabetes mellitus with other skin ulcer Diabetic skin ulcer Non-healing wound Allergic conjunctivitis Seasonal allergic rhinitis Acute sinusitis, unspecified Hyperlipidemia LDL goal <100 Acute bronchitis (~02/02/21) Chest x-ray normal 02/23/2021 Vitamin B12 deficiency anemia (07/16/20) vitamin B12 level low at 343 with goal greater than 400 on 07/16/2020. Vitamin B12 low at 376 with goal greater than 400 with folic acid 12.9 and hemoglobin 14.5 on 06/25/2022. BMI 40.0-44.9, adult Gastritis (~12/08/20) Major depression (~06/2020) High thyroid stimulating hormone (TSH) level TSH normal at 3.47 on 06/25/2022. BMI 39.0-39.9,adult Deep vein thrombosis (DVT) of left lower extremity (04/22/20) COVID-19 (03/28/20) Exposure to COVID-19 virus Left knee pain Hypokalemia Potassium low at 3.1 on 06/25/2022. Biceps rupture, distal Acromioclavicular joint arthritis Chronic low back pain with right-sided sciatica X-ray of the lumbar spine on 01/24/2023 reveals severe lumbar spondylosis with facet arthropathy. Multilevel degenerative disc disease on x-ray 10/17/2023. 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 Surgical History Surgical History (Updated 03/13/24 @ 13:55 by Roberta North CMA) History of removal of cyst History of total left knee replacement (TKR) History of knee surgery History of appendectomy Family History Family History Grandparent Family history of arthritis Diabetes mellitus Mother Family history of congestive heart failure Family history of heart disease in male family member before age 55 Father Family history of heart disease in male family member before age 55 Other Family history of cardiovascular disease Family history of malignant neoplasm Social History Social History Smoking status: Never smoker Second hand tobacco smoke exposure: Yes Alcohol intake: never Substance use: never Substance use type: does not use Lack of Transportation: No Lack of Food: Sometimes True Current Housing: I Have Housing Concerned About Future Housing: No Difficulty Paying Gas/Electric Bills: No Difficulty Paying for Meds: No Currently Unemployed: No Education: High School Diploma/GED Difficulty w/ Childcare or Family Care: No Living arrangements: with family Spiritual care concerns: No Meds Home Medications and Allergies Home Medications ?Medication ?Instructions ?Recorded ?Confirmed ?Type blood-glucose meter,continuous #1 ea 07/06/19 03/13/24 History (Dexcom G6 Physical Education Specialist) albuterol sulfate 90 mcg/actuation 2 inh inhalation Q4H PRN shortness 02/23/21 03/20/24 Rx aerosol inhaler (ProAir HFA) of breath or wheezing #8.5 grams blood-glucose meter (Contour Next #1 ea 04/09/21 03/13/24 Rx Meter) Dexcom G6 Transmitter #1 ea 07/26/22 03/13/24 Rx (blood-glucose transmitter) Dexcom G6 Sensor (blood-glucose #9 ea 04/11/23 03/13/24 Rx sensor) irbesartan 300 1 tablet PO DAILY #90 tabs 07/08/23 03/20/24 Rx mg-hydrochlorothiazide 12.5 mg tablet escitalopram oxalate 10 mg tablet 10 mg PO DAILY #30 tabs 11/08/23 03/20/24 Rx (Lexapro) tadalafil 5 mg tablet 5 mg PO DAILY sexual activity #90 12/27/23 03/20/24 Rx tabs tamsulosin 0.4 mg capsule 0.4 mg PO QHS #90 caps 12/27/23 03/20/24 Rx omeprazole 40 mg capsule,delayed 40 mg PO DAILY #90 caps 01/09/24 03/20/24 Rx release fluticasone propionate 50 1 spray intranasal BID PRN allergy 02/20/24 03/20/24 History mcg/actuation nasal symptoms spray,suspension (Flonase Allergy Relief) atorvastatin 40 mg tablet 40 mg PO QHS #90 tabs 03/13/24 03/20/24 Rx dapagliflozin propanediol 10 mg 10 mg PO QAM 90 days #90 tabs 03/13/24 03/20/24 Rx tablet (Farxiga) glucagon 3 mg/actuation nasal 3 mg intranasal ONCE PRN 03/13/24 03/20/24 Rx spray (Baqsimi) hypoglycemia #1 ea insulin lispro 100 unit/mL 100 unit continuous subcutaneous 03/13/24 03/20/24 Rx subcutaneous solution (Humalog infusion DAILY #90 mL U-100 Insulin) insulin pump cart,automated,BT #45 ea 03/13/24 03/13/24 Rx metformin 500 mg tablet,extended 1,000 mg (2 x 500 mg) PO BID #360 03/13/24 03/20/24 Rx release 24 hr tabs tirzepatide 15 mg/0.5 mL 15 mg (0.5 mL) subcut WEEKLY #6 mL 03/13/24 03/20/24 Rx subcutaneous pen injector (Mounjaro) amlodipine 10 mg tablet 10 mg PO DAILY #90 tabs 04/09/24 Rx Allergies Allergy/AdvReac Type Severity Reaction Status Date / Time aspartame Allergy Severe THROAT Verified 04/10/24 08:35 SWELLING sucralose Allergy Intermediate sore Verified 04/10/24 08:35 throat, THROAT SWELLING Exam Narrative: The patient's physical exam is essentially unchanged from prior examination on 02/20/2024. Specifically, patient demonstrates normal lung capacity, tidal volume and respiratory rate without wheezes, crackles, rales or rubs. Heart rate and rhythm are regular without murmurs, gallops or rubs. No JVD. Pulses 2+ globally without increasing peripheral edema. AAOx3 with no evidence of confusion, intoxication or altered mental state, NC/AT without acute distress or altered consciousness. Speech, cognition, mood, insight and judgment at baseline and within normal limits. Assessment and Plan Assessment and plan (1) Lumbosacral spondylosis: Code(s): M47.817 - Spondylosis without myelopathy or radiculopathy, lumbosacral region Status: Acute (2) Chronic low back pain: Qualifiers: Back pain laterality: bilateral Sciatica presence: with sciatica Sciatica laterality: bilateral sciatica Qualified Code(s): M54.42 - Lumbago with sciatica, left side; M54.41 - Lumbago with sciatica, right side; G89.29 - Other chronic pain Code(s): M54.50 - Low back pain, unspecified; G89.29 - Other chronic pain Status: Acute (3) Sacroiliitis: Code(s): M46.1 - Sacroiliitis, not elsewhere classified Status: Acute (4) Arthropathy of sacroiliac joint: Code(s): M47.818 - Spondylosis without myelopathy or radiculopathy, sacral and sacrococcygeal region Status: Acute Plan Proceed as planned with therapeutic intra-articular steroid injection of the right sacroiliac joint under fluoroscopic guidance and with contrast control.
--- NOTE | 2024-04-10 08:38 | WPDHPUPDATE1 ---
History and Physical Update Update Date/Time: 04/10/24 08:38 History and Physical has been reviewed, including an updated exam of the patient. There are NO changes in the patient's condition. Risks, benefits, and alternatives have been discussed and questions answered. Patient agrees to proceed with procedure.
--- NOTE | 2024-04-10 08:39 | W.PM.PROC2 ---
Procedure Note - Detailed Date of Procedure 04/10/24 Pre-op Diagnosis Sacroiliitis, chronic low back pain Post-op Diagnosis Same Procedure Performed Right Sacroiliac Joint Steroid Injection under Fluoroscopic Guidance and with Contrast Control. Surgeon Rakesh De La Fuente MD Pr Internship None Anesthesia Local Description of Procedure INFORMED CONSENT: Risks, benefits and alternatives to the procedure were discussed in detail with the patient who expressed explicit understanding and consent to proceed. Patient was informed verbally and in written form regarding the risks associated with the procedure including the low risk of serious infection, bleeding/bruising, allergic reaction, nerve or organ injury, paralysis, procedural site pain or discomfort, worsening pain and/or mobility, failure to treat and/or disfigurement. The patient expressed explicit understanding and consent to proceed. All materials required for the procedure were available prior to procedure start. Site and side were marked prior to procedure and confirmed in the presence of the patient. PROCEDURE IN DETAIL: The patient was brought to the procedural suite and placed in the prone position. Patient was made comfortable with use of pillows under the head/chest, hips and ankles. Skin overlying the injection site on the affected side(s) was prepared broadly with ChloraPrep applicator and draped in a sterile manner. Aseptic technique was used throughout. The right SI joint was identified in the AP view and contralateral oblique angulation with caudal tilt was utilized to optimize visualization of the inferior and medial joint line representing the posterior portion of the joint. Local anesthesia was established by infiltration with approximately 5 mL of 2% lidocaine via a 1-1/2 inch 27-gauge needle. A 22-gauge 3.5 inch Quincke spinal needle was advanced until the needle entered the inferior third of the joint space approximately 1cm cephalad from its most inferior point. In the AP view, 0.5 mL of Omnipaque 300 contrast medium was injected after negative aspiration for CSF, blood or other bodily fluid, showing appropriate intra-articular spread of contrast without evidence of intravascular, perineural or intrathecal placement. A 1.5 mL solution containing 6 mg of betamethasone in 0.5% PF bupivacaine was injected after repeat negative aspiration. Appropriate spread of the injectate was confirmed with washout of previous injected contrast. No parasthesias were elicited. Needle was removed completely intact without difficulty. Images were saved and documented in the patient chart. Patient's skin was cleansed and sterile bandage applied. The patient tolerated the procedure well. The patient was transported to the recovery area in stable condition where they were observed for an appropriate amount of time prior to discharge, without evidence of complication. The patient was instructed to avoid excessive activity for the next 48 hours, including climbing and frequent use of stairs. Showers only for 48 hours. They were instructed not to drive or operate heavy machinery for 24 hours. They are to monitor for severe headaches, fevers, chills, night sweats, erythema/swelling at the site or any other signs of infection, bleeding/bruising, bowel or bladder changes as well as new pain, weakness or numbness in the upper or lower extremity. Should they notice these changes, they are instructed to call our office immediately or report directly to the nearest Emergency Department if no answer or if after posted office hours. COMPLICATIONS: None COMMENTS: None CONTRAST WASTED: 29.5 mL Omnipaque 300. Complications No immediate complications Condition Stable Disposition Same day [facility] Billing Surgery - Charge Forward: Surgery Billing
[2024-04-10 08:49] VITALS: BP 147/82; PULSE 85; RESP 18; TEMP 36.6; O2SAT 97; BMI 36.6
[2024-04-10 09:16] VITALS: BP 136/84; PULSE 74; RESP 12; O2SAT 96
[2024-04-10] MEDS: BETAMETHASONE SODIUM PHOSPHATE PF INJ 6 MG/ML VIAL INFILTRATE (09:18)
[2024-04-10 09:19] VITALS: BP 126/83; PULSE 78; RESP 13; O2SAT 97
[2024-04-10] MEDS: BUPivacaine HCL 0.5% 10 ML AMP INFILTRATE (09:21)
[2024-04-10] MEDS: LIDOCAINE 1% PF INJ 5 ML VIAL 3 ML XX (09:21)
[2024-04-10 09:22] VITALS: BP 131/80; PULSE 85; RESP 18; O2SAT 98
== END 2024-04-10 09:32 | disposition home or self-care (01) ==
PROVIDERS: PCP Family Medicine; Visit Provider Anesthesiology Pain Medicine
PROC: (CPT 27096; principal; 2024-04-10 09:30)
DX: M46.1 Sacroiliitis, not elsewhere classified (principal); M54.50 Low back pain, unspecified; G89.29 Other chronic pain
CPT/HCPCS: 27096; 99199; G0260

== ENCOUNTER 2024-06-29 08:09 | Outpatient (CLI) | payer OTHER, SELFPAY ==
--- OUTSIDE RECORDS SUMMARY | 2024-06-29 08:13 | XMS_ITS | Data Portability ---
Author Organization [place] - [facility], [address] Office Address [address] [place] [address] Care Team Providers Care Cook Helper Name Role Phone CARLITO HOLLAND Primary Care Provider [facility] - ENDOCRINOLOGY Endocrino logist Assessment No assessment [...] By Organization Details Last Modified Time 03/10/2023 [id number] It was nice to m eet you [...] or care. Not available 03/10/2023 13:28:32 05/04/2023 [id number] . [email or web address] Not available 04/08 17:06:21 05/12/2023 [id number] . [email or web address] Not available 05/2023 12:09:46 06/27/2023 [id number] . Care Team Note Coat Repair Inspector Goal ( 2023): Get BG in TIR; [...] had lots of education since Dx; sees adult educator at Endo/ sees Endo every 3 months; [...] 3 month Nurse Care Plan f/u appt [facility] for 09/26/23 at 4pm [email or web address] Not available 06/27/2023 17:54:33 Reason for Referral None Reported. Problems Name Problem SNOMED Code Status Onset Date Resolution Date Notes Provider Name and Address Organization Details Recorded Time Type 2 diabetes mellitus without complication 450473115 Active 2011 Regine mondragon [place] - [facility] Services 4 17:01:45 Essential hypertension 30711831 Active 2023 MD alanna Cho, [place] - [facility] Services 4 13:33:14 Anxiety 44148577 Active 2023 MD alanna Cho, [place] - [facility] Services 4 13:34:33 Benign prostatic hyperplasia without outflow obstruction 362992544 Active 2023 Joe Lemus MD null, [facility] Level 2 Medical Services 13:36:16 Gastroesophage al reflux disease 949640500 Active 2023 Joe Lemus MD [facility] [place], [facility] Level 2 Medical Services 13:36:48 Problem Notes None recorded. Procedures Surgical History Date Name Laterality Status Provider Name and Address Organization Details Recorded Time 06/20/19 total knee replacement completed Regine Benson [facility] 2 Medical Services 06/27/2023 17:02:36 Appendectomy completed Regine Benson [facility] 2 Medical Services 06/27/2023 17:02:55 Imaging Results [...] active Not Available Not Available Not Avai myrandale Mounjaro 10 mg/0.5 mL subcutaneo us pen injector 03/10 completed Not Available Not Available Not Available Mounjaro 12.5 mg/0.5 mL subcutaneo us pen injector 03/10 completed Not Available Not Available Not Available Vitals Date Recorded Body height Provider Name an d Address Organization Details Last Updated DateTime 05/12/2023 177.8 cm Regine Benson [facility] 2 Ar dical Services 05/12/2023 12:08:33 Date Recorded Body height Body mass index (BMI) Body weight Provider Name and Address Organization Details Last Updated DateTime 06/27/2023 177.8 cm 33.7 kg/m2 425190.21 jordin Benson [facility] 2 Medical Services 06/27/2023 17:21:47 Date Recorded Body height Body mass index (BMI) Body weight Provider Name and Address Organization Details Last Updated DateTime 03/10/2023 177.8 cm 35.2 kg/m2 157932.13 jordin Lemus MD [place] [address] Medical Services 03/10/2023 13:30:23 Social History Question Answer Notes LastModified by Organizat ion Details LastModified Time Tobacco Smoking Status Never Smoker Joe Lemus MD [facility] [place], [facility] 2 Medical Services 03/10/2023 13:24:09 What Is Your Level Of Caffeine Consumption? 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 [employer] Tue-Tue 6a-3p Information not available 03/10/2023 Are You Currently ? No Information not available 03/10/2023 Are You Currently On Dialysis? No Information not available 03/10/2023 Sex: Unknown Functional Status Question Answer Note LastModified by Organizat ion Details LastModified Time Do you use any illicit or recreational drugs? No Information not available 03/10/2023 Do you or have you ever used any other forms of tobacco or nicotine? No Information not available 03/10/2023 What is your level of alcohol consumption? None Information not available 03/10/2023 Do you or have you ever used smokeless tobacco? Never used smokeless tobacco Information not available 03/10/2023 Do you or have you ever used e-cigarettes or vape? Never used electronic cigarettes Information not available 03/10/2023 Mental Status None recorded. Family History Nothing Reported. Medical History Condition Response a. Type 2 Diabetes Y Past Encounters Encounter ID Performer Location Encounter Start Date Encounter Closed Date Diagnosis/Indication Diagnosis SNOMED-CT Code Diagnosis ICD10 Code Diagnosis Note [id number] Joe Lemus MD Level2 Main Office [address] [employer] [address] [place] [id number] 03/10/2023 13:22:38 03/10/2023 13:55:28 Type 2 diabetes mellitus without complication 220759137 E11.9 03/10/23: Mr. Gomes confirms he has DM2. He will be sent a L2 welcome kit. F/U PRN. [id number] Regine Benson Level2 Main Office [address] [employer] [address]uel [id number] [place] [address] 05/04/2023 17:01:08 05/04/2023 17:07:08 [id number] Regine Benson [facility] Main Office [address] [place] [id number] 05/12/2023 12:03:50 05/12/2023 12:10:00 [id number] Regine Benson [facility] Main Office [address] [place] [address] 06/27/2023 17:00:09 06/27/2023 17:55:51 Health Concerns Section Related Observation LastModified by Organization Detai ls LastModified Time None Recorded Concern Status LastModified by Organization Details LastModified Time None Recorded Advance Directives Directive None Recorded Payers Encounter Date Sequence Insurance Name Policy Number Policy [place] Covered Member ID Noland Member ID Guarantor Name 03/10/2023 1 [place] [id number] [facility] [id number] [facility] 05/04/2023 1 [facility] [id number] [facility] [id number] [facility] 05/12/2023 1 [facility] [id number] [employer] [id number] [facility] 06/27/2023 1 [facility] [id number] [facility] [id number] [facility] Notes Date Note Type Note Provider Name and Address Organization Details Recorded Time 4 text/html Initial Provider Regulatory RequirementsReported mary.Provider Regulatory RequirementsI have verified that the patient is located in [facility] at time of this visit.; I have [...] any current physical concerns/complaints at this time. MD alanna [place] - Level 2 Medical Services 03/10/2023 13:39:51 4 text/html Nurse Regulatory RequirementsReported mary.Nurse Regulatory RequirementsI have verified that the patient is located in [facility] at time of this visit. Reginetanner mondragon [place] - [facility] 2 [facility] Services 05/12/2023 12:09:53 4 text/html Nurse Regulatory RequirementsReported mary.Nurse Regulatory RequirementsI have verified that the patient is located in [facility] at time of this visit.CGM DataReported mary.Time [...] CGM or reported by mbr DSME PlanReported thadaff.Taking Medication:Topics Covered: 06/27/23 disc importance of knowing [...] ICR How long have you been using insulin?2012 How long have you been using a pump?2014; 2917 started Omnipod 5 Have you had [...] pump and in his diabetes management/ knowledge JULIAN Justin - Level 2 Medical Services 06/27/2023 17:55:22
--- OUTSIDE RECORDS SUMMARY | 2024-06-29 08:14 | XMS_ITS | Referral Summary ---
Author Organization [facility] Address [address] [place] [address] Care Team Providers Care Mold Technician Name Role Phone Rebel López MD Primary Care Provider [phone] Allergies No known active allergies Medications blood-glucose [...] every 7 days Active cholecalciferol (VITAMIN D-3) 68105 unit tabletIndication s:Vitamin D Deficiency Take 1 [...] (10/23/2019): Added automatically from request for surgery [id number] Left knee pain 10/23/2019 Hypertension 08/08/2012 Calculus of kidney 03/28/2012 Hiatal hernia 03/28/2012 Acid phosphatase serum increased 03/28/2012 Simple obesity 03/28/2012 Type 2 diabetes mellitus 03/28/2012 Loose body of knee 03/23/2011 Osteoarthritis of knee 03/04/2011 Immunizations Immunization Administration Dates Next Due Influenza, Quadrivalent, Spl [...] on file 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 Gender Identity Not on file Sexual Orientation Not on file Last Filed Vital Signs Vital Sign Reading Time Taken Comments Blood Pressure 152/119 04/22/2020 2:01 PM CDT Pulse 98 04/22/2020 2:01 PM CDT Temperature 36.4 C (97.5 F) 12/11/2019 8:59 AM PRIMARY MILL ROLLER Respiratory Rate 20 04/22/2020 2:01 PM CDT Oxygen Saturation 98% 04/22/2020 2:01 PM CDT Inhaled Oxygen Concentration - - Weight 117.9 kg (260 lb) 04/22/2020 2:01 PM CDT Height 177.8 cm (5' 10) 04/22/2020 2:01 PM CDT Body Mass Index 37.31 04/22/2020 2:01 PM CDT Plan of Treatment Not on file Medical Devices Implanted Type Area Automotive Generator Repairer Device Identifier Shelf Expiration Date Model / Serial / Lot Laverne [employer] [id number] Persona Cruciate Retain Knee Left 7 Standard Component Femoral - Sna - [id number] Implanted:Qty: 1 on 12/10/2019 by Dilip Young MD at [facility] Other - see comments Left: Knee [employer] [id number] 08/06/2029 [id number] / NA / [id number] [employer] [id number] Persona 2 Peg Knee Left F Baseplate Tibial Trabecular Metal - Sna - [id number] Implanted:Qty: 1 on 12/10/2019 by Dilip Young MD at [facility] Other - see comments Left: Knee [employer] [id number] 09/10/2029 [id number] / NA / [id number] [employer] [id number] Persona 10mm Knee Left Insert Articular Vivacit-E Sterile Latex Free - Sna - [id number] Implanted:Qty: 1 on 12/10/2019 by Dilip Young MD at [facility] Other - see comments Left: Knee [employer] [id number] 01/07/2024 [id number] / NA / [id number] Procedures Procedure Name Priority Date/Time Associated Diagnosis Comments EGFR STAT 04/22/2020 2:47 PM CDT HEMOGLOBIN A1C Routine 11/06/2019 9:47 AM CDT Primary osteoarthritis of left knee from Last 3 Months or Most Recently Relevant to Health Maintenance Results * eGFR (04/22/2020 2:47 PM CDT) eGFR >90 mL/min/1.7 3 m2 [facility] Comment: Interpretive Data Reference Interval Normal >/= 90 mL/min/1.73m2 Mildly decreased* 60 - 89 mL/min/1.73m2 Mildly to moderately decreased 45 - 59 mL/min/1.73m2 Moderately to severely decreased 30 - 44 mL/min/1.73m2 Severely decreased 15 - 29 mL/min/1.73m2 Kidney Failure < 15 mL/min/1.73m2 *Relative to young adult level Estimated glomerular [...] 2:47 PM CDT 04/22/2020 2:52 PM CDT us Karl Recinos MD LAB BLOOD ORDERABLES Final Res ult [facility] [address] [facility] Department [place] [address] * (ABNORMAL) Hemoglobin A1c (11/06/2019 9:47 AM CDT) Hgb A1C 8.4(H) 4.0 - 5.6 % [facility] Comment:Testing performed by : [facility], [address], [place]., [address] Estimated Average Glucose 194 mg/dL [facility] Comment: The ADA recommends reporting an estimated Average Glucose (eAG) with all Hemoglobin A1c results using the equation derived from a study of 507 normal and diabetic adults. Minority populations were underrepresented and children were not included. (Diabetes Care 31:9535-5227, 2008). The eAG is not equivalent to a fasting glucose. Testing performed by: [facility], [facility], [place]., [address] Blood specimen (specimen) 11/06/2019 9:47 AM CDT 11/06/2019 11:42 AM CDT us Dilip Young MD LAB BLOOD ORDERABLES Final Result Performing Organization Address City/State/ZIP Co mt Phone Number [facility] [address] [facility]. Department of Laboratories [place], [place] [id number] from Last 3 Months or Most Recently Relevant to Health Maintenance Insurance [facility] HMO/PPO Address: [facility] [id number] [place] [address] [employer] OPEN ACCESS Advance Directives For more information, please contact: [phone] * Full Code (Latest Code Status on File) Date Activated Date Inactivated Comments 12/10/2019 10:05 AM 12/11/2019 4:25 PM Care Teams Mold Technician Relationship Specialty Start Date End Date Rebel López MD [address] [address] PCP - General Family Medicine 10/23/19
--- OUTSIDE RECORDS SUMMARY | 2024-06-29 08:14 | XMS_ITS | Clinical Summary ---
Author Organization [facility] Address [address] [place] [address] Care Team Providers Care Employee Relations Consultant Name Role Phone Rebel López MD Primary Care Provider [phone] [phone] Allergies No known active allergies Medications blood-glucose [...] every 7 days Active cholecalciferol (VITAMIN D-3) 45604 unit tabletIndication s:Vitamin D Deficiency Take 1 [...] (10/23/2019): Added automatically from request for surgery [id number] Left knee pain 10/23/2019 Hypertension 08/08/2012 Calculus of kidney 03/28/2012 Hiatal hernia 03/28/2012 Acid phosphatase serum increased 03/28/2012 Simple obesity 03/28/2012 Type 2 diabetes mellitus 03/28/2012 Loose body of knee 03/23/2011 Osteoarthritis of knee 03/04/2011 Immunizations Immunization Administration Dates Next Due Influenza, Quadrivalent, Spl it, Preservative Free, Intramuscular 12/11/2019 Surgical History Surgery Date Site/Laterality Comments APPENDECTOMY Appendectomy - (Added by TW Conv) [place] UNLISTED PROCEDURE FEMUR/KNEE Treatment Of The Knee [...] on file 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 Gender Identity Not on file Sexual Orientation Not on file Obstetrics History Last Filed Vital Signs Vital Sign Reading Time Taken Comments Blood Pressure 152/119 04/22/2020 2:01 PM CDT Pulse 98 04/22/2020 2:01 PM CDT Temperature 36.4 C (97.5 F) 12/11/2019 8:59 AM SERVICES CLERK Respiratory Rate 20 04/22/2020 2:01 PM CDT Oxygen Saturation 98% 04/22/2020 2:01 PM CDT Inhaled Oxygen Concentration - - Weight 117.9 kg (260 lb) 04/22/2020 2:01 PM CDT Height 177.8 cm (5' 10) 04/22/2020 2:01 PM CDT Body Mass Index 37.31 04/22/2020 2:01 PM CDT Plan of Treatment Health Maintenance Due Date Last Done Comments Albumin Creatinine Ratio, Urine 1975 Colon Cancer Screening-Colonoscopy 1975 Depression Screening 1975 Hepatitis C Screening 1975 Dilated Eye Exam 1975 Foot Exam 1975 Lipid Panel 1975 DTaP/Tdap/Td Vaccine (1 - Tdap) 1986 Hepatitis B Screening 1993 Regular Well Visit/Exam 18-64 1993 Pneumococcal vaccine <65 (1 of 2 - PCV) 1994 Hemoglobin A1C 05/05/2020 11/06/2019 eGFR 04/22/2021 04/22/2020, 1104/2019, 11/06/2019 Covid-19 Vaccine ( season) 2023 01/15/2021, 05/01/2020, 04/10/2020 Influenza Vaccine (Season Ended) 2024 01/16/20, 12/11/2019 Medical Devices Implanted Type Area Medical Detailist Device Identifier Shelf Expiration Date Model / Serial / Lot Laverne [employer] [id number] Persona Cruciate Retain Knee Left 7 Standard Component Femoral - Sna - [id number] Implanted:Qty: 1 on 12/10/2019 by Dilip Young MD at [facility] Other - see comments Left: Knee [employer] [id number] 08/06/2029 [id number] / NA / [id number] [employer] [id number] Persona 2 Peg Knee Left F Baseplate Tibial Trabecular Metal - Sna - [id number] Implanted:Qty: 1 on 12/10/2019 by Dilip Young MD at [facility] Other - see comments Left: Knee [employer] [id number] 09/10/2029 [id number] / NA / [id number] [employer] [id number] Persona 10mm Knee Left Insert Articular Vivacit-E Sterile Latex Free - Sna - [id number] Implanted:Qty: 1 on 12/10/2019 by Dilip Young MD at [facility] Other - see comments Left: Knee [employer] [id number] 01/07/2024 [id number] / NA / [id number] Procedures Procedure Name Priority Date/Time Associated Diagnosis [...] LAB BLOOD ORDERABLES Final Res ult [facility] [address] [facility]. [place] [address] * (ABNORMAL) Hemoglobin A1c (11/06/2019 9:47 AM CDT) Hgb A1C 8.4(H) 4.0 - 5.6 % [facility] Comment:Testing performed by : [facility], [facility], [place]., [address] Estimated Average Glucose 194 mg/dL [facility] Comment: The ADA recommends reporting an estimated Average Glucose (eAG) with all Hemoglobin A1c results using the equation derived from a study of 507 normal and diabetic adults. Minority populations were underrepresented and children were not included. (Diabetes Care 31:4888-6901, 2008). The eAG is not equivalent to a fasting glucose. Testing performed by: [facility], [facility], [place]., [address] Blood specimen (specimen) 11/06/2019 9:47 AM CDT 11/06/2019 11:42 AM CDT us Dilip Young MD LAB BLOOD ORDERABLES Final Result Performing Organization Address City/State/[facility] [place] k[place] Phone Number [facility] [address] [facility]. [place] [address] from Last 3 Months or Most Recently Relevant to Health Maintenance Insurance [facility] NAVIGATE Document [employer] OPEN ACCESS [facility] HMO/PPO Address: [address] [place] [address] Advance Directives For more information, please contact: [phone] * Full Code (Latest Code Status on File) Date Activated Date Inactivated Comments 12/10/2019 10:05 AM 12/11/2019 4:25 PM Care Teams Employee Relations Consultant Relationship Specialty Start Date End Date Rebel López MD [address] [address] PCP - General Family Medicine 10/23/19
--- NOTE | 2024-06-29 08:33 | ECG_ITS ---
Test Date: 2024-06-29 08:45:18 Measurements Intervals Sparks Rate: 73 P: 21 DC: 191 QRS: 61 QRSD: 119 T: -11 QT: 406 QTc: 449 Interpretive Statements SINUS RHYTHM MODERATE INTRAVENTRICULAR CONDUCTION DELAY [110+ ms QRS DURATION] No previous ECG available for comparison Electronically Signed On 06-29-2024 12:43:51 CDT by Jan Newman M.D.
[2024-06-29 09:25] LABS: Alanine Aminotransferase 69 U/L (6-50); Albumin Level 4.5 g/dL (3.5-5.1); Alkaline Phosphatase 69 U/L (38-126); Anion Gap 9 mmol/L (4-12); Aspartate Amino Transferase 50 U/L (17-59); Bilirubin,Total 1.5 mg/dL (0.2-1.3); Blood Urea Nitrogen 13 mg/dL (9-20); Carbon Dioxide 28 mmol/L (22-30); Chloride 102 mmol/L (98-107); Cholesterol 109 mg/dL (0-200); Estimated Glomerular Filt Rate > 60; Glucose 175 mg/dL (65-110); HDL Direct 29 mg/dL; Potassium 3.2 mmol/L (3.4-5.0); Sodium 139 mmol/L (137-145); Triglycerides 165 mg/dL (<150)
[2024-06-29 09:36] LABS: LDL Cholesterol Direct 38 mg/dL
[2024-06-29 09:43] LABS: Creatinine Urine 60.6 mg/dL
[2024-06-29 09:45] LABS: MALB Creatinine Ratio 19.1 mg/g (0-30); Microalbumin Urine Random 11.6 mg/L (0-16.7)
== END 2024-06-29 08:10 | disposition home or self-care (01) ==
PROVIDERS: PCP Nurse Practitioner Family; Referring Provider Anesthesiology; Visit Provider Internal Medicine Endocrinology, Diabetes & Metabolism
DX: E11.65 Type 2 diabetes mellitus with hyperglycemia (principal); Z79.4 Long term (current) use of insulin; E78.2 Mixed hyperlipidemia; R79.89 Other specified abnormal findings of blood chemistry; I10 Essential (primary) hypertension; Z01.818 Encounter for other preprocedural examination
CPT/HCPCS: 36415; 80053; 80061; 82043; 82306; 82607; 84443; 93005

== ENCOUNTER 2024-07-12 08:40 | Day surgery (SDC) | payer OTHER, SELFPAY ==
--- NOTE | 2024-07-12 07:10 | PM.HPGS ---
History of Present Illness History of Present Illness Chief complaint: Trigger Finger Right Thumb Narrative: Patient seen and examined in pre-operative holding area. No interval change in medical history or symptoms. Patient recalls previous discussion of benefits and alternatives to procedure. Continues to desire to proceed with right thumb a1 rocky release. Reviewed procedure, post-op expectations and risks including but not limited to bleeding, infection, injury to tendon/nerve/vessel, decreased hand function, stiffness, RSD, no change or worsening of symptoms. I discussed the possible use of assistants and their participation in the case. Patient stated understanding and signed the consent form wishing to proceed. Review of Systems Review of Systems: All systems reviewed & are unremarkable except as noted in HPI and below PMFSH Past Medical History Medical History Localized swelling, mass and lump, left upper limb BPH without obstruction/lower urinary tract symptoms Left shoulder pain Paresthesia of both hands (~05/2023) overuse BMI 38.0-38.9,adult Chronic thoracic back pain X-ray of the thoracic spine on 01/24/2023 was unremarkable. Muscle soreness Tendinitis of left rotator cuff DJD of AC (acromioclavicular) joint Colon cancer screening patient reports normal colonoscopy within the last several years. Recheck in 10 years. BMI 37.0-37.9, adult Chiggers (~10/25/22) COVID-19 (04/26/22) 2nd episode 04/26/2022 with positive test 04/27/2022 Obesity (BMI 30-39.9) Screening for diabetic retinopathy no retinopathy 04/05/2022. Otalgia of both ears Sensation of fullness in both ears Mild peripheral edema edema secondary to amlodipine 10 mg daily Hypersomnia (~2021) Chronic eustachian tube dysfunction TMJ (temporomandibular joint syndrome) (~2021) Morbid obesity with BMI of 40.0-44.9, adult Rotator cuff tendonitis Right shoulder pain Otitis media Type 2 diabetes mellitus with other skin ulcer Diabetic skin ulcer Non-healing wound Allergic conjunctivitis Seasonal allergic rhinitis Acute sinusitis, unspecified Hyperlipidemia LDL goal <100 Acute bronchitis (~02/02/21) Chest x-ray normal 02/23/2021 Vitamin B12 deficiency anemia (07/16/20) vitamin B12 level low at 343 with goal greater than 400 on 07/16/2020. Vitamin B12 low at 376 with goal greater than 400 with folic acid 12.9 and hemoglobin 14.5 on 06/25/2022. BMI 40.0-44.9, adult Gastritis (~12/08/20) Major depression (~06/2020) High thyroid stimulating hormone (TSH) level TSH normal at 3.47 on 06/25/2022. BMI 39.0-39.9,adult Deep vein thrombosis (DVT) of left lower extremity (04/22/20) COVID-19 (03/28/20) Exposure to COVID-19 virus Left knee pain Hypokalemia Potassium low at 3.1 on 06/25/2022. Biceps rupture, distal Acromioclavicular joint arthritis Chronic low back pain with right-sided sciatica X-ray of the lumbar spine on 01/24/2023 reveals severe lumbar spondylosis with facet arthropathy. Multilevel degenerative disc disease on x-ray 10/17/2023. 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 Surgical History Surgical History History of removal of cyst History of total left knee replacement (TKR) History of knee surgery History of appendectomy Family History Family History Grandparent Family history of arthritis Diabetes mellitus Mother Family history of congestive heart failure Family history of heart disease in male family member before age 55 Father Family history of heart disease in male family member before age 55 Other Family history of cardiovascular disease Family history of malignant neoplasm Social History Social History Smoking status: Never smoker Second hand tobacco smoke exposure: Yes Alcohol intake: never Substance use: never Substance use type: does not use Lack of Transportation: No Lack of Food: Sometimes True Current Housing: I Have Housing Concerned About Future Housing: No Difficulty Paying Gas/Electric Bills: No Difficulty Paying for Meds: No Currently Unemployed: No Education: High School Diploma/GED Difficulty w/ Childcare or Family Care: No Living arrangements: with family Spiritual care concerns: No Meds Home Medications and Allergies Home Medications ?Medication ?Instructions ?Recorded ?Confirmed ?Type blood-glucose,group insurance specialist,cont #1 ea 07/06/19 06/11/24 History (Dexcom G6 Computer Analyst) albuterol sulfate 90 mcg/actuation 2 inh inhalation Q4H PRN shortness 02/23/21 07/12/24 Rx aerosol inhaler (ProAir HFA) of breath or wheezing #8.5 grams blood-glucose meter (Contour Next #1 ea 04/09/21 06/11/24 Rx Meter) escitalopram oxalate 10 mg tablet 10 mg PO DAILY #30 tabs 11/08/23 07/12/24 Rx (Lexapro) tamsulosin 0.4 mg capsule 0.4 mg PO QHS #90 caps 12/27/23 07/12/24 Rx omeprazole 40 mg capsule,delayed 40 mg PO DAILY #90 caps 01/09/24 07/12/24 Rx release fluticasone propionate 50 1 spray intranasal BID PRN allergy 02/20/24 07/12/24 History mcg/actuation nasal symptoms spray,suspension (Flonase Allergy Relief) atorvastatin 40 mg tablet 40 mg PO QHS #90 tabs 03/13/24 07/12/24 Rx dapagliflozin propanediol 10 mg 10 mg PO QAM 90 days #90 tabs 03/13/24 07/12/24 Rx tablet (Farxiga) glucagon 3 mg/actuation nasal 3 mg intranasal ONCE PRN 03/13/24 07/12/24 Rx spray (Baqsimi) hypoglycemia #1 ea insulin lispro 100 unit/mL 100 unit continuous subcutaneous 03/13/24 07/12/24 Rx subcutaneous solution (Humalog infusion DAILY #90 mL U-100 Insulin) insulin pump cart,automated,BT #45 ea 03/13/24 03/13/24 Rx metformin 500 mg tablet,extended 1,000 mg (2 x 500 mg) PO BID #360 03/13/24 07/12/24 Rx release 24 hr tabs amlodipine 10 mg tablet 10 mg PO DAILY #90 tabs 04/09/24 07/12/24 Rx Dexcom G6 Sensor (blood-glucose #9 ea 06/11/24 06/11/24 Rx sensor) Dexcom G6 Transmitter #1 ea 06/11/24 06/11/24 Rx (blood-glucose transmitter) tirzepatide 15 mg/0.5 mL 15 mg (0.5 mL) subcut WEEKLY 3 06/11/24 07/12/24 Rx subcutaneous pen injector months #6.5 mL (Mounjaro) tadalafil 5 mg tablet 5 mg PO DAILY sexual activity #90 06/13/24 07/12/24 Rx tabs cholecalciferol (vitamin D3) 1,250 1,250 mcg PO WEEKLY #14 tabs 07/05/24 07/12/24 Rx mcg (50,000 unit) tablet potassium chloride 20 mEq 20 meq PO BID 3 months #180 tabs 07/05/24 07/12/24 Rx tablet,extended release (K-Tab) irbesartan 300 1 tablet PO DAILY #90 tabs 07/09/24 07/12/24 Rx mg-hydrochlorothiazide 12.5 mg tablet tramadol 50 mg tablet 50 mg PO Q6H PRN pain #12 tabs 07/12/24 Rx Allergies Allergy/AdvReac Type Severity Reaction Status Date / Time aspartame Allergy Severe THROAT Verified 07/12/24 08:57 SWELLING sucralose Allergy Intermediate sore Verified 07/12/24 08:57 throat, THROAT SWELLING Exam Narrative: unchanged Assessment and Plan Assessment and plan (1) Trigger thumb, right thumb: Code(s): M65.311 - Trigger thumb, right thumb Status: Acute Assessment and Plan: cont as above
--- NOTE | 2024-07-12 07:11 | W.PM.PROC2 ---
Procedure Note - Detailed Date of Procedure 07/12/24 Pre-op Diagnosis Trigger Finger Right Thumb Post-op Diagnosis Same Procedure Performed right thumb a1 rocky release Surgeon Sean Kwan MD Behavioral Assistant ayesha son pa-c Anesthesia MAC Description of Procedure INFORMED CONSENT: The patient was seen and examined and marked in the pre-op area.? The patient signed the consent form. PROCEDURE IN DETAIL:The patient taken back to OR on the stretcher in supine position. Time out performed with anesthesia, surgeon and staff agreeing on patient's name site and surgery to be performed SCDs were placed on the lower extremities and inflated. A tourniquet was placed on {right} upper extremity and antibiotics given IV After anesthesia administered sedation I injected {4}cc 1%lido and 0.5% marcaine plain at the operative site The?{right upper extremity}?was prepped and draped in sterile fashion the??{right upper extremity} was? exsanguinated with Esmarch bandage and tourniquet inflated to 250mmHg I proceeded with making an oblique incision over the right thumb A1 rocky proximal to the MP joint flexion crease through skin and dermis with a 15 blade scalpel. Littler scissors were used to spread through subcutaneous tissue down to the A1 rocky. The A1 rocky was identified and initially incised with a 15 blade scalpel. Littler scissors were used to spread above it and below it proximally and distally and completed the transection entirely. Ragnell retractor was used to withdraw the FPL tendon for inspection. The tendon was free of masses and synovitis and gliding smoothly in the sheath without crepitus or triggering. I irrigated with normal saline and closure with 4-0 chromic. A dressing of xeroform, 4x4, linsey, an dashawn bandage was applied after the tourniquet was let down noting the hand was warm and well perfused. The patient was then awaken from anesthesia and transferred to the recovery room in stable condition.? Complications - none EBL- 0cc Disposition - home in stable conditions ayesha son pa-c was essential for positioining, retraction, closure and dressing placement [facility] Billing Surgery - Charge Forward: Surgery Billing ([id number] for ayesha)
[2024-07-12 08:59] VITALS: BP 139/91; PULSE 84; RESP 18; TEMP 36.9; O2SAT 98
--- OUTSIDE RECORDS SUMMARY | 2024-07-12 09:01 | XMS_ITS | Referral Summary ---
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 Gender Identity Not on file Sexual Orientation Not on file Last Filed Vital Signs Vital Sign Reading Time Taken Comments Blood Pressure 152/119 04/22/2020 2:01 PM CDT Pulse 98 04/22/2020 2:01 PM CDT Temperature 36.4 C (97.5 F) 12/11/2019 8:59 AM INSURANCE LAW SPECIALIST Respiratory Rate 20 04/22/2020 2:01 PM CDT Oxygen Saturation 98% 04/22/2020 2:01 PM CDT Inhaled Oxygen Concentration - - Weight 117.9 kg (260 lb) 04/22/2020 2:01 PM CDT Height 177.8 cm (5' 10) 04/22/2020 2:01 PM CDT Body Mass Index 37.31 04/22/2020 2:01 PM CDT Plan of Treatment Not on file Medical Devices Implanted Type Area Yard Foreman Device Identifier Shelf Expiration Date Model / Serial / Lot Laverne [id number] Persona Cruciate Retain Knee Left 7 Standard Component Femoral - Sna - [id number] Implanted:Qty: 1 on 12/10/2019 by Dilip Young MD at [facility] Other - see comments Left: Knee [employer] [id number] 08/06/2029 [id number] / NA / [id number] Laverne [employer] [id number] Persona 2 Peg Knee Left F Baseplate Tibial Trabecular Metal - Sna - [id number] Implanted:Qty: 1 on 12/10/2019 by Dilip Young MD at [facility] Other - see comments Left: Knee [employer] [id number] 09/10/2029 [id number] / NA / [id number] [employer] [id number] Persona 10mm Knee Left Insert Articular Vivacit-E Sterile Latex Free - Sna - [id number] Implanted:Qty: 1 on 12/10/2019 by Dilip Young MD at [facility] Other - see comments Left: Knee [employer] [id number] 01/07/2024 [id number] / NA / [id number] Procedures Procedure Name Priority Date/Time Associated Diagnosis [...] LAB BLOOD ORDERABLES Final Res ult [facility] [address] [facility]. Department of [employer] [place] [address] * (ABNORMAL) Hemoglobin A1c (11/06/2019 9:47 AM CDT) Hgb A1C 8.4(H) 4.0 - 5.6 % [facility] Comment:Testing performed by : [facility], [facility], [place]., [address] Estimated Average Glucose 194 mg/dL [facility] Comment: The ADA recommends reporting an estimated Average Glucose (eAG) with all Hemoglobin A1c results using the equation derived from a study of 507 normal and diabetic adults. Minority populations were underrepresented and children were not included. (Diabetes Care 31:6863-3164, 2008). The eAG is not equivalent to a fasting glucose. Testing performed by: [facility], [facility], [place]., [address] Blood specimen (specimen) 11/06/2019 9:47 AM CDT 11/06/2019 11:42 AM CDT Dilip Young MD LAB BLOOD ORDERABLES Final Result Performing Organization Address City/State/[facility] Co de Phone Number [facility] [address] [facility]. Department of Laboratories [place], [place] [id number] from Last 3 Months or Most Recently Relevant to Health Maintenance Insurance [facility] CHOICE PLUS [facility] HMO/PPO Address: [facility] [address] [place] [address] [facility] Advance Directives For more information, please contact: [phone] * Full Code (Latest Code Status on File) Date Activated Date Inactivated Comments 12/10/2019 10:05 AM 12/11/2019 4:25 PM Care Teams Loader Operator Supervisor Relationship Specialty Start Date End Date Rebel López MD [address] [address] PCP - General Family Medicine 10/23/19
--- OUTSIDE RECORDS SUMMARY | 2024-07-12 09:01 | XMS_ITS | Data Portability ---
Author Organization [place] [facility], [facility] Office Address [address] [place] [address] Care Team Providers Care Trench Pipe Layer Helper Name Role Phone CARLITO HOLLAND Primary Care Provider [phone] [facility] - ENDOCRINOLOGY Endocrino logist Assessment No assessment [...] By Organization Details Last Modified Time 03/10/2023 [id number] It was nice to m eet you [...] or care. Not available 03/10/2023 13:28:32 05/04/2023 [id number] . [email or web address] Not available 04/08 17:06:21 05/12/2023 [id number] . Not available 05/2023 12:09:46 06/27/2023 [id number] . Care Team Note Psychodramatist Goal ( 2023): Get BG in TIR; [...] had lots of education since Dx; sees environmental educator at Endo/ sees Endo every 3 [...] 3 month Nurse Care Plan f/u appt [facility] for 09/26/23 at 4pm [email or web address] Not available 06/27/2023 17:54:33 Reason for Referral None Reported. Problems Name Problem SNOMED Code Status Onset Date Resolution Date Notes Provider Name and Address Organization Details Recorded Time Type 2 diabetes mellitus without complication 401389390 Active 2011 Regine mondragon [place] - [facility] 4 17:01:45 Essential hypertension 88053658 Active 2023 MD alanna Cho, [place] - [facility] 4 13:33:14 Anxiety 55035110 Active 2023 MD alanna Cho, [place] - [facility] 4 13:34:33 Benign prostatic hyperplasia without outflow obstruction 650409768 Active 2023 Joe Lemus MD null, [facility] Level 2 Medical Services 13:36:16 Gastroesophage al reflux disease 265757859 Active 2023 Joe Lemus MD [facility], [facility] Level 2 Medical Services 13:36:48 Problem Notes None recorded. Procedures Surgical History Date Name Laterality Status Provider Name and Address Organization Details Recorded Time 06/20/19 total knee replacement completed Regine Benson [facility] 2 Medical Services 06/27/2023 17:02:36 Appendectomy completed Regine Benson [facility] 2 Medical Services 06/27/2023 17:02:55 Imaging Results [...] Not Available Vitals Date Recorded Body height Body mass index (BMI) Body weight Provider Name and Address Organization Details Last Updated DateTime 03/10/2023 177.8 cm 35.2 kg/m2 421358.13 jordin Lemus MD [facility] Level 2 Medical Services 03/10/2023 13:30:23 Date Recorded Body height Provider Name an d Address Organization Details Last Updated DateTime 05/12/2023 177.8 cm Regine Benson [facility] Level 2 Fl dical Services 05/12/2023 12:08:33 Date Recorded Body height Body mass index (BMI) Body weight Provider Name and Address Organization Details Last Updated DateTime 06/27/2023 177.8 cm 33.7 kg/m2 412067.21 jordin Benson [facility] Level 2 Medical Services 06/27/2023 17:21:47 Social History Question Answer Notes LastModified by Organizat ion Details LastModified Time Tobacco Smoking Status Never Smoker Joe Lemus MD [facility], [facility] Level 2 Medical Services 03/10/2023 13:24:09 What Is Your Level Of Caffeine Consumption? 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 Gomes confirms he has DM2. He will be sent a L2 welcome kit. F/U PRN. [id number] Regine Benson [facility] Main Office [address] [place] [address] 05/04/2023 17:01:08 05/04/2023 17:07:08 [id number] Regine Benson [facility] Main Office [address] [place] [address] 05/12/2023 12:03:50 05/12/2023 12:10:00 [id number] Regine Benson [facility] Main Office [address] [place] [address] 06/27/2023 17:00:09 06/27/2023 17:55:51 Health Concerns Section Related Observation LastModified by Organization Detai ls LastModified Time None Recorded Concern Status LastModified by Organization Details LastModified Time None Recorded Advance Directives Directive None Recorded Payers Encounter Date Sequence Insurance Name Policy Number Policy [place] Covered Member ID [place] Member ID Guarantor Name 03/10/2023 1 [place] [id number] [facility] [id number] [facility] 05/04/2023 1 [facility] [id number] [facility] [id number] [facility] 05/12/2023 1 [facility] [id number] Rakesh [employer] [id number] [facility] 06/27/2023 1 [facility] [id number] [facility] [id number] [facility] Notes Date Note Type Note Provider Name and Address Organization Details Recorded Time 4 text/html Initial Provider Regulatory RequirementsReported mary.Provider Regulatory RequirementsI have verified that the patient is located in [facility] at time of this visit.; I have [...] physical concerns/complaints at this time. [place] [facility] Services 03/10/2023 13:39:51 4 text/html Nurse Regulatory RequirementsReported mary.Nurse Regulatory RequirementsI have verified that the patient is located in [facility] at time of this visit. Reginetanner mondragon [place] - [facility] Services 05/12/2023 12:09:53 4 text/html Nurse Regulatory RequirementsReported mary.Nurse Regulatory RequirementsI have verified that the patient is located in [facility] at time of this visit.CGM DataReported mary.Time [...]
--- OUTSIDE RECORDS SUMMARY | 2024-07-12 09:01 | XMS_ITS | Clinical Summary ---
Author Organization [facility] Address [address] [place] [address] Care Team Providers Care Charger Name Role Phone Rebel López MD Primary Care Provider [phone] Allergies No known active allergies Medications blood-glucose [...] every 7 days Active cholecalciferol (VITAMIN D-3) 87155 unit tabletIndication s:Vitamin D Deficiency Take 1 [...] (10/23/2019): Added automatically from request for surgery [id number] Left knee pain 10/23/2019 Hypertension 08/08/2012 Calculus of kidney 03/28/2012 Hiatal hernia 03/28/2012 Acid phosphatase serum increased 03/28/2012 Simple obesity 03/28/2012 Type 2 diabetes mellitus 03/28/2012 Loose body of knee 03/23/2011 Osteoarthritis of knee 03/04/2011 Immunizations Immunization Administration Dates Next Due Influenza, Quadrivalent, Spl it, Preservative Free, Intramuscular 12/11/2019 Surgical History Surgery Date Site/Laterality Comments APPENDECTOMY Appendectomy - (Added by TW Conv) [place] UNLISTED PROCEDURE FEMUR/KNEE Treatment Of The Knee [...] on file 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 Gender Identity Not on file Sexual Orientation Not on file Obstetrics History Last Filed Vital Signs Vital Sign Reading Time Taken Comments Blood Pressure 152/119 04/22/2020 2:01 PM CDT Pulse 98 04/22/2020 2:01 PM CDT Temperature 36.4 C (97.5 F) 12/11/2019 8:59 AM STOVE MOUNTER Respiratory Rate 20 04/22/2020 2:01 PM CDT [...] 05/01/2020, 04/10/2020 Influenza Vaccine (Season Ended) 2024 01/16/20 21, 12/11/2019 Medical Devices Implanted Type Area Plasterer Journeyman Device Identifier Shelf Expiration Date Model / Serial / Lot Laverne [employer] [id number] Persona Cruciate Retain Knee Left 7 Standard Component Femoral - Sna - [id number] Implanted:Qty: 1 on 12/10/2019 by Dilip Young MD at [facility] Other - see comments Left: Knee [employer] [id number] 08/06/2029 [id number] / NA / [id number] Laverne [employer] [id number] Persona 2 Peg Knee Left F Baseplate Tibial Trabecular Metal - Sna - [id number] Implanted:Qty: 1 on 12/10/2019 by Dilip Young MD at [facility] Other - see comments Left: Knee [employer] [id number] 09/10/2029 [id number] / NA / [id number] [employer] [id number] Persona 10mm Knee Left Insert Articular Vivacit-E Sterile Latex Free - Sna - [id number] Implanted:Qty: 1 on 12/10/2019 by Dilip Young MD at [facility] Other - see comments Left: Knee [employer] [id number] 01/07/2024 [id number] / NA / [id number] Procedures Procedure Name Priority Date/Time Associated Diagnosis [...] MD LAB BLOOD ORDERABLES Final Res ult [facility] [address] [facility]. Department [place] [address] * (ABNORMAL) Hemoglobin A1c (11/06/2019 9:47 AM CDT) Hgb A1C 8.4(H) 4.0 - 5.6 % [facility] Comment:Testing performed by : [facility], [facility] [facility], [place]., [address] Estimated Average Glucose 194 mg/dL [facility] Comment: The ADA recommends reporting an estimated Average Glucose (eAG) with all Hemoglobin A1c results using the equation derived from a study of 507 normal and diabetic adults. Minority populations were underrepresented and children were not included. (Diabetes Care 31:5456-3052, 2008). The eAG is not equivalent to a fasting glucose. Testing performed by: [facility], [address] [facility], [place]., [address] Blood specimen (specimen) 11/06/2019 9:47 AM CDT 11/06/2019 11:42 AM CDT us Dilip Young MD LAB BLOOD ORDERABLES Final Result Performing Organization Address City/State/[facility] Co nc Phone Number [facility] [address] [facility]. Department [place] [address] from Last 3 Months or Most Recently Relevant to Health Maintenance Insurance [facility] ACCESS Advance Directives For more information, please contact: [phone] * Full Code (Latest Code Status on File) Date Activated Date Inactivated Comments 12/10/2019 10:05 AM 12/11/2019 4:25 PM Care Teams Charger Relationship Specialty Start Date End Date Rebel López MD [address] [address] PCP - General Family Medicine 10/23/19
[2024-07-12] MEDS: LACTATED RINGERS 1,000 ML 30 ML IV CONT (09:12)
[2024-07-12 09:24] LABS: Glucose Point of Care 163 mg/dl (65-105)
--- NOTE | 2024-07-12 10:41 | P.PNAN_ITS ---
Anes - Initial Pre Proc Eval Procedure: Operation Date: 07/12/24 10:45 Proposed Procedures p A-1 Sam Release Right Thumb - Sean Kwan MD Date/Time: 07/12/24 10:41 Surgeon: Sean Kwan MD Pre Op Diagnosis: Trigger Finger Right Thumb Patient Data Age: 49 Gender: M Height: 1.78 m Weight: 114.95 kg Last Vital Signs Temp 36.9 C 07/12/24 08:59 Pulse 84 07/12/24 08:59 Resp 18 07/12/24 08:59 BP 139/91 H 07/12/24 08:59 Pulse Ox 98 07/12/24 08:59 O2 Del Method Room Air 07/12/24 08:59 Allergies Allergy/AdvReac Type Severity Reaction Status Date / Time aspartame Allergy Severe THROAT Verified 07/12/24 08:57 SWELLING sucralose Allergy Intermediate sore Verified 07/12/24 08:57 throat, THROAT SWELLING Home Medications ?Medication ?Instructions ?Recorded ?Confirmed ?Type blood-glucose,occupational health and safety officer,cont #1 ea 07/06/19 06/11/24 History (Dexcom G6 Subscription Agent) albuterol sulfate 90 mcg/actuation 2 inh inhalation Q4H PRN shortness 02/23/21 07/12/24 Rx aerosol inhaler (ProAir HFA) of breath or wheezing #8.5 grams blood-glucose meter (Contour Next #1 ea 04/09/21 06/11/24 Rx Meter) escitalopram oxalate 10 mg tablet 10 mg PO DAILY #30 tabs 11/08/23 07/12/24 Rx (Lexapro) tamsulosin 0.4 mg capsule 0.4 mg PO QHS #90 caps 12/27/23 07/12/24 Rx omeprazole 40 mg capsule,delayed 40 mg PO DAILY #90 caps 01/09/24 07/12/24 Rx release fluticasone propionate 50 1 spray intranasal BID PRN allergy 02/20/24 07/12/24 History mcg/actuation nasal symptoms spray,suspension (Flonase Allergy Relief) atorvastatin 40 mg tablet 40 mg PO QHS #90 tabs 03/13/24 07/12/24 Rx dapagliflozin propanediol 10 mg 10 mg PO QAM 90 days #90 tabs 03/13/24 07/12/24 Rx tablet (Farxiga) glucagon 3 mg/actuation nasal 3 mg intranasal ONCE PRN 03/13/24 07/12/24 Rx spray (Baqsimi) hypoglycemia #1 ea insulin lispro 100 unit/mL 100 unit continuous subcutaneous 03/13/24 07/12/24 Rx subcutaneous solution (Humalog infusion DAILY #90 mL U-100 Insulin) insulin pump cart,automated,BT #45 ea 03/13/24 03/13/24 Rx metformin 500 mg tablet,extended 1,000 mg (2 x 500 mg) PO BID #360 03/13/24 07/12/24 Rx release 24 hr tabs amlodipine 10 mg tablet 10 mg PO DAILY #90 tabs 04/09/24 07/12/24 Rx Dexcom G6 Sensor (blood-glucose #9 ea 06/11/24 06/11/24 Rx sensor) Dexcom G6 Transmitter #1 ea 06/11/24 06/11/24 Rx (blood-glucose transmitter) tirzepatide 15 mg/0.5 mL 15 mg (0.5 mL) subcut WEEKLY 3 06/11/24 07/12/24 Rx subcutaneous pen injector months #6.5 mL (Mounjaro) tadalafil 5 mg tablet 5 mg PO DAILY sexual activity #90 06/13/24 07/12/24 Rx tabs cholecalciferol (vitamin D3) 1,250 1,250 mcg PO WEEKLY #14 tabs 07/05/24 07/12/24 Rx mcg (50,000 unit) tablet potassium chloride 20 mEq 20 meq PO BID 3 months #180 tabs 07/05/24 07/12/24 Rx tablet,extended release (K-Tab) irbesartan 300 1 tablet PO DAILY #90 tabs 07/09/24 07/12/24 Rx mg-hydrochlorothiazide 12.5 mg tablet tramadol 50 mg tablet 50 mg PO Q6H PRN pain #12 tabs 07/12/24 Rx Laboratory Tests 07/12/24 09:09 POC Capillary Glucose 163 H mg/dl (65-105) Patient hx anesthesia problems: none Family hx anesthesia problems: none Results Review: All pre-operative results and documents have been reviewed as part of the pre- operative evaluation. [facility] Past Medical History Medical History Localized swelling, mass and lump, left upper limb BPH without obstruction/lower urinary tract symptoms Left shoulder pain Paresthesia of both hands (~05/2023) overuse BMI 38.0-38.9,adult Chronic thoracic back pain X-ray of the thoracic spine on 01/24/2023 was unremarkable. Muscle soreness Tendinitis of left rotator cuff DJD of AC (acromioclavicular) joint Colon cancer screening patient reports normal colonoscopy within the last several years. Recheck in 10 years. BMI 37.0-37.9, adult Chiggers (~10/25/22) COVID-19 (04/26/22) 2nd episode 04/26/2022 with positive test 04/27/2022 Obesity (BMI 30-39.9) Screening for diabetic retinopathy no retinopathy 04/05/2022. Otalgia of both ears Sensation of fullness in both ears Mild peripheral edema edema secondary to amlodipine 10 mg daily Hypersomnia (~2021) Chronic eustachian tube dysfunction TMJ (temporomandibular joint syndrome) (~2021) Morbid obesity with BMI of 40.0-44.9, adult Rotator cuff tendonitis Right shoulder pain Otitis media Type 2 diabetes mellitus with other skin ulcer Diabetic skin ulcer Non-healing wound Allergic conjunctivitis Seasonal allergic rhinitis Acute sinusitis, unspecified Hyperlipidemia LDL goal <100 Acute bronchitis (~02/02/21) Chest x-ray normal 02/23/2021 Vitamin B12 deficiency anemia (07/16/20) vitamin B12 level low at 343 with goal greater than 400 on 07/16/2020. Vitamin B12 low at 376 with goal greater than 400 with folic acid 12.9 and hemoglobin 14.5 on 06/25/2022. BMI 40.0-44.9, adult Gastritis (~12/08/20) Major depression (~06/2020) High thyroid stimulating hormone (TSH) level TSH normal at 3.47 on 06/25/2022. BMI 39.0-39.9,adult Deep vein thrombosis (DVT) of left lower extremity (04/22/20) COVID-19 (03/28/20) Exposure to COVID-19 virus Left knee pain Hypokalemia Potassium low at 3.1 on 06/25/2022. Biceps rupture, distal Acromioclavicular joint arthritis Chronic low back pain with right-sided sciatica X-ray of the lumbar spine on 01/24/2023 reveals severe lumbar spondylosis with facet arthropathy. Multilevel degenerative disc disease on x-ray 10/17/2023. Acute non-recurrent maxillary sinusitis manager long term care (current) use of insulin Type 2 diabetes mellitus with hyperglycemia, with long-term current use of insulin Fasting glucose 138 on 06/25/2022 with hemoglobin A1c 5.6 on 06/17/2022. Surgical History Surgical History History of removal of cyst History of total left knee replacement (TKR) History of knee surgery History of appendectomy Family History Family History Grandparent Family history of arthritis Diabetes mellitus Mother Family history of congestive heart failure Family history of heart disease in male family member before age 55 Father Family history of heart disease in male family member before age 55 Other Family history of cardiovascular disease Family history of malignant neoplasm Social History Social History Smoking status: Never smoker Second hand tobacco smoke exposure: Yes Alcohol intake: never Substance use: never Substance use type: does not use Lack of Transportation: No Lack of Food: Sometimes True Current Housing: I Have Housing Concerned About Future Housing: No Difficulty Paying Gas/Electric Bills: No Difficulty Paying for Meds: No Currently Unemployed: No Education: High School Diploma/GED Difficulty w/ Childcare or Family Care: No Living arrangements: with family Spiritual care concerns: No Anes - Eval Final PreProcedure Day of Procedure 07/12/24 10:41 Patient weight: obese Heart: regular rate and rhythm Lungs: clear to auscultation Airway: Mallampati scale class II Neurological: alert and oriented Last oral intake: >/= 8 hours ASA classification: III Emergent: no Anesthetic plan: proceed Anesthesia type and monitoring: general GIVS and standard monitoring Results Review: All pre-operative results and documents have been reviewed as part of the pre- operative evaluation. Informed Consent: The patient's anesthetic plan and its attendant risks and benefits were discussed with the patient/family/POA. Questions were solicited and answers provided to the satisfaction of the patient/family/POA.
[2024-07-12] MEDS: BUPivacaine HCL 0.5% PF 30 ML VIAL 4 ML INFILTRATE (11:17)
[2024-07-12] MEDS: ceFAZolin SODIUM 2 GM/20 ML SW SYRINGE IV PUSH (11:17)
[2024-07-12 11:37] VITALS: BP 126/86; PULSE 82; RESP 14; O2SAT 96
--- NOTE | 2024-07-12 11:44 | WPDANESPN ---
Anes - Prog Note Post-Op Date/Time: 07/12/24 11:44 Cardiovascular status: normal Respiratory status: normal Airway patency: baseline Mental status: baseline Post-Op hydration status: normal Vital Signs: Last Vital Signs Temp 36.9 C 07/12/24 08:59 Pulse 84 07/12/24 08:59 Resp 18 07/12/24 08:59 BP 139/91 H 07/12/24 08:59 Pulse Ox 98 07/12/24 08:59 O2 Del Method Room Air 07/12/24 08:59 Pain Score (VAS): 0/10 07/12/24 09:09 POC Capillary Glucose 163 H Patient Feedback: Patient satisfied with anesthetic care.
[2024-07-12 11:47] VITALS: BP 127/80; PULSE 78; RESP 16; O2SAT 95
[2024-07-12 11:57] VITALS: BP 128/86; PULSE 75; RESP 14; O2SAT 98
[2024-07-12 12:07] VITALS: BP 128/95; PULSE 78; RESP 15; O2SAT 100
== END 2024-07-12 12:13 | disposition home or self-care (01) ==
PROVIDERS: PCP Nurse Practitioner Family; Visit Provider Plastic Surgery
PROC: (CPT 26055; principal; 2024-07-12 10:45)
DX: M65.311 Trigger thumb, right thumb (principal)
CPT/HCPCS: 26055

== ENCOUNTER 2024-08-07 02:47 | Day surgery (SDC) | payer OTHER, SELFPAY ==
[2024-08-01 15:24] VITALS: BMI 36.6
--- NOTE | 2024-08-01 15:30 | PC.NURSE ---
Addendum entered by Rajeev Leonard RN 08/02/24 14:59: Correction, patient told nothing to eat or drink after midnight. Original Note: Report to the Outpatient Waiting Room, entrance under the green pavilion located off [facility], at time _0730_ on date _[id number]_. Planned Procedure Time: _0930_.? Time changes happen often and if your time is changed the preop area will call you the afternoon before. - You and your visitor will be asked to self-screen and do not enter if you have any COVID symptoms. Please call surgeon if you need to reschedule. - A mask is optional within the hospital at this time. Patients may have clear liquids (water, carbonated beverages, clear teas, apple juice) until 3 hours prior to surgery with a maximum of 20 ounces. - No food from midnight until time of surgery and no smoking, or chewing tobacco (or any form of nicotine). No chewing gum, candy or mints. Take only the following medications with a SIP of water on the morning of surgery: __Escitalopram, Amlodipine and Flonase.____Continue insulin pump and glucose monitor. DO NOT STOP ANY OF YOUR OTHER PRESCRIPTION MEDICATIONS PRIOR TO SURGERY EXCEPT THE FOLLOWING Hold all vitamins and supplements for 3 days per anesthesiologist. Medications to discontinue per physician Date to take last dose____ Please no make-up, nail mozambican, hairspray, perfume, deodorant, or body powder the day of surgery.? No jewelry (including any body piercings) or valuables the day of surgery, leave them at home.? Please take a shower or bath the night before, or the morning of, surgery with an antibacterial soap.? Wear comfortable, loose fitting clothing.? - Jewelry must be removed prior to entering the operating room.? Rings and piercings that are not removed may be cut off. - The hospital will not accept responsibility for valuables.? - Please leave all valuables, including medications, at home the day of surgery. If you are going home after surgery, a licensed road driver must drive you home.? - NO public transportation without another adult if you receive anesthesia. - We recommend that an adult stay with you for 24 hours following discharge. - We also recommend that you do not drive, make important decision, drink alcoholic beverages, or take any drugs that were not prescribed by your health care provider for at least 24 hours after your discharge time. Follow any additional instructions given to you from your surgeon. Telephone instructions given to __Billy__and asked if any additional questions and then verbalized understanding. Patient advised to call surgeon office or pre surgery nurse liaison [phone] if any additional questions.
--- NOTE | ~2024-08-07 | XR_ITS ---
EXAMINATION: XR fluoroscopy no charge DATE: 08/07/2024 10:28 INDICATION: Lumbar ablation TECHNIQUE: Pulse images of the lumbar spine were obtained during procedure performed by Dr. De La Fuente. Rad iologist was not present for the imaging or procedure. The amount of fluoroscopy time used during thi s procedure was 0.9 minutes. Total DAP was 7.634 Gycm^2. COMPARISON: None. FINDINGS: Images demonstrate needles advanced with distal tips positioned along the cephalad margin of the junc tion of the transverse and superior articular processes of L4, L5 and S1. See procedure note for furt her detail. Reviewed, dictated and finalized at location B.
--- OUTSIDE RECORDS SUMMARY | 2024-08-07 02:50 | XMS_ITS | Clinical Summary ---
Author Organization [facility] Address [address] [place] [address] Care Team Providers Care Manager Software Development Name Role Phone Rebel López MD Primary Care Provider [phone] Allergies No known active allergies Medications blood-glucose [...] every 7 days Active cholecalciferol (VITAMIN D-3) 92298 unit tabletIndication s:Vitamin D Deficiency Take 1 [...] needed for pain 12 tablet 1 Active Farxiga 10 mg tablet Take 1 tablet (10 mg total) by mouth every morning Active escitalopram (LEXAPRO) 10 mg tablet Take 1 tablet (10 mg total) by mouth daily Active icosapent ethyL (VASCEPA) 1 gram capsule Take 2 capsules (2 g total) by mouth 2 (two) times a day Active irbesartan-hydro CHLOROthiazide (AVALIDE) 300-12.5 mg per tablet Take 1 tablet by mouth daily Active tamsulosin (FLOMAX) 0.4 mg extended release capsule TAKE 1 CAPSULE BY MOUTH EVERY DAY AT BEDTIME 5 Active Active Problems Problem Noted Date Diagnosed Date Anxiety 03/09/2023 Benign prostatic hyperplasia without urinary obs truction 03/09/2023 HLD (hyperlipidemia) 12/06/2019 Primary osteoarthritis of left knee 10/23/2019 Overview (10/23/2019): Added automatically from request for surgery [id number] Left knee pain 10/23/2019 Hypertension 08/08/2012 Calculus of kidney 03/28/2012 Hiatal hernia 03/28/2012 Acid phosphatase serum increased 03/28/2012 Simple obesity 03/28/2012 Type 2 diabetes mellitus 03/28/2012 Loose body of knee 03/23/2011 Osteoarthritis of knee 03/04/2011 Encounters Date Type Department Care Team Description 07/27/2024 9:00 AM CDT Office Visit [facility] Orthopaedic Surgery [address] [place] [address] 2[address] [place] [address] Kathia Garza PA Chronic pain of left knee (Primary Dx); History of total knee arthroplasty, left; Iliotibial band tendonitis, left 07/27/2024 8:30 AM CDT Ancillary Procedure Radiology - [address] [place] [address] [address] [place] [id number] Chronic pain of left knee from Last 3 Months Immunizations Immunization Administration Dates Next Due Influenza, Quadrivalent, Spl it, Preservative Free, Intramuscular 12/11/2019 Surgical History Surgery Date Site/Laterality Comments APPENDECTOMY Appendectomy - (Added by TW Conv) RI UNLISTED PROCEDURE FEMUR/KNEE Treatment Of The Knee [...] file Legal Sex Male 12:35 AM [employer] Gender Identity Not on file Sexual Orientation Not on file Obstetrics History Last Filed Vital Signs Vital Sign Reading Time Taken Comments Blood Pressure 152/119 04/22/2020 2:01 PM CDT Pulse 98 04/22/2020 2:01 PM CDT Temperature 36.4 C (97.5 F) 12/11/2019 8:59 AM EXECUTIVE COMMUNITY PLANNING Respiratory Rate 20 04/22/2020 2:01 PM CDT Oxygen Saturation 98% 04/22/2020 2:01 PM CDT Inhaled Oxygen Concentration - - Weight 118 kg (260 lb 3.2 oz) 07/27/2024 9:00 AM CDT Height 177.8 cm (5' 10) 07/27/2024 9:00 AM CDT Body Mass Index 37.33 07/27/2024 9:00 AM CDT Plan of Treatment Health Maintenance Due [...] Hemoglobin A1C 05/05/2020 11/06/2019 eGFR 04/22/2021 04/22/2020, 11/0 04/2019, 11/06/2019 Covid-19 Vaccine ( season) 2023 01/15/2021, 05/01/2020, 04/10/2020 Influenza Vaccine (Season Ended) 2024 01/16/20 21, 12/11/2019 Medical Devices Implanted Type Area Human Resource Officer Device Identifier Shelf Expiration Date Model / Serial / Lot Laverne [employer] [id number] Persona Cruciate Retain Knee Left 7 Standard Component Femoral - Sna - [id number] Implanted:Qty: 1 on 12/10/2019 by Dilip Young MD at [facility] Other - see comments Left: Knee Laverne [employer] [id number] 08/06/2029 [id number] / NA / [id number] Laverne [employer] [id number] Persona 2 Peg Knee Left F Baseplate Tibial Trabecular Metal - Sna - [id number] Implanted:Qty: 1 on 12/10/2019 by Dilip Young MD at [facility] Other - see comments Left: Knee Laverne [employer] [id number] 09/10/2029 [id number] / NA / [id number] Laverne [employer] [id number] Persona 10mm Knee Left Insert Articular Vivacit-E Sterile Latex Free - Sna - [id number] Implanted:Qty: 1 on 12/10/2019 by Dilip Young MD at [facility] Other - see comments Left: Knee Laverne [employer] [id number] 01/07/2024 [id number] / NA / [id number] Procedures Procedure Name Priority Date/Time Associated Diagnosis Comments XR KNEE LEFT 3 VIEWS Schedule Routine, Read Routine (OP Routine) 07/27/2024 8:56 AM CDT Chronic pain of left knee EGFR STAT 04/22/2020 2:47 PM CDT HEMOGLOBIN A1C Routine 11/06/2019 9:47 AM CDT Primary osteoarthritis of left knee from Last 3 Months or Most Recently Relevant to Health Maintenance Results * XR Knee Left 3 Views (07/27/2024 8:56 AM CDT) Anatomical Region Laterality Modality Lower Extremities, Knee Left Computed Radiography 07/27/2024 9:52 AM CDT Impressions 07/27/2024 10:08 AM CDT Unchanged 2 component left knee arthroplasty in near-anatomic alignment. Dictated by: Alex Diaz M.D. The radiology attending physician has personally reviewed this study, and had reviewed and/or edited this written report and agrees with it. Electronically signed by: Paul Browning M.D. Narrative 07/27/2024 10:08 AM CDT EXAMINATION: XR KNEE LEFT 3 VIEWS HISTORY: Left knee pain FINDINGS: 3 radiographs of the left knee are submitted and compared to prior radiographs dated 04/22/2020. Unchanged 2 component left knee arthroplasty in near-anatomic alignment. No periprosthetic fracture, osteolysis or component migration. Small knee effusion. Intra-articular loose body within the knee joint. Bipartite patella in the right knee. Procedure Note Tc Browning, Paul Wilson MD - 07/27/2024 EXAMINATION: XR KNEE LEFT 3 VIEWS HISTORY: Left knee pain FINDINGS: 3 radiographs of the left knee are submitted and compared to prior radiographs dated 04/22/2020. Unchanged 2 component left knee arthroplasty in near-anatomic alignment. No periprosthetic fracture, osteolysis or component migration. Small knee effusion. Intra-articular loose body within the knee joint. Bipartite patella in the right knee. IMPRESSION: Unchanged 2 component left knee arthroplasty in near-anatomic alignment. Dictated by: Alex Diaz M.D. The radiology attending physician has personally reviewed this study, and had reviewed and/or edited this written report and agrees with it. Electronically signed by: Paul Browning M.D. Kathia REGAN IMG XR PROCEDURES Fi nal Result * eGFR (04/22/2020 2:47 PM CDT) eGFR >90 mL/min/1.7 3 m2 [facility] Comment: Interpretive Data Reference Interval Normal >/= [...] LAB BLOOD ORDERABLES Final Res ult [facility] [id number] [place] [address] * (ABNORMAL) Hemoglobin A1c (11/06/2019 9:47 AM CDT) Hgb A1C 8.4(H) 4.0 - 5.6 % [facility] Comment:Testing performed by : [facility], [address] [place] [address]., [id number] Estimated Average Glucose 194 mg/dL [facility] Comment: The ADA recommends reporting an estimated Average Glucose (eAG) with all Hemoglobin A1c results using the equation derived from a study of 507 normal and diabetic adults. Minority populations were underrepresented and children were not included. (Diabetes Care 31:3606-6952, 2008). The eAG is not equivalent to a fasting glucose. Testing performed by: [facility], [address] [place] [address]., [id number] Blood specimen (specimen) 11/06/2019 9:47 AM CDT 11/06/2019 11:42 AM CDT us Dilip Young MD LAB BLOOD ORDERABLES Final Result Performing Organization Address [facility] Co de Phone Number [facility] [address] [place] [address] from Last 3 Months or Most Recently Relevant to Health Maintenance Insurance [facility] [id number] [place] [address] [facility] H[facility]/PPO Address: [facility] [id number] [place] [address] [employer] Advance Directives For more information, please contact: [phone] * Full Code (Latest Code Status on File) Date Activated Date Inactivated Comments 12/10/2019 10:05 AM 12/11/2019 4:25 PM Care Teams Manager Software Development Relationship Specialty Start Date End Date Rebel López MD [address] [address] PCP - General Family Medicine 10/23/19
--- OUTSIDE RECORDS SUMMARY | 2024-08-07 02:50 | XMS_ITS | Referral Summary ---
Author Organization [facility] Address [address] [place] [address] Care Team Providers Care Solo Truck Driver Name Role Phone Rebel López MD Primary Care Provider [phone] Encounters Date Type Department Care Team Description 07/27/2024 8:30 AM CDT Ancillary Procedure Radiology - [address] [place] [address] [address] [place] [address] Chronic pain of left knee 07/27/2024 9:00 AM CDT Office Visit [facility] Orthopaedic Surgery [address] [place] [address] [address] [place] [address] Kathia GarzaGroesbeck, [place] Chronic pain of left knee (Primary Dx); History of total knee arthroplasty, left; Iliotibial band tendonitis, left from Last 3 Months Allergies No known active allergies Medications blood-glucose [...] every 7 days Active cholecalciferol (VITAMIN D-3) 50771 unit tabletIndication s:Vitamin D Deficiency Take 1 [...] (10/23/2019): Added automatically from request for surgery [id number] Left knee pain 10/23/2019 Hypertension 08/08/2012 Calculus [...] on file Legal Sex Male 12:35 AM HANGERSMITH Gender Identity Not on file Sexual Orientation Not on file Last Filed Vital Signs Vital Sign Reading Time Taken Comments Blood Pressure 152/119 04/22/2020 2:01 PM CDT Pulse 98 04/22/2020 2:01 PM CDT Temperature 36.4 C (97.5 F) 12/11/2019 8:59 AM HANGERSMITH Respiratory Rate 20 04/22/2020 2:01 PM CDT Oxygen Saturation 98% 04/22/2020 2:01 PM CDT Inhaled Oxygen Concentration - - Weight 118 kg (260 lb 3.2 oz) 07/27/2024 9:00 AM CDT Height 177.8 cm (5' 10) 07/27/2024 9:00 AM CDT Body Mass Index 37.33 07/27/2024 9:00 AM CDT Plan of Treatment Not on file Medical Devices Implanted Type Area Art Museum Docent Device Identifier Shelf Expiration Date Model / Serial / Lot [employer] [id number] Persona Cruciate Retain Knee Left 7 Standard Component Femoral - Sna - [id number] Implanted:Qty: 1 on 12/10/2019 by Dilip Young MD at [facility] Other - see comments Left: Knee [employer] [id number] 08/06/2029 [id number] / NA / [id number] [employer] [id number] Persona 2 Peg Knee Left F Baseplate Tibial Trabecular Metal - Sna - [id number] Implanted:Qty: 1 on 12/10/2019 by Dilip Young MD at [facility] Other - see comments Left: Knee [employer] [id number] 09/10/2029 [id number] / NA / [id number] [employer] [id number] Persona 10mm Knee Left Insert Articular Vivacit-E Sterile Latex Free - Sna - [id number] Implanted:Qty: 1 on 12/10/2019 by Dilip Young MD at [facility] Other - see comments Left: Knee [employer] [id number] 01/07/2024 [id number] / NA / [id number] Procedures Procedure Name Priority Date/Time Associated Diagnosis [...] patella in the right knee. Procedure Note Paul Garcia MD - 07/27/2024 EXAMINATION: XR KNEE LEFT [...] ORDERABLES Final Res ult Performing Organization Address [facility] Co de Phone Number [facility] [address] [place] [address] * (ABNORMAL) Hemoglobin A1c (11/06/2019 9:47 AM CDT) [facility] Hgb A1C 8.4(H) 4.0 - 5.6 % CHINA BRYSON Comment:Testing performed by : [facility], [address] [place] [address]., [address] Estimated Average Glucose 194 mg/dL CHINA BRYSON Comment: The ADA recommends reporting an estimated Average Glucose (eAG) with all Hemoglobin A1c results using the equation derived from a study of 507 normal and diabetic adults. Minority populations were underrepresented and children were not included. (Diabetes Care 31:6680-7285, 2008). The eAG is not equivalent to a fasting glucose. Testing performed by: [facility], [address] [place] [address]., [id number] Blood specimen (specimen) 11/06/2019 9:47 AM CDT 11/06/2019 11:42 AM CDT us Dilip Young MD LAB BLOOD ORDERABLES Final Result Performing Organization Address City/[facility]/ZIP Co de Phone Number [facility] [address] [place] [address] from Last 3 Months or Most Recently Relevant to Health Maintenance Insurance [facility] CHOICE [facility] HMO/PPO Address: [facility] [address] [place] [address] FOR[facility]LY [facility] OPEN ACCESS [facility] HMO/PPO Address: [facility] [address] [place] [address] [facility] CHOICE PLUS [facility] HMO/PPO Address: [place] [address] Advance Directives For more information, please contact: [phone] * Full Code (Latest Code Status on File) Date Activated Date Inactivated Comments 12/10/2019 10:05 AM 12/11/2019 4:25 PM Care Teams Solo Truck Driver Relationship Specialty Start Date End Date Rebel López MD [address] [address] PCP - General Family Medicine 10/23/19
--- OUTSIDE RECORDS SUMMARY | 2024-08-07 02:50 | XMS_ITS | Data Portability ---
Author Organization [place] [facility], [address] Office Address [address] [place] [address] Care Team Providers Care Shirt Cleaner Name Role Phone CARLITO HOLLAND Primary Care Provider [facility] Endocrino logist Assessment [...] By Organization Details Last Modified Time 03/10/2023 [id number] It was nice to m eet you [...] or care. Not available 03/10/2023 13:28:32 05/04/2023 [id number] . [email or web address] Not available 04/08 17:06:21 05/12/2023 [id number] . [email or web address] Not available 05/2023 12:09:46 06/27/2023 [id number] . Care Team Note Fpc Goal ( 2023): Get BG in TIR; [...] had lots of education since Dx; sees agricultural extension educator at Endo/ sees Endo every 3 [...] 3 month Nurse Care Plan f/u appt milly for 09/26/23 at 4pm [email or web address] Not available 06/27/2023 17:54:33 Reason for Referral None Reported. Problems Name Problem SNOMED Code Status Onset Date Resolution Date Notes Provider Name and Address Organization Details Recorded Time Type 2 diabetes mellitus without complication 429816407 Active 2011 Regine mondragon [place] [facility] 4 17:01:45 Essential hypertension 09828980 Active 2023 MD alanna Cho, [place] - [facility] 4 13:33:14 Anxiety 45215198 Active 2023 MD alanna Cho, [place] - [facility] 4 13:34:33 Benign prostatic hyperplasia without outflow obstruction 179637527 Active 2023 Joe Lemus MD [facility], [facility] Level 2 Medical Services 4 13:36:16 Gastroesophage al reflux disease 431508221 Active 2023 Joe Lemus MD [facility], [facility] Level 2 Medical Services 13:36:48 Problem Notes None recorded. Procedures Surgical History Date Name Laterality Status Provider Name and Address Organization Details Recorded Time 06/20/19 total knee replacement completed Regine Benson [facility] 2 Medical Services 06/27/2023 17:02:36 Appendectomy completed Regine Benson [facility] Services 06/27/2023 17:02:55 Imaging Results [...] Updated DateTime 03/10/2023 177.8 cm 35.2 kg/m2 210231.13 jordin Lemus MD [facility] Level 2 Medical Services 03/10/2023 13:30:23 Date Recorded Body height Provider Name an d Address Organization Details Last Updated DateTime 05/12/2023 177.8 cm Regine Benson [place] [facility] 05/12/2023 12:08:33 Date Recorded Body height Body mass index (BMI) Body weight Provider Name and Address Organization Details Last Updated DateTime 06/27/2023 177.8 cm 33.7 kg/m2 855442.21 jordin Benson [facility] Level 2 Medical Services 06/27/2023 17:21:47 Social History Question Answer Notes LastModified by Organizat ion Details LastModified Time Tobacco Smoking Status Never Smoker Joe Lemus MD [facility], [facility] Level 2 Medical Services 03/10/2023 13:24:09 What Is Your Level Of Caffeine Consumption? 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 Gomes confirms he has DM2. He will be sent a L2 welcome kit. F/U PRN. [id number] Regine Benson [facility] Main Office [address] [place] [address] 05/04/2023 17:01:08 05/04/2023 17:07:08 [id number] Regine Benson [facility] Main Office [address] [place] [address] 05/12/2023 12:03:50 05/12/2023 12:10:00 [id number] Regine Marcelino [facility] Main Office [address] [place] [address] 06/27/2023 17:00:09 06/27/2023 17:55:51 Health Concerns Section Related Observation LastModified by Organization Detai ls LastModified Time None Recorded Concern Status LastModified by Organization Details LastModified Time None Recorded Advance Directives Directive None Recorded Payers Insurance Date Sequence Insurance Name Policy Number Policy N[place] Covered Member ID Noland Member ID Guarantor Name 09/24/2023 1 [facility] [id number] Rakesh Strandquist [id number] Rakesh Strandquist Notes Date Note Type Note Provider Name and Address Organization Details Recorded Time 4 text/html Initial Provider Regulatory RequirementsReported mary.Provider Regulatory RequirementsI have verified that the patient is located in [facility] at time of this visit.; I [...] These were collected and documented by the [email or web address] providerDisposition*Pee hernandez.Provider Visit CompleteNo further follow up neededLevel2 Provider Medication changesReported mary.Medication changes during visit:No medication changes 48 y/o male with DM2. Diagnosed in 2011. He is followed by his endo every 3 months. Last endo visit in December 2022. He denies any current physical concerns/complaints at this time. MD alanna Cho, [place] - [facility] 03/10/2023 13:39:51 4 text/html Nurse Regulatory RequirementsReported mary.Nurse Regulatory RequirementsI have verified that the patient is located in [facility] at time of this visit. Regine mondragon [place] [facility] 05/12/2023 12:09:53 4 text/html Nurse Regulatory RequirementsReported mary.Nurse Regulatory RequirementsI have verified that the patient is located in [facility] at time of this visit.CGM DataReported [...] long have you been using a pump?2014; 291 started Omnipod 5 Have you had an [...]
--- NOTE | 2024-08-07 05:31 | WPDHPUPDATE1 ---
History and Physical Update Update Date/Time: 08/07/24 05:31 History and Physical has been reviewed, including an updated exam of the patient. There are NO changes in the patient's condition. Risks, benefits, and alternatives have been discussed and questions answered. Patient agrees to proceed with procedure.
--- NOTE | 2024-08-07 05:32 | P.OP_ITS ---
Procedure Note - Detailed Date of Procedure 08/07/24 Pre-op Diagnosis lumbosacral spondylosis Post-op Diagnosis Same Procedure Performed Thermal Radiofrequency Ablation of the Bilateral Lumbar Medial Branches/Dorsal Rami at the L3, L4, L5 Levels Treating the Bilateral L4-5, L5-S1 Facet Joints Under Fluoroscopic Guidance (4 Levels Treated). Surgeon Rakesh De La Fuente MD Hot Metal Crane Operator None. Anesthesia Local (w/ MAC) Description of Procedure INFORMED CONSENT: Risks, benefits and alternatives to the procedure were discussed in detail with the patient who expressed explicit understanding and consent to proceed. Patient was informed verbally and in written form regarding the risks associated with the procedure including the low risk of serious infection, bleeding/bruising, allergic reaction, nerve or organ injury, paralysis, procedural site pain or discomfort, worsening pain and/or mobility, failure to treat and/or disfigurement. The patient expressed explicit understanding and consent to proceed. All materials required for the procedure were available prior to procedure start. Site and side were marked prior to procedure and confirmed in the presence of the patient. PROCEDURE IN DETAIL: The patient was brought to the procedural suite and placed in the prone position. Patient was made comfortable with use of pillows under the head/chest, hips and ankles. ASA standard monitors were applied and used throughout the procedure. Skin overlying the injection site on the affected side(s) was prepared broadly with ChloraPrep applicator and draped in a sterile manner. Aseptic technique was used throughout. The endplates of the vertebral bodies at the site(s) of interest were aligned in the AP view. Ipsilateral oblique angulation was utilized to optimize visualization of the intersection between the superior articulating process and transverse process at each target site. Local anesthesia was established by infiltration with approximately 5 mL of 1% lidocaine via a 1-1/2 inch 27-gauge needle divided over each site treated. A 16-gauge 100mm Enviable Abodeian RF needle with curved 10mm active tip was advanced in the AP view until the needle tip contacted the periosteum at the target site, the right L3 medial branch. Lateral view was utilized to adjust and confirm the appropriate placement of the needle tip just anterior to the facet line, superior to the pedicle and posterior to the foramen. Grounding electrode was in place and functioning. The appropriately-sized RF cannula was inserted into the RF needle and motor stimulation was performed with no subjective or objective evidence of recruited muscle activity with stimulation up to 2.0 volts at a frequency of 2Hz. 1.5 mL of 2.0% PF lidocaine was injected after negative aspiration. After a 90s pause, lesioning was performed to 90 degrees centigrade for 90s ensuring lack of symptoms in the extremity throughout. Needle was rotated 180 degrees and lesioning repeated in a similar manner. Patient tolerated this well. No paresthesias were elicited. Needle was removed comp letely intact without difficulty. The same procedure was repeated for all intended levels/ structures on the ipsilateral side, right L4, L5 medial branch/dorsal ramus with identical methodology, modified to compensate for new location, with similar results and no evidence of complication. The same exact procedure was repeated for all remaining levels on the contralateral side, left L3, L4, L5 medial branches/dorsal ramus, modified as necessary to accommodate for the new target location with identical findings/results and no evidence of complication. Images were saved and documented in the patient chart. Patient's skin was cleansed and sterile bandage applied. The patient tolerated the procedure well. The patient was transported to the recovery area in stable condition where they were observed for an appropriate amount of time prior to discharge, without evidence of complication. The patient was instructed to avoid excessive activity for the next 48 hours, including climbing and frequent use of stairs. Showers only for 48 hours. They were instructed not to drive or operate heavy machinery for 24 hours. They are to monitor for severe headaches, fevers, chills, night sweats, erythema/swelling at the site or any other signs of infection, bleeding/bruising, bowel or bladder changes as well as new pain, weakness or numbness in the upper or lower extremity. Should they notice these changes, they are instructed to call our office immediately or report directly to the nearest Emergency Department if no answer or if after posted office hours. COMPLICATIONS: None COMMENTS: None Complications No immediate complications Condition Stable Disposition PACU [facility] Billing Surgery - Charge Forward: Surgery Billing
[2024-08-07 07:40] VITALS: BP 142/90; PULSE 80; RESP 20; TEMP 36.6; O2SAT 98
[2024-08-07] MEDS: LACTATED RINGERS 1,000 ML 30 ML IV CONT (08:05)
--- NOTE | 2024-08-07 08:44 | P.PNAN_ITS ---
Anes - Eval Pre Procedure Procedure: Operation Date: 08/07/24 09:30 Proposed Procedures p Thermal Radio Frequency Ablation of the Bilateral L3, L4, L5 Medial Branch/Dorsal Rami Addressing the Bilateral L4-5, S1 Facet Joints Under Fluoroscopic Guidance - Rakesh De La Fuente MD Date/Time: 08/07/24 08:44 Pre Op Diagnosis: lumbosacral spondylosis Patient Data Age: 49 Gender: M Height: 1.78 m Weight: 120.2 kg Last Vital Signs Temp 36.6 C 08/07/24 07:40 Pulse 80 08/07/24 07:40 Resp 20 08/07/24 07:40 BP 142/90 H 08/07/24 07:40 Pulse Ox 98 08/07/24 07:40 O2 Del Method Room Air 08/07/24 07:40 Allergies Allergy/AdvReac Type Severity Reaction Status Date / Time aspartame Allergy Severe THROAT Verified 08/07/24 08:10 SWELLING sucralose Allergy Intermediate sore Verified 08/07/24 08:10 throat, THROAT SWELLING Home Medications ?Medication ?Instructions ?Recorded ?Confirmed ?Type blood-glucose,parts room associate,cont #1 ea 07/06/19 08/01/24 History (Dexcom G6 Biological Inspector) albuterol sulfate 90 mcg/actuation 2 inh inhalation Q4H PRN shortness 02/23/21 08/01/24 Rx aerosol inhaler (ProAir HFA) of breath or wheezing #8.5 grams blood-glucose meter (Contour Next #1 ea 04/09/21 08/01/24 Rx Meter) escitalopram oxalate 10 mg tablet 10 mg PO DAILY #30 tabs 11/08/23 08/07/24 Rx (Lexapro) tamsulosin 0.4 mg capsule 0.4 mg PO QHS #90 caps 12/27/23 08/07/24 Rx omeprazole 40 mg capsule,delayed 40 mg PO DAILY #90 caps 01/09/24 08/07/24 Rx release fluticasone propionate 50 1 spray intranasal BID PRN allergy 02/20/24 08/01/24 History mcg/actuation nasal symptoms spray,suspension (Flonase Allergy Relief) atorvastatin 40 mg tablet 40 mg PO QHS #90 tabs 03/13/24 08/07/24 Rx dapagliflozin propanediol 10 mg 10 mg PO QAM 90 days #90 tabs 03/13/24 08/07/24 Rx tablet (Farxiga) glucagon 3 mg/actuation nasal 3 mg intranasal ONCE PRN 03/13/24 08/01/24 Rx spray (Baqsimi) hypoglycemia #1 ea insulin lispro 100 unit/mL 100 unit continuous subcutaneous 03/13/24 08/01/24 Rx subcutaneous solution (Humalog infusion DAILY #90 mL U-100 Insulin) insulin pump cart,automated,BT #45 ea 03/13/24 08/01/24 Rx metformin 500 mg tablet,extended 1,000 mg (2 x 500 mg) PO BID #360 03/13/24 08/07/24 Rx release 24 hr tabs amlodipine 10 mg tablet 10 mg PO DAILY #90 tabs 04/09/24 08/07/24 Rx Dexcom G6 Sensor (blood-glucose #9 ea 06/11/24 08/01/24 Rx sensor) Dexcom G6 Transmitter #1 ea 06/11/24 08/01/24 Rx (blood-glucose transmitter) tirzepatide 15 mg/0.5 mL 15 mg (0.5 mL) subcut WEEKLY 3 06/11/24 08/01/24 Rx subcutaneous pen injector months #6.5 mL (Mounjaro) tadalafil 5 mg tablet 5 mg PO DAILY sexual activity #90 06/13/24 08/01/24 Rx tabs cholecalciferol (vitamin D3) 1,250 1,250 mcg PO WEEKLY #14 tabs 07/05/24 08/07/24 Rx mcg (50,000 unit) tablet potassium chloride 20 mEq 20 meq PO BID 3 months #180 tabs 07/05/24 08/07/24 Rx tablet,extended release (K-Tab) irbesartan 300 1 tablet PO DAILY #90 tabs 07/09/24 08/07/24 Rx mg-hydrochlorothiazide 12.5 mg tablet Laboratory Tests 08/07/24 08:07 POC Capillary Glucose 156 H mg/dl (65-105) Patient hx anesthesia problems: none Family hx anesthesia problems: none Results Review: All pre-operative results and documents have been reviewed as part of the pre- operative evaluation. [facility] Past Medical History Medical History Nonproliferative diabetic retinopathy associated with type 2 diabetes mellitus (~06/11/24) mild nonproliferative diabetic retinopathy 06/11/2024. Intermittent lightheadedness New onset of headaches Localized swelling, mass and lump, left upper limb BPH without obstruction/lower urinary tract symptoms Left shoulder pain Paresthesia of both hands (~05/2023) overuse BMI 38.0-38.9,adult Chronic thoracic back pain X-ray of the thoracic spine on 01/24/2023 was unremarkable. Muscle soreness Tendinitis of left rotator cuff DJD of AC (acromioclavicular) joint Colon cancer screening patient reports normal colonoscopy within the last several years. Recheck in 10 years. BMI 37.0-37.9, adult Chiggers (~10/25/22) COVID-19 (04/26/22) 2nd episode 04/26/2022 with positive test 04/27/2022 Obesity (BMI 30-39.9) Screening for diabetic retinopathy no retinopathy 04/05/2022. Otalgia of both ears Sensation of fullness in both ears Mild peripheral edema edema secondary to amlodipine 10 mg daily Hypersomnia (~2021) Chronic eustachian tube dysfunction TMJ (temporomandibular joint syndrome) (~2021) Morbid obesity with BMI of 40.0-44.9, adult Rotator cuff tendonitis Right shoulder pain Otitis media Type 2 diabetes mellitus with other skin ulcer Diabetic skin ulcer Non-healing wound Allergic conjunctivitis Seasonal allergic rhinitis Acute sinusitis, unspecified Hyperlipidemia LDL goal <100 Acute bronchitis (~02/02/21) Chest x-ray normal 02/23/2021 Vitamin B12 deficiency anemia (07/16/20) vitamin B12 level low at 343 with goal greater than 400 on 07/16/2020. Vitamin B12 low at 376 with goal greater than 400 with folic acid 12.9 and hemoglobin 14.5 on 06/25/2022. BMI 40.0-44.9, adult Gastritis (~12/08/20) Major depression (~06/2020) High thyroid stimulating hormone (TSH) level TSH normal at 3.47 on 06/25/2022. BMI 39.0-39.9,adult Deep vein thrombosis (DVT) of left lower extremity (04/22/20) COVID-19 (03/28/20) Exposure to COVID-19 virus Left knee pain Hypokalemia Potassium low at 3.1 on 06/25/2022. Biceps rupture, distal Acromioclavicular joint arthritis Chronic low back pain with right-sided sciatica X-ray of the lumbar spine on 01/24/2023 reveals severe lumbar spondylosis with facet arthropathy. Multilevel degenerative disc disease on x-ray 10/17/2023. Acute non-recurrent maxillary sinusitis skilled nursing (current) use of insulin Type 2 diabetes mellitus with hyperglycemia, with long-term current use of insulin Fasting glucose 138 on 06/25/2022 with hemoglobin A1c 5.6 on 06/17/2022. Surgical History Surgical History History of removal of cyst History of total left knee replacement (TKR) History of knee surgery History of appendectomy Family History Family History Grandparent Family history of arthritis Diabetes mellitus Mother Family history of congestive heart failure Family history of heart disease in male family member before age 55 Father Family history of heart disease in male family member before age 55 Other Family history of cardiovascular disease Family history of malignant neoplasm Social History Social History Smoking status: Never smoker Second hand tobacco smoke exposure: Yes Alcohol intake: never Substance use: never Substance use type: does not use Lack of Transportation: No Lack of Food: Sometimes True Current Housing: I Have Housing Concerned About Future Housing: No Difficulty Paying Gas/Electric Bills: No Difficulty Paying for Meds: No Currently Unemployed: No Education: High School Diploma/GED Difficulty w/ Childcare or Family Care: No Living arrangements: with family Spiritual care concerns: No Exam Day of Procedure 08/07/24 08:44 Patient weight: obese Heart: regular rate and rhythm Lungs: clear to auscultation Airway: Mallampati scale class II Neurological: alert and oriented
--- NOTE | 2024-08-07 08:45 | P.PNAN_ITS ---
Anes - Initial Pre Proc Eval Procedure: Operation Date: 08/07/24 09:30 Proposed Procedures p Thermal Radio Frequency Ablation of the Bilateral L3, L4, L5 Medial Branch/Dorsal Rami Addressing the Bilateral L4-5, S1 Facet Joints Under Fluoroscopic Guidance - Rakesh De La Fuente MD Date/Time: 08/07/24 08:45 Surgeon: Rakesh De La Fuente MD Pre Op Diagnosis: lumbosacral spondylosis Patient Data Age: 49 Gender: M Height: 1.78 m Weight: 120.2 kg Last Vital Signs Temp 36.6 C 08/07/24 07:40 Pulse 80 08/07/24 07:40 Resp 20 08/07/24 07:40 BP 142/90 H 08/07/24 07:40 Pulse Ox 98 08/07/24 07:40 O2 Del Method Room Air 08/07/24 07:40 Allergies Allergy/AdvReac Type Severity Reaction Status Date / Time aspartame Allergy Severe THROAT Verified 08/07/24 08:10 SWELLING sucralose Allergy Intermediate sore Verified 08/07/24 08:10 throat, THROAT SWELLING Home Medications ?Medication ?Instructions ?Recorded ?Confirmed ?Type blood-glucose,fare collector,cont #1 ea 07/06/19 08/01/24 History (Dexcom G6 Corporate Travel Counselor) albuterol sulfate 90 mcg/actuation 2 inh inhalation Q4H PRN shortness 02/23/21 08/01/24 Rx aerosol inhaler (ProAir HFA) of breath or wheezing #8.5 grams blood-glucose meter (Contour Next #1 ea 04/09/21 08/01/24 Rx Meter) escitalopram oxalate 10 mg tablet 10 mg PO DAILY #30 tabs 11/08/23 08/07/24 Rx (Lexapro) tamsulosin 0.4 mg capsule 0.4 mg PO QHS #90 caps 12/27/23 08/07/24 Rx omeprazole 40 mg capsule,delayed 40 mg PO DAILY #90 caps 01/09/24 08/07/24 Rx release fluticasone propionate 50 1 spray intranasal BID PRN allergy 02/20/24 08/01/24 History mcg/actuation nasal symptoms spray,suspension (Flonase Allergy Relief) atorvastatin 40 mg tablet 40 mg PO QHS #90 tabs 03/13/24 08/07/24 Rx dapagliflozin propanediol 10 mg 10 mg PO QAM 90 days #90 tabs 03/13/24 08/07/24 Rx tablet (Farxiga) glucagon 3 mg/actuation nasal 3 mg intranasal ONCE PRN 03/13/24 08/01/24 Rx spray (Baqsimi) hypoglycemia #1 ea insulin lispro 100 unit/mL 100 unit continuous subcutaneous 03/13/24 08/01/24 Rx subcutaneous solution (Humalog infusion DAILY #90 mL U-100 Insulin) insulin pump cart,automated,BT #45 ea 03/13/24 08/01/24 Rx metformin 500 mg tablet,extended 1,000 mg (2 x 500 mg) PO BID #360 03/13/24 08/07/24 Rx release 24 hr tabs amlodipine 10 mg tablet 10 mg PO DAILY #90 tabs 04/09/24 08/07/24 Rx Dexcom G6 Sensor (blood-glucose #9 ea 06/11/24 08/01/24 Rx sensor) Dexcom G6 Transmitter #1 ea 06/11/24 08/01/24 Rx (blood-glucose transmitter) tirzepatide 15 mg/0.5 mL 15 mg (0.5 mL) subcut WEEKLY 3 06/11/24 08/01/24 Rx subcutaneous pen injector months #6.5 mL (Mounjaro) tadalafil 5 mg tablet 5 mg PO DAILY sexual activity #90 06/13/24 08/01/24 Rx tabs cholecalciferol (vitamin D3) 1,250 1,250 mcg PO WEEKLY #14 tabs 07/05/24 08/07/24 Rx mcg (50,000 unit) tablet potassium chloride 20 mEq 20 meq PO BID 3 months #180 tabs 07/05/24 08/07/24 Rx tablet,extended release (K-Tab) irbesartan 300 1 tablet PO DAILY #90 tabs 07/09/24 08/07/24 Rx mg-hydrochlorothiazide 12.5 mg tablet Laboratory Tests 08/07/24 08:07 POC Capillary Glucose 156 H mg/dl (65-105) Patient hx anesthesia problems: none Family hx anesthesia problems: none Results Review: All pre-operative results and documents have been reviewed as part of the pre- operative evaluation. [facility] Past Medical History Medical History Nonproliferative diabetic retinopathy associated with type 2 diabetes mellitus (~06/11/24) mild nonproliferative diabetic retinopathy 06/11/2024. Intermittent lightheadedness New onset of headaches Localized swelling, mass and lump, left upper limb BPH without obstruction/lower urinary tract symptoms Left shoulder pain Paresthesia of both hands (~05/2023) overuse BMI 38.0-38.9,adult Chronic thoracic back pain X-ray of the thoracic spine on 01/24/2023 was unremarkable. Muscle soreness Tendinitis of left rotator cuff DJD of AC (acromioclavicular) joint Colon cancer screening patient reports normal colonoscopy within the last several years. Recheck in 10 years. BMI 37.0-37.9, adult Chiggers (~10/25/22) COVID-19 (04/26/22) 2nd episode 04/26/2022 with positive test 04/27/2022 Obesity (BMI 30-39.9) Screening for diabetic retinopathy no retinopathy 04/05/2022. Otalgia of both ears Sensation of fullness in both ears Mild peripheral edema edema secondary to amlodipine 10 mg daily Hypersomnia (~2021) Chronic eustachian tube dysfunction TMJ (temporomandibular joint syndrome) (~2021) Morbid obesity with BMI of 40.0-44.9, adult Rotator cuff tendonitis Right shoulder pain Otitis media Type 2 diabetes mellitus with other skin ulcer Diabetic skin ulcer Non-healing wound Allergic conjunctivitis Seasonal allergic rhinitis Acute sinusitis, unspecified Hyperlipidemia LDL goal <100 Acute bronchitis (~02/02/21) Chest x-ray normal 02/23/2021 Vitamin B12 deficiency anemia (07/16/20) vitamin B12 level low at 343 with goal greater than 400 on 07/16/2020. Vitamin B12 low at 376 with goal greater than 400 with folic acid 12.9 and hemoglobin 14.5 on 06/25/2022. BMI 40.0-44.9, adult Gastritis (~12/08/20) Major depression (~06/2020) High thyroid stimulating hormone (TSH) level TSH normal at 3.47 on 06/25/2022. BMI 39.0-39.9,adult Deep vein thrombosis (DVT) of left lower extremity (04/22/20) COVID-19 (03/28/20) Exposure to COVID-19 virus Left knee pain Hypokalemia Potassium low at 3.1 on 06/25/2022. Biceps rupture, distal Acromioclavicular joint arthritis Chronic low back pain with right-sided sciatica X-ray of the lumbar spine on 01/24/2023 reveals severe lumbar spondylosis with facet arthropathy. Multilevel degenerative disc disease on x-ray 10/17/2023. 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 Surgical History Surgical History History of removal of cyst History of total left knee replacement (TKR) History of knee surgery History of appendectomy Family History Family History Grandparent Family history of arthritis Diabetes mellitus Mother Family history of congestive heart failure Family history of heart disease in male family member before age 55 Father Family history of heart disease in male family member before age 55 Other Family history of cardiovascular disease Family history of malignant neoplasm Social History Social History Smoking status: Never smoker Second hand tobacco smoke exposure: Yes Alcohol intake: never Substance use: never Substance use type: does not use Lack of Transportation: No Lack of Food: Sometimes True Current Housing: I Have Housing Concerned About Future Housing: No Difficulty Paying Gas/Electric Bills: No Difficulty Paying for Meds: No Currently Unemployed: No Education: High School Diploma/GED Difficulty w/ Childcare or Family Care: No Living arrangements: with family Spiritual care concerns: No Anes - Eval Final PreProcedure Day of Procedure 08/07/24 08:45 Patient weight: obese Heart: regular rate and rhythm Lungs: decreased breath sounds Airway: Mallampati scale class II Neurological: alert and oriented Last oral intake: >/= 8 hours ASA classification: III Emergent: no Anesthetic plan: proceed Anesthesia type and monitoring: monitored anesthesia care and standard monitoring Results Review: All pre-operative results and documents have been reviewed as part of the pre- operative evaluation. Informed Consent: The patient's anesthetic plan and its attendant risks and benefits were discussed with the patient/family/POA. Questions were solicited and answers provided to the satisfaction of the patient/family/POA.
[2024-08-07] MEDS: LIDOCAINE 2% PF LOCAL INJ 5 ML VIAL 10 ML INFILTRATE (09:22)
[2024-08-07] MEDS: LIDOCAINE 1% PF INJ 5 ML VIAL INFILTRATE (09:23)
[2024-08-07 09:35] VITALS: BP 130/76; PULSE 75; RESP 14; O2SAT 95
[2024-08-07 10:00] VITALS: BP 129/82; PULSE 71; RESP 14; O2SAT 95
[2024-08-07 10:20] VITALS: BP 126/72; PULSE 70; RESP 14
== END 2024-08-07 10:26 | disposition home or self-care (01) ==
PROVIDERS: PCP Family Medicine; Visit Provider Anesthesiology Pain Medicine
PROC: (CPT 64635; principal; 2024-08-07 09:30)
DX: M47.817 Spondylosis without myelopathy or radiculopathy, lumbosacral region (principal); M54.50 Low back pain, unspecified; G89.29 Other chronic pain
CPT/HCPCS: 64635; 64636 ×6; 82948; 99199; J1885; J2003; J2250; J3010; J7120

== ENCOUNTER 2024-08-15 15:50 | Outpatient (CLI) | payer OTHER, SELFPAY ==
--- NOTE | ~2024-08-15 | CT_ITS ---
Non-contrast Head CT History: Headache Technique: Axial non-contrast imaging of the brain was performed. Dose reduction technique was used on this scan by utilizing automated exposure control and iterative reconstruction technique. The dose -length product (DLP) was 681.00 mGy-cm. Findings: There is no evidence of intracranial hemorrhage, mass lesion, or acute infarct. Brain par enchyma appears normal. The ventricles and subarachnoid spaces are normal in size. The calvarium ap pears normal. The visualized paranasal sinuses and mastoid air cells are clear. Impression: No significant abnormality seen. Reviewed, dictated and finalized at location . Impression: No significant abnormality seen.
--- OUTSIDE RECORDS SUMMARY | 2024-08-15 15:53 | XMS_ITS | Clinical Summary ---
Author Organization [facility] Address [address] [place] [address] Care Team Providers Care Ships Equipment Engineer Name Role Phone Rebel López MD Primary Care Provider [phone] Allergies No known active allergies Medications blood-glucose [...] every 7 days Active cholecalciferol (VITAMIN D-3) 32215 unit tabletIndication s:Vitamin D Deficiency Take 1 [...] (10/23/2019): Added automatically from request for surgery [id number] Left knee pain 10/23/2019 Hypertension 08/08/2012 Calculus of kidney 03/28/2012 Hiatal hernia 03/28/2012 Acid phosphatase serum increased 03/28/2012 Simple obesity 03/28/2012 Type 2 diabetes mellitus 03/28/2012 Loose body of knee 03/23/2011 Osteoarthritis of knee 03/04/2011 Encounters Date Type Department Care Team Description 07/27/2024 9:00 AM CDT Office Visit [facility] Orthopaedic Surgery [address] [place] [address] [address] [place] [address] Kathia Garza PA Chronic pain of left knee (Primary Dx); History of total knee arthroplasty, left; Iliotibial band tendonitis, left 07/27/2024 8:30 AM CDT Ancillary Procedure Radiology - [address] [place] [address] [address] [place] [address] Chronic pain of left knee from Last 3 Months Immunizations Immunization Administration Dates Next Due Influenza, Quadrivalent, Spl it, Preservative Free, Intramuscular 12/11/2019 Surgical History Surgery Date Site/Laterality Comments APPENDECTOMY Appendectomy - (Added by TW Conv) ND UNLISTED PROCEDURE FEMUR/KNEE Treatment Of The Knee [...] on file Legal 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 Gender Identity Not on file Sexual Orientation Not on file Obstetrics History Last Filed Vital Signs Vital Sign Reading Time Taken Comments Blood Pressure 152/119 04/22/2020 2:01 PM CDT Pulse 98 04/22/2020 2:01 PM CDT Temperature 36.4 C (97.5 F) 12/11/2019 8:59 AM ECONOMETRICS PROFESSOR Respiratory Rate 20 04/22/2020 2:01 PM CDT [...] 21, 12/11/2019 Medical Devices Implanted Type Area Volunteer Services Supervisor Device Identifier Shelf Expiration Date Model / Serial / Lot Laverne [employer] [id number] Persona Cruciate Retain Knee Left 7 Standard Component Femoral - Sna - [id number] Implanted:Qty: 1 on 12/10/2019 by Dilip Young MD at [facility] Other - see comments Left: Knee Laverne [employer] [id number] 08/06/2029 [id number] / NA / [id number] Laverne [employer] [id number] Persona 2 Peg Knee Left F Baseplate Tibial Trabecular Metal - Sna - [id number] Implanted:Qty: 1 on 12/10/2019 by Dilip Young MD at [facility] Other - see comments Left: Knee [employer] [id number] 09/10/2029 [id number] / NA / [id number] La[employer]ne [employer] [id number] Persona 10mm Knee Left Insert Articular Vivacit-E Sterile Latex Free - Sna - [id number] Implanted:Qty: 1 on 12/10/2019 by Dilip Young MD at [facility] Other - see comments Left: Knee [employer] [id number] 01/07/2024 [id number] / NA / [id number] Procedures Procedure Name Priority Date/Time Associated Diagnosis [...] CDT) eGFR >90 mL/min/1.7 3 m2 [facility] Comment: Interpretive Data Reference Interval Normal [...] LAB BLOOD ORDERABLES Final Res ult [facility] [address] [place] [address] * (ABNORMAL) Hemoglobin A1c (11/06/2019 9:47 AM CDT) Hgb A1C 8.4(H) 4.0 - 5.6 % [facility] Comment:Testing performed by : [facility], [address] [place] [address]., [address] Estimated Average Glucose 194 mg/dL [facility] Comment: The ADA recommends reporting an estimated Average Glucose (eAG) with all Hemoglobin A1c results using the equation derived from a study of 507 normal and diabetic adults. Minority populations were underrepresented and children were not included. (Diabetes Care 31:7915-1291, 2008). The eAG is not equivalent to a fasting glucose. Testing performed by: [facility], [address] [place] [address]., [address] Blood specimen (specimen) 11/06/2019 9:47 AM CDT 11/06/2019 11:42 AM CDT us Dilip Young MD LAB BLOOD ORDERABLES Final Result Performing Organization Address [facility] Co de Phone Number [facility] [address] [place] [address] from Last 3 Months or Most Recently Relevant to Health Maintenance Insurance [facility] [id number] [place] [address] [facility] HMO/PPO Address: [facility] [id number] [place] [address] [facility] Advance Directives For more information, please contact: [phone] * Full Code (Latest Code Status on File) Date Activated Date Inactivated Comments 12/10/2019 10:05 AM 12/11/2019 4:25 PM Care Teams Ships Equipment Engineer Relationship Specialty Start Date End Date Rebel López MD [address] [address] PCP - General Family Medicine 10/23/19
--- OUTSIDE RECORDS SUMMARY | 2024-08-15 15:53 | XMS_ITS | Referral Summary ---
Author Organization [facility] Address [address] [place] [address] Care Team Providers Care Cone Cleaner Name Role Phone Rebel López MD Primary Care Provider [phone] Encounters Date Type Department Care Team Description 07/27/2024 8:30 AM CDT Ancillary Procedure Radiology - [address] [place] [address] [address] [place] [address] Chronic pain of left knee 07/27/2024 9:00 AM CDT Office Visit [facility] Orthopaedic Surgery [address] [place] [address] [address] [place] [address] [place]ia [place], [place] Chronic pain of left knee (Primary [...] every 7 days Active cholecalciferol (VITAMIN D-3) 96463 unit tabletIndication s:Vitamin D Deficiency Take 1 [...] (10/23/2019): Added automatically from request for surgery [id number] Left knee pain 10/23/2019 Hypertension 08/08/2012 Calculus [...] on file 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 Gender Identity Not on file Sexual Orientation Not on file Last Filed Vital Signs Vital Sign Reading Time Taken Comments Blood Pressure 152/119 04/22/2020 2:01 PM CDT Pulse 98 04/22/2020 2:01 PM CDT Temperature 36.4 C (97.5 F) 12/11/2019 8:59 AM STATISTICAL METHODS PROFESSOR Respiratory Rate 20 04/22/2020 2:01 PM CDT Oxygen Saturation 98% 04/22/2020 2:01 PM CDT Inhaled Oxygen Concentration - - Weight 118 kg (260 lb 3.2 oz) 07/27/2024 9:00 AM CDT Height 177.8 cm (5' 10) 07/27/2024 9:00 AM CDT Body Mass Index 37.33 07/27/2024 9:00 AM CDT Plan of Treatment Not on file Medical Devices Implanted Type Area Chrome Plater Helper Device Identifier Shelf Expiration Date Model / Serial / Lot [employer] [id number] Persona Cruciate Retain Knee Left 7 Standard Component Femoral - Sna - [id number] Implanted:Qty: 1 on 12/10/2019 by Dilip Young MD at [facility] Other - see comments Left: Knee [employer] [id number] 08/06/2029 [id number] / NA / [id number] Laverne [employer] [id number] Persona 2 Peg Knee Left F Baseplate Tibial Trabecular Metal - Sna - [id number] Implanted:Qty: 1 on 12/10/2019 by Dilip Young MD at [facility] Other - see comments Left: Knee [employer] [id number] 09/10/2029 [id number] / NA / [id number] [employer] [id number] Persona 10mm Knee Left Insert Articular Vivacit-E Sterile Latex Free - Sna - [id number] Implanted:Qty: 1 on 12/10/2019 by Dilip Young MD at [facility] Other - see comments Left: Knee [employer] [id number] 01/07/2024 [id number] / NA / [id number] Procedures Procedure Name Priority Date/Time Associated Diagnosis [...] ORDERABLES Final Res ult Performing Organization Address [facility] Co de Phone Number [facility] [address] [address] [place] [address] * (ABNORMAL) Hemoglobin A1c (11/06/2019 9:47 AM CDT) [facility] Hgb A1C 8.4(H) 4.0 - 5.6 % [facility] Comment:Testing performed by : [facility], [address] [place] [address]., [address] Estimated Average Glucose 194 mg/dL [facility] Comment: The ADA recommends reporting an estimated Average Glucose (eAG) with all Hemoglobin A1c results using the equation derived from a study of 507 normal and diabetic adults. Minority populations were underrepresented and children were not included. (Diabetes Care 31:1344-1724, 2008). The eAG is not equivalent to a fasting glucose. Testing performed by: [facility], [address] [place] [address]., [address] Blood specimen (specimen) 11/06/2019 9:47 AM CDT 11/06/2019 11:42 AM CDT us Dilip Young MD LAB BLOOD ORDERABLES Final Result Performing Organization Address City/[facility]/ZIP Co de Phone Number [facility] [address] [place] [address] from Last 3 Months or Most Recently Relevant to Health Maintenance Insurance [facility] CHOICE PLUS [facility] OPEN ACCESS [facility] CHOICE PLUS Advance Directives For more information, please contact: [phone] * Full Code (Latest Code Status on File) Date Activated Date Inactivated Comments 12/10/2019 10:05 AM 12/11/2019 4:25 PM Care Teams Cone Cleaner Relationship Specialty Start Date End Date Rebel López MD [address] [address] PCP - General Family Medicine 10/23/19
--- OUTSIDE RECORDS SUMMARY | 2024-08-15 15:54 | XMS_ITS | Data Portability ---
Author Organization [place] - [facility], [address] Office Address [address] [place] [address] Care Team Providers Care Train Dispatcher Name Role Phone CARLITO HOLLAND Primary Care Provider [phone] [facility] - ENDOCRINOLOGY Endocrino logist Assessment No [...] By Organization Details Last Modified Time 03/10/2023 [id number] It was nice to m eet you [...] or care. Not available 03/10/2023 13:28:32 05/04/2023 [id number] . [email or web address] Not available 04/08 17:06:21 05/12/2023 [id number] . [email or web address] Not available 05/2023 12:09:46 06/27/2023 [id number] . Care Team Note Detention Goal ( 2023): Get BG in [facility]; [...] had lots of education since Dx; sees clinical trial educator at Endo/ sees Endo every 3 [...] f/u appt milly for 09/26/23 at 4pm [email or web address] Not available 06/27/2023 17:54:33 Reason for Referral None Reported. Problems Name Problem SNOMED Code Status Onset Date Resolution Date Notes Provider Name and Address Organization Details Recorded Time Type 2 diabetes mellitus without complication 414074712 Active 2011 Regine mondragon [place] - [facility] 4 17:01:45 Essential hypertension 05934118 Active 2023 MD alanna Cho, [place] - [facility] Services 4 13:33:14 Anxiety 45447601 Active 2023 MD alanna Cho, [place] - [facility] Services 4 13:34:33 Benign prostatic hyperplasia without outflow obstruction 547470098 Active 2023 Joe Lemus MD [facility], [facility] Level 2 Medical Services 4 13:36:16 Gastroesophage al reflux disease 671434147 Active 2023 Joe Lemus MD [facility], [facility] Level 2 Medical Services 13:36:48 Problem Notes None recorded. Procedures Surgical History Date Name Laterality Status Provider Name and Address Organization Details Recorded Time 06/20/19 total knee replacement completed Regine Benson [facility] 2 Medical Services 06/27/2023 17:02:36 Appendectomy completed Regine Benson [facility] 2 Medical Services 06/27/2023 17:02:55 Imaging Results [...] Updated DateTime 03/10/2023 177.8 cm 35.2 kg/m2 241219.13 jordin Lemus MD [facility] Level 2 Medical Services 03/10/2023 13:30:23 Date Recorded Body height Provider Name an d Address Organization Details Last Updated DateTime 05/12/2023 177.8 cm Regine Benson [place] - [facility] 2 Vt dical Services 05/12/2023 12:08:33 Date Recorded Body height Body mass index (BMI) Body weight Provider Name and Address Organization Details Last Updated DateTime 06/27/2023 177.8 cm 33.7 kg/m2 851415.21 jordin Benson [facility] Level 2 Medical Services 06/27/2023 17:21:47 Social History Question Answer Notes LastModified by Organizat ion Details LastModified Time Tobacco Smoking Status Never Smoker Joe Lemus MD [facility], [facility] Level 2 Medical Services 03/10/2023 13:24:09 What Is Your Level Of Caffeine Consumption? 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 Gomes confirms he has DM2. He will be sent a L2 welcome kit. F/U PRN. [id number] Regine Benson [facility] Main Office [id number] [place] [address] 05/04/2023 17:01:08 05/04/2023 17:07:08 [id number] Regine Benson [facility] Main Office [id number] [place] [address] 05/12/2023 12:03:50 05/12/2023 12:10:00 [id number] Regine Marcelino [facility] Main Office [id number] [place] [address] 06/27/2023 17:00:09 06/27/2023 17:55:51 Health Concerns Section Related Observation LastModified by Organization Detai ls LastModified Time None Recorded Concern Status LastModified by Organization Details LastModified Time None Recorded Advance Directives Directive None Recorded Payers Insurance Date Sequence Insurance Name Policy Number Policy N[place]and Covered Member ID Noland Member ID Guarantor Name 09/24/2023 1 [facility] [id number] Rakesh Rock [id number] Rakesh Rock Notes Date Note Type Note Provider Name and Address Organization Details Recorded Time 4 text/html Initial Provider Regulatory RequirementsReported mary.Provider Regulatory RequirementsI have verified that the patient is located in [facility] at time of this visit.; [...] These were collected and documented by the [facility] providerDisposition*Pee hernandez.Provider Visit CompleteNo further follow up neededLevel2 Provider Medication changesReported mary.Medication changes during visit:No medication changes 48 y/o male with DM2. Diagnosed in 2011. He is followed by his endo every 3 months. Last endo visit in December 2022. He denies any current physical concerns/complaints at this time. MD alanna Cho, [place] - [facility] Services 03/10/2023 13:39:51 4 text/html Nurse Regulatory RequirementsReported mary.Nurse Regulatory RequirementsI have verified that the patient is located in [facility] at time of this visit. Regine mondragon [place] - [facility] 05/12/2023 12:09:53 4 text/html Nurse Regulatory RequirementsReported mary.Nurse Regulatory RequirementsI have verified that the patient is located in [facility] at time of this visit.CGM [...]
== END 2024-08-15 15:51 | disposition home or self-care (01) ==
PROVIDERS: PCP Family Medicine; Visit Provider Family Medicine
DX: R51.9 Headache, unspecified (principal); R42 Dizziness and giddiness
CPT/HCPCS: 70450

== ENCOUNTER 2024-09-01 07:59 | Outpatient (CLI) | payer OTHER, SELFPAY ==
--- NOTE | ~2024-09-01 | MR_ITS ---
MRI of the lumbar spine Clinical History: Pain Technique: Axial T2-weighted images, and sagittal T1-weighted, T2-weighted, and T2 fat-sat images wer e acquired. Findings: There is no fracture in the lumbar spine. There is minimal grade 1 anterolisthesis of L1 ov er L2, and of L2 over L3. No suspicious bone marrow signal abnormality seen. At L1-L2, there is advanced degenerative disc narrowing with minimal disc bulge and mild facet arthro mike. No central canal stenosis. Neural foramina are preserved. At L2-L3, there is mild degenerative disc narrowing with disc bulge and mild to moderate facet arthro mike. No central canal stenosis or neural foraminal narrowing. At L3-L4, there is mild diffuse disc bulge with mild to moderate facet arthropathy. There is mild the nataliya sac compression/central canal stenosis. There is mild left neural foraminal narrowing. There is a dvanced right neural foraminal narrowing. At L4-L5, there is mild disc bulge with severe facet arthropathy. No seth central canal stenosis. Th ere is mild bilateral neural foraminal narrowing. At L5-S1, there is minimal disc bulge with moderate facet arthropathy. No central canal stenosis or n eural foraminal narrowing. Paravertebral soft tissues are unremarkable. Impression: Moderate degenerative spondylosis overall, as detailed above. Reviewed, dictated and finalized at [facility]. Impression: Moderate degenerative spondylosis overall, as detailed above.
== END 2024-09-01 08:00 | disposition home or self-care (01) ==
LOC: MICIMG 08:00
PROVIDERS: PCP Family Medicine; Visit Provider Anesthesiology Pain Medicine
DX: M47.816 Spondylosis without myelopathy or radiculopathy, lumbar region (principal); M54.51 Vertebrogenic low back pain
CPT/HCPCS: 72148